=== PATIENT | female | born 1960 | race Caucasian/White ===

== ENCOUNTER → 2017-10-26 16:30 | Outpatient (CLI) | payer SELFPAY ==
--- NOTE | 2017-10-26 16:32 | US_ITS ---
STUDY: RENAL ULTRASOUND - COMPLETE REASON FOR EXAM: Female, 57 years old. Urinary frequency, flank pain TECHNIQUE: Ultrasound evaluation of the kidneys was performed with real-time and static jones-scale imaging. COMPARISON: None. FINDINGS: RIGHT KIDNEY: Normal location of the right kidney, which is normal in size. The right kidney measures 11.1 x 4.9 x 4.7 cm. There is a normal cortex of the right kidney. The renal cortex measures 1.6 cm. There is no right renal mass or cyst. There are no right renal calculi. There is no right hydronephrosis. DISTAL RIGHT URETER: There is non-visualization of the distal right ureter. There is a visualized right ureteral jet. LEFT KIDNEY: Normal location of the left kidney, which is normal in size. The left kidney measures 11.0 x 4.6 x 4.8 cm. There is a normal cortex of the left kidney. The renal cortex measures 2.0 cm. There is no left renal mass or cyst. There are no left renal calculi. There is no left hydronephrosis. DISTAL LEFT URETER: There is non-visualization of the distal left ureter. There is a visualized left ureteral jet. BLADDER: The partially distended urinary bladder has a volume of 46 ml. No postvoid residual. There is a normal wall thickness of the distended urinary bladder. There is no demonstrated mass within the urinary bladder. There are no demonstrated bladder calculi. US/Kidney and Bladder IMPRESSION: Normal ultrasound of the kidneys and urinary bladder. Electronically Signed: Jimmy Feng DO at 18:15 EST Tel [phone], Service support ,
== END ==
PROVIDERS: Family Provider Family Medicine; PCP Family Medicine; Visit Provider Family Medicine
DX: R35.0 Frequency of micturition (principal)
CPT/HCPCS: 76770

== ENCOUNTER 2018-07-05 11:30 | Outpatient (RCR) | payer OTHER, SELFPAY | END 2018-07-13 23:59 | LOC: NS 11:30 | PROVIDERS: Family Provider Family Medicine; PCP Family Medicine; Visit Provider Family Medicine | DX: E66.9 Obesity, unspecified (principal); Z68.35 Body mass index [BMI] 35.0-35.9, adult; R73.9 Hyperglycemia, unspecified; Z71.3 Dietary counseling and surveillance | CPT/HCPCS: 97802; 97803 ==

== ENCOUNTER 2018-07-26 12:56 | Outpatient (RCR) | payer OTHER, SELFPAY | END 2018-08-12 23:59 | LOC: NS 12:56 | PROVIDERS: Family Provider Family Medicine; PCP Family Medicine; Visit Provider Family Medicine | DX: E66.9 Obesity, unspecified (principal); Z68.35 Body mass index [BMI] 35.0-35.9, adult; R73.9 Hyperglycemia, unspecified; Z71.3 Dietary counseling and surveillance | CPT/HCPCS: 97803 ==

== ENCOUNTER 2018-09-01 15:30 | Outpatient (RCR) | payer OTHER, SELFPAY ==
[2017-09-09 10:07] VITALS: BMI 32.9
== END 2018-09-12 23:59 ==
LOC: NS 15:30
PROVIDERS: Family Provider Family Medicine; PCP Family Medicine; Visit Provider Family Medicine
DX: E66.9 Obesity, unspecified (principal); Z68.35 Body mass index [BMI] 35.0-35.9, adult; R73.9 Hyperglycemia, unspecified; Z71.3 Dietary counseling and surveillance
CPT/HCPCS: 97803

== ENCOUNTER 2018-09-27 11:45 | Outpatient (RCR) | payer OTHER, SELFPAY ==
[2017-09-09 10:07] VITALS: BMI 32.9
== END 2018-10-13 23:59 ==
LOC: NS 11:45
PROVIDERS: Family Provider Family Medicine; PCP Family Medicine; Visit Provider Family Medicine
DX: E66.9 Obesity, unspecified (principal); Z68.35 Body mass index [BMI] 35.0-35.9, adult; R73.9 Hyperglycemia, unspecified; Z71.3 Dietary counseling and surveillance
CPT/HCPCS: 97803

== ENCOUNTER → 2018-10-20 13:23 | Outpatient (CLI) | payer OTHER, SELFPAY ==
[2017-09-09 10:07] VITALS: BMI 32.9
[2018-10-20 15:04] LABS: Thyroid Stim Hormone (TSH) 4.37 uIU/mL (0.358-3.74)
== END ==
PROVIDERS: Family Provider Family Medicine; PCP Family Medicine; Referring Provider Physician Assistant; Visit Provider Physician Assistant
DX: E03.9 Hypothyroidism, unspecified (principal)
CPT/HCPCS: 36415; 84443

== ENCOUNTER 2018-10-27 16:29 | Outpatient (RCR) | payer OTHER, SELFPAY ==
[2017-09-09 10:07] VITALS: BMI 32.9
== END 2018-11-10 23:59 ==
LOC: NS 16:29
PROVIDERS: Family Provider Family Medicine; PCP Family Medicine; Visit Provider Family Medicine
DX: E66.9 Obesity, unspecified (principal); Z68.35 Body mass index [BMI] 35.0-35.9, adult; R73.9 Hyperglycemia, unspecified; Z71.3 Dietary counseling and surveillance
CPT/HCPCS: 97803

== ENCOUNTER 2019-01-02 12:00 | Outpatient (RCR) | payer OTHER, SELFPAY ==
[2017-09-09 10:07] VITALS: BMI 32.9
[2018-11-30 16:07] VITALS: BMI 35.2
== END 2019-01-02 13:55 | disposition home or self-care (01) ==
LOC: NS 12:00
PROVIDERS: Family Provider Family Medicine; PCP Family Medicine; Visit Provider Family Medicine
DX: E66.9 Obesity, unspecified (principal); R73.9 Hyperglycemia, unspecified; Z71.3 Dietary counseling and surveillance; Z68.35 Body mass index [BMI] 35.0-35.9, adult
CPT/HCPCS: 97803

== ENCOUNTER 2019-02-27 12:41 | Day surgery (SDC) | payer OTHER, SELFPAY ==
[2018-11-30 16:07] VITALS: BMI 35.2
--- NOTE | 2019-02-26 21:19 | HP.PCM_ITS ---
History and Physical Date of Admission: 02/27/19 Jacqueline Reynoso 1960 ? ? REFERRING PHYSICIAN: Cristian Velasquez MD ? CHIEF COMPLAINT: Consult (Colonoscopy consult) ? HPI: The patient is a 58 year old female presents for consideration of colonoscopy for screening for colon cancer. She states that she has had change in bowel habits recently, noted alternating constipation with diarrhea, though she was on antibiotics for UTI. Denies blood in stools. Notes generalized abdominal pain at times. Denies previous colonoscopy. No known colon cancer in family. Denies weight loss ? ? PAST MEDICAL HISTORY ? Asthma ? ? Hyperopia ? ? Seasonal allergies ? ? Thyroid activity decreased ? ? Vocal cord paralysis ? ? PAST SURGICAL HISTORY ? SECTION HX ? 10/04/2000 ? FOOT SURGERY HX ? 1976 ? x2 ? LARYNGOPLASTY - LASER CORDOTOMY ? ? ? ROTATOR CUFF REPAIR ? 2004 ? THYROIDECTOMY ? Current Outpatient Medications: levothyroxine (SYNTHROID) 100 mcg ORAL tablet Take 100 mcg by mouth once daily. ciprofloxacin HCl (CIPRO) 500 mg tablet Take 500 mg by mouth twice daily. peg 3350-electrolytes (COLYTE) 240-22.72-6.72 -5.84 gram solution Take 4,000 mL by mouth one time only for 1 dose. FLUoxetine (PROZAC) 20 mg capsule 40 mg. amoxicillin-clavulanic acid (AUGMENTIN) 875-125 mg per tablet Take 1 tablet by mouth twice daily. levothyroxine (SYNTHROID) 50 mcg tablet 50 mcg daily before breakfast. Sundays only citalopram 20 mg ORAL tablet Take 20 mg by mouth once daily. ? ? ALLERGIES: Augmentin [Amoxicillin-Pot Clavulanate]; Seasonal Allergies ? PERSONAL HISTORY: Social History Socioeconomic History Marital status: Unknown Spouse name: Not on file Number of children: Not on file Years of education: Not on file Highest education level: Not on file Social Needs Financial resource strain: Not on file Food insecurity - worry: Not on file Food insecurity - inability: Not on file Transportation needs - medical: Not on file Transportation needs - non-medical: Not on file Occupational History Not on file Tobacco Use Smoking status: Former Smoker Packs/day: 0.30 Years: 8.00 Pack years: 2.4 Types: Cigarettes Quit date: 01/03/1993 Years since quittin.0 Smokeless tobacco: Never Used Substance and Sexual Activity Alcohol use: Yes Comment: occasionally Drug use: Not on file Sexual activity: Not on file Other Topics Concerns: Not on file Social History Narrative Not on file ? FAMILY HISTORY ? Cataract Mother ? ? Breast Cancer Sister ? ? breast ? Cancer Sister ? ? heart ? ? REVIEW OF SYSTEMS: General - denies fevers Cardiovascular - denies chest pain Pulmonary - denies shortness of breath, denies coughing up blood Gastrointestinal - see HPI Neurological - denies seizures Genitourinary - denies blood in urine Hematological - denies spontaneous/prolonged bleeding Skin - denies nonhealing skin wounds Musculoskeletal - denies chronic joint/back pain Endocrine - has hypothyroidism, denies diabetes Psychological ? denies hallucinations ? PHYSICAL EXAMINATION: General: The patient is 58 year old female, well nourished, well hydrated in no acute distress. The patient is oriented to time, place, and person. VITALS: Ht: 5'2 Wt: 198# Head ? Normocephalic. EOM intact with sclera clear and no icterus noted. Wearing glasses. Mouth with mucus membranes moist. Neck - supple with no jugular venous distention noted. Trachea is midline. No masses noted. Lungs ? clear to auscultation. Normal breath sounds. No rales/rhonchi/wheezing noted. No labored breathing noted, such as retractions. Heart ? normal S1 and S2 auscultated. No rubs/clicks/murmurs noted. Regular rate . Abdomen ? soft and benign. Normal bowel sounds. No abdominal bruits noted. Extremities ? no pitting edema noted. Skin ? normal skin integrity. Neurological ? gait normal, no focal deficits noted. Psych ? calm and appropriate ? IMPRESSION: screening for colon cancer ? PLAN: I have discussed the above with the patient. I have offered colonoscopy, possible biopsies I have explained the procedure to the patient. I have counseled the patient as to the risks of the procedure, including but not limited to: infection, bleeding, perforation of the GI tract, injury to any intraabdominal organs such as the liver/spleen, inability to complete the procedure, complications of anesthesia, etc. ? the patient understands. The patient wishes to proceed. I have answered all questions to the patient?s satisfaction and the patient has no further questions.
[2019-02-27] VITALS (7 sets, daily range): BP systolic 133–180; BP diastolic 67–106; PULSE 62–88; RESP 16–18; TEMP 35.9–36.3; O2SAT 94–100; BMI 34.1
--- NOTE | 2019-02-27 15:53 | OP.ENDO_ITS ---
02/27/2019 Cristian Velasquez Md Re : Colonoscopy procedure for Jacqueline Reynoso Dear Eva This procedure was performed on Wednesday, February 27, 2019. My impressions and recommendations are as follows: Impressions : - There was significant looping of the colon. - Diverticulosis in the sigmoid colon. - No specimens collected. Recommendations : - Discharge patient to home (ambulatory). - Clear liquid diet. - Continue present medications. - Perform an air contrast barium enema. - Repeat colonoscopy is recommended if cannot clear by ACBE. The colonoscopy date will be determined after ACBD results available for review. My findings are described in the full procedure note, which is enclosed. If I can be of further assistance, please feel free to contact me at Doctor phone number(s): , Work: . Sincerely, MD Ina Delatorre MD 02/27/2019 3:52:37 PM This report has been signed electronically.
== END 2019-02-27 17:02 | disposition home or self-care (01) ==
LOC: EN 12:43 → AC 12:44
PROVIDERS: Family Provider Family Medicine; PCP Family Medicine; Referring Provider Surgery; Visit Provider Surgery
PROC: 0DJD8ZZ Inspection of Lower Intestinal Tract, Via Natural or Artificial Opening Endoscopic (ICD-10-PCS; CPT 45378; principal; 2019-02-27 13:40)
DX: Z12.11 Encounter for screening for malignant neoplasm of colon (principal); K57.30 Diverticulosis of large intestine without perforation or abscess without bleeding; K56.2 Volvulus; J38.01 Paralysis of vocal cords and larynx, unilateral; J45.909 Unspecified asthma, uncomplicated; E89.0 Postprocedural hypothyroidism; F32.9 Major depressive disorder, single episode, unspecified; F41.9 Anxiety disorder, unspecified; Z79.899 Other long term (current) drug therapy; Z87.891 Personal history of nicotine dependence
CPT/HCPCS: 45378; J7120

== ENCOUNTER → 2019-02-28 13:00 | Outpatient (CLI) | payer OTHER, SELFPAY ==
[2019-02-27 13:06] VITALS: BMI 34.1
--- NOTE | 2019-02-28 13:30 | RAD_ITS ---
STUDY: BARIUM ENEMA. REASON FOR EXAM: Female, 58 years old. Incomplete colonoscopy. FLUOROSCOPY TIME (if supplied): (2:24) minutes/seconds. 15 images were obtained. TECHNIQUE: A cpc film was obtained. Following this, barium was introduced retrograde through the colon. Entire colon was opacified. COMPARISON: None. FINDINGS: The sigmoid colon is redundant. There is evidence of thickening of the sigmoid colon with diffuse sigmoid diverticulosis. No radiographic evidence of diverticulitis at this time. There is no evidence of antegrade or retrograde obstruction to the flow of contrast. RAD/Barium Enema No Air Cont IMPRESSION: Diffuse thickening of the sigmoid colon with the diverticulosis. No radiographic evidence of diverticulitis at this time. Electronically Signed: Felipe Simth, at 15:46 EDT , Service support ,
== END ==
PROVIDERS: Family Provider Family Medicine; PCP Family Medicine; Referring Provider Surgery; Visit Provider Surgery
DX: K57.30 Diverticulosis of large intestine without perforation or abscess without bleeding (principal)
CPT/HCPCS: 74270

== ENCOUNTER → 2019-05-18 16:35 | Outpatient (CLI) | payer OTHER, SELFPAY ==
[2019-02-27 13:06] VITALS: BMI 34.1
--- NOTE | 2019-05-18 16:38 | BI_ITS ---
MAMMOGRAPHY - BILATERAL SCREENING REASON FOR EXAM: Female, 58 years old. Routine annual screening examination. PERTINENT HISTORY: Sister with breast cancer. Aunt with breast cancer. TECHNIQUE: Digital bilateral breast geoff (3D mammographic acquisition) in the CC and MLO projections. 2-D mediolateral oblique (MLO) and craniocaudad (CC) views of both breasts were obtained. CAD: Full Field Digital Mammography with Computer Added Detection was performed. COMPARISON: Comparison is made with prior osseous examination dated August 13, 2015. FINDINGS: Breast Composition: There are scattered areas of fibroglandular density. There are no dominant masses or suspicious calcifications. Stable small benign-appearing bilateral axillary lymph nodes. No other significant abnormalities are identified. There has been no significant change since the prior study. BI/SCREEN MAMM (CAD) W/GEOFF BILAT IMPRESSION: Stable bilateral screening mammogram. Yearly follow-up mammogram recommended. (A) ASSESSMENT CATEGORY: BIRADS Category 2: Benign. A letter regarding these results will be sent to the patient by the facility within 30 days. Approximately 10% of breast cancers are not detected by mammography. A normal mammogram should not delay biopsy of a clinically suspicious abnormality. [id number] Electronically Signed: Felipe Smith, at 9:09 EDT , Service support ,
== END ==
PROVIDERS: Family Provider Family Medicine; PCP Family Medicine; Referring Provider Family Medicine; Visit Provider Family Medicine
DX: Z00.01 Encounter for general adult medical examination with abnormal findings (principal); Z12.31 Encounter for screening mammogram for malignant neoplasm of breast
CPT/HCPCS: 77063; 77067

== ENCOUNTER 2019-08-21 19:44 | Emergency (ER) | payer OTHER, SELFPAY ==
[2019-06-30 15:33] VITALS: BMI 34.1
[2019-08-21 19:46] VITALS: BP 160/79; PULSE 60; RESP 16; TEMP 36.1; O2SAT 98; BMI 35.0
[2019-08-21 20:47] VITALS: BP 155/70; PULSE 62; RESP 16; O2SAT 98
[2019-08-21] MEDS: Lidocaine/Epi/Tetracaine 50 ML 1 APPLIC TOPICAL (21:34)
--- NOTE | 2019-08-21 22:40 | ED.VISSUMM ---
- ER Visit Summary Date of Service: 08/21/19 Chief Complaint: [Laceration to right ear] History of Present Illness: The patient is a 59 F [[place]entz to the emergency department with a laceration to right ear that occurred prior to arrival in the emergency department today. Patient states that she was on the ground looking for a ball that belonged to her dog. Her dog was next to her and happened to jump and land on her right ear with its pause. The dog weighs about 50 pounds. Patient sustained a small laceration to the back of her ear. She is unsure of her last tetanus. Patient has no medical history.] Physical Examination: [HEENT-PERRLA, EOMI. Cranial nerves II through XII grossly intact. TMs clear. Mucous membranes moist. No adenopathy. Right ear-there is a 2 cm laceration at the base of the posterior aspect of the right ear where it meets the head. No evidence of cartilage involvement. No foreign bodies noted within the wound. Cardiovascular-regular rate and rhythm without murmur or ectopy Lungs-clear to auscultation, chest wall stable without crepitus or subcu emphysema Abdomen-normoactive bowel sounds, soft, nontender, no rebound or rigidity, no peritoneal signs. Extremities-intact ?4, normal range of motion, normal pulses, atraumatic] Test Results: [None indicated] Emergency Department Course and Treatment: [Let solution was applied to the wound. Suture repair-area sterilely draped and prepped. Wound cleansed with Shur-Clens and irrigated with copious saline. Using 6-0 nylon a total of 3 single interrupted sutures placed with good wound edge approximation. Patient tolerated procedure well.] Treatment Plan: [Follow-up with primary care physician for suture removal in 7 to 10 days. Patient to return if increasing pain, redness, swelling, purulent drainage, or conditions worsen anyway.] Disposition: [Discharged home in stable condition.] Impression: [Right ear laceration-simple repair] This note was generated with [employer] dictation software. It may contain incorrect words, spelling, and punctuation that were not noted in review of the chart prior to signing ED Disposition - Plan for ED Patient: Referrals: Cristian Velasquez MD [Primary Care Provider] -
--- NOTE | 2019-08-21 22:43 | ED.DEP ---
ED Disposition - Plan for ED Patient: Instructions: LACERATION, Face (Suture or Tape) Referrals: Cristian Velasquez MD [Primary Care Provider] - 10 Day for suture removal
[2019-08-21] MEDS: Diphth,Pertuss(Acell),Tet Vac 0.5 ML Vial IM (23:00)
== END 2019-08-21 23:06 | disposition home or self-care (01) ==
PROVIDERS: Emergency Provider Emergency Medicine; Family Provider Family Medicine; PCP Family Medicine
DX: S01.311A Laceration without foreign body of right ear, initial encounter (principal); W54.1XXA Struck by dog, initial encounter; Y93.89 Activity, other specified
CPT/HCPCS: 12011; 90471; 90715; 99283

== ENCOUNTER → 2019-08-29 13:02 | Outpatient (CLI) | payer OTHER, SELFPAY ==
[2019-08-21 19:46] VITALS: BMI 35.0
--- NOTE | 2019-08-29 13:06 | RAD_ITS ---
HISTORY: HISTORY: CONTINUED LEFT HAND AND WRIST PAIN S/P INJURY 10 DAYS AGO XR Hand 2 Views COMPARISON: None FINDINGS: # of images incl. paperwork: 3 3 views of the left hand. Findings: No fracture or subluxation. No soft tissue abnormality. Osteoarthritis is severe at the first carpometacarpal joint. There is bony erosions osteophyte loss of joint space and lateral subluxation of the first metacarpal on the trapezium. No radiopaque foreign body. RAD/Hand 2 Views IMPRESSION: No evidence of acute injury to the left hand. First carpometacarpal joint osteoarthritis. at 2225 Reported and signed by: Ehsan Bond MD Electronically Signed: Ehsan Bond MD at 22:24 EST Tel , Service support ,
--- NOTE | 2019-08-29 13:11 | RAD_ITS ---
HISTORY: CONTINUED LEFT HAND AND WRIST PAIN S/P INJURY 10 DAYS AGO COMPARISON: None FINDINGS: # of images incl. paperwork: 2 No fracture or subluxation. soft tissue abnormality. The trapezium demonstrate severe arthritis with bony remodeling, osteophytes, and sclerosis. The proximal end of the first metacarpal also demonstrates loss of joint space, cortical sclerosis, bony remodeling, and osteophytes. The first metacarpal is laterally subluxed on the trapezium. The distal radius and ulna are unremarkable. No evidence of radiopaque foreign body. RAD/Wrist 2 Views IMPRESSION: Osteoarthritis at the first carpometacarpal joint. at 2226 Reported and signed by: Ehsan Bond MD Electronically Signed: Ehsan Bond MD at 22:25 EST Tel , Service support ,
== END ==
PROVIDERS: Family Provider Family Medicine; PCP Family Medicine; Referring Provider Physician Assistant; Visit Provider Physician Assistant
DX: M79.642 Pain in left hand (principal); M25.532 Pain in left wrist
CPT/HCPCS: 73100; 73120

== ENCOUNTER → 2019-10-30 13:23 | Outpatient (CLI) | payer OTHER, SELFPAY ==
[2019-10-30 13:14] VITALS: BMI 35.0
--- NOTE | 2019-10-30 13:24 | RAD_ITS ---
STUDY: X-RAY - RIGHT SHOULDER REASON FOR EXAM: Arm tingling, numbness. TECHNIQUE: 4 view(s) of the shoulder. COMPARISON: None. FINDINGS: Normal glenohumeral articulation. Normal acromioclavicular joint. Normal acromion. There is a small cyst in the humeral head. The soft tissue structures are unremarkable. Normal visualized pulmonary apex. RAD/Shoulder min 2 Views IMPRESSION: Small cyst in the humeral head. Otherwise, unremarkable x-ray examination of the right shoulder. Electronically Signed: Magen Weiner MD at 10:16 EST Tel , Service support ,
--- NOTE | 2019-10-30 13:24 | RAD_ITS ---
STUDY: X-RAY - CERVICAL SPINE REASON FOR EXAM: Female, 59 years old. arm tingling, numbness TECHNIQUE: 6 view(s) of the cervical spine were obtained. COMPARISON: None FINDINGS: Normal anterior atlantoaxial articulation. Normal odontoid process. Normal cervical lordosis. There is multi-level endplate spondylosis. There is multi-level degenerative disc disease with multilevel disc space narrowing. There is multi-level osseous foraminal stenosis. The soft tissue structures are unremarkable. There is no demonstrated fracture of the cervical spine. RAD/Cerv Spine 4 or 5 Views IMPRESSION: Moderate multilevel degenerative disc disease. Electronically Signed: Joshua Leal DO at 10:18 EST Tel , Service support ,
== END ==
PROVIDERS: PCP Family Medicine; Referring Provider Orthopaedic Surgery; Visit Provider Orthopaedic Surgery
DX: M25.511 Pain in right shoulder (principal); R20.0 Anesthesia of skin; R20.2 Paresthesia of skin
CPT/HCPCS: 72050; 73030

== ENCOUNTER 2019-11-16 15:14 | Emergency (ER) | payer OTHER, SELFPAY ==
[2019-10-30 13:14] VITALS: BMI 35.0
[2019-11-16 15:15] VITALS: BP 159/92; PULSE 90; RESP 16; TEMP 36.8; O2SAT 98; BMI 35.5
--- NOTE | 2019-11-16 15:49 | RAD_ITS ---
STUDY: X-RAY - RIGHT SHOULDER REASON FOR EXAM: Female, 59 years old. PAIN S/P FALL. -- HX RIGHT ROTATOR CUFF ISSUES TECHNIQUE: 4 view(s) of the shoulder. COMPARISON: None. FINDINGS: Normal glenohumeral articulation. There is degenerative arthrosis of the acromioclavicular joint without inferior osseous spur formation. Normal acromion. Normal humeral head and visualized proximal humerus. The soft tissue structures are unremarkable. There is no demonstrated fracture. Normal visualized pulmonary apex. RAD/Shoulder min 2 Views IMPRESSION: No acute fracture or dislocation. Degenerative changes of the AC joint. Electronically Signed: Husam Vuong MD at 16:27 EST , Service support ,
--- NOTE | 2019-11-16 15:50 | ED.VIS.FALL ---
History of Present Illness Chief Complaint: Fall Informant: Patient Occurred: Hours - 1 Mechanism/Context: Same level fall Usually ambulates: Without assistance Location: R upper arm/shoulder and neck Quality of Pain: Aching Current Severity: Mild Maximum Severity: Severe Worsened by: abducting RUE Relieved by: remaining still Associated Symptoms: Parasthesias, Weakness, Loss of function - transiently, for 1-2 min. 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 She states she was trying to grab a stool on wheels so that she could sit on it, but it started rolling backward on her, she maintained her hand on the stool as it rolled backwards and hit into a counter, her right upper extremity was extended at the elbow, braced on the stool with her hand, and extended behind her. She did not directly injure her arm against the counter, but when the stool hit into it, she had sudden pain in her rhomboid/trapezius area on the right, and down the distribution of her right upper arm from her shoulder to almost her elbow, and sudden onset of numbness and weakness. She states that the arm was completely , she describes painful [id number] throughout, no part of her arm was spared including all of her fingers. She states this lasted from 1 to 2 minutes, and gradually resolved. Now she just has soreness in the aforementioned areas but the neurologic symptoms are resolved. She is right-hand dominant. She has had some pre-existing issues in her right upper extremity with regards to her rotator cuff, and has been doing physical therapy for that. She states this was different than that pain though. - Past Medical History (1) Degenerative joint disease of cervical spine Status: Chronic Past Medical History - Allergies and Home Meds Allergies/Adverse Reactions: Allergies amoxicillin [From Augmentin] Allergy (Severe, Verified 11/16/19 15:19) unknown clavulanic acid [From Augmentin] Allergy (Severe, Verified 11/16/19 15:19) unknown Primary Care Physician: [facility] OF PHYSICIANS] - 3-5 Days if not improving Lives: Alone Smoking Status: Former smoker Drugs: None Review of Systems Eyes: Denies: Visual changes - bilaterally, Diplopia Musculoskeletal: Reports: Neck pain, Extremity Pain. Denies: Back pain Neurological: Reports: Weakness - see HPI, Parasthesia - see HPI, Numbness - see HPI. Denies: Headache Physical Exam Vital Signs/Narrative: Vital Signs Temp Pulse Resp BP Pulse Ox 11/16/19 15:15 98.3 F 90 16 159/92 H 98 Inital Vital Signs reviewed: Yes General: Well nourished, Well developed Head: Normocephalic, Atraumatic Eyes: Perrl, EOMI Back: Paraspinal Tenderness - right trapezius/rhomboids muscular tenderness. Negative for: Spinal Tenderness Extremeties: Patient has full range of motion to the right elbow and shoulder. Initially when abducting the shoulder, she has pain at around 95 degrees and stops. However when she raises up/in flexion, she can raise it fully up over her head. There is no specific bony neck or shoulder tenderness, or in the right humerus. Negative Tinel's at the ulnar nerve tunnel at the elbow. No subacromial tenderness. Skin: Normal color, No rash, No Trauma Neurological: Alert, Oriented x3, Cranial nerves II-XII grossly intact, Normal Strength, Normal Sensation, Normal Gait Psychological: Normal affect, Normal Mood Diagnostic/Tx/Re-eval Clinical Impression(s) from Imaging Studies Shoulder X-Ray 11/16/19 15:49 IMPRESSION: No acute fracture or dislocation. Degenerative changes of the AC joint. Electronically Signed: Husam Vuong MD at 16:27 EST , Service support , Cervical Spine X-Ray 11/16/19 16:05 IMPRESSION: No acute abnormality. Degenerative changes as above. Electronically Signed: Husam Vuong MD at 16:27 EST , Service support , - Medical Decision Making X-rays of the shoulder and neck were obtained and showed no acute abnormalities, consistent with a neurapraxia along with a muscle strain. Since her entire right upper extremity was numb and weak, my suspicion is that she could have injured the brachial plexus. It is likely not permanently injured since her symptoms resolved within 1-2 minutes, consistent with a neurapraxia. She was given appropriate discharge instructions, along with avoiding movements that make the pain/symptoms worse, and following up for repeat evaluation after the weekend. ED Disposition - Plan for ED Patient: Disposition: Home or Assisted Living Diagnosis: Neurapraxia of right upper extremity, Strain of right trapezius muscle Instructions: Paraesthesias Referrals: [facility] [[facility] PHYSICIANS] - 3-5 Days if not improving Additional Instructions: Possibility of brachial plexus neuropraxia in addition to muscular strain. Use pain is your diet and limit overhead motions if they are painful. Follow-up if your symptoms persist. It is okay to use ibuprofen and/or Tylenol as needed for soreness/pain, in addition to applying either heat or ice, whichever helps is okay.
--- NOTE | 2019-11-16 16:05 | RAD_ITS ---
STUDY: X-RAY - CERVICAL SPINE REASON FOR EXAM: Female, 59 years old. PAIN S/P FALL. -- HX RIGHT ROTATOR CUFF ISSUES TECHNIQUE: 3 view(s) of the cervical spine were obtained. COMPARISON: None FINDINGS: Normal anterior atlantoaxial articulation. Normal odontoid process. There is straightening of the normal cervical lordosis. There is 3 mm retrolisthesis of C5. Otherwise normal alignment. Mild degenerative disc disease at C4-C5. Moderate degenerative disc disease at C5-C6 and C6-C7. The soft tissue structures are unremarkable. There is no demonstrated fracture of the cervical spine. RAD/Cerv Spine 2 or 3 Views IMPRESSION: No acute abnormality. Degenerative changes as above. Electronically Signed: Husam Vuong MD at 16:27 EST , Service support ,
== END 2019-11-16 16:56 | disposition home or self-care (01) ==
PROVIDERS: Emergency Provider Emergency Medicine; PCP Family Medicine
DX: S44.91XA Injury of unspecified nerve at shoulder and upper arm level, right arm, initial encounter (principal); S29.012A Strain of muscle and tendon of back wall of thorax, initial encounter; W01.10XA Fall on same level from slipping, tripping and stumbling with subsequent striking against unspecified object, initial encounter; Z87.891 Personal history of nicotine dependence
CPT/HCPCS: 72040; 73030; 99282

== ENCOUNTER 2019-12-04 10:00 | Outpatient (RCR) | payer OTHER, SELFPAY ==
[2019-10-30 13:14] VITALS: BMI 35.0
--- NOTE | 2019-11-06 20:04 | HP.PTEVAL ---
Patient's Visit Information SHIVANI BRYSON is a 59 year old F referred to Physical Therapy by Cristian Kumar DO with a diagnosis of CERVICAL DDD,RIGHT RTC INFLAMMATION. Date of Evaluation: 11/06/19 Physical Therapist: Feliciano Hurd, PT, Cert MDT, OCS - Visit Plan Frequency: 2x /Week Duration: 4 Weeks Plan: PT INTERVENTION RTC/SCAPULAR EX'S,POSTURALS EX'S ,MANUAL THERAPY CERVICAL,MODALTIES INCLUDED ICTX 15# -20# X15MIN - Subjective Findings: This 59 y/o female presents to physical therapy with neck and shoulder pain. Patient has shoulder pain and cervical pain for many years. Patient had injurying right bicep torn very young proximal tendon. Patient has right cervical pain and lateral /bicep region arm pain. Seen DR Lux did x-rays of cervical spine DDD and shoulder . Aggravating factors with shoulder raising or lifting OH ,reaching behind back ,putting on coat ,pushing with arm. Symptoms affects sleeping when laying on it. Allevaiting factor rest but occassionally when I rest sharp pain. Denies parathesia/tingling. Bowel/bladder - Cervical pain worse with turning neck to right side ,like driving but radiates to right cervical /ut. Allevating factors rest. Patient symptoms affects ability to perform job demamds,ADL'S and housework tasks. Patient symptoms affects QOL. SOCAIL: . VOCATION: My [employer] [facility] [place] - Pain Right Neck Pain Intensity (Out of 10): 6 Pain Intensity Range: 10 Right Shoulder Pain Intensity (Out of 10): 6 Pain Intensity Range: 10 - Objective POSTURE: rounded shoulders head foward. NEURO: denies parathesia/tingling ,reflexes AC5-6-7 2/3,. PALAPTION: tender UT/levator ,AC. AROM: shoulder flexion 150 degrees ,abduction 130 degrees pain,ER 80 degrees ,IR behind back L1 PAIN. CERVICAL ROM: flexion min loss,extension min loss ,retraction min loss mild symptoms UT,. rotaion/lateral flexion min/mod loss right with mild pain. MMT: supraspinatous/subscapularis pain with weakness,infraspiantous 4/5 ,deltoid 4-5/lateral 3+/5 pain - Special Tests C/S Radiculapathy - Left Upper limb tension test: Negative C/S Radiculapathy - Right Upper limb tension test: Negative C/S Radiculapathy - Left Spurlings: Negative C/S Radiculapathy - Right Spurlings: Positive C/S Radiculapathy - Left Cervical distraction: Negative C/S Radiculapathy - Right Cervical distraction: Negative C/S Radiculapathy - Left Relief test: Negative C/S Radiculapathy - Right Relief test: Negative C/S Radiculapathy - Valsalva: Negative Sharp Sheryl: Negative Vertebral Artery Test: Negative Alar Ligament Test: Negative R Shoulder External Rotation Lag Test - RC Tear: Negative R Shoulder Supine Impingement Test - RC Tear: Negative R Shoulder Lift Off Test - Subscapular Tear: Positive R Shoulder Drop Sign - IS Test: Negative R Shoulder Empty Can - SS: Positive R Shoulder Belly Press - SupScap: Positive R Shoulder Neer - Impingement: Negative R Shoulder Rodriguez Brett - Impingement: Negative R Shoulder Biceps Load Test - Labrum: Negative R Shoulder Speeds Test - Labrum/Biceps: Positive R Shoulder Shrug Sign - OA/Adhesive Capsulitis: Negative - Goals Goal 1:: Independant with HEP Goal Time Frame: 4-6 Weeks Goal 2:: Improve posture for ADL'S Goal Time Frame: 4-6 Weeks Goal 3:: Decrease cervical and shoulder pain by 50 % of the time with ADLS' and housework /job demands. Goal Time Frame: 4-6 Weeks Goal 4:: Patient to increase cervical ROM for function of recovery Goal Time Frame: 4-6 Weeks Goal 5:: Patient increase right shoulder strength to 4/5 RTC and deltoid to improve function with ADLS' Goal Time Frame: 4-6 Weeks Goal 6:: Patient to improve quick dash by 5 point or > to improve QOL Goal Time Frame: 4-6 Weeks - Rehabilitation Potential Physical Therapy Diagnosis: This patient has pain right bicep tendon with + sign with special tests,h/o torn bicep tendon ,pain with impingement with empty cane ,subsacpularis aalong with + sign with cervical spurling to right thus impairs ADLS' and job demands Rehabilitation Potential: Good - Anticipated Interventions Patient/Client Instruction: Educate patient on: Condition, Plan of Care For the Purpose of:: To decrease pain, To increase ROM, To improve muscle performance and motor function, To improve ability to perform ADL's, To increase tolerance to activity/condition/position, To improve performance and independence with ADL's, To improve ability of physical actions for home/community/work/leisure, To improve health of tissue, To decrease soft tissue restriction, To increase flexibility/ROM, To reduce risk of recurrence, To improve ability to perform tasks related to life management Therapeutic Exercise to Include: Strength training, Postural training, Flexibilty training, Dynamic Lumbar Stabilization Comment: RTC For the Purpose of:: To decrease pain, To increase ROM, To improve muscle performance and motor function, To improve ability to perform ADL's, To increase tolerance to activity/condition/position, To improve ability of physical actions for home/community/work/leisure, To improve health of tissue, To decrease soft tissue restriction, To increase flexibility/ROM, To reduce risk of recurrence, To improve ability to perform tasks related to life management Manual Therapy Techniques to Include: Mobilization Comment: CERVICAL TRACTION For the Purpose of:: To decrease pain, To increase ROM, To improve health of tissue, To decrease soft tissue restriction, To increase flexibility/ROM TENS: Yes IF ES: Yes Cryotherapy (ice pack, ice massage): Yes Thermo therapy (hot pack): Yes Ultrasound (thermal/non thermal): Yes For the Purpose of:: To decrease pain, To increase ROM, To improve nutrient delivery to tissue, To increase oxygenation perfusion, To improve health of tissue, To decrease soft tissue restriction Thank you for the opportunity to evaluate your patient. For Medicare and Medicare HMO plans, please review the plan of care and approve it. It will need to be FAXED BACK to us at [phone] for Medicare purposes. For Medicare only, by signing this I certify the plan of care. Please let me know if there are questions or concerns regarding this plan of care. Physician Signature: Date:
--- NOTE | 2020-04-24 10:20 | HP.PT.NRP ---
SHIVANI BRYSON was seen in my office for initial evaluation on 11/06/19. The following Plan of Care was established for this patient: Initial Frequency: 2x /Week Initial Duration: 4 Weeks Patient/Client Instruction: Educate patient on: Condition, Plan of Care For the Purpose of:: To decrease pain, To increase ROM, To improve muscle performance and motor function, To improve ability to perform ADL's, To increase tolerance to activity/condition/position, To improve performance and independence with ADL's, To improve ability of physical actions for home/community/work/leisure, To improve health of tissue, To decrease soft tissue restriction, To increase flexibility/ROM, To reduce risk of recurrence, To improve ability to perform tasks related to life management Therapeutic Exercise to Include: Strength training, Postural training, Flexibilty training, Dynamic Lumbar Stabilization For the Purpose of:: To decrease pain, To increase ROM, To improve muscle performance and motor function, To improve ability to perform ADL's, To increase tolerance to activity/condition/position, To improve ability of physical actions for home/community/work/leisure, To improve health of tissue, To decrease soft tissue restriction, To increase flexibility/ROM, To reduce risk of recurrence, To improve ability to perform tasks related to life management Manual Therapy Techniques to Include: Mobilization Comment: CERVICAL TRACTION For the Purpose of:: To decrease pain, To increase ROM, To improve health of tissue, To decrease soft tissue restriction, To increase flexibility/ROM TENS: Yes IF ES: Yes Cryotherapy (ice pack, ice massage): Yes Thermo therapy (hot pack): Yes Ultrasound (thermal/non thermal): Yes For the Purpose of:: To decrease pain, To increase ROM, To improve nutrient delivery to tissue, To increase oxygenation perfusion, To improve health of tissue, To decrease soft tissue restriction This patient was last seen in our office 11/06/19. Pertinent comments regarding their Physical therapy will appear below: Patient seen for PT for cervical pain for US ,ICTX and cervical postural ex's thus is d/c At this point I will be discontinuing this patient from physical therapy. I would be happy to see this patient again in the future if found appropriate by the physician. Thank you! Feliciano Hurd, PT, Cert MDT, OCS
== END 2019-12-04 19:00 | disposition home or self-care (01) ==
LOC: PT 10:00
PROVIDERS: PCP Family Medicine; Referring Provider Orthopaedic Surgery; Visit Provider Orthopaedic Surgery
DX: M50.30 Other cervical disc degeneration, unspecified cervical region (principal); M60.811 Other myositis, right shoulder
CPT/HCPCS: 97012; 97014; 97110; 97162; G0283

== ENCOUNTER 2020-03-07 17:19 | Emergency (ER) | payer OTHER, SELFPAY ==
[2019-12-11 08:14] VITALS: BMI 35.5
[2020-03-07 17:20] VITALS: BP 172/110; PULSE 94; RESP 18; TEMP 36.6; O2SAT 96; BMI 35.8
[2020-03-07 17:41] VITALS: BP 185/102; PULSE 101; RESP 16; O2SAT 97
--- NOTE | 2020-03-07 17:44 | EKG12_ITS ---
Test Reason : HTN Blood Pressure : / mmHG Vent. Rate : 092 BPM Atrial Rate : 092 BPM P-R Int : 180 ms QRS Dur : 086 ms QT Int : 372 ms P-R-T Axes : 052 021 065 degrees QTc Int : 460 ms Normal sinus rhythm Normal ECG Confirmed by OSVALDO SCHMITT, RONI ([id number]), publishing editor GOMEZ HAYNES ([id number]) on 03/12/2020 11:15:15 AM Referred By: LINDSAY Confirmed By:RONI RILEY MD
--- NOTE | 2020-03-07 18:25 | ED.VIS.GEN ---
History of Present Illness Chief Complaint: Hypertension Informant: Patient Onset: Days Context: Gradual Onset Timing: Continuous Current Severity: Mild Maximum Severity: Mild Narrative: The patient is a 59-year-old female who is otherwise healthy that presents to the emergency department with elevated blood pressure. The patient has no history of hypertension. She states that she followed up with her doctor on Wednesday for a normal physical. She had lab work drawn and her blood pressure was 170 systolic in the office. She was counseled to monitor her blood pressure over the week. She states that she is been taking it frequently and her blood pressure is been about 1 70-1 80. She denies headache, visual change, chest pain, shortness of breath. She states she is otherwise been in her normal state of health. She denies fevers or chills. She is not on anticoagulants. Prior similar symptoms: No Recent Illness/Hospitalization: No Past Medical History - Allergies and Home Meds Allergies/Adverse Reactions: Allergies amoxicillin [From Augmentin] Allergy (Severe, Verified 03/07/20 17:22) unknown clavulanic acid [From Augmentin] Allergy (Severe, Verified 03/07/20 17:22) unknown Primary Care Physician: Cristian Velasquez MD [Primary Care Provider] - Prior records reviewed: Yes Past Medical History: - - Hypothyroidism Surgical History: noncontributory Smoking Status: Former smoker Review of Systems General: Denies: Chills, Fever, Sweats Eyes: Denies: Visual changes - bilaterally, Diplopia ENT: Denies: Rhinorrhea, Sore throat Cardiovascular: Denies: Chest pain, Palpitations Respiratory: Denies: Dyspnea, Cough, Dyspnea on exertion Gastrointestinal: Denies: Abdominal pain, Nausea, Vomiting, Diarrhea, Melena, Hematochezia Genitourinary: Denies: Dysuria, Hematuria, Frequency Musculoskeletal: Denies: Back pain, Extremity Pain Skin: Denies: Rash, Wounds Neurological: Denies: Headache, Weakness, Numbness Physical Exam Vital Signs/Narrative: Vital Signs Temp Pulse Resp BP Pulse Ox 03/07/20 17:41 101 H 16 185/102 H 97 03/07/20 17:20 97.9 F 94 18 172/110 H 96 Inital Vital Signs reviewed: Yes General: Well nourished, Well developed, No Acute Distress Head: Normocephalic, Atraumatic Eyes: Perrl, EOMI ENT: Moist mucous membranes, No rhinorrhea Neck: Supple, Nontender Cardiovascular: Regular rate, Regular rhythm, No murmurs Respiratory: No distress, CTA bilaterally, Chest nontender Abdomen: Soft, Nontender, Nondistended, Normal bowel sounds Back: Nontender, Normal Inspection Extremities: Nontender, No edema Skin: Normal color, No rash Neurological: Alert, Oriented x3, Cranial nerves II-XII grossly intact, Normal Strength, Normal Sensation Psychological: Normal affect, Normal Mood Diagnostic/Tx/Re-eval - Medical Decision Making I was able to review the patient's labs from Wednesday. Her renal function was normal. I did take an EKG just given her significant hypertension. This shows no evidence of acute ischemia. Again, she is had no symptoms of hypertensive emergency. She is had absolutely no chest pain or dyspnea. She is had normal lab work. I discussed the patient with Dr. Dobbs, on-call for her primary care. At this point, we are going to start the patient on low-dose lisinopril until she can be seen in the office next week. The patient is comfortable with this plan of care. Impression 1. Hypertension ED Disposition - Plan for ED Patient: Instructions: ED Hypertension New Begin Treatment Prescriptions: Lisinopril [Prinivil] 10 mg PO DAILY #30 tab Prescription Printed Referrals: Cristian Velasquez MD [Primary Care Provider] -
[2020-03-07 18:42] VITALS: BP 201/116; PULSE 95; RESP 16; O2SAT 96
--- NOTE | 2020-03-07 18:43 | ED.RN ---
PT TO GET PRESCRIPTION FOR LISINOPRIL FILLED UPON D/C. REVIEWED D/C INSTRUCTIONS, FOLLOW UP CARE, PRESCRIPTION, AND S/S THAT WOULD WARRANT A RETURN TO THE ED WITH PT. PT VERBALIZED AN UNDERSTANDING AND DENIES FURTHER QUESTIONS FOR THIS RN. PT SKIN P/W/D, RESP EVEN AND UNLABORED, PT A&O X 3, NO DISTRESS NOTED. PT AMBULATED OUT OF ED, GAIT STEADY.
== END 2020-03-07 18:48 | disposition home or self-care (01) ==
LOC: ED 18:48
PROVIDERS: Emergency Provider Emergency Medicine; PCP Family Medicine
DX: I10 Essential (primary) hypertension (principal); E03.9 Hypothyroidism, unspecified; Z87.891 Personal history of nicotine dependence
CPT/HCPCS: 93005; 99283

== ENCOUNTER → 2020-05-17 11:57 | Outpatient (CLI) | payer OTHER, SELFPAY ==
--- NOTE | 2020-05-17 12:00 | RAD_ITS ---
STUDY: X-RAY - RIGHT FOOT CLINICAL: Female, 59 years old. bilateral foot pain -- x years -- NKI TECHNIQUE: 3 view(s) of the foot. COMPARISON: None. FINDINGS: Small plantar spur, otherwise normal talus, calcaneus, and tarsal bones. Mild degenerative changes of the visualized subtalar, talonavicular, calcaneocuboid, tarsal and tarsometatarsal articulations. Deformity of the first metatarsal suggestive of previous fractures, otherwise normal metatarsals. Normal metatarsophalangeal joint of the great toe. Normal tibial and fibular sesamoid bones. Normal interphalangeal joint of the great toe. Normal phalanges of the great toe. Normal second through fifth metatarsophalangeal joints. Normal interphalangeal joints and phalanges of the lesser toes. The soft tissue structures are unremarkable. There is no demonstrated fracture. RAD/Foot min 3 Views IMPRESSION: No acute abnormality. Degenerative changes. Electronically Signed: Husam Vuong MD at 20:56 EDT , Service support ,
--- NOTE | 2020-05-17 12:00 | RAD_ITS ---
STUDY: X-RAY - LEFT FOOT CLINICAL: Female, 59 years old. Bilateral foot pain -- x years -- NKI TECHNIQUE: 3 view(s) of the foot. COMPARISON: None. FINDINGS: There are posterior and plantar calcaneal spurs. Normal visualized subtalar, talonavicular, calcaneocuboid, tarsal and tarsometatarsal articulations. Normal metatarsi. Normal metatarsophalangeal joint of the great toe. Normal tibial and fibular sesamoid bones. Normal interphalangeal joint of the great toe. Normal phalanges of the great toe. Normal second through fifth metatarsophalangeal joints. Normal interphalangeal joints and phalanges of the lesser toes. The soft tissue structures are unremarkable. RAD/Foot min 3 Views IMPRESSION: Calcaneal spurs. Electronically Signed: Gume Jasso MD at 12:25 EDT Tel , Service support ,
== END ==
PROVIDERS: PCP Family Medicine; Referring Provider Podiatrist; Visit Provider Podiatrist
DX: M19.079 Primary osteoarthritis, unspecified ankle and foot (principal)
CPT/HCPCS: 73630

== ENCOUNTER 2020-06-19 15:30 | Outpatient (RCR) | payer OTHER, SELFPAY ==
--- NOTE | 2020-05-22 10:29 | HP.PTEVAL_ITS ---
Patient's Visit Information SHIVANI BRYSON is a 59 year old F referred to Physical Therapy by Dr. Brianne Davenport DPM with a diagnosis of Pes Planus. Date of Evaluation: 05/22/20 Physical Therapist: Yohana Robertson DPT - Visit Plan Frequency: 1x/Week Duration: 4 Weeks Plan: Orthotics - Subjective Patient reports that she has pain in her feet all the time- just saw the filter cleaner who recommended orthotics. She has never had them before. She is on her feet all of the day- wears good shoes at work and sandles, but prefers to be barefoot. Went to [employer] and got old lady shoes jayleen shoes. Took x-rays last week which showed OA. 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 Worst: 06/01 pain is located around the whole foot. Pain does radiate up the hardwick on the left. Knee does bother her but no significant hip or back problems. Best: 0/10 Eases: when getting off her feet. Sleep not disturbed but hard to get to sleep sometimes- but the pain starts as soon as she gets out of bed. Sharp and shooting as well as dull and achy. PMHX: foot surgery a long time ago bilaterally Meds: lisinopril, levothyroxine, floxitine, claratin - Objective Posture: Fair throughout. Gait: no deviation noted in UE or LE. Observation: mild pes planus in standing- toes splay in standing- moderate valgus at the rearfoot. HR/TR: able but reports discomfort with HR in both sitting and standing. Palpation: tender in mid foot. ROM: WFL in all planes. Strength: 5/5 in ankle. Flex:Gastroc: severe, Solues: moderate - Goals Goal 1:: Patient will be I with orthotic wear Goal Time Frame: 4-6 Weeks - Rehabilitation Potential Physical Therapy Diagnosis: Patient presents with ankle and foot pain Rehabilitation Potential: Excellent - Anticipated Interventions Thank you for the opportunity to evaluate your patient. For Medicare and Medicare HMO plans, please review the plan of care and approve it. It will need to be FAXED BACK to us at [phone] for Medicare purposes. For Medicare only, by signing this I certify the plan of care. Please let me know if there are questions or concerns regarding this plan of care. Physician Signature: Dat e:
--- NOTE | 2020-06-19 15:49 | HP.PTDCSUM ---
It has been my pleasure to treat SHIVANI BRYSON referred by Dr. Brianne Davenport DPM, with the diagnosis of Pes Planus for a total of 2 visit(s). Discharge Date: Please see the following information for a summary of their discharge status. Subjective: No complaints Objective/Function: Educated on wear procedure Goal 1:: Patient will be I with orthotic wear Plan: Discharge If there are questions or concerns regarding this patient's physical therapy, please feel free to call me at [phone]. Thank you for the referral of this patient. Sincerely, ADDISON SamayoaT
== END 2020-06-19 19:00 | disposition home or self-care (01) ==
LOC: PT 15:30
PROVIDERS: PCP Family Medicine; Referring Provider Podiatrist; Visit Provider Podiatrist
DX: M19.079 Primary osteoarthritis, unspecified ankle and foot (principal)
CPT/HCPCS: 97760; 97763

== ENCOUNTER → 2020-12-03 15:31 | Outpatient (CLI) | payer OTHER, SELFPAY ==
--- NOTE | 2020-12-03 15:35 | BI_ITS ---
MAMMOGRAPHY - BILATERAL SCREENING REASON FOR EXAM: Female, 60 years old. Routine annual screening examination. PERTINENT HISTORY: Sister with breast cancer. Aunt with breast cancer. TECHNIQUE: Digital bilateral breast geoff (3D mammographic acquisition) in the CC and MLO projections. 2-D mediolateral oblique (MLO) and craniocaudad (CC) views of both breasts were obtained. CAD: Full Field Digital Mammography with Computer Added Detection was performed. COMPARISON: Comparison is made with prior study 05/18/2019. FINDINGS: Breast Composition: There are scattered areas of fibroglandular density. There are no dominant masses or suspicious calcifications. Stable small benign appearing bilateral axillary lymph nodes. No other significant abnormalities are identified. There has been no significant change since the prior study. BI/SCRN MAMM (CAD)W/GEOFF BILAT IMPRESSION: Stable bilateral screening mammogram. Yearly follow-up mammogram recommended. (A) ASSESSMENT CATEGORY: BIRADS Category 2: Benign. A letter regarding these results will be sent to the patient by the facility within 30 days. Approximately 10% of breast cancers are not detected by mammography. A normal mammogram should not delay biopsy of a clinically suspicious abnormality. [id number] Electronically Signed: Felipe Smith MD at 19:17 EDT , Service support ,
== END ==
PROVIDERS: PCP Family Medicine; Referring Provider Physician Assistant; Visit Provider Physician Assistant
DX: Z12.31 Encounter for screening mammogram for malignant neoplasm of breast (principal)
CPT/HCPCS: 77063; 77067

== ENCOUNTER → 2021-01-20 12:50 | Outpatient (CLI) | payer OTHER, SELFPAY ==
[2021-01-20 14:57] LABS: Thyroid Stim Hormone (TSH) 0.32 uIU/mL (0.358-3.74)
== END ==
PROVIDERS: PCP Family Medicine; Referring Provider Physician Assistant; Visit Provider Physician Assistant
DX: E03.9 Hypothyroidism, unspecified (principal)
CPT/HCPCS: 36415; 84443

== ENCOUNTER → 2021-05-28 08:39 | Outpatient (CLI) | payer OTHER, SELFPAY ==
--- NOTE | 2021-05-28 08:41 | RAD_ITS ---
STUDY: X-RAY - RIGHT HAND REASON FOR EXAM: Right hand pain. TECHNIQUE: 3 view(s) of the hand. COMPARISON: None. FINDINGS: Normal radiocarpal articulation. Normal distal radioulnar joint. Normal visualized carpal bones. Normal carpal articulations There are marginal osteophytes and severe joint space narrowing of the carpometacarpal articulation of the thumb. Normal second through fifth carpometacarpal joints. Normal metacarpi. Normal metacarpophalangeal joint of the thumb. Normal interphalangeal joint of the thumb. Normal proximal and distal phalanges of the thumb. Normal metacarpophalangeal joints of the second through fifth fingers. Normal proximal and distal interphalangeal joints of the second through fifth fingers. Normal phalanges of the second through fifth fingers. There is a small soft tissue ossification peripheral to the trapezium. RAD/Hand Min 3 Views IMPRESSION: Arthrosis of the first carpometacarpal articulation. Electronically Signed: Magen Weiner MD at 12:51 EDT Tel , Service support ,
== END ==
PROVIDERS: PCP Family Medicine; Referring Provider Orthopaedic Surgery; Visit Provider Orthopaedic Surgery
DX: M79.646 Pain in unspecified finger(s) (principal)
CPT/HCPCS: 73130

== ENCOUNTER 2021-09-09 06:01 | Day surgery (SDC) | payer OTHER, SELFPAY ==
[2021-09-09] VITALS (7 sets, daily range): BP systolic 97–117; BP diastolic 67–92; PULSE 71–93; RESP 16; TEMP 36–36.5; O2SAT 92–98; BMI 35.6
[2021-09-09] MEDS: Lactated Ringers 1,000 ML 15 ML IV (06:41)
--- NOTE | 2021-09-09 07:24 | PCM.HP.BLA ---
History and Physical Date of Admission: 09/09/21 Date of Service: 08/27/21 MR#:[id number]:[id number]: SHIVANI BRYSONRep #:[id number] Provider:Dr. Cristian Kumar DOAge/Sex: 61/F Location:[facility]:Signed with Addenda ADDENDUM by Dr. Cristian Kumar DO on 08/27/21 at 1320 Assessment and Plan Assessment and Plan (1) Bilateral carpal tunnel syndrome: Status: Acute Plan: 08/19/2021 EMG bilateral upper extremity left median mononeuropathy consistent with severe carpal tunnel syndrome #2 right median mononeuropathy consistent with moderate carpal tunnel syndrome 08/27/21 1320<Electronically signed by Cristian Kumar DO>Date Cristian Kumar DO cc: ~*Signed Intake Intake Visit Reasons: BILAT HANDS Chief Complaint: right shoulder Allergies amoxicillin [From Augmentin] Allergy (Severe, Verified 06/25/21 14:12) unknown clavulanic acid [From Augmentin] Allergy (Severe, Verified 06/25/21 14:12) unknown Medications levothyroxine 100 mcg PO DAILY 09/19/15 [History Confirmed 08/27/21] lisinopril 10 mg PO DAILY #30 tab 03/07/20 [Rx Confirmed 08/27/21] [facility] Medical History (Updated 06/25/21 @ 15:[address] Cristian Kumar DO) Arthritis Back pain Fatigue Hay fever headaches Incontinence Knee pain Neck pain Shoulder pain Thyroid disease Surgical History History of Social History Smoking Status: Former smoker alcohol intake: never HPI BILAT HANDS Details: Parts of this documentation were recorded by a scribe, this documentation accurately reflects the service provided and the decisions made by me, Dr. Cristian Kumar DO 08/27/21 1109. SHIVANI BRYSON is a 61 year old F here today for F/U after EMG of the BL hands. She has BL hand numbness and tingling into all of her fingers and her BL hands and arms from the forearm down burn. She states that her trigger thumb is doing a little better. Ortho Exam General General: Yes no acute distress Neurologic: Yes alert Psychologic: Yes reasonable and appropriate Right Wrist/Hand Skin/Wound: Yes CDI, No Swelling and No Ecchymosis Right Wrist: Yes Phalen's; No Tinel's, Thenar Atrophy or Hypothenar Atrophy WRIST: ttp A1 bhakti and MP joint. No collateral instability. No tenderness over the CMC joint negative CMC grind intact flexor and extensor tendons. Left Wrist/Hand Skin/Wound: Yes CDI, No Swelling and No Ecchymosis Left Wrist: Yes Durken's Test and Yes Phalen's; No Tinel's, No Thenar Atrophy and No Hypothenar Atrophy WRIST: scar over her volar wrist from a childhood injury wrist. Coding Level of Care Code Off vis,est,level 3 Diagnoses Bilateral carpal tunnel syndrome G56.03 Assessment and Plan Assessment and Plan (1) Bilateral carpal tunnel syndrome: Status: Acute Plan - Dr. Cristian Kumar, DO: Patient educated that she does have BL carpal tunnel syndrome which is worse on the left wrist than the right. Edcuated that the carpal tunnel syndrome can cause atrophy of the muscles . It is recommended that she has a left carpal tunnel release at this time, made aware that the numbness and tingling may not subside with the surgery but surgery is to prevent things from worsening. Just giselle several months of hypersensitivity over the incision as well as pillar pain is common should subside after that she will have a lifting restriction post op and may need to be off work for 2-4 weeks. Reviewed the postoperative expectations with the patient. Risks and benefits of the procedure were fully explained, including but not limited to infection, neurovascular injury, continued pain, arthritis, stiffness, need for further surgery, re-injury, DVT, PE, general risks of anesthesia, and loss of limb or life. The patient understands all the risks and does wish to proceed with written consent for the left carpal tunnel release at this time. Follow up 2 weeks postop plan for surgery 09/09/2020 one of the left carpal tunnel and then we will see about doing her right down the road or sooner if pain, swelling, numbness or associated symptoms, or concerns develop. All questions answered. Patient in agreement of plan. 08/27/21 1306<Electronically signed by Cristian Kumar DO>Date Cristian Kumar DO Cosigner Signature:Date (if applicable) CC: ~I have examined the patient the following no changes are noted:
[2021-09-09] MEDS: Lidocaine 1% /Epi 1:100 (20ml) 20 ML Vial (07:40)
--- NOTE | 2021-09-09 07:50 | PCM.DC ---
Discharge Instructions Dressing / Incision Additional Dressing/Incision Instructions:: Ice and elevate operative extremity next 72 hours. Keep dressing on clean and dry for 48 hours then may remove and allow warm soapy water to rinse over incision but do not submerge until sutures are out. Then apply bandaid over incision and change daily. encourage finger range of motion. Not lift more than 1/2 pound. Minimize narcotic use only as needed and directed, may use OTC NSAID and Tylenol to supplement/substitute for pain control. Follow Up Care Please Follow Up With: Cristian Kumar DO When: 2 weeks Test Results: Test results from this visit will be discussed in further detail at your follow-up appointment, if applicable. Discharge Plan Admission Primary Reason for Your Visit: carpal tunnel Attending Provider: Cristian Kumar Primary Care Provider: Cristian Velasquez Discharge Orders/Prescriptions Prescriptions: New oxycodone 5 mg tablet 5 mg PO Q4H PRN (Reason: pain) 3 Days Qty: 15 RF: 0 No Action levothyroxine 100 MCG tablet 100 mcg PO DAILY RF: 0 vitamin B complex Capsule 1 cap PO DAILY RF: 0 cholecalciferol (vitamin D3) [Vitamin D3] 50 mcg (2,000 unit) Capsule 50 mcg PO DAILY RF: 0 lisinopril 10 MG tablet 10 mg PO QHS RF: 0 loratadine [Claritin] 10 mg Tablet 10 mg PO DAILY RF: 0 Referrals / Follow Up: Cristian Velasquez MD [Primary Care Provider] - Disposition Disposition (needs filled in before D/C Order can be placed): Home, Self Care
--- NOTE | 2021-09-09 07:55 | PCM.OPRPT ---
Report of Operation Date of Procedure: 09/09/21 Description of Surgical Findings:: Preoperative diagnosis; left carpal tunnel syndrome Postoperative diagnosis; same Procedure: Left open carpal tunnel release Anesthesia: Local with MAC Tourniquet time; 10 minutes 250 mm Hg Complications: None Indication for procedure; This is a 61-year-old female with long-standing symptoms consistent with carpal tunnel syndrome the patient did have electrodiagnostic evidence of this and has failed conservative treatment. Risks benefits and alternatives were reviewed including risks of bleeding infection nerve artery tissue damage need for further surgery and continued pain and symptoms, hypersensitivity to scar and Pillar pain. Procedure; The patient was met in the preoperative holding area the operative extremity was identified by both patient and physician and was marked the patient was met by anesthesia and brought back to the operating room and transferred to the operating table in the supine position. Anesthesia was started. A well-padded tourniquet was placed on the operative upper extremity. The patient was prepped and draped in the usual sterile fashion. A timeout was called to ensure the proper patient procedure and extremity were being contemplated. 0.5 percent lidocaine with epinephrine was injected into the incisional area. An Esmarch was used to exsanguinate the extremity. The tourniquet was inflated to 250 mmHg. A midline incision was made with a 15 blade scalpel between the thenar and hypothenar eminence. This was carried down through the skin and subcutaneous tissue. Dulce retractors were then used, a deep blade scalpel was used to make a deep incision in the palmar aponeurosis. The dulce retractors were then placed deep to this and the transverse carpal ligament was identified a perforation was made with a scalpel and a Littler scissors were used to complete the release of the transverse carpal ligament distally under direct visualization with the tips facing ulnarly until the perivascular fat was reached. Then turning our attention proximally using a tension slide technique the proximal extent of the transverse carpal ligament was released . Of note patient had a transverse scar that did extend over the midline of the volar wrist that was approximately 4 cm proximal to the wrist flexion crease a blunted hemostat was passed superficial to the median nerve proximally and there was some scar tissue noted however it was not felt to significantly constricted this far proximal however the hemostat was used to assure no stricture. There was noted to be hourglass configuration to the median nerve and hypertrophy of the transverse carpal ligament without other findings. The wound was thoroughly irrigated and was closed with 4-0 nylon vertical mattress stitches. Dressing was applied in the form of xeroform 4 x 4, web roll and an jason wrap. Tourniquet was let down there is no intraoperative complications patient tolerated the procedure well and was transferred to the PACU. All counts were correct.
== END 2021-09-09 09:02 | disposition home or self-care (01) ==
LOC: SDC 06:03 → AC 06:05
PROVIDERS: PCP Family Medicine; Referring Provider Orthopaedic Surgery; Visit Provider Orthopaedic Surgery
PROC: (CPT 64721; principal; 2021-09-09 07:15)
DX: G56.03 Carpal tunnel syndrome, bilateral upper limbs (principal); E07.9 Disorder of thyroid, unspecified; M19.90 Unspecified osteoarthritis, unspecified site; R32 Unspecified urinary incontinence; M65.319 Trigger thumb, unspecified thumb; J45.909 Unspecified asthma, uncomplicated; I10 Essential (primary) hypertension; Z79.890 Hormone replacement therapy; Z79.899 Other long term (current) drug therapy; Z87.891 Personal history of nicotine dependence
CPT/HCPCS: 01810; 64721; J7120

== ENCOUNTER 2021-12-16 06:01 | Day surgery (SDC) | payer OTHER, SELFPAY ==
--- NOTE | 2021-12-15 | CYST_PTH ---
PATIENT: SHIVANI BRYSON [place] [facility] [place][id number] AGE/SX: 61/F ROOM: RE12/16/[address]: Dr. Cristian Kumar DO : 1960 BED: DIS: 12/16/2021 SPEC #: [id number] RECD: 12/16/21 08:42 STATUS: TERESA RENuha #: [id number] CHELLY: 12/15/21 00:[address]: Cristian Kumar DEPT: SURGICAL PATHOLOGY RECD BY: Vu Smith ENTERED: 12/16/21 08:42 SP TYPE: Cyst OTHR DR: Dr. Cristian Velasquez MD Tissues: CYST Procedures: Surgery Specimen Level III HEADER OPERATION: Hand open carpal tunnel release and excision of palmar cyst PRE-OP DIAGNOSIS: Right carpal tunnel syndrome, synovial cyst of hand TISSUE SUBMITTED: Right hand palmar cyst MICROSCOPIC DIAGNOSIS Right hand palmar cyst, excision: Focal changes consistent with synovial cyst with extensive fibrosis. Fragments of fibroadipose and fibroconnective tissue with reactive changes. ZEFERINO:wanda 12/17/2021 COMMENT Case has been reviewed in consultation with Dr. Hay who concurs with the above diagnosis. IDC:AM MICROSCOPIC DESCRIPTION Slides are reviewed. GROSS DESCRIPTION Received in fixative is one container labeled with the patient's name and designated right hand palmar cyst. The specimen consists of two pieces of rice-white soft tissue measuring in aggregate 1.5 x 1 x 0.2 cm. The entire specimen is submitted in one cassette. / ZEFERINO:wanda 12/16/2021 TC:5 CPT: 69954
[2021-12-16 06:40] VITALS: BP 132/76; PULSE 75; RESP 14; TEMP 36.8; O2SAT 98; BMI 34.2
[2021-12-16] MEDS: Lactated Ringers 1,000 ML 15 ML IV ×2 (06:45→08:29)
--- NOTE | 2021-12-16 07:15 | HP.PCM_ITS ---
History and Physical Date of Admission: 12/16/21 Date of Service: 10/20/21 MR#:[id number]:[id number]: SHIVANI BRYSONRep #:[id number] Provider:Dr. Cristian Kumar, Age/Sex: 61/F Location:[facility]:Signed Intake Intake Visit Reasons: LEFT WRIST Allergies amoxicillin [From Augmentin] Allergy (Severe, Verified 09/22/21 09:14) unknown clavulanic acid [From Augmentin] Allergy (Severe, Verified 09/22/21 09:14) unknown Medications levothyroxine 100 mcg PO DAILY 09/19/15 [History Confirmed 10/20/21] cholecalciferol (vitamin D3) [Vitamin D3] 50 mcg PO DAILY 09/02/21 [History Confirmed 10/20/21] lisinopril 10 mg PO QHS 09/02/21 [History Confirmed 10/20/21] vitamin B complex 1 cap PO DAILY 09/02/21 [History Confirmed 10/20/21] loratadine [Claritin] 10 mg PO DAILY 09/09/21 [History Confirmed 10/20/21] PFSH Medical History Alcohol use Arthritis Arthritis Asthma Back pain Depression Difficulty swallowing Fatigue Former smoker Hay fever headaches Heartburn History of pain when walking History of stress test History of vocal cord paralysis Hoarseness Hypertension Incontinence Knee pain Leg cramps Neck pain Shortness of breath on exertion Shoulder pain Thyroid disease Wears glasses Surgical History History of Hx of foot surgery Hx of foot surgery Hx of repair of right rotator cuff Hx of thyroidectomy Social History Smoking Status: Former smoker alcohol intake: never HPI LEFT WRIST Details: Parts of this documentation were recorded by a scribe, this documentation accurately reflects the service provided and the decisions made by me, Dr. Cristian Kumar, 10/20/21 0752. SHIVANI BRYSON is a 61 year old F here today for 6 week post op from left carpal tunnel release. DOS: 09/09/21. She states that she is doing very well. She st ates that occasionally she will wake up with some tingling but it goes away within a few minutes. She states that she has right hand numbness and tinging mostly at night of the 1st, 2nd and 3rd fingers for many years to recall she did have EMG already which showed moderate right carpal tunnel she wishes to discuss right CTR. She also has another concern of a bump that is painful over the palm of her hand. She states that she has noted this area for a few years. Denies any trama to the area. She states that the area is tender to touch. Her finger does not get stuck on her. Denies any hx of tumors or cancers. Ortho Exam General General: Yes no acute distress Neurologic: Yes alert and Yes oriented x3 Psychologic: Yes reasonable and appropriate Right Wrist/Hand A1 bhakti trigger: No Right Wrist: Yes ROM-Extension 0-60, ROM-Flexion 0-80, ROM-Pronation 0-80, ROM- Supination 0-90, Durken's Test and Phalen's; No Tinel's WRIST: small 5 mm nodule over A1 bhakti of 3rd digi, that is tender. it does seem to translate with the tendon. there is no overlying skin changes or concern. She has intact sensation to the finger no sign of infection. no triggering noted Left Wrist/Hand Date of Surgery: 09/02/21 Skin/Wound: Yes healed Left Wrist: Yes ROM-Extension 0-60, Yes ROM-Flexion 0-80, Yes ROM-Pronation 0-80 and Yes ROM-Supination 0-90 WRIST: full ROM of hand and wrist Supplemental Info 08/19/2021 EMG moderate right upper extremity carpal tunnel 05/28/2021 x-ray right hand: Moderate first CMC arthrosis there is a ossification seen within the abductor pollicis longus insertion mild subluxation of the base of the first CMC Coding Level of Care Code Off vis,est,level 4 Diagnoses Right carpal tunnel syndrome G56.01 Synovial cyst of hand M71.349 Assessment and Plan Assessment and Plan (1) Right carpal tunnel syndrome: Status: Acute (2) Synovial cyst of hand: Status: Acute Plan - Dr. Cristian Kumar, DO: Patient educated that her left incision is well healed. Educated that she still may have some tenderness over the incision but this will improve over time. Patient educated that the EMG in 08/2021 also showed right moderate carpal tunnel syndrome. Treatment for this is night splinting or OT or right CTR. Reviewed the pre-operative plans with the patient. Risks and benefits of the procedure were fully explained, including but not limited to infection, karis rovascular injury, continued pain, arthritis, stiffness, need for further surgery, re-injury, DVT, PE, general risks of anesthesia, and loss of limb or life. The patient understands all the risks and does wish to proceed with written consent. She wishes to proceed with right carpal tunnel release. Educated that the nodule over her right palm is likely a synovial cyst. Educated that the treatment option for this is do nothing or steroid injection into the cyst or excision of the cyst. She wishes to proceed with surgical excision of the cyst while she is having the right CTR. She wishes to proceed with surgery 12/16/21 Follow up 2 weeks post op or sooner if pain, swelling, numbness or associated symptoms, or concerns develop. All questions answered. Patient in agreement of plan. 10/20/21 0858<Electronically signed by Cristian Kumar DO>Date Cristian Kumar DO Cosigner Signature:Date (if applic able) CC: ~ I have re-examined the patient. There are no clinical changes since date of exam
--- NOTE | 2021-12-16 07:17 | EX.PCM.DISCH ---
Discharge Instructions Diet Discharge Diet: No restrictions Dressing / Incision Call your doctor if you observe: Fever of 101 or Higher, Shortness of breath and Chest pain Additional Dressing/Incision Instructions:: Ice and elevate operative extremity next 72 hours. Keep dressing on clean and dry for 48 hours then may remove and allow warm soapy water to rinse over incision but do not submerge until sutures are out. Then apply bandaid over incision and change daily. encourage finger range of motion. Not lift more than 1/2 pound. Minimize narcotic use only as needed and directed, may use OTC NSAID and Tylenol to supplement/substitute for pain control. Follow Up Care Please Follow Up With: Cristian Kumar DO When: 2 weeks Test Results: Test results from this visit will be discussed in further detail at your follow-up appointment, if applicable. Discharge Plan Admission Attending Provider: Cristian Kumar Primary Care Provider: Cristian Velasquez Discharge Orders/Prescriptions Prescriptions: New oxycodone 5 mg tablet 5 mg PO Q4H PRN (Reason: pain) 3 Days Qty: 10 RF: 0 No Action levothyroxine 100 MCG tablet 100 mcg PO DAILY RF: 0 vitamin B complex Capsule 1 cap PO DAILY RF: 0 cholecalciferol (vitamin D3) [Vitamin D3] 50 mcg (2,000 unit) Capsule 50 mcg PO DAILY RF: 0 lisinopril 10 MG tablet 10 mg PO QHS RF: 0 loratadine [Claritin] 10 mg Tablet 10 mg PO QHS RF: 0 ibuprofen 400 mg Tablet 400 mg PO Q6H PRN (Reason: Pain) RF: 0 Referrals / Follow Up: Cristian Velasquez MD [Primary Care Provider] - Disposition Disposition (needs filled in before D/C Order can be placed): Home, Self Care
[2021-12-16] MEDS: Clindamycin 900 MG/50 ML BAG 75 MG IV (07:23)
[2021-12-16] MEDS: Lidocaine 1% /Epi 1:100 (50ml) 50 ML VIAL (07:55)
--- NOTE | 2021-12-16 08:05 | OP.PCM_ITS ---
Report of Operation Date of Procedure: 12/16/21 Surgery/Procedure Performed:: Preoperative diagnosis; [left] carpal tunnel synd chavo, Palmar cyst adjacent to middle finger A1 bhakti Postoperative diagnosis; same Procedure: [left] open carpal tunnel release, Excision of palmar cyst A1 bhakti release left middle finger Anesthesia: GeneralWith local Tourniquet time; [20] minutes 250 mm Hg Complications: None Pathology specimen palmar cyst Indication for procedure; This is a [61]-year-old [female] with long-standing symptoms consistent with carpal tunnel syndrome the patient did have electrodiagnostic evidence of this and has failed conservative treatment.In addition she had a cyst adjacent to her middle finger A1 bhakti that was very bothersome for her although no triggering it was very tender and she was requesting to have it removed, Risks benefits and alternatives were reviewed including risks of bleeding infection nerve artery tissue damage need for further surgery and continued pain and symptoms, hypersensitivity to scar and Pillar pain. Procedure; The patient was met in the preoperative holding area the operative extremity was identified by both patient and physician and was marked the patient was met by anesthesia and brought back to the operating room and transferred to the operating table in the supine position. Anesthesia was started. A well-padded tourniquet was placed on the operative upper extremity. The patient was prepped and draped in the usual sterile fashion. A timeout was called to ensure the proper patient procedure and extremity were being contemplated. 0.5 percent [ Lidocaine] with epinephrine was injected into the incisional area. An Esmarch was used to exsanguinate the extremity. The tourniquet was inflated to 250 mmHg. A midline incision was made with a 15 blade scalpel between the thenar and hypothenar eminence. This was carried down through the skin and subcutaneous tissue. Dulce retractors were then used, a deep blade scalpel was used to make a deep incision in the palmar aponeurosis. The dulce retractors were then placed deep to this and the transverse carpal ligament was identified a perforation was made with a scalpel and a Littler scissors were used to complete the release of the transverse carpal ligament distally under direct visualization with the tips facing ulnarly until the perivascular fat was reached. Then turning our attention proximally using a tension slide technique the proximal extent of the transverse carpal ligament was released . There was noted to be [hourglass configuration to the median nerve and hypertrophy of the transverse carpal ligament without other findings]. The wound was thoroughly irrigated and was closed with 4-0 nylon vertical mattress stitches. 15 blade scalpel was used to make a linear incision over the A1 bhakti of the middle finger,Dissection was carried down through the subcutaneous tissues and attention was made to avoid injury to the digital nerves with Dulce retractors and rag nailsSoft tissue cyst was noted superficial to the A1 bhakti and partially attached to it the cyst was excised requiring removal of portion of the A1 pulleyConsidering this I do not want to create additional tension on the right remaining portion of the bhakti and the rest of the A1 bhakti was therefore released. The wound was thoroughly irrigated closed with 4-0 nylon vertical mattress and dressing was Vioform Xeroform 4 x 4 web roll and an jason wrap. Tourniquet was let down there is no intraoperative complications patient tolerated the procedure well and was transferred to the PACU. All counts were correct.
[2021-12-16 08:10] VITALS: BP 114/64; BP 132/76; PULSE 90; RESP 16; TEMP 36.2; O2SAT 94
[2021-12-16 08:15] VITALS: BP 117/66; BP 132/76; PULSE 86; RESP 16; O2SAT 97
[2021-12-16 08:30] VITALS: BP 120/74; BP 132/76; PULSE 82; RESP 16; O2SAT 97
[2021-12-16 08:44] VITALS: BP 118/74; BP 132/76; PULSE 73; RESP 16; TEMP 36.1; O2SAT 95
[2021-12-16 09:08] VITALS: BP 132/76
== END 2021-12-16 23:59 | disposition home or self-care (01) ==
LOC: SDC 06:02 → AC 06:03
PROVIDERS: PCP Family Medicine; Referring Provider Orthopaedic Surgery; Visit Provider Orthopaedic Surgery
PROC: (CPT 64721; principal; 2021-12-16 07:15)
DX: G56.01 Carpal tunnel syndrome, right upper limb (principal); E07.9 Disorder of thyroid, unspecified; Z87.891 Personal history of nicotine dependence; I10 Essential (primary) hypertension; Z79.899 Other long term (current) drug therapy; Z79.890 Hormone replacement therapy; M19.90 Unspecified osteoarthritis, unspecified site; M65.311 Trigger thumb, right thumb; M71.349 Other bursal cyst, unspecified hand; R32 Unspecified urinary incontinence; J45.909 Unspecified asthma, uncomplicated
CPT/HCPCS: 64721; 26160; 01810; 88304; J7120; J2405

== ENCOUNTER 2021-12-25 12:17 | Outpatient (CLI) | payer OTHER, SELFPAY | END 2021-12-25 23:59 | disposition home or self-care (01) | LOC: LABSPEC 12:18 | PROVIDERS: PCP Family Medicine; Referring Provider Student in an Organized Health Care Education/Training Program; Visit Provider Student in an Organized Health Care Education/Training Program | DX: Z12.4 Encounter for screening for malignant neoplasm of cervix (principal) | CPT/HCPCS: 87624; 88175; G0145 ==

== ENCOUNTER 2021-12-26 14:55 | Emergency (ER) | payer OTHER, SELFPAY ==
[2021-12-26 14:57] VITALS: BP 140/119; PULSE 104; RESP 16; TEMP 36.6; O2SAT 97; BMI 34.4
--- NOTE | 2021-12-26 16:00 | EKG12_ITS ---
Test Reason : PALPS Blood Pressure : / mmHG Vent. Rate : 082 BPM Atrial Rate : 082 BPM P-R Int : 168 ms QRS Dur : 078 ms QT Int : 366 ms P-R-T Axes : 000 036 049 degrees QTc Int : 427 ms Normal sinus rhythm PAC's Confirmed by MORENA SCHMITT, YONIS ([id number]), editorial assistant GOMEZ HAYNES ([id number]) on 12/29/2021 2:03:31 PM Referred By: EVER Confirmed By:SALOMON BERG MD
[2021-12-26 16:34] LABS: Absolute Lymphocyte Count 2.55 X10^3/uL (0.83-4.51); Absolute Neutrophil Count 4.6 X10^3/uL (2.0-7.7); Basophil# 0.03 X10^3/uL; Basophil% 0.4 % (0-1); Eosinophil# 0.51 X10^3/uL; Eosinophils% 6.3 % (0-5); Hematocrit 38.5 % (37-47); Hemoglobin 13.2 g/dL (12.0-15.0); Lymphocyte # 2.55 X10^3/ul (0.83-4.51); Lymphocyte % 31.5 % (19-41); Mean Corp Hgb Conc 34.3 g/dL (32-36); Mean Corpuscular Hgb 30.4 pg (27.0-32.0); Mean Corpuscular Volume 88.7 fL (81-99); Mean Platelet Vol. 9.4 fl (6.2-12.0); Monocyte# 0.43 X10^3/uL; Monocyte% 5.3 % (0-10); NRBC Flagged by Analyzer 0 % (0-5); Neutrophil # 4.56 X10^3/uL (2.7-7.7); Neutrophil % 56.4 % (47-70); Platelet Count 263 K/mm3 (150-450); RBC Distribution Width CV 12.2 % (11.6-14.6); RBC Distribution Width SD 39.5 fl (35.1-43.9); Red Blood Count 4.34 M/mm3 (4.2-5.4); White Blood Count 8.1 K/mm3 (4.4-11.0)
--- NOTE | 2021-12-26 16:45 | CT_ITS ---
STUDY: CT BRAIN WITHOUT CONTRAST ENHANCEMENT OF 1650 HOURS ON 12/26/2021 REASON FOR EXAM: 61-year-old female with headache. RADIATION DOSAGE (If Supplied By Facility): CTDIvol = ( 44.99 ) mGy, DLP = ( 812.98 ) mGycm TECHNIQUE: Transaxial CT imaging of the brain was performed without administration of intravenous contrast material. Individualized dose optimization techniques were used for this CT. COMPARISON: No relevant priors. FINDINGS: No intracranial neoplasms. No ischemic or hemorrhagic cerebral infarct. No subdural, epidural, or intracerebral hematoma, hemorrhage or contusion. Normal calvarium without linear or depressed skull fractures. Normal paranasal sinuses; no acute or chronic sinusitis. CT/Brain/Head without Contrast IMPRESSION: 1. Normal unenhanced CT scan of the brain. 2. No intracranial neoplasms. 3. No ischemic or hemorrhagic cerebral infarct. 4. Normal calvarium. 5. Normal paranasal sinuses; no acute or chronic sinusitis. Electronically Signed: Ramses Rich MD at 17:24 EDT ,
--- NOTE | 2021-12-26 17:10 | EX.ED.DYSGE1 ---
HPI History of Present Illness Chief Complaint: General Illness Detail of Chief Complaint: Headache, palpitations Informant: patient Onset/Context/Timing Onset: Days Context: Gradual Onset Timing: Continuous Quality: Pressure Location: Head Worsened by: Nothing Relieved by: Nothing Narrative Narrative: Patient presents with headache and chest pain that became worse today. Patient describes the pain as a pressure in her head. Patient also describes it as throbbing all over. Patient states nothing makes her symptoms better nothing makes them worse. Patient admits to some dizziness. Patient states her symptoms are intermittent. Patient states she has been checking her blood pressures and heart rate at home. Patient states her heart rate has been fluctuating at home. [facility] Medical History Alcohol use Arthritis Arthritis Asthma Back pain Depression Difficulty swallowing Fatigue Former smoker Hay fever headaches Heartburn History of pain when walking History of stress test History of vocal cord paralysis Hoarseness Hypertension Incontinence Knee pain Leg cramps Neck pain Shortness of breath on exertion Shoulder pain Thyroid disease Wears glasses Home Medications levothyroxine 100 mcg PO DAILY 09/19/15 [History Last Taken 12/16/21] cholecalciferol (vitamin D3) [Vitamin D3] 50 mcg PO DAILY 09/02/21 [History Last Taken Unknown] lisinopril 10 mg PO QHS 09/02/21 [History Last Taken Unknown] vitamin B complex 1 cap PO DAILY 09/02/21 [History Last Taken Unknown] loratadine [Claritin] 10 mg PO QHS 09/09/21 [History Last Taken Unknown] Allergy/AdvReac Type Severity Reaction Status Date / Time amoxicillin [From Augmentin] Allergy Severe see note Verified 12/26/21 14:56 clavulanic acid Allergy Severe unknown Verified 12/26/21 14:56 [From Augmentin] Surgical History History of History of carpal tunnel surgery of left wrist Hx of foot surgery Hx of foot surgery Hx of repair of right rotator cuff Hx of thyroidectomy Social History Smoking Status: Former smoker alcohol intake: never ROS ROS ED Constitutional Constitutional ED: Denies chills or fever(s) Eyes Eyes: Denies blurry vision or change in vision ENT ENT ED: Denies rhinorrhea or sore throat Cardiovascular Cardiovascular: Reports chest pain and palpitations Respiratory/Chest Respiratory/Chest: Denies cough or dyspnea Gastrointestinal Gastrointestinal: Denies nausea or vomiting Genitourinary Genitourinary ED: Denies dysuria or hematuria Musculoskeletal Musculoskeletal: Denies back pain or neck pain Integumentary Denies abscess or rash Neurologic Neurologic: Reports headache(s); Denies weakness Allergic/Immunologic Allergic/Immunologic ED: Denies mouth swelling or urticaria EXAM Physical Exam Const Vital Signs: 12/26/21 14:57 12/26/21 15:06 12/26/21 17:34 Temperature 97.9 F Temperature Source Temporal Pulse Rate 104 H 105 H Respiratory Rate 16 20 H Respiratory Effort Normal Non-Labored Respiratory Pattern Normal Blood Pressure 140/119 H Blood Pressure Mean 126 Pulse Ox 97 99 Oxygen Delivery Method Room Air Room Air 12/26/21 18:21 Temperature Temperature Source Pulse Rate Respiratory Rate Respiratory Effort Respiratory Pattern Blood Pressure 160/115 H Blood Pressure Mean 130 Pulse Ox Oxygen Delivery Method Positive well nourished and well developed General Appearance ED: well developed HEENT Reports moist mucous membranes Neck supple and no JVD Resp normal respiratory effort and clear to auscultation bilaterally Cardio regular rate, regular rhythm and no murmurs GI normal to inspection, nondistended, normoactive bowel sounds and non-tender Palpation: soft Extremity normal to inspection General Extremety ED: Negative for edema or tenderness General Extremity: Negative for edema Neuro oriented x3, CN's II-XII intact bilaterally and no sensory deficits noted Sensorium / Orientation: alert Motor Exam: strength 5/5 throughout Psych mental status grossly normal Skin no rashes or lesions noted MDM MDM MDM Narrative Medical decision making narrative: EKG was obtained. On my interpretation, it showed a normal sinus rhythm with occasional PACs and PVCs with a rate of 82. TN interval, QRS interval, and QTc intervals were all normal. Stevens was normal. There are no acute ST or T wave changes. CBC was within normal limits. Comprehensive metabolic profile was essentially within normal limits. Potassium was 5.2 but this was a hemolyzed specimen. High-sensitivity troponin was less than 3. CT scan of the brain was obtained. There is no acute intracranial abnormality. This was interpreted by the radiologist and reviewed by myself. Patient is feeling better on reevaluation. Patient was advised of her findings. Patient was instructed to follow-up with her primary care physician in 3 to 5 days. Patient understood and was agreeable with the plan. All questions were answered. Lab Data Attestation: I reviewed the patient's lab results. Labs: Laboratory Results - last 24 hr 12/26/21 12/26/21 16:20 16:20 WBC 8.1 RBC 4.34 Hgb 13.2 Hct 38.5 MCV 88.7 MCH 30.4 MCHC 34.3 RDW Std Deviation 39.5 RDW Coeff of Kenn 12.2 Plt Count 263 MPV 9.4 Immature Gran % (Auto) 0.100 Neut % (Auto) 56.4 Lymph % (Auto) 31.5 [place] % (Auto) 5.3 Eos % (Auto) 6.3 H Baso % (Auto) 0.4 Absolute Neuts (auto) 4.6 Absolute Lymphs (auto) 2.55 Nucleated RBC % 0 Sodium 137 Potassium 5.2 H Chloride 105 Carbon Dioxide 26.0 Anion Gap 6 BUN 13 Creatinine 0.65 Estim Creat Clear Calc 71.88 Est GFR (MDRD) Af Amer 118 Est GFR (MDRD) Non-Af 98 BUN/Creatinine Ratio 19.9 Glucose 86 Calcium 9.1 Total Bilirubin 0.60 AST 67 H ALT 35 Alkaline Phosphatase 78 Troponin I High Sens < 3 L Total Protein 8.2 Albumin 3.5 Globulin 4.7 H Albumin/Globulin Ratio 0.7 L Radiography Diagnostic Testing: Clinical Impression(s) from Imaging Studies Brain CT 12/26/21 16:45 IMPRESSION: 1. Normal unenhanced CT scan of the brain. 2. No intracranial neoplasms. 3. No ischemic or hemorrhagic cerebral infarct. 4. Normal calvarium. 5. Normal paranasal sinuses; no acute or chronic sinusitis. Electronically Signed: Ramses Rich MD at 17:24 EDT , EKG Initial EKG: Attestation: I personally reviewed and interpreted this EKG as follows: Interpretation: Sinus Rhythm (82 with occasional PACs and PVCs) and No Acute Injury Pattern Discharge Plan Triage Chief Complaint: General Illness ED Provider: Jackson Petit Dx/Rx/DC Orders Clinical Impression: Headache, Premature atrial contractions Instructions: ED Headache, Tension Prescriptions: No Action levothyroxine 100 MCG tablet 100 mcg PO DAILY RF: 0 vitamin B complex Capsule 1 cap PO DAILY RF: 0 cholecalciferol (vitamin D3) [Vitamin D3] 50 mcg (2,000 unit) Capsule 50 mcg PO DAILY RF: 0 lisinopril 10 MG tablet 10 mg PO QHS RF: 0 loratadine [Claritin] 10 mg Tablet 10 mg PO QHS RF: 0 Primary Care Provider: Cristian Velasquez Referrals: Cristian Velasquez MD [Primary Care Provider] - 3-5 Days Disposition Disposition: Home, Self Care
[2021-12-26 17:15] LABS: ALB/GLOB Ratio 0.7 RATIO (0.9-2.4); AST(SGOT) 67 U/L (15-37); Alanine Aminotransfer ALT/SGPT 35 U/L (13-56); Albumin, Serum 3.5 g/dL (3.2-5.0); Alkaline Phosphatase 78 U/L (45-117); Anion Gap 6 (5-15); BUN 13 mg/dL (7-18); BUN/Creat Ratio 19.9 RATIO (10-20); Calcium,Total 9.1 mg/dL (8.5-10.1); Chloride 105 mmol/L (98-107); Creatinine, Serum 0.65 mg/dL (0.55-1.02); EST Glomerular Filtration Rate 98 mL/min (>60); Est Glom Filt Rate - Afr Amer 118 mL/min (>60); Estimated Creatinine Clearance 71.88 ml/min; Globulin 4.7 g/dL (2.2-4.2); Glucose 86 mg/dL (74-106); Potassium 5.2 mmol/L (3.5-5.1); Protein, Total 8.2 g/dL (6.4-8.2); Sodium Level 137 mmol/L (136-145); Troponin-I HS < 3 pg/mL (3.0-54.0)
[2021-12-26 17:34] VITALS: PULSE 105; RESP 20; O2SAT 99
[2021-12-26 18:21] VITALS: BP 160/115
== END 2021-12-26 18:54 | disposition home or self-care (01) ==
PROVIDERS: Emergency Provider Emergency Medicine; PCP Family Medicine; Visit Provider Emergency Medicine
DX: R51.9 Headache, unspecified (principal); I49.1 Atrial premature depolarization; I10 Essential (primary) hypertension; Z79.899 Other long term (current) drug therapy; Z87.891 Personal history of nicotine dependence
CPT/HCPCS: 70450; 80053; 84484; 85025; 93005; 99284; A4216

== ENCOUNTER → 2021-12-30 | Outpatient (CLI) | payer OTHER, SELFPAY ==
--- NOTE | 2021-12-30 15:24 | BD_ITS ---
STUDY: DUAL ENERGY X-RAY ABSORPTIOMETRY / DXA REASON FOR EXAM: Female, 61 years old. M85.89. Patient is postmenopausal. TECHNIQUE: Bone Mineral Density (BMD) measurements of lumbar spine and bilateral hips were obtained. COMPARISON: None. FINDINGS: Lumbar Spine (L1-L4): g/cm2 (1.394) / T-score (3.2) / Z-score (4.7) Findings are suggestive of normal bone density with a low fracture risk. Left Femur Total: g/cm2 (0.912) / T-score (-0.2) / Z-score (0.8) Left Femoral Neck: g/cm2 (0.769) / T-score (-0.7) / Z-score (0.6) Right Femur Total: g/cm2 (0.882) / T-score (-0.5) / Z-score (0.5) Right Femoral Neck: g/cm2 (0.685) / T-score (-1.5) / Z-score (-0.1) BD/Dexa Bone Density Study IMPRESSION: The patient is considered osteopenic as outlined below according to World [employer]asi Organization (WHO) criteria with a low fracture risk. Reference Information: The T-score is the number of standard deviations above or below the standard which is normal for young adults at their peak bone mineral density. The World Health Organization (WHO) interprets the T-scores as follows: Above -1 Normal bone density Between -1 and -2.5 Osteopenia Equal to / or below -2.5 Osteoporosis As a practical clinical guideline, osteopenia may be graded as follows: Mild -1 through -1.5 Moderate -1.6 through -2.0 Severe -2.1 through -2.4 The Z-score is the number of standard deviations above or below age-matched controls. A Z-score of less than -1.5 would be considered abnormal. References: 1. NIH Osteoporosis and Related Bone Diseases www osteo.org 2. International Society for Clinical Densitometry www iscd.org 3. National Osteoporosis Foundation www nof.org Electronically Signed: Felipe Smith MD at 14:36 EDT ,
== END | disposition home or self-care (01) ==
LOC: OPBD 15:20
PROVIDERS: PCP Family Medicine; Visit Provider Student in an Organized Health Care Education/Training Program
DX: M85.89 Other specified disorders of bone density and structure, multiple sites (principal)
CPT/HCPCS: 77080

== ENCOUNTER → 2022-01-01 | Outpatient (CLI) | payer OTHER, SELFPAY ==
--- NOTE | 2022-01-01 14:50 | US_ITS ---
STUDY: ULTRASOUND OF THE FEMALE PELVIS - COMPLETE REASON FOR EXAM: Female, 61 years old. PPelvic PainUS - Pelvic, Tvag TECHNIQUE: Transabdominal and endovaginal COMPARISON: None. FINDINGS: The uterus is anteverted and is in a midline position. The uterus measures 7.1 x 4.7 cm. There is a Nabothian cyst of the cervix. The endometrium measures 5.4 mm in thickness, and is hyperechoic. There is no demonstrated endometrial mass. Myometrium appears heterogeneous. I.U.D. - The patient does not have an I.U.D. endocervical calcifications. There is nonvisualization of the right ovary due to overlying bowel gas. There is nonvisualization of the left ovary due to overlying bowel gas. There is no fluid in the cul-de-sac. Urinary bladder volume is 386 cc. US/Pelvic (Non ) IMPRESSION: There is a Nabothian cyst of the cervix. Electronically Signed: Jose A López MD at 17:35 EDT ,
--- NOTE | 2022-01-01 15:06 | US_ITS ---
STUDY: ULTRASOUND OF THE FEMALE PELVIS - COMPLETE REASON FOR EXAM: Female, 61 years old. PAIN TECHNIQUE: Transabdominal and endovaginal COMPARISON: None. FINDINGS: The uterus is anteverted and is in a midline position. The uterus measures 7.1 x 4.7 cm. There is a Nabothian cyst of the cervix. The endometrium measures 5.4 mm in thickness, and is hyperechoic. There is no demonstrated endometrial mass. Myometrium appears heterogeneous. I.U.D. - The patient does not have an I.U.D. endocervical calcifications. There is nonvisualization of the right ovary due to overlying bowel gas. There is nonvisualization of the left ovary due to overlying bowel gas. There is no fluid in the cul-de-sac. Urinary bladder volume is 386 cc. US/Transvaginal Non- IMPRESSION: There is a Nabothian cyst of the cervix. Electronically Signed: Jose A López MD at 18:22 EDT ,
== END | disposition home or self-care (01) ==
LOC: US 14:48
PROVIDERS: PCP Family Medicine; Visit Provider Student in an Organized Health Care Education/Training Program
DX: R10.9 Unspecified abdominal pain (principal)
CPT/HCPCS: 76830; 76856

== ENCOUNTER → 2022-02-04 | Outpatient (CLI) | payer OTHER, SELFPAY | END | disposition home or self-care (01) | LOC: PSN 07:01 | PROVIDERS: PCP Family Medicine; Visit Provider Physician Assistant | DX: R00.2 Palpitations (principal) | CPT/HCPCS: 93225; 93226 ==

== ENCOUNTER → 2022-02-13 | Outpatient (CLI) | payer OTHER, SELFPAY ==
--- NOTE | 2022-02-13 13:34 | RAD_ITS ---
STUDY: X-RAY - PELVIS AND RIGHT HIP REASON FOR EXAM: Female, 61 years old. PAIN TECHNIQUE: 3 views of the pelvis and hip. COMPARISON: None. FINDINGS: Moderate amount of fecal material is seen in the colon. There are multiple calcified phleboliths. Degenerative changes in the lower lumbar spine. Normal bilateral iliac wings, sacroiliac joints and visualized sacrum. Normal bilateral superior and inferior pubic rami. There is narrowing with sclerosis of the pubic symphysis. Normal bilateral ischial tuberosities. Normal visualized femoral head. Normal acetabulum. There is mild articular joint space narrowing of the hip. RAD/HIP, UNI W/ Pelvis 2-3 Views IMPRESSION: Degenerative changes of the lower lumbar spine. Mild degree of joint space narrowing of the right hip joint. Electronically Signed: Felipe Smith MD at 16:22 EDT ,
[2022-02-13 15:13] LABS: Thyroid Stim Hormone (TSH) 9.64 uIU/mL (0.358-3.74)
== END | disposition home or self-care (01) ==
LOC: RAD 13:21
PROVIDERS: PCP Family Medicine; Referring Provider Physician Assistant; Visit Provider Physician Assistant
DX: M25.551 Pain in right hip (principal); E03.9 Hypothyroidism, unspecified
CPT/HCPCS: 36415; 73502; 84443

== ENCOUNTER → 2022-03-25 | Outpatient (CLI) | payer OTHER, SELFPAY ==
--- NOTE | 2022-03-25 07:06 | ECHOD_ITS ---
Reason For Study: Arrhythmia Procedure This was a 2D Doppler, Color Flow transthoracic echocardiogram. Exam performed in department. Left Ventricle Normal LV size. The estimated ejection fraction is 60 %. Left ventricular systolic function is normal. Stage 1 diastolic dysfunction. No regional wall motion abnormalities noted. Right Ventricle Normal RV size. Normal systolic function. Atria Normal left atrium. Normal right atrium. Mitral Valve Normal mitral valve. Mild (1+) eccentric mitral valve insufficiency. Tricuspid Valve Normal tricuspid valve. Mild tricuspid valve insufficiency. Pulmonary artery systolic pressure is 24 mmHg. Aortic Valve Normal aortic valve. Trisinus/trileaflet aortic valve. Pulmonic Valve Normal pulmonic valve. Great Vessels Normal aortic root. The pulmonary artery is normal size. Normal inferior vena cava. Pericardium/Pleural No pericardial effusion. MMode/2D Measurements & Calculations LVIDd: 4.5 cm IVSd: 1.0 cm CO(Teich): 3.4 l/min LVIDs: 3.1 cm LVPWd: 1.0 cm RVDd: 3.0 cm FS: 30.9 % Ao root diam: 3.0 cm LAV(MOD-bp): 31.0 ml LVAd ap4: 30.9 cm2 LAV(MOD-bp) Indexed: 16.8 ml/m2 LVLd ap4: 8.2 cm LAV(MOD-sp2): 37.9 ml EDV(MOD-sp4): 97.3 ml LAV(MOD-sp4): 24.7 ml EDV(sp4-el): 98.7 ml LVAs ap4: 18.0 cm2 LVLs ap4: 7.1 cm ESV(MOD-sp4): 40.1 ml ESV(sp4-el): 38.9 ml EF(MOD-sp4): 58.8 % EF(sp4-el): 60.6 % LVAd ap2: 28.4 cm2 CO(MOD-sp4): 3.6 l/min SV(MOD-sp2): 50.0 ml LVLd ap2: 8.3 cm SV(MOD-sp4): 57.2 ml EDV(MOD-sp2): 82.9 ml EDV(sp2-el): 82.6 ml LVAs ap2: 16.5 cm2 LVLs ap2: 7.4 cm ESV(MOD-sp2): 32.8 ml ESV(sp2-el): 31.4 ml EF(MOD-sp2): 60.4 % SV(sp4-el): 59.8 ml LA dimension(2D): 3.7 cm LA A4 area: 12.2 cm2 RA A4 area: 11.6 cm2 Time Measurements MV dec time: 0.37 sec Doppler Measurements & Calculations MV E max [place]: 45.4 cm/sec Lat Peak E' [place]: 7.0 cm/sec Med Peak E' [place]: 5.5 cm/sec MV A max [place]: 79.9 cm/sec E/E' lat: 6.5 E/E' med: 8.3 MV E/A: 0.57 Ao V2 max: 112.7 cm/sec LV V1 max: 85.8 cm/sec PA V2 max: 84.8 cm/sec Ao max P.1 mmHg LV V1 max P.9 mmHg LV V1 mean P.5 mmHg LV V1 mean: 57.5 cm/sec LV V1 VTI: 20.7 cm TR max [place]: 234.0 cm/sec TR max P.9 mmHg ECHO/Echo Complete Interpretation Summary Normal LV size. The estimated ejection fraction is 60 %. Left ventricular systolic function is normal. Mild tricuspid valve insufficiency. Mild (1+) eccentric mitral valve insufficiency. Stage 1 diastolic dysfunction. Ordering Physician: Jai Denny Referring Physician: Cristian Velasquez Performed By: Valerie Caabllero RDCS
--- NOTE | 2022-03-25 10:50 | STRESSREP ---
Stress Test Report Next phase myocardial perfusion stress test. 61-year-old lady with a history of hypertension and palpitations. Stress protocol: Resting EKG demonstrates sinus bradycardia with a rate of 50 bpm normal intervals are noted resting blood pressure is 132/78 mmHg. The patient exercised according to the regular Michael protocol for total duration of 6 minutes. The maximum heart rate attained was 171 bpm which was 107% of max impacted heart rate the maximum workload was 7 metabolic equivalents. At rest there were no ST or T wave changes noted to suggest ischemia and at peak exercise upsloping ST changes only were noted with did not meet the criteria for ischemia. During recovery occasional premature ventricular complexes were noted. The test was terminated due to the target heart rate being achieved and dyspnea. The peak blood pressure was 162/74 mmHg. Myocardial perfusion protocol. 11.3 mCi of technetium 99m sestamibi was injected at rest. The patient exercised according to regular Michael protocol for total duration of 6 minutes and at peak exercise 33.1 mCi of technetium 99m sestamibi was injected stress images were obtained stress and rest images were reconstructed and compared in the short axis vertical long and horizontal long axis. Gated images were also obtained. Perfusion SPECT analysis: Review of the stress images demonstrate normal uptake of tracer noted in all areas of the myocardium. The resting images similar demonstrate normal uptake of tracer noted in all areas of the myocardium. No areas of reversibility are noted suggest ischemia no previous infarct is noted. Gated SPECT analysis: The gated ejection fraction is 57%. Conclusion: Normal exercise myocardial perfusion stress test at a moderate workload. Preserved ejection fraction.
== END | disposition home or self-care (01) ==
LOC: CVS 07:03
PROVIDERS: PCP Family Medicine; Visit Provider Internal Medicine Cardiovascular Disease
DX: I49.1 Atrial premature depolarization (principal)
CPT/HCPCS: 78452; 93017; 93306; A9500; A4216

== ENCOUNTER → 2022-07-23 | Outpatient (CLI) | payer OTHER, SELFPAY ==
[2022-07-23 14:33] LABS: Absolute Lymphocyte Count 2.23 X10^3/uL (0.83-4.51); Absolute Neutrophil Count 3.9 X10^3/uL (2.0-7.7); Basophil# 0.03 X10^3/uL; Basophil% 0.4 % (0-1); Hematocrit 28.2 % (37-47); Lymphocyte # 2.23 X10^3/ul (0.83-4.51); Lymphocyte % 33.3 % (19-41); Mean Corp Hgb Conc 31.9 g/dL (32-36); Mean Corpuscular Hgb 30.7 pg (27.0-32.0); Mean Corpuscular Volume 96.2 fL (81-99); Mean Platelet Vol. 9.5 fl (6.2-12.0); Monocyte# 0.36 X10^3/uL; Monocyte% 5.4 % (0-10); NRBC Flagged by Analyzer 0 % (0-5); Neutrophil # 3.86 X10^3/uL (2.7-7.7); Neutrophil % 57.6 % (47-70); Platelet Count 343 K/mm3 (150-450); RBC Distribution Width CV 13.3 % (11.6-14.6); RBC Distribution Width SD 46.5 fl (35.1-43.9); Red Blood Count 2.93 M/mm3 (4.2-5.4); White Blood Count 6.7 K/mm3 (4.4-11.0)
== END | disposition home or self-care (01) ==
LOC: LAB 13:29
PROVIDERS: PCP Family Medicine; Referring Provider Family Medicine; Visit Provider Family Medicine
DX: D64.9 Anemia, unspecified (principal); K92.2 Gastrointestinal hemorrhage, unspecified
CPT/HCPCS: 36415; 85025

== ENCOUNTER → 2022-08-25 | Outpatient (CLI) | payer OTHER, SELFPAY ==
[2022-08-25 10:45] LABS: Absolute Neutrophil Count 3.3 X10^3/uL (2.0-7.7); Basophil# 0.04 X10^3/uL; Basophil% 0.7 % (0-1); Eosinophil# 0.22 X10^3/uL; Hematocrit 35.6 % (37-47); Hemoglobin 10.8 g/dL (12.0-15.0); Lymphocyte % 28.9 % (19-41); Mean Corp Hgb Conc 30.3 g/dL (32-36); Mean Corpuscular Hgb 28.9 pg (27.0-32.0); Mean Corpuscular Volume 95.2 fL (81-99); Mean Platelet Vol. 9.9 fl (6.2-12.0); Monocyte# 0.36 X10^3/uL; Monocyte% 6.5 % (0-10); NRBC Flagged by Analyzer 0 % (0-5); Neutrophil % 59.7 % (47-70); Platelet Count 295 K/mm3 (150-450); RBC Distribution Width CV 14.7 % (11.6-14.6); RBC Distribution Width SD 51.8 fl (35.1-43.9); Red Blood Count 3.74 M/mm3 (4.2-5.4); White Blood Count 5.5 K/mm3 (4.4-11.0)
[2022-08-25 11:13] LABS: Vitamin D,25 Hydroxy 44.4 ng/mL
[2022-08-25 14:50] LABS: Anion Gap 6 (5-15); BUN 17 mg/dL (7-18); BUN/Creat Ratio 28.4 RATIO (10-20); Calcium,Total 8.4 mg/dL (8.5-10.1); Chloride 104 mmol/L (98-107); EST Glomerular Filtration Rate 108 mL/min (>60); Est Glom Filt Rate - Afr Amer 131 mL/min (>60); Free T3 2.3 pg/mL (2.18-3.98); Glucose 90 mg/dL (74-106); Magnesium 2.1 mg/dL (1.6-2.6); Potassium 3.9 mmol/L (3.5-5.1); Sodium Level 137 mmol/L (136-145); T4 Free Direct 1.27 ng/dL (0.76-1.46); Thyroid Stim Hormone (TSH) 3.59 uIU/mL (0.358-3.74)
== END | disposition home or self-care (01) ==
LOC: LAB 09:47
PROVIDERS: PCP Family Medicine; Referring Provider Nurse Practitioner Gerontology; Visit Provider Nurse Practitioner Gerontology
DX: R53.83 Other fatigue (principal); R00.2 Palpitations
CPT/HCPCS: 36415; 80048; 82306; 83735; 84439; 84443; 84481; 85025

== ENCOUNTER → 2022-12-01 | Outpatient (CLI) | payer OTHER, SELFPAY ==
[2022-12-01 16:12] LABS: Absolute Lymphocyte Count 2.37 X10^3/uL (0.83-4.51); Absolute Neutrophil Count 4.4 X10^3/uL (2.0-7.7); Basophil# 0.06 X10^3/uL; Basophil% 0.8 % (0-1); Eosinophil# 0.42 X10^3/uL; Eosinophils% 5.4 % (0-5); Hematocrit 41.7 % (37-47); Hemoglobin 13.1 g/dL (12.0-15.0); Lymphocyte # 2.37 X10^3/ul (0.83-4.51); Lymphocyte % 30.7 % (19-41); Mean Corp Hgb Conc 31.4 g/dL (32-36); Mean Corpuscular Hgb 27.9 pg (27.0-32.0); Mean Corpuscular Volume 88.9 fL (81-99); Mean Platelet Vol. 9.6 fl (6.2-12.0); Monocyte# 0.47 X10^3/uL; Monocyte% 6.1 % (0-10); NRBC Flagged by Analyzer 0 % (0-5); Neutrophil # 4.39 X10^3/uL (2.7-7.7); Neutrophil % 56.7 % (47-70); Platelet Count 296 K/mm3 (150-450); RBC Distribution Width CV 15.1 % (11.6-14.6); RBC Distribution Width SD 48.6 fl (35.1-43.9); Red Blood Count 4.69 M/mm3 (4.2-5.4); White Blood Count 7.7 K/mm3 (4.4-11.0)
[2022-12-01 16:50] LABS: Thyroid Stim Hormone (TSH) 5.93 uIU/mL (0.358-3.74)
== END | disposition home or self-care (01) ==
LOC: LAB 15:48
PROVIDERS: PCP Family Medicine; Referring Provider Physician Assistant; Visit Provider Physician Assistant
DX: E03.9 Hypothyroidism, unspecified (principal)
CPT/HCPCS: 36415; 84443; 85025

== ENCOUNTER → 2023-02-05 | Outpatient (CLI) | payer OTHER, SELFPAY ==
--- NOTE | 2023-02-05 14:48 | RAD_ITS ---
STUDY: X-RAY - LUMBAR SPINE REASON FOR EXAM: Female, 62 years old. Low back pain. TECHNIQUE: 2 view(s) of the lumbar spine were obtained. COMPARISON: None FINDINGS: Osteopenia. Normal lumbar lordosis. Mild rotatory levoscoliosis. There is a normal alignment of the vertebrae. Diffuse lower thoracic and lumbosacral facet sclerosis. Diffuse intervertebral disc space narrowing most marked in the lower thoracic region and diffusely in the lumbosacral spine. Osteophytes most marked at T12-L1, L1-L2, L2-L3 and L3-L4. Vascular calcification. RAD/Lumbar Spine 2 or 3 Views IMPRESSION: Osteopenia with lower thoracic and lumbosacral spondylosis as described. Electronically Signed: Geoff Reich MD at 15:01 EDT ,
== END | disposition home or self-care (01) ==
LOC: MTRAD 14:46
PROVIDERS: PCP Family Medicine; Referring Provider Physician Assistant; Visit Provider Physician Assistant
DX: M54.50 Low back pain, unspecified (principal)
CPT/HCPCS: 72100

== ENCOUNTER 2023-03-04 17:30 | Outpatient (RCR) | payer OTHER, SELFPAY ==
--- NOTE | 2023-02-02 08:57 | HP.PTEVAL_ITS ---
Patient's Visit Information SHIVANI BRYSON is a 62 year old F referred to Physical Therapy by Dr. Cristian Velasquez MD with a diagnosis of SCIATICA. Date of Evaluation: 02/02/23 Physical Therapist: Feliciano Hurd, PT, Cert MDT, OCS - Visit Plan Frequency: 2x /Week Duration: 4 Weeks Plan: PT INTERVENTIONS INTIALLY KYLAH EX'S ,POSTURAL EX'S ,MODALTIES PROGRESS TO DLS WHEN APPROPRAITE - Subjective This 62 y/o female presents to physical therapy with sciatica. Patient has lumbar radiculopathy right leg. Patient location right lumbar lateral hip. Described as burning. Patient seen DR ludmila Smith. Aggravating factors walking/standing, bending worse and lifting ,sitting. Alleviating factors rest ,ice. Symptoms become worse as day goes on. Denies paresthesia/tingling-. Bowel/bladder-. Coughing/sneezing - Patient pain affects sleeping. Patient has h/o back pain but able to manage symptoms. Patient has had no trauma. 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 Patient taking no medication tried meloxicam. Patient goals to decrease pain. Patient symptoms affects QOL and job demands. SOCAIL: Single. 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 SYMMTRIES: align. NEURO: denies paresthesia/tingling ,reflexes L3-4 ,L4-5,L5-S1 1/3. GAIT: reciprocal pattern. FLEXABLITY: hamstrings WFL. MMT: quads/hamstrings/hip /ankle 4/5. LUMBAR ROM: flexion mod loss pain, extension mod loss right LBP, side glides min loss - Special Tests L/S Slump test left side: Negative L/S Slump test right side: Negative L/S Left Straight Leg Raise: Negative L/S Right Straight Leg Raise: Negative Lumbar Standing: Flexion - Mechanical Response: No effect Lumbar Standing: Flexion - Symptoms During Testing: Increases Lumbar Standing: Flexion - Symptoms After Testing: Worse Lumbar Standing: Extension - Mechanical Response: No effect Lumbar Standing: Extension - Symptoms During Testing: Increases Lumbar Standing: Extension - Symptoms After Testing: Worse Lumbar Standing: Right Side Glides - Mechanical Response: No effect Lumbar Standing: Right Side [place] - Symptoms During Testing: No effect Lumbar Standing: Right Side [place] - Symptoms After Testing: No effect Lumbar Standing: Left Side [place] - Mechanical Response: No effect Lumbar Standing: Left Side [place] - Symptoms During Testing: No effect Lumbar Standing: Left Side [place] - Symptoms After Testing: No effect Lumbar Lying: Flexion - Mechanical Response: No effect Lumbar Lying: Flexion - Symptoms During Testing: Increases Lumbar Lying: Flexion - Symptoms After Testing: Worse Lumbar Lying: Extension - Mechanical Response: No effect Lumbar Lying: Extension - Symptoms During Testing: Decreases Lumbar Lying: Extension - Symptoms After Testing: Better - Balance/Special Test Scores Oswestry Low Back Score: 21 - Goals Goal 1:: I with HEP for lumbar spine Goal Time Frame: 4-6 Weeks Goal 2:: Patient to demonstrate 50% improvement with less pain and improved function Goal Time Frame: 4-6 Weeks Goal 3:: Patient to improve lumbar ROM for function for recovery for job demands Goal Time Frame: 4-6 Weeks Goal 4:: Patient to improve back oswestry score by 5 points or> to improve QOL and job demnads Goal Time Frame: 4-6 Weeks Goal 5:: Patient improve posture and lifting techniques 90% and d/c to prophalaxis. Goal Time Frame: 4-6 Weeks - Rehabilitation Potential Physical Therapy Diagnosis: This patient has right lumbar radiculopathy with symptoms due to possible disc derangement with pain worse with motion testing and positioning better with REIL with pain intermittent thus will benefit from skilled PT Rehabilitation Potential: Good - Anticipated Interventions Patient/Client Instruction: Educate patient on: Condition, Plan of Care For the Purpose of:: To decrease pain, To increase ROM, To improve muscle performance and motor function, To improve ability to perform ADL's, To increase tolerance to activity/condition/position, To improve ability of physical actions for home/community/work/leisure, To improve health of tissue, To decrease soft tissue restriction, To increase flexibility/ROM Therapeutic Exercise to Include: Strength training, Body mechanics, Postural training, Flexibilty training, Dynamic Lumbar Stabilization, Kylah Exercises For the Purpose of:: To decrease pain, To increase ROM, To improve muscle performance and motor function, To increase tolerance to activity/condition/position, To improve ability of physical actions for home/community/work/leisure, To improve health of tissue, To decrease soft tissue restriction, To prevent re-injury, To improve tolerance to ADL's TENS: Yes IF ES: Yes Cryotherapy (ice pack, ice massage): Yes Thermo therapy (hot pack): Yes Ultrasound (thermal/non thermal): Yes For the Purpose of:: To decrease pain, To improve nutrient delivery to tissue, To increase oxygenation perfusion, To improve health of tissue, To decrease soft tissue restriction Thank you for the opportunity to evaluate your patient. For Medicare and Medicare HMO plans, please review the plan of care and approve it. It will need to be FAXED BACK to us at [phone] for Medicare purposes. For Medicare only, by signing this I certify the plan of care. Please let me know if there are questions or concerns regarding this plan of care. Physician Signature: Date:
--- NOTE | 2023-03-04 17:54 | HP.PTDCSUM ---
It has been my pleasure to treat SHIVANI BRYSON referred by Dr. Cristian Velasquez MD, with the diagnosis of SCIATICA for a total of 7 visit(s). Discharge Date: 03/04/23 Please see the following information for a summary of their discharge status. Subjective: Doing Right Lower Extremity Pain Intensity (Out of 10): 0 % Improvement: 99 Objective/Function: POSTURE: mild forward posture. SYMMTRIES: align. NEURO: denies paresthesia/tingling ,reflexes L3-4 ,L4-5,L5-S1 1/3. GAIT: reciprocal pattern. FLEXABLITY: hamstrings WFL. MMT: quads/hamstrings/hip /ankle 4/5. LUMBAR ROM: flexion WFL loss pain, extension WFL ,, side glides WNL. - Goal 1:: I with HEP for lumbar spine Goal Progress: Goal Met Goal 2:: Patient to demonstrate 50% improvement with less pain and improved function Goal Progress: Goal Met Goal 3:: Patient to improve lumbar ROM for function for recovery for job demands Goal Progress: Goal Met Goal 4:: Patient to improve back oswestry score by 5 points or> to improve QOL and job demnads Goal Progress: Goal Met Goal 5:: Patient improve posture and lifting techniques 90% and d/c to prophalaxis. Goal Progress: Goal Met Plan: D/C Discharge Comments: HEP If there are questions or concerns regarding this patient's physical therapy, please feel free to call me at [phone]. Thank you for the referral of this patient. Sincerely, Feliciano Hurd, PT, Cert MDT, OCS Balance/Gait/Functional tests - Balance/Special Test Scores Oswestry Low Back Score: 21
== END 2023-03-04 19:00 | disposition home or self-care (01) ==
LOC: PT 17:30
PROVIDERS: PCP Family Medicine; Referring Provider Family Medicine; Visit Provider Family Medicine
DX: M54.30 Sciatica, unspecified side (principal)
CPT/HCPCS: 97014; 97110; 97162; 97530; G0283

== ENCOUNTER → 2023-03-06 | Outpatient (CLI) | payer OTHER, SELFPAY ==
--- NOTE | 2023-03-06 08:26 | MRI_ITS ---
EXAM: MR LUMBAR SPINE WITHOUT INTRAVENOUS CONTRAST CLINICAL INDICATION: pain TECHNIQUE: Multiplanar and multisequence MR images of the lumbar spine without intravenous contrast. COMPARISON: No relevant prior studies available. FINDINGS: VERTEBRAE: See below. SPINAL CORD: Unremarkable. Normal position and signal intensity of the conus medullaris. SOFT TISSUES: Unremarkable. DISCS/SPINAL CANAL/NEURAL FORAMINA: T11-T12: Disc space narrowing and loss of disc signal. Mild generalized disc bulge. No spinal canal or foraminal stenosis. T12-L1: Disc space narrowing and loss of disc signal. Mild generalized disc bulge. No spinal canal or foraminal stenosis. L1-L2: Disc space narrowing and loss of disc signal. Mild generalized disc bulge. No spinal canal or neuroforaminal stenosis. L2-L3: Disc space narrowing and loss of disc signal. Mild generalized disc bulge. No spinal canal or foraminal stenosis. Moderate bilateral facet arthropathy. L3-L4: Disc space narrowing and loss of disc signal. Mild generalized disc bulge. No spinal canal or foraminal stenosis. Moderate bilateral facet arthropathy. L4-L5: Unremarkable. Normal disc height and morphology. Normal spinal canal and lateral recesses. Normal neuroforamina. L5-S1: Moderate bilateral facet arthropathy. Normal spinal canal and lateral recesses. Normal neuroforamina. MRI/Spine Lumbar (Routine) IMPRESSION: Diffuse spondylosis. Multilevel facet disease. No spinal canal, lateral recess, or neural foraminal stenosis. No nerve root impingement. Electronically Signed: David Omalley MD at 21:27 EDT ,
== END | disposition home or self-care (01) ==
LOC: MRI 08:20
PROVIDERS: PCP Family Medicine; Referring Provider Orthopaedic Surgery; Visit Provider Orthopaedic Surgery
DX: M54.17 Radiculopathy, lumbosacral region (principal)
CPT/HCPCS: 72148

== ENCOUNTER → 2023-07-09 | Outpatient (CLI) | payer OTHER, SELFPAY ==
[2023-07-09 12:38] LABS: Absolute Lymphocyte Count 2.09 X10^3/uL (0.83-4.51); Absolute Neutrophil Count 4.3 X10^3/uL (2.0-7.7); Basophil# 0.04 X10^3/uL; Basophil% 0.6 % (0-1); Eosinophil# 0.13 X10^3/uL; Eosinophils% 1.9 % (0-5); Hematocrit 40.2 % (37-47); Hemoglobin 13.2 g/dL (12.0-15.0); Lymphocyte # 2.09 X10^3/ul (0.83-4.51); Mean Corp Hgb Conc 32.8 g/dL (32-36); Mean Corpuscular Hgb 30.1 pg (27.0-32.0); Mean Corpuscular Volume 91.6 fL (81-99); Mean Platelet Vol. 9.4 fl (6.2-12.0); Monocyte% 5.7 % (0-10); NRBC Flagged by Analyzer 0 % (0-5); Neutrophil # 4.29 X10^3/uL (2.7-7.7); Neutrophil % 61.7 % (47-70); Platelet Count 268 K/mm3 (150-450); RBC Distribution Width CV 12.8 % (11.6-14.6); RBC Distribution Width SD 43.1 fl (35.1-43.9); Red Blood Count 4.39 M/mm3 (4.2-5.4)
== END | disposition home or self-care (01) ==
LOC: LAB 12:06
PROVIDERS: PCP Family Medicine; Referring Provider Family Medicine; Visit Provider Family Medicine
DX: D64.9 Anemia, unspecified (principal)
CPT/HCPCS: 36415; 85025

== ENCOUNTER → 2023-12-03 | Outpatient (CLI) | payer OTHER, SELFPAY ==
[2023-12-03 08:16] LABS: Absolute Lymphocyte Count 1.99 X10^3/uL (0.83-4.51); Absolute Neutrophil Count 4.8 X10^3/uL (2.0-7.7); Basophil# 0.06 X10^3/uL; Basophil% 0.8 % (0-1); Eosinophil# 0.31 X10^3/uL; Eosinophils% 4.1 % (0-5); Hematocrit 42.8 % (37-47); Hemoglobin 13.6 g/dL (12.0-15.0); Lymphocyte # 1.99 X10^3/ul (0.83-4.51); Lymphocyte % 26.5 % (19-41); Mean Corp Hgb Conc 31.8 g/dL (32-36); Mean Corpuscular Hgb 28.9 pg (27.0-32.0); Mean Corpuscular Volume 91.1 fL (81-99); Mean Platelet Vol. 10.8 fl (6.2-12.0); Monocyte# 0.35 X10^3/uL; Monocyte% 4.7 % (0-10); NRBC Flagged by Analyzer 0 % (0-5); Neutrophil # 4.77 X10^3/uL (2.7-7.7); Neutrophil % 63.6 % (47-70); Platelet Count 177 K/mm3 (150-450); RBC Distribution Width CV 13.1 % (11.6-14.6); RBC Distribution Width SD 43.9 fl (35.1-43.9); White Blood Count 7.5 K/mm3 (4.4-11.0)
[2023-12-03 10:32] LABS: ALB/GLOB Ratio 0.9 RATIO (0.9-2.4); AST(SGOT) 31 U/L (15-37); Alanine Aminotransfer ALT/SGPT 28 U/L (13-56); Albumin, Serum 3.9 g/dL (3.2-5.0); Alkaline Phosphatase 68 U/L (45-117); Anion Gap 7 (5-15); BUN 17 mg/dL (7-18); BUN/Creat Ratio 23.1 RATIO (10-20); Calcium,Total 9.4 mg/dL (8.5-10.1); Chloride 107 mmol/L (98-107); Cholesterol 191 mg/dL (200); Creatinine, Serum 0.74 mg/dL (0.55-1.02); EST Glomerular Filtration Rate 85 mL/min (>60); Est Glom Filt Rate - Afr Amer 102 mL/min (>60); Globulin 4.5 g/dL (2.2-4.2); Glucose 101 mg/dL (74-106); High Density Lipoprotein 66 mg/dL; Iron 67 ug/dL (50-170); Potassium 4.1 mmol/L (3.5-5.1); Protein, Total 8.4 g/dL (6.4-8.2); Sodium Level 139 mmol/L (136-145); Thyroid Stim Hormone (TSH) 2.59 uIU/mL (0.358-3.74); Triglycerides 56 mg/dL; Very Low Density Lipoprotein 11 mg/dL (5-40)
[2023-12-03 18:07] LABS: Hemoglobin A1c 5.9 % (3.8-5.6)
== END | disposition home or self-care (01) ==
LOC: LAB 07:51
PROVIDERS: PCP Family Medicine; Visit Provider Physician Assistant
DX: Z00.01 Encounter for general adult medical examination with abnormal findings (principal); E03.9 Hypothyroidism, unspecified; R73.9 Hyperglycemia, unspecified; D64.9 Anemia, unspecified
CPT/HCPCS: 36415; 80053; 80061; 83036; 83540; 84443; 85025

== ENCOUNTER → 2023-12-31 | Outpatient (CLI) | payer OTHER, SELFPAY ==
--- NOTE | 2023-12-31 11:56 | BI_ITS ---
MAMMOGRAPHY - BILATERAL SCREENING REASON FOR EXAM: Female, 63 years old. Routine annual screening examination. PERTINENT HISTORY: Sister with breast cancer. Aunt with breast cancer. TECHNIQUE: Digital bilateral breast geoff (3D mammographic acquisition) in the CC and MLO projections. 2-D mediolateral oblique (MLO) and craniocaudad (CC) views of both breasts were obtained. CAD: Full Field Digital Mammography with Computer Added Detection was performed. COMPARISON: Comparison is made with prior study December 03, 2020 and May 18, 2019. FINDINGS: Breast Composition: There are scattered areas of fibroglandular density. There are no dominant masses or suspicious calcifications. Stable bilateral fat containing axillary lymph nodes. No other significant abnormalities are identified. There has been no significant change since the prior study. BI/SCRN MAMM (CAD)W/GEOFF BILAT IMPRESSION: Stable bilateral screening mammogram. Yearly follow-up mammogram recommended. (A) ASSESSMENT CATEGORY: BIRADS Category 2: Benign. A letter regarding these results will be sent to the patient by the facility within 30 days. Approximately 10% of breast cancers are not detected by mammography. A normal mammogram should not delay biopsy of a clinically suspicious abnormality. [id number] Electronically Signed: Felipe Smith MD at 13:10 EDT ,
== END | disposition home or self-care (01) ==
LOC: OPBI 11:54
PROVIDERS: PCP Family Medicine; Referring Provider Physician Assistant; Visit Provider Physician Assistant
DX: Z12.31 Encounter for screening mammogram for malignant neoplasm of breast (principal)
CPT/HCPCS: 77063; 77067

== ENCOUNTER → 2024-01-07 | Outpatient (CLI) | payer OTHER, SELFPAY ==
[2024-01-07 13:29] LABS: ALB/GLOB Ratio 0.9 RATIO (0.9-2.4); AST(SGOT) 24 U/L (15-37); Alanine Aminotransfer ALT/SGPT 27 U/L (13-56); Alkaline Phosphatase 72 U/L (45-117); Anion Gap 7 (5-15); BUN 18 mg/dL (7-18); BUN/Creat Ratio 23.4 RATIO (10-20); Calcium,Total 9.6 mg/dL (8.5-10.1); Chloride 101 mmol/L (98-107); Creatinine, Serum 0.77 mg/dL (0.55-1.02); EST Glomerular Filtration Rate 80 mL/min (>60); Est Glom Filt Rate - Afr Amer 97 mL/min (>60); Globulin 4.6 g/dL (2.2-4.2); Glucose 94 mg/dL (74-106); Potassium 4.1 mmol/L (3.5-5.1); Protein, Total 8.6 g/dL (6.4-8.2); Sodium Level 135 mmol/L (136-145)
== END | disposition home or self-care (01) ==
PROVIDERS: PCP Family Medicine; Referring Provider Physician Assistant; Visit Provider Physician Assistant
DX: E03.9 Hypothyroidism, unspecified (principal)
CPT/HCPCS: 36415; 80053

== ENCOUNTER → 2024-01-13 | Outpatient (CLI) | payer OTHER, SELFPAY ==
[2024-01-17 14:08] LABS: PROEL- A/G Ratio 1.1 (0.7-1.7); PROEL- Albumin 3.9 g/dL (2.9-4.4); PROEL- Alpha-1 Globulin 0.3 g/dL (0.0-0.4); PROEL- Alpha-2 Globulin 0.9 g/dL (0.4-1.0); PROEL- Beta Globulin 1.1 g/dL (0.7-1.3); PROEL- Gamma Globulin 1.4 g/dL (0.4-1.8); PROEL- Globulin, Total 3.7 g/dL (2.2-3.9); PROEL- TOTAL PROTEIN 7.6 g/dL (6.0-8.5); PROEL-M-Spike Not Observed g/dL (Not Observed)
== END | disposition home or self-care (01) ==
LOC: LAB 13:06
PROVIDERS: PCP Family Medicine; Referring Provider Physician Assistant; Visit Provider Physician Assistant
DX: D89.2 Hypergammaglobulinemia, unspecified (principal); I10 Essential (primary) hypertension
CPT/HCPCS: 36415; 84165

== ENCOUNTER 2024-09-07 09:00 | Outpatient (RCR) | payer OTHER, SELFPAY ==
--- NOTE | 2024-07-31 13:47 | HP.SP.EVAL ---
Visit History Visit Info Date of Eval: 07/28/24 Visit: 1 Patient's Approved Number of Visits: 25 Insurance Date Limit: 09/12/24 Leaflet Or Newspaper Deliverer: MERARY History Attending Doctor: BRANDAN FORMAN Referring Doctor: BRANDAN FORMAN Reason for Referral: VOCAL CHORD PARALYSIS. RX HERE Medical Diagnosis: Vocal cord Paralysis Date of Onset of Diagnosis: Unilateral vocal cord Previous speech therapy: No Other Relevant Medical History/Diagnoses/Surgery: High blood pressure, stomach ulcers, allergies seasonal, Thyroidectomy 2010 which resulted in right vocal cord paralysis. in 2011, she had a thyroplasty for medialization of right cord. She has not had any other speech therapy. 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 Pain Is pain an issue with your current prescribed condition?: No Personal Preferred language: Swedish Patient Allergies Allergies Allergies: Allergies amoxicillin (From Augmentin) Allergy (Severe, Verified 06/07/24 08:07) see note ended up in ED with upset stomach and agitated clavulanic acid (From Augmentin) Allergy (Severe, Verified 06/07/24 08:07) unknown Subjective Voice Informal Questioner Do you scream (anger, sporting event, work, noisy envirmonment): Less than average Do you raise your voice (e.g. parenting, calling from room to room, etc.): Less than average Do you talk for long periods of time without a break (teacher, bernard): More than average Are you a talker: More than average How often do you use the telephone: More than average Intubation Was the Client intubated: No Intake Water (ounces): 16 Coffee (ounces): 8 Tea (ounces): 8 Soda (ounces): 0 Energy drinks (ounces): 0 Milk (ounces): 6 Juice (ounces): 0 Sports drinks (ounces): 0 Alcoholic Beverage Intake Intake: Occasionally Beer (ounces): 8 Other Product Usage Do you use products containing menthol (if yes, list): No Do you take Vitamin C Supplements (if yes, list amt (mg)/day: No Do you use recreational drugs (if yes, list type/amt/frequency): No Objective Voice Objective data Objective Data: Objective data: Sound pressure level (SPL acoustic correlation of vocal loudness) was measured with a sound level meter at a distance of 40 cm from the patient's mouth. Average conversational loudness is 70-80 dB and sustained phonation duration is 15 to 20 seconds for a typical adult. Sustained Phonatin duration (seconds): 8 Vocal Intensity at Paragraph Level (dB SPL): 61.9 dB Vocal Intensity at Conversational Level (dB SPL): 60.8 dB Voice Handicap Index (VHI) VHI VHI Administered: Yes VHI: Patient completed the Voice Handicap Index, which is a 30 item, self administered questionnaire that asks an individual to describe their voice and the effects of their voice on their life. Three subscales cover the areas of functional, emotional, and physical aspects of the voice disorders. Points from the questions can be combined to assign a total score, or they can be combined by subscale. Results for the VHI are as follows: Date: 07/28/24 VHI Test Functional: She received a score of 14 for functional aspect. She is impaired on her functional use of voice due to difficulty with others hearing her, both on the phone as well as in person, often having to repeat herself, as well as sometimes feeling left out of conversations due to her voice. Physical: She received a score of 32 on the physical aspect. She reported: running out of air sometimes when speaking, voice varying throughout the day, being often asked what's wrong with your voice?, straining to produce voice, voicing giving out when speaking and needing to use a great deal of effort to speak. Emotional: She received a score of 23 on the emotional aspect. She reported: others seem irritated with my voice, others not understanding her voice difficulties, and feeling embarrassed when asked to repeat. Most notably, She reported always to her voice problem upseting her. Total Severity Rating: Severe (61-120) Comments VHI: -: The patient's total score of 69 also placed her within the severe range. According to these results, the patient feels that her voice problem is severe and greatly affects the functional, emotional and physical aspects of her life. Subjective Clinical Impression Adult Clinical Impression Dysphonia: any 'abnormal' vocal quality suggesting an interruption of normal production: Present Aphonic break: a break or intrruption in the vibration or phonation: Present Strained-strangled: perceived strain or pushed vocal quality at the onset of and during phonation: Present Glottal hadley: use of the lowest register during phonation (also called pulse register), resulting in an increased closed phase of the vibratory cycle: Present Vocal fatigue: a 'tired' voice or feeling of excessive effort to phonate: Present Voice deterioration: reduction of volume or vocal quality with prolonged use: Present Vocal tension: a tightness of the laryngeal musculature during voicing: Present Non-Phonatory Behaviors/Respiration Reduced loudness or vocal weakness: Present Limited breath support for speech: Present Infrequent breaths; talking too long on one breath: Present Clavicular breathing: excessive movement of the chest and shoulders during inspiration: Present Reference: Neuro-QoL instrument Radiation Oncology Patient Plan Plan Plan: Will recommend skilled outpatient speech therapy to address deficits in vocal function characterized by dysphonia, vocal tension, and impaired volitional control of respiration. Pt would benefit from education and training in diaphragmatic breathing as well as voice facilitation training. Recommendations Treatment Warranted: Yes Treatment Warranted: Voice Progress Prognosis: Good Frequency Frequency: 1x/Week Duration: 6 Weeks Visits in this POC: 6 Patient/Family Goal Patient/Family Goal: Patient's goal is to have increased volume. Goals that are Established Determination:: Goals will be added/modified as deemed necessary and appropriate. Therapy will be discontinued when results of re-evaluation indicate therapy is no longer needed or lack of progress has been documented. Goal #1-5 Goal #1: Pt will establish volitional control of respiration evidenced by utilization of diaphragmatic breathing to sustain ah for 12-15 seconds at least 4 times within 4 weeks. Goal #2: Patient will engage in easy adduction exercises to improve medial glottal closure on 4/5 trials on 2/3 consecutive sessions. Goal #3: Education including but not limited to vocal hygiene and maximize functioning without vocal hyperfunction/abuse. Education Patient has Indicated that the Following Identified Educational Needs: None The Patient has indicated that they have no educational or learning abilities that may effect their care.: Yes Patient Instruction Patient Education: Diagnosis and Treatment Plan Person Taught: Patient Teaching Method: Discussion Response to teaching: Verbalize Understanding
== END 2024-09-07 19:00 | disposition home or self-care (01) ==
LOC: SP 09:00
PROVIDERS: PCP Family Medicine
DX: J38.01 Paralysis of vocal cords and larynx, unilateral (principal); R49.0 Dysphonia
CPT/HCPCS: 92507; 92524

== ENCOUNTER → 2024-11-02 | Outpatient (CLI) | payer OTHER, SELFPAY ==
[2024-11-02 08:58] LABS: Erythrocyte Sedimentation Rate 24 mm/hr (0-30)
[2024-11-02 09:29] LABS: ALB/GLOB Ratio 0.8 RATIO (0.9-2.4); AST(SGOT) 17 U/L (15-37); Alanine Aminotransfer ALT/SGPT 23 U/L (13-56); Albumin, Serum 3.4 g/dL (3.2-5.0); Alkaline Phosphatase 68 U/L (45-117); Anion Gap 4 (5-15); BUN 22 mg/dL (7-18); BUN/Creat Ratio 29.2 RATIO (10-20); Calcium,Total 9.3 mg/dL (8.5-10.1); Chloride 104 mmol/L (98-107); Creatinine, Serum 0.75 mg/dL (0.55-1.02); EST Glomerular Filtration Rate 82 mL/min (>60); Est Glom Filt Rate - Afr Amer 99 mL/min (>60); Globulin 4.4 g/dL (2.2-4.2); Glucose 99 mg/dL (74-106); Potassium 4.2 mmol/L (3.5-5.1); Protein, Total 7.8 g/dL (6.4-8.2); Sodium Level 137 mmol/L (136-145)
== END | disposition home or self-care (01) ==
LOC: LAB 07:51
PROVIDERS: PCP Family Medicine; Referring Provider Family Medicine; Visit Provider Family Medicine
DX: R51.9 Headache, unspecified (principal); M15.0 Primary generalized (osteo)arthritis; R10.10 Upper abdominal pain, unspecified
CPT/HCPCS: 36415; 80053; 85652

== ENCOUNTER 2024-11-03 09:09 | Emergency (ER) | payer OTHER, SELFPAY ==
[2024-11-03 09:10] VITALS: BP 158/61; PULSE 68; RESP 14; TEMP 36.7; O2SAT 97; BMI 30.7
--- NOTE | 2024-11-03 09:28 | CT_ITS ---
EXAM: CT scan of the head without intravenous contrast administration. CLINICAL HISTORY: Intermittent left facial paresthesias. Known carotid aneurysm. COMPARISON: December 26, 2021. TECHNIQUE: Multiple axial tomographic images were obtained without intravenous contrast administration. Coronal and sagittal reconstruction was obtained as well. FINDINGS: Stable focal area of decreased attenuation in the inferior aspect of the left temporal lobe. This may represent prior ischemic involvement. No significant mass effect is seen. CT/Brain/Head without Contrast IMPRESSION: Focal area of decreased attenuation in the anterior aspect of the left temporal lobe suggestive of old ischemic insult. Reading Location: [facility]
--- NOTE | 2024-11-03 09:29 | EKG12_ITS ---
Test Reason : PALPS Blood Pressure : */* mmHG Vent. Rate : 61 BPM Atrial Rate : 61 BPM P-R Int : 162 ms QRS Dur : 82 ms QT Int : 386 ms P-R-T Axes : 54 21 61 degrees QTcB Int : 388 ms Normal sinus rhythm Normal ECG Confirmed by David Forte ([id number]), commercial production editor KEISHA ADAM ([id number]) on 11/06/2024 9:50:44 AM Referred By: RUSTAM Confirmed By: David Forte
--- NOTE | 2024-11-03 09:30 | EX.ED.DYSGE1 ---
HPI History of Present Illness Chief Complaint: Numb/Ting Informant: patient Narrative Narrative: 64-year-old female presenting with multiple symptoms. For the last 3 days mostly in the evenings she is having episodes of palpitations that make her feel lightheaded but without chest pain or dyspnea or syncope, lasting 30 minutes or so. She states she has had these before but not in the last couple months. For the last 3-4 weeks or so, she has been feeling fatigued, and all day every day, having episodes of left lower facial numbness. She denies any other associated symptoms when that occurs. Separately, she has been also having some days when both eyes feel like they have sand in them, and her eyelids on both sides are red and swollen/puffy. When this occurs, she often has blurred vision and trouble focusing but denies any visual field cuts, and sometimes has the blurry vision without feeling like her eyes are uncomfortable or swollen and without an apparent association with the numbness/tingling in the left face. Denies tingling/numbness in any extremities or focal weakness in any extremity at any point in time. This past month in September she was admitted to [facility] because of high blood pressures and headaches that were suspected to be caused by the elevated blood pressure after she had a lot of negative brain imaging testing according to the patient. 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 She takes metoprolol. She saw cardiology Dr. Denny remotely when she was having some palpitations that were presumed related to her thyroid, that since was surgically removed and the surgery was complicated by vocal cord paralysis causing her to be chronically hoarse which is unchanged today. She states yesterday her eyelids were red and swollen on both sides all day but today they feel fine. 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 She states she had labs done yesterday here. [facility] Medical History Hypertension Lumbar radiculopathy, acute Acute lumbar myofascial strain Contact with and (suspected) exposure to other viral communicable diseases Acute frontal sinusitis, unspecified Depression Obesity Premature atrial contractions Multiple premature ventricular complexes Hypothyroidism Greater trochanteric bursitis of both hips Fracture of greater trochanter of right femur Synovial cyst of hand Right carpal tunnel syndrome Arthritis Asthma Former smoker Bilateral carpal tunnel syndrome Trigger thumb of right hand Arthritis of carpometacarpal (CMC) joint of right thumb Degenerative joint disease of cervical spine Home Medications ?Medication ?Instructions ?Recorded ?Last Taken ?Type cholecalciferol (vitamin D3) 50 50 mcg PO DAILY 09/02/21 Unknown History mcg (2,000 unit) capsule (Vitamin D3) lisinopril 10 mg tablet 10 mg PO QHS 09/02/21 Unknown History vitamin B complex 1 cap PO DAILY 09/02/21 Unknown History loratadine 10 mg tablet (Claritin) 10 mg PO QHS 09/09/21 Unknown History levothyroxine 100 mcg tablet 100 mcg PO DAILY 08/25/22 Unknown History pantoprazole 40 mg tablet,delayed 40 mg PO DAILY 08/25/22 Unknown History release sucralfate 1 gram tablet 1 g PO BID 08/25/22 Unknown History meloxicam 15 mg tablet tablet PO 02/15/23 Unknown History Allergy/AdvReac Type Severity Reaction Status Date / Time amoxicillin (From Augmentin) Allergy Severe see note Verified 11/03/24 09:10 clavulanic acid (From Allergy Severe unknown Verified 11/03/24 09:10 Augmentin) Family History Other Breast cancer CAD (coronary artery disease) Surgical History History of carpal tunnel surgery of left wrist History of vocal cord paralysis Hx of foot surgery Hx of foot surgery Hx of repair of right rotator cuff Hx of thyroidectomy History of Social History Smoking Status: Former smoker alcohol intake: never ROS ROS ED Constitutional Constitutional ED: Reports fatigue; Denies chills or fever(s) Eyes Eyes: Reports as per HPI, blurry vision bilateral (Intermittent not currently present) and puffy eyes; Denies diplopia ENT ENT ED: Denies rhinorrhea or sore throat Cardiovascular Cardiovascular: Denies chest pain or palpitations Respiratory/Chest Respiratory/Chest: Denies cough or dyspnea Gastrointestinal Gastrointestinal: Denies abdominal pain, diarrhea, nausea or vomiting Genitourinary Genitourinary ED: Denies dysuria or hematuria Musculoskeletal Musculoskeletal: Denies back pain or neck pain Integumentary Denies abscess or rash Neurologic Neurologic: Reports paresthesias; Denies abnormal gait, abnormal hearing, abnormal speech, confusion, disequilibrium, dizziness, headache(s), lack of coordination or weakness Psychiatric Psychiatric: Denies anxiety or suicidal thoughts EXAM Physical Exam Const Vital Signs: 11/03/24 09:10 11/03/24 11:19 Temperature 98.0 F Temperature Source Oral Pulse Rate 68 50 L Respiratory Rate 14 14 Blood Pressure 158/61 H 132/69 H Blood Pressure Mean 93 90 Pulse Ox 97 98 Oxygen Delivery Method Room Air Room Air Positive well nourished and well developed General Appearance ED: well developed and NAD HEENT Reports moist mucous membranes normocephalic and atraumatic Eyes PERRL and EOMs intact bilaterally Eyes Narrative: No scleral injection or chemosis. No eye discharge bilaterally. Eyes appear normal, eyelids appear normal, no erythema or edema/asymmetry. Neck full ROM and supple Resp normal respiratory effort and clear to auscultation bilaterally Cardio regular rate, regular rhythm and no murmurs Rate: Negative for bradycardia or tachycardic GI non-tender and non-distended Auscultation: normoactive bowel sounds Palpation: soft Back/Spine no CVA tenderness General Back: other FROM Extremity normal to inspection General Extremety ED: Negative for edema, pulses abnormal or tenderness General Extremity: Negative for edema or pulses abnormal Neuro oriented x3, CN's II-XII intact bilaterally and no sensory deficits noted Neuro Narrative: Normal peripheral neurologic exam normal cranial nerve exam. Normal speech. Normal gait. NIHSS 0. Sensorium / Orientation: awake and alert Motor Exam: strength 5/5 throughout Psych mental status grossly normal Skin no rashes or lesions noted and no wounds MDM MDM MDM Narrative Medical decision making narrative: Unclear if patient is having referred cardiac discomfort although the paresthesias do not occur simultaneously with the palpitations, or if this is an electrolyte disorder, or if this is an unusual migraine occurring intermittently. Less likely to be seizure activity. I did review her labs from yesterday. They included an ESR that was normal and a basic metabolic panel that was normal including her calcium level. She was a little prerenal which can change with fluid intake patterns. I added a CBC to evaluate for anemia and a troponin which could be elevated with dangerous dysrhythmias, her history is less suspicious for 1 of those. In the meantime kept her on the monitor, she is having no symptoms right now and no ectopy and on reevaluation prior to my leaving the initial exam, her blood pressure is 137/71 and her heart rate is in the 60s. Her hemoglobin is normal, her troponin is normal. I reviewed the CT results as well as the images, I agree with the results. Basically shows a very small area of encephalomalacia/possible prior infarct in the anterior aspect of the left temporal lobe. The radiologist reports that this is stable since her prior scan, December 26, 2021. I reviewed those images, I think I see it although it is very small and subtle, but radiology did not interpret this is abnormal, calling the scan basically normal. I reviewed all this with Dr. Kaur, [facility] stroke neurology. She agrees that this is likely unrelated to the patient's current intermittent symptoms, and she does not feel the patient needs to be admitted for any emergent testing but states that an MRI would help to sort out any details or if there is something there at all. She states she agrees that it could be an asymmetric sulcus. She recommends outpatient follow-up with neurology. Patient is comfortable with that. Her vital signs are normal, she is not having a facial droop/weakness when she has the facial paresthesias, I do not think she needs to be admitted for the palpitations and she has had no syncopal episodes or symptoms of unstable angina with them, and she states she already saw a dentist and had some x-rays and I do not think it is anything intraoral causing the paresthesias. With regards to her eyes, I recommend Pataday drops and with regards to her palpitations, I am going to have respiratory see if they can put her on a Holter monitor and have her follow-up with cardiology afterwards. History & Record Review Additional record(s) reviewed:: Prior labs (See above yesterday BMP and ESR) Lab Data Attestation: I reviewed the patient's lab results. Labs: Laboratory Results - last 24 hr 11/03/24 09:16 WBC 7.7 RBC 4.63 Hgb 13.7 Hct 42.6 MCV 92.0 MCH 29.6 MCHC 32.2 RDW Std Deviation 43.4 RDW Coeff of Kenn 12.7 Plt Count 283 MPV 9.4 Immature Gran % (Auto) 0.100 Neut % (Auto) 60.0 Lymph % (Auto) 28.6 [place] % (Auto) 5.4 Eos % (Auto) 5.3 H Baso % (Auto) 0.6 Absolute Neuts (auto) 4.6 Absolute Lymphs (auto) 2.21 Nucleated RBC % 0 Troponin I High Sens < 3 L Radiography Diagnostic Testing: Clinical Impression(s) from Imaging Studies Brain CT 11/03/24 09:28 IMPRESSION: Focal area of decreased attenuation in the anterior aspect of the left temporal lobe suggestive of old ischemic insult. Reading Location: [facility] Rhythm Strip Rhythm Strip: Sinus Rhythm Rate: 65 Ectopy: None EKG Initial EKG: Attestation: I personally reviewed and interpreted this EKG as follows: Interpretation: Sinus Rhythm and No Acute Injury Pattern Comments: Nml axis & intervals; nml EKG Management Discussion w/another healthcare provider: Regional Trainer (Dr. Kaur, stroke neurology) Discharge Plan Triage Chief Complaint: Numb/Ting Other Complaint: Palpitations ED Provider: Erick Nguyen Dx/Rx/DC Orders Clinical Impression: Facial paresthesia, Palpitations, Allergic conjunctivitis, bilateral Instructions: ED Palpitations, ED Paraesthesias Prescriptions: No Action levothyroxine 100 mcg tablet 100 mcg PO DAILY sucralfate 1 gram tablet 1 g PO BID pantoprazole 40 mg tablet,delayed release (DR/EC) 40 mg PO DAILY meloxicam 15 mg tablet PO vitamin B complex Capsule 1 cap PO DAILY cholecalciferol (vitamin D3) [Vitamin D3] 50 mcg (2,000 unit) Capsule 50 mcg PO DAILY lisinopril 10 MG tablet 10 mg PO QHS loratadine [Claritin] 10 mg Tablet 10 mg PO QHS Primary Care Provider: Cristian Velasquez Referrals: Jai Denny MD [Med Staff - Active Staff] - (after Holter turned in) Cristian Velasquez MD [Primary Care Provider] - Jacky Earl MD [Non-Staff -Ordering Privileges] - As soon as possible Print Language: Greenlandic
[2024-11-03 09:43] LABS: Absolute Lymphocyte Count 2.21 X10^3/uL (0.83-4.51); Absolute Neutrophil Count 4.6 X10^3/uL (2.0-7.7); Basophil# 0.05 X10^3/uL; Basophil% 0.6 % (0-1); Eosinophil# 0.41 X10^3/uL; Eosinophils% 5.3 % (0-5); Hematocrit 42.6 % (37-47); Hemoglobin 13.7 g/dL (12.0-15.0); Lymphocyte # 2.21 X10^3/ul (0.83-4.51); Lymphocyte % 28.6 % (19-41); Mean Corp Hgb Conc 32.2 g/dL (32-36); Mean Corpuscular Hgb 29.6 pg (27.0-32.0); Mean Platelet Vol. 9.4 fl (6.2-12.0); Monocyte# 0.42 X10^3/uL; Monocyte% 5.4 % (0-10); NRBC Flagged by Analyzer 0 % (0-5); Neutrophil # 4.62 X10^3/uL (2.7-7.7); Platelet Count 283 K/mm3 (150-450); RBC Distribution Width CV 12.7 % (11.6-14.6); RBC Distribution Width SD 43.4 fl (35.1-43.9); Red Blood Count 4.63 M/mm3 (4.2-5.4); White Blood Count 7.7 K/mm3 (4.4-11.0)
[2024-11-03 09:59] LABS: Troponin-I HS < 3 pg/mL (3.0-54.0)
[2024-11-03 11:19] VITALS: BP 132/69; PULSE 50; RESP 14; O2SAT 98
[2024-11-03 13:00] VITALS: BP 138/78; PULSE 78; RESP 14; TEMP 36.9; O2SAT 99
== END 2024-11-03 13:05 | disposition home or self-care (01) ==
LOC: ED 09:29
PROVIDERS: Emergency Provider Emergency Medicine; PCP Family Medicine; Visit Provider Emergency Medicine
DX: R20.2 Paresthesia of skin (principal); R00.2 Palpitations; H10.13 Acute atopic conjunctivitis, bilateral; Z87.891 Personal history of nicotine dependence
CPT/HCPCS: 70450; 84484; 85025; 93005; 99285; A4216

== ENCOUNTER → 2024-11-03 | Outpatient (CLI) | payer OTHER, SELFPAY | END | disposition home or self-care (01) | PROVIDERS: PCP Family Medicine; Referring Provider Internal Medicine Cardiovascular Disease; Visit Provider Emergency Medicine | DX: R00.2 Palpitations (principal) | CPT/HCPCS: 93225; 93226 ==

== ENCOUNTER 2024-11-06 13:39 | Observation (INO) | payer OTHER, SELFPAY ==
[2024-11-06] VITALS (8 sets, daily range): BP systolic 124–160; BP diastolic 75–91; PULSE 67–78; RESP 16–18; TEMP 36.3–36.8; O2SAT 96–98; BMI 27.2; BMI 28.7
--- NOTE | 2024-11-06 14:07 | EX.ED.DYSGE1 ---
HPI History of Present Illness Chief Complaint: Dizziness [facility] Medical History Hypertension Lumbar radiculopathy, acute Acute lumbar myofascial strain Contact with and (suspected) exposure to other viral communicable diseases Acute frontal sinusitis, unspecified Depression Obesity Premature atrial contractions Multiple premature ventricular complexes Hypothyroidism Greater trochanteric bursitis of both hips Fracture of greater trochanter of right femur Synovial cyst of hand Right carpal tunnel syndrome Arthritis Asthma Former smoker Bilateral carpal tunnel syndrome Trigger thumb of right hand Arthritis of carpometacarpal (CMC) joint of right thumb Degenerative joint disease of cervical spine Home Medications ?Medication ?Instructions ?Recorded ?Last Taken ?Type cholecalciferol (vitamin D3) 50 50 mcg PO DAILY 09/02/21 11/05/24 History mcg (2,000 unit) capsule (Vitamin D3) vitamin B complex 1 cap PO DAILY 09/02/21 11/05/24 History loratadine 10 mg tablet (Claritin) 10 mg PO QHS 09/09/21 11/05/24 History levothyroxine 100 mcg tablet 100 mcg PO DAILY 08/25/22 11/06/24 History pantoprazole 40 mg tablet,delayed 40 mg PO DAILY 08/25/22 11/05/24 History release sucralfate 1 gram tablet 1 g PO BID 08/25/22 11/06/24 History meloxicam 15 mg tablet 15 mg PO DAILY 02/15/23 11/05/24 History lisinopril 20 mg tablet 20 mg PO DAILY 11/06/24 11/05/24 History metoprolol succinate 25 mg 25 mg PO DAILY 11/06/24 11/05/24 History tablet,extended release 24 hr Allergy/AdvReac Type Severity Reaction Status Date / Time amoxicillin (From Augmentin) Allergy Severe see note Verified 11/06/24 13:41 clavulanic acid (From Allergy Severe unknown Verified 11/06/24 13:41 Augmentin) Family History Other Breast cancer CAD (coronary artery disease) Surgical History History of carpal tunnel surgery of left wrist History of vocal cord paralysis Hx of foot surgery Hx of foot surgery Hx of repair of right rotator cuff Hx of thyroidectomy History of Social History household members: spouse housing: house Smoking Status: Former smoker alcohol intake: never EXAM Physical Exam Const Vital Signs: 11/06/24 13:40 11/06/24 14:34 11/06/24 15:39 Temperature 98.2 F Temperature Source Temporal Pulse Rate 73 74 Respiratory Rate 16 Blood Pressure 160/87 H 136/90 H Blood Pressure Mean 111 105 Pulse Ox 98 98 96 Oxygen Delivery Method Room Air Room Air 11/06/24 16:46 11/06/24 17:00 Temperature 98.3 F Temperature Source Pulse Rate 74 78 Respiratory Rate 16 Blood Pressure 136/90 H 160/75 H Blood Pressure Mean 105 103 Pulse Ox 96 96 Oxygen Delivery Method MDM MDM MDM Narrative Medical decision making narrative: HISTORY OF PRESENT ILLNESS: Of note was it was very difficult to obtain an initial history from the patient. During the patient's initial ED evaluation she wanted to discuss the origin of her symptoms from several months ago. While history is extremely important but is very difficult to perform my job effectively without having context to a specific historical component. I asked the patient to give me a sense of the symptoms that concern of the most and brought her in today. As I tried to redirect her in an effort to put her symptoms into the context of a chief complaint and typical emergency physician thought process/algorithms patient refused to state her chief complaint. Stating she want me to listen to the whole story. When I explained to the patient the emergency department is most effective at ruling out or stabilizing life or limb threatening condition she noted while I know this is not life-threatening. I explained to the patient that is extremely important that I understand what her chief complaint was so that I could develop a sound differential diagnosis to then attempt to figure out if she was having a life or limb threatening emergency. This discussion caused the patient significant consternation. I maintained my professionalism at all times. The hx i was able to obtain is as follows. 64-year-old female presents with dizziness. She states she has had dizziness since Wednesday (11/03/24). States 1 month of left-sided facial numbness. I just feel terrible. Notes headaches, palpitations, fatigue, intermittent left-sided facial numbness, vomiting since September. Symptoms are intermittent but no specific alleviating or exacerbating features. Patient denies syncope. Denies falls or head trauma. Denies abdominal pain. No bleeding. Denies chest pain. Denies urinary complaints. Denies cough fever chills. REVIEW OF SYSTEMS: Pertinent positives: as per HPI Pertinent negatives: Bleeding diathesis, diarrhea, abdominal pain, syncope, chest pain PHYSICAL EXAM: Nursing triage notes reviewed, Vital signs reviewed Constitutional: please see mdm HENT: MMM Eyes: Pupils equal round and reactive to light, Extraocular muscles intact Neck: No stridor, no JVD, full neck ROM, no thyromegaly noted. Lungs: Clear to auscultation, No wheezing or rales. No increased work of breathing, no conversational dyspnea, no accessory muscle use, no nasal flaring. No respiratory distress noted Heart: Regular rate and rhythm, No murmurs, No rubs and No gallops, 2+ distal pulses (radial, femoral, posterior tibial) in all extremities Abdomen: Soft, there is no tenderness, rigidity, rebound or guarding, no obvious peritoneal signs, no palpable pulsatile abdominal masses, no auscultated abdominal bruit : No CVAT Extremities: No edema Neuro: alert and oriented x3, neuro exam at baseline, cranial nerves II through XII are intact. No pain with extraocular muscle movement. There is negative test of skew. 5 of 5 strength in upper and lower extremities in flexion extension. Intact sensation to light touch in upper and lower extremity dermatomes. No truncal or extremity ataxia. No dysdiadochokinesia. Normal gait. 2+ reflexes in upper and lower extremities. No meningeal signs. Negative Babinski. NIH of 1 for subjective decreased sensation of her left lower face. Skin: No rash or lesions noted MEDICAL DECISION MAKING: Chief Complaint: Dizziness, facial numbness External records reviewed: Imaging reviewed: Reviewed CT scan of the brain from 11/02/2024 which showed stable focal area of decreased induration in the inferior aspect left temporal lobe. This may represent prior ischemic involvement. Factors affecting care: no facial paresthesia, hypothyroidism hypertension. Social determinants of health: none History obtained from others: none Consults: Internal Medicine (Dr. Borges) - accepted to patient to PCU full. MDM Narrative: Patient was initially hypertensive with a blood pressure 160/87 otherwise afebrile and nontoxic-appearing. Exam with NIH stroke scale of 1 for subjective decrease sensation of the left lower face. I did not activate the stroke protocol as the patient's last known well was greater than 4 and half hours for TNK and greater than 24 hours for large vessel occlusion. I considered the following differential diagnosis: ICH, large vessel occlusion, mass, anemia, electrolyte disturbance, ACS, arrhythmia I obtained a broad lab and imaging workup to further elucidate the etiology of patient's complaints ALL IMAGES (IF OBTAINED) HAVE BEEN PERSONALLY REVIEWED AND INTERPRETED BY MYSELF. EKG with normal sinus rhythm, normal axis, no intervals, no STEMI, no arrhythmia CBC without leukocytosis, severe anemia, no thrombocytopenia. No coagulopathy CBC without leukocytosis, severe anemia, no thrombocytopenia. High-sensitivity troponin is negative, no evidence of myocardial ischemia CT scan of the head, CTA head and neck shows no evidence of obvious ICH, mass or large vessel occlusion or dissection. On re-evaluation patient's vital signs remained stable. Initial hypertension improved 136/90. On reevaluation patient did not express any complaints verbally to me. Discussed the case with the hospitalist Dr. Borges who came down to ED to evaluate the patient and discuss her options in terms of inpatient admission/observation or discharge. Dr. Borges recommended admission. The patient and/or family, caregivers express understanding. The patient and/or family, caregivers agrees with the plan. Shared decision making: I will have a discussion with the patient and or visitors regarding risk/benefits of further testing or admission. They will be made aware of of the risk/benefits inherent in this decision they will be given the opportunity to voice understanding. Total critical care time today provided was at least 0 minutes. This excludes separately billable procedures. Critical care time (if documented) is secondary to the patient having high probability of clinically significant/life threatening deterioration in the patient's condition which required my urgent intervention. Impression: 1. Facial paresthesia 2. Fatigue 3. Malaise Dispo: discharge This note was generated with [employer] dictation software. It may contain incorrect words, spelling, and punctuation that were not noted in review of the chart prior to signing. Lab Data Labs: Laboratory Results - last 24 hr 11/06/24 14:32 WBC 8.5 RBC 4.57 Hgb 13.7 Hct 41.9 MCV 91.7 MCH 30.0 MCHC 32.7 RDW Std Deviation 42.0 RDW Coeff of Kenn 12.5 Plt Count 268 MPV 9.4 Immature Gran % (Auto) 0.400 Neut % (Auto) 61.4 Lymph % (Auto) 29.7 [place] % (Auto) 5.9 Eos % (Auto) 2.1 Baso % (Auto) 0.5 Absolute Neuts (auto) 5.2 Absolute Lymphs (auto) 2.51 Nucleated RBC % 0 PT 13.7 INR 1.0 APTT 26.0 Sodium 137 Potassium 3.7 Chloride 100 Carbon Dioxide 29.0 Anion Gap 8 BUN 19 H Creatinine 0.58 Estim Creat Clear Calc 88.34 Est GFR (MDRD) Af Amer 134 Est GFR (MDRD) Non-Af 111 BUN/Creatinine Ratio 32.6 H Glucose 107 H Calcium 9.4 Troponin I High Sens < 3 L Radiography Diagnostic Testing: Clinical Impression(s) from Imaging Studies Head/Neck CTA 11/06/24 15:30 IMPRESSION: RIGHT CAROTID: Unremarkable. LEFT CAROTID: Unremarkable. VERTEBRALS: Unremarkable. INTRACRANIAL: Unremarkable. One or more dose reduction techniques were used (e.g., Automated exposure control, adjustment of the mA and/or kV according to patient size, use of iterative reconstruction technique). Reading Location: [id number] Chest X-Ray 11/06/24 15:35 IMPRESSION: Lungs are clear. Hiatal hernia. Reading Location: [id number] Discharge Plan Triage Chief Complaint: Dizziness ED Provider: Glen Awan Dx/Rx/DC Orders Prescriptions: No Action levothyroxine 100 mcg tablet 100 mcg PO DAILY sucralfate 1 gram tablet 1 g PO BID pantoprazole 40 mg tablet,delayed release (DR/EC) 40 mg PO DAILY meloxicam 15 mg tablet 15 mg PO DAILY vitamin B complex Capsule 1 cap PO DAILY cholecalciferol (vitamin D3) [Vitamin D3] 50 mcg (2,000 unit) Capsule 50 mcg PO DAILY loratadine [Claritin] 10 mg Tablet 10 mg PO QHS metoprolol succinate 25 mg tablet extended release 24 hr 25 mg PO DAILY lisinopril 20 mg tablet 20 mg PO DAILY Primary Care Provider: Cristian Velasquez Referrals: Cristian Velasquez MD [Primary Care Provider] - Print Language: [place]
--- NOTE | 2024-11-06 14:28 | EKG12_ITS ---
Test Reason : Blood Pressure : */* mmHG Vent. Rate : 60 BPM Atrial Rate : 60 BPM P-R Int : 168 ms QRS Dur : 88 ms QT Int : 392 ms P-R-T Axes : 37 27 59 degrees QTcB Int : 392 ms Normal sinus rhythm Normal ECG Confirmed by David Forte ([id number]), purchase request editor KEISHA ADAM ([id number]) on 11/08/2024 8:17:41 AM Referred By: Confirmed By: David Forte
[2024-11-06 14:41] LABS: Absolute Lymphocyte Count 2.51 X10^3/uL (0.83-4.51); Absolute Neutrophil Count 5.2 X10^3/uL (2.0-7.7); Basophil# 0.04 X10^3/uL; Basophil% 0.5 % (0-1); Eosinophil# 0.18 X10^3/uL; Eosinophils% 2.1 % (0-5); Hematocrit 41.9 % (37-47); Hemoglobin 13.7 g/dL (12.0-15.0); Lymphocyte # 2.51 X10^3/ul (0.83-4.51); Lymphocyte % 29.7 % (19-41); Mean Corp Hgb Conc 32.7 g/dL (32-36); Mean Corpuscular Volume 91.7 fL (81-99); Mean Platelet Vol. 9.4 fl (6.2-12.0); Monocyte% 5.9 % (0-10); NRBC Flagged by Analyzer 0 % (0-5); Neutrophil # 5.19 X10^3/uL (2.7-7.7); Neutrophil % 61.4 % (47-70); Platelet Count 268 K/mm3 (150-450); RBC Distribution Width CV 12.5 % (11.6-14.6); Red Blood Count 4.57 M/mm3 (4.2-5.4); White Blood Count 8.5 K/mm3 (4.4-11.0)
[2024-11-06 14:49] LABS: Prothrombin Time (Protime)PT. 13.7 SECONDS (11.7-14.9)
[2024-11-06 14:59] LABS: Anion Gap 8 (5-15); BUN 19 mg/dL (7-18); BUN/Creat Ratio 32.6 RATIO (10-20); Calcium,Total 9.4 mg/dL (8.5-10.1); Chloride 100 mmol/L (98-107); Creatinine, Serum 0.58 mg/dL (0.55-1.02); EST Glomerular Filtration Rate 111 mL/min (>60); Est Glom Filt Rate - Afr Amer 134 mL/min (>60); Estimated Creatinine Clearance 88.34 ml/min; Glucose 107 mg/dL (74-106); Potassium 3.7 mmol/L (3.5-5.1); Sodium Level 137 mmol/L (136-145); Troponin-I HS < 3 pg/mL (3.0-54.0)
--- NOTE | 2024-11-06 15:30 | CT_ITS ---
PROCEDURE: CTA HEAD AND NECK W/ CONTRAST TECHNIQUE: CTA imaging of the head and neck from the aortic arch to the skull vertex with intravenous contrast. 3D reconstructions. CONTRAST: COMPARISON: None. # of known CTs in the past 12 months: 0 # of known Cardiac Nuclear Medicine Studies in the past 12 months: 0 FINDINGS: Aortic Arch: Normal size and branching pattern. No significant atherosclerotic plaque. 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 RIGHT Carotid: Right CCA: Unremarkable. Right ICA: Unremarkable. LEFT Carotid: Left CCA: Unremarkable. Left ICA: Unremarkable. Left ECA: Unremarkable. Vertebrals: Codominant. Arise from the subclavians. Both vertebrals form the basilar. RIGHT Vertebral: Unremarkable. LEFT Vertebral: Unremarkable. Unenhanced imaging of the brain is unremarkable. No intracranial aneurysms or large vascular malformations are identified. Anterior cerebral arteries: Unremarkable. Middle cerebral arteries: Unremarkable. Basilar artery: Unremarkable. Posterior cerebral arteries: Unremarkable. Other major branches of the posterior circulation: Unremarkable. Major venous structures: Unremarkable. Other findings: No lymphadenopathy. Lung apices are clear. Bones are unremarkable. CT/CTA Head AND Neck W/ Contrast IMPRESSION: RIGHT CAROTID: Unremarkable. LEFT CAROTID: Unremarkable. VERTEBRALS: Unremarkable. INTRACRANIAL: Unremarkable. One or more dose reduction techniques were used (e.g., Automated exposure contr ol, adjustment of the mA and/or kV according to patient size, use of iterative reconstruction technique). Reading Location: [id number]
--- NOTE | 2024-11-06 15:35 | RAD_ITS ---
PROCEDURE: CHEST 1 VIEW REASON FOR EXAM: Neuro deficit. Acute stroke suspected. TECHNIQUE: Single frontal image including the chest and abdomen. COMPARISON: None. FINDINGS: EKG electrodes are seen. The cardiothymic contour is normal. The lungs are clear. Hiatal hernia. Degenerative changes of the thoracic vertebrae. RAD/Chest 1 View IMPRESSION: Lungs are clear. Hiatal hernia. Reading Location: [id number]
--- NOTE | 2024-11-06 16:35 | ED.RN ---
Keysha, process consultant spoke with this RN regarding the pt complaining to Eren Lenz about her interaction with the ED provider. This RN spoke with pt regarding this situation and apologized. Pt very kind to this RN. Pt states provider was rude, did not want to listen to her concerns/complaints. Pt states she was told this is for emergencies and life threatening illnesses, this has been going on since September so it's not life threatening. This RN spoke with Keysha, apartment assistant manager, Keysha asked this RN to speak with provider. Provider stated that she is getting admitted and that he will go speak with pt.
--- NOTE | 2024-11-06 17:15 | MRI_ITS ---
EXAM: BRAIN WITHOUT CONTRAST CLINICAL HISTORY: Dizziness COMPARISON: None. TECHNIQUE: PROCEDURE: Multiplanar sequences of the brain were obtained on a 1.5 Afsaneh MRI system, including T1, T2, FLAIR, DWI, and ADC. No intravenous contrast was administered. IV CONTRAST: FINDINGS: MRI BRAIN: No intraparenchymal hemorrhage is evident. No focus of restricted diffusion is identified to suggest acute or early subacute ischemia. There is no extra-axial fluid collection, mass effect, or shift of midline structures. The basal cisterns are visualized. The ventricles and cortical sulci are in proportion and consistent with the patient's age. There is no signal abnormality in the beltran matter. There are a few scattered foci of T2/FLAIR hyperintensities in the supratentorial deep white matter that are nonspecific but most likely related to chronic small vessels ischemic changes and is age-appropriate. The midline structures demonstrate normal contours. The craniocervical junction is unremarkable. The flow voids of the large intracranial vessels are normal. The calvarium is unremarkable. The paranasal sinuses and mastoid air cells are clear. MRI/Brain without Contrast IMPRESSION: 1. No MR evidence of acute ischemia. 2. Nonspecific white matter changes which can be seen in small-vessel ischemic change, demyelinating processes and migraine headaches. Reading Location: [id number]
--- NOTE | 2024-11-06 17:17 | PCM.HP.STD ---
[facility] - [facility] General Date of Service: 11/06/24 Chief Complaint: Dizziness, headache, left facial numbness. [facility] Narrative SHIVANI BRYSON, is a 64 F who presents with a myriad of complaints. Says about a month ago, she started experiencing left facial numbness. Was seen at the [facility] at that time and underwent CT angiogram, CT of the head, MRI of the brain. Seen by teleneurology during that visit and Diagnosed with intractable headache and hypertensive urgency. Was also noted to have an ICA aneurysm 5 mm that was asymptomatic. She continued to have a headache during this time the facial numbness. Then on Wednesday, she started experiencing dizziness. Dizziness was worse with any kind of movement better with rest. Never experienced any dizziness like this in the past. Was seen here in the emergency room and had a small area of encephalomalacia/possible infarct. Radiology reviewed and appear to be stable from December 2021. The ED physician spoke with neurology and felt that the changes were not related with her current symptoms. I would recommend patient follow-up with neurology. Patient states that she is been having trouble seeing neurology ever since her discharge from [facility]. Patient underwent CT of the head and CT of the brain showed no acute changes. But given the patient's symptoms, she is very concerned that the dizziness she has been experiencing for a month ago may be related with her ongoing vertigo symptoms that she started having on Wednesday. Additionally, patient has been feeling rundown and having dry eyes. She wants answers in regards to what is going on with her. [facility] Medical History Hypertension Lumbar radiculopathy, acute Acute lumbar myofascial strain Contact with and (suspected) exposure to other viral communicable diseases Acute frontal sinusitis, unspecified Depression Obesity Premature atrial contractions Multiple premature ventricular complexes Hypothyroidism Greater trochanteric bursitis of both hips Fracture of greater trochanter of right femur Synovial cyst of hand Right carpal tunnel syndrome Arthritis Asthma Former smoker Bilateral carpal tunnel syndrome Trigger thumb of right hand Arthritis of carpometacarpal (CMC) joint of right thumb Degenerative joint disease of cervical spine Home Medications ?Medication ?Instructions ?Recorded ?Last Taken ?Type cholecalciferol (vitamin D3) 50 50 mcg PO DAILY 09/02/21 11/05/24 History mcg (2,000 unit) capsule (Vitamin D3) vitamin B complex 1 cap PO DAILY 09/02/21 11/05/24 History loratadine 10 mg tablet (Claritin) 10 mg PO QHS 09/09/21 11/05/24 History levothyroxine 100 mcg tablet 100 mcg PO DAILY 08/25/22 11/06/24 History pantoprazole 40 mg tablet,delayed 40 mg PO DAILY 08/25/22 11/05/24 History release sucralfate 1 gram tablet 1 g PO BID 08/25/22 11/06/24 History meloxicam 15 mg tablet 15 mg PO DAILY 02/15/23 11/05/24 History lisinopril 20 mg tablet 20 mg PO DAILY 11/06/24 11/05/24 History metoprolol succinate 25 mg 25 mg PO DAILY 11/06/24 11/05/24 History tablet,extended release 24 hr Allergy/AdvReac Type Severity Reaction Status Date / Time amoxicillin (From Augmentin) Allergy Severe see note Verified 11/06/24 13:41 clavulanic acid (From Allergy Severe unknown Verified 11/06/24 13:41 Augmentin) Family History Other Breast cancer CAD (coronary artery disease) Surgical History History of carpal tunnel surgery of left wrist History of vocal cord paralysis Hx of foot surgery Hx of foot surgery Hx of repair of right rotator cuff Hx of thyroidectomy History of Social History household members: spouse housing: house Smoking Status: Former smoker alcohol intake: never ROS ROS Narrative All review of systems were negative except as mentioned above in the history of present illness and the other review of systems. Vital Signs Vital Signs Vital Signs: 11/06/24 13:40 11/06/24 14:34 11/06/24 15:39 Temperature 36.8 C Temperature Source Temporal Pulse Rate 73 74 Respiratory Rate 16 Blood Pressure 160/87 H 136/90 H Blood Pressure Mean 111 105 Pulse Ox 98 98 96 Oxygen Delivery Method Room Air Room Air 11/06/24 16:46 11/06/24 17:00 Temperature 36.8 C Temperature Source Pulse Rate 74 78 Respiratory Rate 16 Blood Pressure 136/90 H 160/75 H Blood Pressure Mean 105 103 Pulse Ox 96 96 Oxygen Delivery Method Weight Weight: 67.614 kg Body Mass Index (BMI) 27.2 Physical Exam Narrative - Physical Exam General: Alert, Oriented x3, Cooperative HEENT: Atraumatic, PERRLA, EOMI, Normocephalic left lateral nystagmus that did fatigue. No nystagmus on the right. Oral: Moist Mucosa, No Gingival or Mucosal Lesions/ Ulcerations Neck: Supple, No JVD, Negative Carotid Bruits Lungs: Clear to auscultation, Normal air movement Cardiovascular: Regular rate, Normal S1, Normal S2, No murmurs Abdomen: Bowel Sounds Present, Soft, Non Tender, Non-Distended, No Hepato-splenomegaly Extremities: No clubbing, No cyanosis, No edema, Capillary Refill Less than 3 Seconds Skin: No rashes, No breakdown Musculoskeletal: No Tenderness to Palpation of Joints or Extremities Neurological: Strength out of 5 throughout. Normal [id number] and [id number]. Diminished sensation on the left side of her face compared to the right stating it felt cold. Psych/Mental Status: Flat affect, Appropriate Results Lab / Micro Data Attestation: I reviewed the patient's lab results. 11/06/24 14:32 11/06/24 14:32 Labs: Laboratory Results - last 24 hr 11/06/24 14:32: WBC 8.5, RBC 4.57, Hgb 13.7, Hct 41.9, MCV 91.7, MCH 30.0, MCHC 32.7, RDW Std Deviation 42.0, RDW Coeff of Kenn 12.5, Plt Count 268, MPV 9.4, Immature Gran % (Auto) 0.400, Neut % (Auto) 61.4, Lymph % (Auto) 29.7, [place] % (Auto) 5.9, Eos % (Auto) 2.1, Baso % (Auto) 0.5, Absolute Neuts (auto) 5.2, Absolute Lymphs (auto) 2.51, Nucleated RBC % 0, PT 13.7, INR 1.0, APTT 26.0, Sodium 137, Potassium 3.7, Chloride 100, Carbon Dioxide 29.0, Anion Gap 8, BUN 19 H, Creatinine 0.58, Estim Creat Clear Calc 88.34, Est GFR (MDRD) Af Amer 134, Est GFR (MDRD) Non-Af 111, BUN/Creatinine Ratio 32.6 H, Glucose 107 H, Calcium 9.4, Troponin I High Sens < 3 L EKG Initial EKG: Attestation: I personally reviewed and interpreted this EKG as follows: Prior EKG tracings: available for review EKG Rhythm Intrepretation: Sinus Rhythm Imaging Radiology Impression Head/Neck CTA 11/06/24 15:30 IMPRESSION: RIGHT CAROTID: Unremarkable. LEFT CAROTID: Unremarkable. VERTEBRALS: Unremarkable. INTRACRANIAL: Unremarkable. One or more dose reduction techniques were used (e.g., Automated exposure control, adjustment of the mA and/or kV according to patient size, use of iterative reconstruction technique). Reading Location: [id number] Chest X-Ray 11/06/24 15:35 IMPRESSION: Lungs are clear. Hiatal hernia. Reading Location: [facility] Assessment & Plan Assessment/Plan (1) Vertigo: PLAN: Acute I suspect BPPV and not a posterior circulation stroke. However we will check an MRI of the brain. MRI of the brain shows a stroke then patient will undergo additional testing for stroke such as echocardiogram the like. I told patient I am not going to consult neurology at this time but did encourage her to follow-up with neurology as outpatient unless there is evidence of a new stroke. PLAN: Plan Left facial numbness: No prior evidence of any stroke or TIA. The patient states has been ongoing for a month. She is also been experiencing headaches that this could be headache induced. Will check an MRI to see if there is any evidence of a stroke but her previous MRI, which I did pull up the records to [facility] showed no evidence of any acute intracranial process. Patchy white matter disease most likely chronic microvascular ischemic change. Patient very concerned this could be an autoimmune process given her history of Lincoln's thyroiditis. I told her there is no evidence of any kind of vasculitis on her CT angiogram and it seems unlikely that this is an autoimmune process. However did encourage her to follow with neurology and if they feel that autoimmune workup would be necessary that could be deferred to outpatient. Patient did not seem satisfied with the answers expressing desire to have answers now. Explained to her that this is a process and that we would rule out an acute process but something more unusual, such as an autoimmune vasculitis would likely require more outpatient evaluation. But once again I do not feel that this is a vasculitis type picture. Additionally will check a TSH, magnesium level. Additionally, I did review the neurology notes from October 06 through [facility]. Headache:possible intractable migraine. As needed ketorolac. Based on the results of the MRI, patient may benefit from 10 mg of IV dexamethasone. Particularly if the MRI is negative for any stroke. Concern patient may start having an underlying illness. Will check COVID, influenza and RSV. Hypertensive urgency: Will have as needed IV hydralazine. 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 Continue levothyroxine. Check TSH. Hypertension: Continue metoprolol succinate and lisinopril. GERD: Continue with PPI and Sulcrate. VTE prophylaxis: Low risk given current observation status. CODE STATUS: Addressed with the patient. Patient wishes to be DNR Comfort Care arrest no intubation. Charges/Coding Visit Charges Inpatient E&M: 05898 Init Hosp L3
[2024-11-06] MEDS: Meclizine HCl 25 MG Tablet PO (23:44)
[2024-11-06] MEDS: Loratadine 10 MG Tablet PO (23:44)
[2024-11-06] MEDS: Lisinopril 20 MG Tablet PO (23:50)
[2024-11-06] MEDS: Metoprolol(XL)Succ 25 MG Tablet PO (23:50)
[2024-11-07 03:44] VITALS: BP 133/79; PULSE 75; RESP 18; TEMP 36.7; O2SAT 97
[2024-11-07] MEDS: Levothyroxine 112 MCG Tablet PO (06:11)
[2024-11-07] MEDS: Sucralfate 1 GM Tablet PO (06:11)
[2024-11-07 06:55] LABS: Thyroid Stim Hormone (TSH) 0.686 uIU/mL (0.358-3.740)
[2024-11-07 09:18] VITALS: BP 127/79; PULSE 72; RESP 14; TEMP 36.9; O2SAT 93
[2024-11-07 09:19] VITALS: BP 127/79; BP 128/97; BP 138/79; PULSE 72; PULSE 80; PULSE 90
[2024-11-07] MEDS: Pantoprazole Sodium 40 MG Tablet PO (09:20)
[2024-11-07] MEDS: 0.9% Saline Lock 10 ML Syringe IV (09:32)
[2024-11-07] MEDS: Acetaminophen 325 MG Tablet 650 MG PO (09:54)
[2024-11-07] MEDS: Meloxicam 15 MG Tablet PO (12:53)
[2024-11-07] MEDS: diazePAM 2 MG Tablet 4 MG PO (12:53)
--- NOTE | 2024-11-07 14:27 | NURSING ---
Pt worked with therapy and received Noe maneuver and states she feels much better and would like to go home. MD aware. Patient states she has an outpatient neurology consult that she set up today.
--- NOTE | 2024-11-07 14:35 | DCINST_ITS ---
Discharge Instructions Diet Discharge Diet: No restrictions DC O2, CPAP, BIPAP needs Home O2 Discharge instructions: No Dressing / Incision Discharge Activity: Return to Normal Activity Weight Bearing Status: Full weight bearing Follow Up Care Test Results: Test results from this visit will be discussed in further detail at your follow- up appointment, if applicable. Discharge Plan Admission Admit Date/Time: 11/06/24 17:12 Primary Reason for Your Visit: Vertigo Attending Provider: Robert Camarillo Primary Care Provider: Cristian Velasquez Consulting Providers: Jackson Borges Discharge Orders/Prescriptions Prescriptions: New levothyroxine 112 mcg Tablet 112 mcg PO DAILY@0600 Qty: 0 0RF Continued sucralfate 1 gram tablet 1 g PO BID pantoprazole 40 mg tablet,delayed release (DR/EC) 40 mg PO DAILY meloxicam 15 mg tablet 15 mg PO DAILY vitamin B complex Capsule 1 cap PO DAILY cholecalciferol (vitamin D3) [Vitamin D3] 50 mcg (2,000 unit) Capsule 50 mcg PO DAILY loratadine [Claritin] 10 mg Tablet 10 mg PO QHS metoprolol succinate 25 mg tablet extended release 24 hr 25 mg PO QHS lisinopril 10 mg tablet 20 mg PO QHS levothyroxine 112 mcg tablet 112 mcg PO DAILY Referrals / Follow Up: Cristian Velasquez MD [Primary Care Provider] - Within 2 Weeks Disposition Disposition (needs filled in before D/C Order can be placed): Home, Self Care
--- NOTE | 2024-11-07 14:37 | PCM.DC.SUM ---
Providers Date of Admission: 11/06/24 Date of Discharge: 11/07/24 Primary Care Physician: Dr. Cristian Velasquez MD Reason For Visit: DIZZINESS Diagnosis Discharge Diagnosis (1) Vertigo: Status: Inactive Code(s): R42 - Dizziness and giddiness Plan Final diagnosis #1 benign vertigo #2 essential hypertension #3 hypothyroidism #4 facial paresthesias-etiology unknown Medications at Discharge Home Medications cholecalciferol (vitamin D3) 50 mcg (2,000 unit) capsule (Vitamin D3) 50 mcg PO DAILY vitamin 09/02/21 vitamin B complex 1 cap PO DAILY vitamin 09/02/21 loratadine 10 mg tablet (Claritin) 10 mg PO QHS allergies 09/09/21 pantoprazole 40 mg tablet,delayed release 40 mg PO DAILY reflux 08/25/22 sucralfate 1 gram tablet 1 g PO BID stomache 08/25/22 meloxicam 15 mg tablet 15 mg PO DAILY pain 02/15/23 metoprolol succinate 25 mg tablet,extended release 24 hr 25 mg PO QHS blood pressure 11/06/24 levothyroxine 112 mcg tablet 112 mcg PO DAILY thyroid 11/07/24 lisinopril 10 mg tablet 20 mg PO QHS blood pressure 11/07/24 Hospital Course Operations None Procedures None Summary of Care Provided Minutes Spent on Discharge: 30 Hospital Course: This 64-year-old white female was seen in the emergency room with the chief complaint of dizziness, headache, and left facial numbness. Workup in the emergency room included a head and neck CTA which was unremarkable, patient's CBC was unremarkable, chemistry profile was remarkable for a BUN of 19. Patient was placed in observation status on PCU and seen by PT and OT, she was placed on Antivert and this was then changed to Valium. Patient did not report any relief of symptoms with either drug. In the afternoon of 11/07/2024, patient stated that she felt she was able to go home, she was to follow-up with vestibular PT. MRI of the brain was obtained that showed no evidence of acute ischemia, there were nonspecific white matter changes suggestive of small vessel ischemic changes. Patient was seen and examined on 11/07/2024: On examination she appeared in good health and spirits, she does not appear to be in any distress. Vital signs as documented. Skin warm and dry and without overt rashes. Neck without JVD, thyroid appears normal, trachea is midline, neck is supple. Lungs clear, normal air movement was noted. Heart exam notable for regular rhythm, normal sounds and absence of murmurs, rubs or gallops. Abdomen unremarkable and without evidence of organomegaly, masses, or abdominal aortic enlargement, bowel sounds are present in all 4 quadrants, no abdominal tenderness was noted. Extremities nonedematous, no cyanosis was noted, no clubbing was noted. Neuro: Cranial nerves II through XII are grossly intact, no focal motor deficits were noted, sensation to light touch and pinprick is intact, motor exam 5/5 throughout. Psych: Patient is alert and oriented x3, she does not appear anxious or depressed, she does not appear agitated. Patient was stable for discharge home on 11/07/2024. Weight / BMI Weight Weight: 71.3 kg Body Mass Index (BMI) 28.7 ABG / Lab / Microbiology Data 11/06/24 14:32 11/06/24 14:32 Laboratory: Laboratory Results - last 24 hr 11/06/24 14:32: WBC 8.5, RBC 4.57, Hgb 13.7, Hct 41.9, MCV 91.7, MCH 30.0, MCHC 32.7, RDW Std Deviation 42.0, RDW Coeff of Kenn 12.5, Plt Count 268, MPV 9.4, Immature Gran % (Auto) 0.400, Neut % (Auto) 61.4, Lymph % (Auto) 29.7, [place] % (Auto) 5.9, Eos % (Auto) 2.1, Baso % (Auto) 0.5, Absolute Neuts (auto) 5.2, Absolute Lymphs (auto) 2.51, Nucleated RBC % 0, PT 13.7, INR 1.0, APTT 26.0, Sodium 137, Potassium 3.7, Chloride 100, Carbon Dioxide 29.0, Anion Gap 8, BUN 19 H, Creatinine 0.58, Estim Creat Clear Calc 88.34, Est GFR (MDRD) Af Amer 134, Est GFR (MDRD) Non-Af 111, BUN/Creatinine Ratio 32.6 H, Glucose 107 H, Calcium 9.4, Troponin I High Sens < 3 L 11/07/24 05:26: Magnesium 2.0, TSH 0.686 Microbiology: Microbiology 11/06/24 21:05 Mucosa - Nasopharyngeal SARS-CoV-2, Influenza & RSV (PCR) - Final Radiography Diagnostic Testing: Radiology Impression Head/Neck CTA 11/06/24 15:30 IMPRESSION: RIGHT CAROTID: Unremarkable. LEFT CAROTID: Unremarkable. VERTEBRALS: Unremarkable. INTRACRANIAL: Unremarkable. One or more dose reduction techniques were used (e.g., Automated exposure control, adjustment of the mA and/or kV according to patient size, use of iterative reconstruction technique). Reading Location: [id number] Chest X-Ray 11/06/24 15:35 IMPRESSION: Lungs are clear. Hiatal hernia. Reading Location: [id number] Brain MRI 11/06/24 17:15 IMPRESSION: 1. No MR evidence of acute ischemia. 2. Nonspecific white matter changes which can be seen in small-vessel ischemic change, demyelinating processes and migraine headaches. Reading [facility] Instructions Discharge Diet: No restrictions Weight Bearing Status: Full weight bearing DC O2, CPAP, BIPAP Needs Home O2 Discharge instructions: No Meaningful Use Info Meaningful Use Meaningful Use Diagnoses (Choose all that apply): None applicable Ischemic Stroke Statin Dosing Therapy Reference: STATIN DOSE THERAPY REFERENCE: * Patients > 75 years receive moderate or high dose statin therapy. * Patients 75 years or YOUNGER should receive HIGH intensity statin dose unless contraindicated. You will be required to document reason for non-treatment if statin daily dose does not meet guidelines. HIGH DOSE STATIN THERAPY DAILY Atorvastatin > than or = to 40 mg Rosuvastatin > than or = to 20 mg Amlodipine + Atorvastatin > than or = to 2.5/40 mg Ezetimibe + Simvastatin 10/80 mg Simvastatin 80mg Discharge Plan Admission Admit Date/Time: 11/06/24 17:12 Primary Reason for Your Visit: Vertigo Attending Provider: Robert Camarillo Primary Care Provider: Cristian Velasquez Consulting Providers: Jackson Borges Discharge Orders/Prescriptions Prescriptions: Continued sucralfate 1 gram tablet 1 g PO BID pantoprazole 40 mg tablet,delayed release (DR/EC) 40 mg PO DAILY meloxicam 15 mg tablet 15 mg PO DAILY vitamin B complex Capsule 1 cap PO DAILY cholecalciferol (vitamin D3) [Vitamin D3] 50 mcg (2,000 unit) Capsule 50 mcg PO DAILY loratadine [Claritin] 10 mg Tablet 10 mg PO QHS metoprolol succinate 25 mg tablet extended release 24 hr 25 mg PO QHS lisinopril 10 mg tablet 20 mg PO QHS levothyroxine 112 mcg tablet 112 mcg PO DAILY Referrals / Follow Up: Cristian Velasquez MD [Primary Care Provider] - Within 2 Weeks Disposition Disposition (needs filled in before D/C Order can be placed): Home, Self Care Charges/Coding Visit Charges Inpatient E&M: 30882 Disch Hosp
--- NOTE | 2024-11-07 14:44 | CASEMGMT ---
Patient has order for discharge. Therapy states patient is independent and no therapy recommended at discharge. RN CM in to discuss needs at discharge. Patient denies needs or help at discharge. Patient had no further questions or concerns.
--- NOTE | 2024-11-07 14:57 | PHA.DC.MR.R ---
Pharmacy [facility] Med Reconciliation Pharmacy Service has performed discharge medication reconciliation for this patient. The patient's discharge medication list was reviewed for discrepancies and discrepancies were resolved. Medications at Discharge Home Medications cholecalciferol (vitamin D3) 50 mcg (2,000 unit) capsule (Vitamin D3) 50 mcg PO DAILY vitamin 09/02/21 vitamin B complex 1 cap PO DAILY vitamin 09/02/21 loratadine 10 mg tablet (Claritin) 10 mg PO QHS allergies 09/09/21 pantoprazole 40 mg tablet,delayed release 40 mg PO DAILY reflux 08/25/22 sucralfate 1 gram tablet 1 g PO BID stomache 08/25/22 meloxicam 15 mg tablet 15 mg PO DAILY pain 02/15/23 metoprolol succinate 25 mg tablet,extended release 24 hr 25 mg PO QHS blood pressure 11/06/24 levothyroxine 112 mcg tablet 112 mcg PO DAILY thyroid 11/07/24 lisinopril 10 mg tablet 20 mg PO QHS blood pressure 11/07/24
[2024-11-07 15:00] VITALS: BP 121/75; PULSE 68; RESP 18; TEMP 36.6; O2SAT 97
== END 2024-11-07 14:34 | disposition home or self-care (01) ==
LOC: ED 14:33 → PCU 18:36
PROVIDERS: Emergency Provider Emergency Medicine; PCP Family Medicine; Visit Provider Internal Medicine
DX: R42 Dizziness and giddiness (principal); R53.81 Other malaise; I10 Essential (primary) hypertension; R20.2 Paresthesia of skin; Z87.891 Personal history of nicotine dependence; R53.83 Other fatigue; Z79.899 Other long term (current) drug therapy; Z79.890 Hormone replacement therapy; E03.9 Hypothyroidism, unspecified; K21.9 Gastro-esophageal reflux disease without esophagitis; R51.9 Headache, unspecified; Z86.79 Personal history of other diseases of the circulatory system
CPT/HCPCS: 36415; 70496; 70498; 70551; 71045; 80048; 83735; 84443; 84484; 85025; 85610; 85730; 87631; 93005; 97162; 99221; 99284; Q9967; A4216; G0378

== ENCOUNTER → 2024-11-15 | Outpatient (CLI) | payer OTHER, SELFPAY ==
--- NOTE | 2024-11-15 13:10 | RAD_ITS ---
PROCEDURE: SHOULDER MIN 2 VIEWS REASON FOR EXAM: Right shoulder pain. TECHNIQUE: Four views of the right shoulder were obtained. COMPARISON: Comparison is made with prior study dated November 16 2019. FINDINGS: RIGHT SHOULDER: No fracture. No suspicious bone lesion. Normal alignment of the acromioclavicular and glenohumeral joints. Moderate degree of osteoarthritis of the right glenohumeral joint. RAD/Shoulder min 2 Views IMPRESSION: Moderate degree of osteoarthritis of the right glenohumeral joint. Reading Location: [id number]
--- NOTE | 2024-11-15 13:10 | RAD_ITS ---
PROCEDURE: CERV SPINE 2 OR 3 VIEWS REASON FOR EXAM: Radiating arm pain TECHNIQUE: 4 views of the cervical spine. COMPARISON: None. FINDINGS: No acute fracture or subluxation. Mild anterior vertebral body osteophyte formation. Multilevel narrowing of the intervertebral disc spaces, most notably at C4-C5, C5-C6 and C6-C7. Straightening of the cervical alignment likely due to positioning. Prevertebral soft tissues are unremarkable. RAD/Cerv Spine 2 or 3 Views IMPRESSION: No acute fracture or subluxation. Multilevel degenerative disc disease as described above. If clinically indicated MRI of the cervical spine may be obtained for further c haracterization. Reading Location: [facility]
== END | disposition home or self-care (01) ==
LOC: RAD 13:06
PROVIDERS: PCP Family Medicine; Referring Provider Orthopaedic Surgery; Visit Provider Orthopaedic Surgery
DX: M54.12 Radiculopathy, cervical region (principal); M25.511 Pain in right shoulder
CPT/HCPCS: 72040; 73030

== ENCOUNTER 2024-11-30 09:30 | Outpatient (RCR) | payer OTHER, SELFPAY ==
--- NOTE | 2025-01-03 10:28 | HP.SP.DC_ITS ---
ST Discharge Summary Discharged: Discharge: SHIVANI BRYSON is a 64 year old female who presented to [facility] on 07/28/24 following a dx of vocal cord paralysis. Pt attended initial evaluation with goals created to target diaphragmatic breathing, adduction exercises, and vocal hygiene education. After evaluation, Pt attended one follow up visit and future visits were not scheduled by Pt. Pt being discharged from speech therapy caseload on this date 01/03/25 d/t Pt absence in attending additional treatment visits. Thank you for allowing me to participate in the care of your patient. Will reevaluate at Pt?s request following script from physician.
== END 2024-11-30 19:00 | disposition home or self-care (01) ==
LOC: PT 09:30
PROVIDERS: PCP Family Medicine; Referring Provider Orthopaedic Surgery; Visit Provider Orthopaedic Surgery
DX: M19.011 Primary osteoarthritis, right shoulder (principal); M75.81 Other shoulder lesions, right shoulder; M47.22 Other spondylosis with radiculopathy, cervical region; M54.6 Pain in thoracic spine

== ENCOUNTER → 2024-12-07 | Outpatient (CLI) | payer OTHER, SELFPAY ==
[2024-12-07 17:08] LABS: Thyroid Stim Hormone (TSH) 0.274 uIU/mL (0.300-4.200)
== END | disposition home or self-care (01) ==
LOC: LAB 13:07
PROVIDERS: PCP Family Medicine; Referring Provider Family Medicine; Visit Provider Family Medicine
DX: E03.9 Hypothyroidism, unspecified (principal)
CPT/HCPCS: 36415; 84443

== ENCOUNTER → 2025-01-11 | Outpatient (CLI) | payer OTHER, SELFPAY ==
[2025-01-11 14:22] LABS: Creatinine, Serum 0.66 mg/dL (0.70-1.20); EST Glomerular Filtration Rate 98 (>60)
[2025-01-13 11:08] LABS: Lyme Scn Total Ab w/Rflx Negative (Negative)
== END | disposition home or self-care (01) ==
LOC: LAB 11:56
PROVIDERS: PCP Family Medicine
DX: R29.810 Facial weakness (principal)
CPT/HCPCS: 36415; 82565; 86618

== ENCOUNTER → 2025-02-21 | Outpatient (CLI) | payer OTHER, SELFPAY ==
--- NOTE | 2025-02-21 16:05 | BI_ITS ---
EXAM: SCRN MAMM (CAD)W/GEOFF BILAT DATE: 02/21/2025 CLINICAL HISTORY: F, Age 64 y/o , SCREENING BREAST CANCER RISK ASSESSMENT: Na TECHNIQUE: Bilateral screening digital breast tomosynthesis with 2D and 3D images. Computer aided detection. COMPARISON: Prior exam(s) were compared FINDINGS: TISSUE DENSITY: The breast tissue is composed of scattered area of fibroglandular density. Bilateral Breast Mammographic Findings: Right breast: There are calcifications in the lower inner right breast posterior depth. Left breast: No suspicious masses, calcifications or other abnormalities are identified. BI/SCRN MAMM (CAD)W/GEOFF BILAT IMPRESSION: OVERALL FINAL ASSESSMENT: BIRADS 0 Incomplete: Need additional imaging evaluati on. RECOMMENDATION: Incomplete: Need additional imaging evaluation with diagnostic right breast stu mogram. A letter with findings and recommendations will be mailed to the patient. Reading Location: [id number]
== END | disposition home or self-care (01) ==
LOC: OPBI 16:05
PROVIDERS: PCP Family Medicine; Referring Provider Family Medicine; Visit Provider Family Medicine
DX: Z12.31 Encounter for screening mammogram for malignant neoplasm of breast (principal)
CPT/HCPCS: 77063; 77067

== ENCOUNTER → 2025-02-26 | Outpatient (CLI) | payer OTHER, SELFPAY ==
--- NOTE | 2025-02-26 09:28 | BI_ITS ---
EXAM: DIAG MAMM W/CAD, UNILAT 02/26/2025 CLINICAL HISTORY: F, Age 64 y/o , MICROCALCIFICATION TECHNIQUE: Compression magnification spot views of the right breast were obtained. Computer aided detection. COMPARISON: Prior exam(s) dated February 21, 2025.. FINDINGS: TISSUE DENSITY: The breast tissue is almost entirely fatty. Bilateral Breast Mammographic Findings: No significant masses, calcifications or other abnormalities are identified. No suspicious masses, areas of developing architectural distortion, or suspicious calcifications. BI/DIAG MAMM W/CAD, UNILAT IMPRESSION: OVERALL FINAL ASSESSMENT: BIRADS 1 NEGATIVE. RECOMMENDATION: Routine annual follow-up in 1 Year A letter with findings and recommendations will be mailed to the patient. Reading Location: [place] [id number]
--- OUTSIDE RECORDS SUMMARY | 2025-02-26 21:40 | XMS RPT_ITS | CCD ---
Author Organization [facility] Care Team Providers Care Visual Design Lead Name Role Phone David Martinez Unavailable Jeison Posadassica Roman Unavailable Dr. Cristian Hopper Primary Care Provider Dr. Cristian Hopper Referring Provider [phone] Cristian Kumar Attending Provider [phone] Dr. Cristian Kumar Referring Provider [phone] Dr. Cristian Kumar Other Provider [phone] ZAIDA D ePaz Attending Provider [phone] ZAIDA Denney Attending Provider Dr. Cristian Hopper Primary Care Provider Dr. Cristian Kumar Attending Provider [phone] Dr. Cristian Hopper Referring Provider [phone] Dr. Cristian Hopper Primary Care Provider Dr. Cristian Hopper Referring Provider [phone] Cristian Kumar Attending Provider [phone] Dr. Cristian Kumar Referring Provider [phone] Dr. Cristian Kumar Other Provider [phone] ZAIDA De Paz Attending Provider Dr. Cristian Hopper Primary Care Provider Dr. Cristian Hopper Referring Provider Dr. Cristian Kumar Attending Provider [phone] Nette Chapman Attending Provider Unavailable Denisha, Dr. Jai Attending Provider Dr. Cristian Hopper Primary Care Provider Dr. Cristian Hopper Referring Provider [phone] Jai Denny Other Provider Dr. Cristian Hopper Primary Care Provider Dr. Cristian Hopper Referring Provider [phone] Kev CERDA, PA Sang Hamilton Attending Provider Juan F PREPRESS SPECIALIST, PREPRESS SPECIALIST-C Tracy Attending Provider Dr. Ricci Hwang Attending Provider Dr. Cristian Hopper Primary Care Provider [phone] Dr. Cristian Hopper Referring Provider [phone] Juan F PREPRESS SPECIALIST, PREPRESS SPECIALIST-C Tracy Attending Provider Dr. Ricci Hwang Attending Provider Dr. Cristian Hopper Primary Care Provider [phone] Dr. Cristian Hopper Referring Provider [phone] Kev CERDA, PA Sang Hamilton Attending Provider Dr. Julito Chicas Attending Provider [phone] Cristian Hopper MD Primary Care Provider CRISTIAN HOPPER Primary Care Unavailable MICHAEL SAHU Attending Unavailable Lizzie Quintana MD Primary Care Provider CRISTIAN HOPPER Primary Care Unavailable CRISTIAN HOPPER Primary Care Unavailable CRISTIAN HOPPER Admitting Unavailable CRISTIAN HOPPER Attending Unavailable Dr. Cristian Hopper MD Primary Care Provider MICHAEL SAHU Attending Provider [phone] MICHAEL SAHU Referring Provider Dr. Cristian Hopper MD Attending Provider Dr. Cristian Hopper MD Referring Provider Dr. Erick Nguyen MD Attending Provider Dr. Erick Nguyen MD Emergency Provider Denisha SCHMITT, Dr. Vergara Referring Provider [phone] Sunny SCHMITT, Dr. Paredes Attending Provider Patrick SCHMITT, Dr. Suarez Referring Provider Lv GRAHAM, Dr. Carroll Emergency Provider Katerina GRAHAM, Dr. Paz Admit Provider Katerina GRAHAM, Dr. Paz Other Provider Marquise GRAHAM, Dr. Quintana Attending Provider Katerina GRAHAM, Dr. Paz Attending Provider Marquise GRAHAM, Dr. Quintana Other Provider Stacy GRAHAM, Dr. Foster Attending Provider Stacy GRAHAM, Dr. Foster Referring Provider Dorothy Ivan Attending Provider Cristian Hopper MD Primary Care Provider Dr. Cristian Hopper MD Primary Care Provider KOLYCHEV, YUNIOR Attending Provider KOLYCHEV, YUNIOR Referring Provider Dr. Cristian Sanchez MD Attending Provider KOLYCHEV, YUNIOR Attending Unavailable KOLYCHEV, YUNIOR Referring [facility]available KOLYCHEV, YUNIOR Attending Unavailable KOLYCHEV, YUNIOR Referring Unavailable [facility] CRISTIAN Primary Care Unavailable KOLYCHEV, YUNIOR Attending Unavailable ISIDRA, YUNIOR Referring Unavailable HOPPER CRISTIAN Primary Care Unavailable KOLYCHEV, YUNIOR Attending Unavailable KOLYCHEV, YUNIOR Referring Unavailable HOPPER, CRISTIAN Primary Care Unavailable KOLYCHEV, YUNIOR Attending Unavailable KOLYCHEV, YUNIOR Referring Unavailable HOPPER, CRISTIAN Primary Care Unavailable KOLYCHEV, YUNIOR Attending Unavailable KOLASHLEYEV, YUNIOR Referring Unavailable [facility] Primary Care Unavailable KOLYCHEV, YUNIOR Attending Unavailable KOLYCHEV, YUNIOR Referring Unavailable [facility] Primary Care Unavailable KOLMIMI, YUNIOR Attending Unavailable ISIDRA, YUNIOR Referring [facility] Unavailable BUZZ DE LOS [place]ANT[facility] Attending Unavailable DOROTHY RODRIGUEZ Referring Unavailable LIZZIE QUINTANA Primary Care Unavailable KOLYCHEV, YNUIOR Attending Unavailable KOLYCHEV, YUNIOR Referring Unavailable HOPPER, CRISTIAN Primary Care Unavailable ISIDRA, YUNIOR Attending Unavailable MAGALI BUZZ Referring Unavailable MICHAEL QUINTANAA Primary Care Unavailable KOLYCHEV, YUNIOR Attending Unavailable KOLYCHEV, YUNIOR Referring Unavailable HOPPER, [place] Primary Care Unavailable Hopper, [place] Primary Care Unavailable Erick Nguyen Referring Unavailable Reggie Correa Attending Unavailabl e Hopper, [place] Primary Care Unavailable Erick Nguyen Attending Unavailable Jai Denny Referring Unavailable LISSET GONZALEZ [facility]available PESMAXINE LISSET Referring [facility] Unavailable Jackson Borges Attending [facility] Unavailable AsaelCristian Referring Unavailable Cristian Kumar Attending [facility] Unavailable Erick Nguyen Attending Unavailable Hopper, Cristian Referring Unavailable Hopper, Cristian Attending Unavailable Hopper, [place] Primary Care Unavailable Jopperlin, Jackson Consulting Unavailable Katerina, Jackson Admitting Unavailable [facility] Primary Care Unavailable Robert Camarillo Attending Unavailable LISSET GONZALEZ Attending Unavailable [facility] Primary Care Unavailable PESMAXINE, LISSET Referring Unavailable Jodevon, Jackson Consulting Unavailable Katerina, Jackson Admitting Unavailable [facility] Primary Care Unavailable Robert Camarillo Attending Unavailable Robert Camarillo Consulting Unavailable Hopper, Cristian Referring Unavailable Hopper, Cristian Attending [facility]available Hopper, Cristian Attending [facility] Unavailable Hopper, Cristian Referring Unavailable Hopper, [place] Primary Care Unavailable Hopper, Cristian Attending Unavailable Hopper, Cristian Referring Unavailable Hopper, [place] Primary Care Unavailable Cristian Kumar Attending Unavailable Borruso, Cristian Referring Unavailable Hopper, [place] Primary Care Unavailable Cristian Kumar Attending Unavailable Hopper, Cristian Referring Unavailable Hopper, Cristian Referring Unavailable Cristian Sanchez Attending [facility] Unavailable [place], [place] Primary Care Unavailable Jun Dennyril Attending Unavailable Cristian Hopper Primary Care Unavailable Cristian Hopper Referring Unavailable Cristian Kumar Attending Unavailable Cristian Hopper Primary Care Unavailable Dorothy Rodriguez Attending Unavailable Cristian Hopper Referring Unavailable Allergies Allergy Classification Reported Allergen(s) Allergy Type Date of Onset Reaction(s) Facility (3 sources) amoxicillin / clavulanate drug allergy 6 [facility] Work Phone: (20 sources) Amoxicillin Drug Allergy 2 see note [facility] Comment on above: ended up in ED with upset stomach and agitated (20 sources) Clavulanate Drug Allergy 2 unknown [facility] (17 sources) Amoxicillin / Clavulanate; Translations: [AMOXICILLIN-PO T CLAVULANATE] Drug Allergy 8 GI Upset, Other [facility] Work Phone: (4 sources) Seasonal allergy; Translations: [SEASONAL ALLERGIES] Allergy to substance 2 Other: See Comments [facility] (1 source) Amoxicillin Drug Allergy 5 [facility] (1 source) Clavulanate Drug Allergy 5 [facility] Medications Current Medications Medication Drug Class(es) Dates Sig (Normalized) Sig (Original) acetaminophen 325 mg oral tablet (1 source) Start: 07-18-2022 take 2 tablets by mouth every six hours as needed acetaminophen (TYLENOL) 325 mg tablet Take 2 tablets by mouth every 6 hours as needed for pain. 07/18/2022 Active amLODIPine 5 mg oral tablet (17 sources) Dihydropyridine Calcium Channel Crystal Start: 11-10-2024 amLODIPine (Norvasc) 5 MG tablet 5 mg. 11/10/2024 Active b complex vitamins capsule (12 sources) take 1 capsule by mouth once daily b complex vitamins capsule Take 1 capsule by mouth daily. Active chlorhexidine gluconate 1.2 mg/ml mouthwash (12 sources) Start: 05-23-2024 chlorhexidine (Peridex) 0.12 % solution 05/23/2024 Active cholecalciferol 0.05 mg oral capsule (20 sources) Vitamin D Start: 09-02-2021 take 1 capsule by mouth once daily Cholecalciferol (Vitamin D3) (Vitamin D3) 50 mcg (2,000 unit) Capsule Active 50 ug PO DAILY September 02, 2021 1:00am lisinopril 20 mg oral tablet (20 sources) Angiotensin Converting Enzyme Inhibitor Start: 11-16-2024 lisinopril 20 MG tablet 11/16/2024 Active Start: 11-06-2024 End: 11-07-2024 take 1 tablet by mouth once daily Lisinopril 20 mg tablet Discontinued 20 mg PO DAILY November 06, 2024 1:00am November 07, 2024 12:22pm Start: 09-02-2021 End: 11-06-2024 take 2 tablets by mouth at bedtime Lisinopril 10 mg tablet Active 20 mg PO AT BEDTIME November 07, 2024 1:00am Start: 03-07-2020 End: 09-02-2021 take 1 tablet by mouth once daily Lisinopril 10 MG tablet Discontinued 10 mg PO DAILY March 07, 2020 12:00am September 02, 2021 4:12pm loratadine 10 mg oral tablet (20 sources) Start: 09-09-2021 take 1 tablet by mouth at bedtime Loratadine (Claritin) 10 mg Tablet Active 10 mg PO AT BEDTIME September 09, 2021 1:00am meloxicam 15 mg oral tablet (20 sources) Nonsteroidal Anti-inflammatory Drug Start: 02-15-2023 take 1 tablet by mouth once daily meloxicam (Mobic) 15 MG tablet Take 15 mg by mouth daily. 07/11/2024 Active oxyCODONE hydrochloride 5 mg oral tablet (20 sources) Opioid Agonist Start: 12-16-2021 take 5 mg by mouth every four hours Oxycodone Active 5 MG PO Q4H 06 15December 16, 2021 7:19am Start: 09-09-2021 End: 10-20-2021 take 1 tablet by mouth every four hours as needed for pain Oxycodone 5 mg tablet Discontinued 5 mg PO Q4H as needed for pain 25 11September 09, 2021 October 20, 2021 9:17am pantoprazole 40 mg delayed release oral tablet (20 sources) Proton Pump Inhibitor Start: 08-25-2022 pantoprazole (ProtoNix) 40 MG EC tablet 12/01/2024 Active Start: 07-18-2022 take 1 tablet by sharita th twice daily before mealtime pantoprazole DR (PROTONIX) 40 mg tablet Take 1 tablet by mouth twice daily before meals (0600/1600). 60 tablet 2 07/18/2022 Active sucralfate 1000 mg oral tablet (20 sources) Aluminum Complex Start: 07-18-2022 sucralfate (Carafate) 1 g tablet 07/28/2024 Active levothyroxine sodium 0.1 mg oral tablet (20 sources) l-Thyroxine Start: 02-07-2025 take 1 tablet by mouth once daily Levothyroxine 100 mcg tablet Active 100 ug PO daily February 07, 2025 12:00am Start: 09-07-2024 End: 02-07-2025 take 1 tablet by mouth once daily Levothyroxine 112 mcg tablet Discontinued 112 ug PO DAILY November 07, 2024 1:00am February 07, 2025 9:58am Start: 02-18-2022 End: 08-25-2022 take 1 tablet by mouth once daily Levothyroxine 88 mcg tablet Discontinued 88 ug PO DAILY February 18, 2022 12:00am August 25, 2022 10:10am Start: 09-19-2015 End: 11-07-2024 take 1 tablet by mouth once daily Levothyroxine 100 mcg tablet Discontinued 100 ug PO DAILY August 25, 2022 1:00am November 07, 2024 12:23pm take 1 capsule by [facility] once daily levothyroxine 112 mcg cap Take 112 mcg by mouth once daily. Active Vitamin B Complex (17 sources) Start: 09-02-2021 take 1 capsule by [facility] once daily Vitamin B Complex Active 1 CAP PO DAILY September 02, 2021 4:10pm Start: 09-02-2021 take 1 capsule by mo rih once daily Vitamin B Complex Active 1 CAP PO DAILY September 02, 2021 12:00am Start: 09-02-2021 take 1 capsule by [facility] once daily Vitamin B Complex Active 1 CAP PO DAILY September 02, 2021 1:00am Vitamin B Complex Capsule (5 sources) Start: 09-02-2021 Vitamin B Comp myah Capsule Active 1 NMA PO DAILY September 02, 2021 1:00am Completed/Discontinued Medications Medication Drug Class(es) Dates Sig (Normalized) Sig (Original) azithromycin 250 mg oral tablet (20 sources) Macrolide Antimicrobial Start: 06-18-2022 End: 08-25-2022 Azithromycin 250 mg tablet Discontinued 250 mg PO daily June 18, 2022 12:00am August 25, 2022 10:10am 2 tablets today, then 1 tablet daily on days 2 through 11 Start: 06-19-2019 End: 06-30-2019 take 2-5 tablets by mouth once daily Azithromycin 250 mg tablet Discontinued 0 PO .COMPLEX June 19, 2019 12:00June 30, 2019 3:32pm take 500 mg today (day 1), then 250 mg for 4 days (days 2-5) PO Start: 06-19-2019 End: 06-30-2019 Azithromycin Discontinued 0 PO .COMPLEX June 19, 2019 12:00June 30, 2019 3:32pm take 500 mg today (day 1), then 250 mg for 4 days (days 2-5) PO benzonatate 100 mg oral capsule (20 sources) Non-narcotic Antitussive Start: 06-19-2019 End: 06-30-2019 take 2 capsules by mouth three times daily as needed for cough Benzonatate 100 mg capsule Discontinued 200 mg PO THREE TIMES A DAY as needed for cough June 19, 2019 12:00am June 30, 2019 3:32pm Start: 06-19-2019 End: 06-30-2019 take 200 mg by mouth three times daily Benzonatate Discontinued 200 MG PO THREE TIMES A DAY June 19, 2019 12:00am June 30, 2019 3:32pm cephalexin 500 mg oral capsule (20 sources) Cephalosporin Antibacterial Start: 11-07-2021 End: 11-17-2021 take 1 capsule by mouth every twelve hours Cephalexin 500 mg capsule Discontinued 500 mg PO Q12H 20 November 07, 2021 1:00am November 16, 2021 1:00am November 17, 2021 1:03am diclofenac sodium 0.01 mg/mg topical gel (17 sources) Nonsteroidal Anti-inflammatory Drug Start: 02-17-2022 End: 08-25-2022 Diclofenac Sodium (Voltaren Arthritis Pain) 1 % gel Discontinued 2 g TOPICAL .qid February 17, 2022 12:00am August 25, 2022 10:10am apply to single elbow, wrist or hand; for hand includes palm/fingers/back of hand FLUoxetine 10 mg oral capsule (20 sources) Serotonin Reuptake Inhibitor Start: 02-18-2022 End: 01-10-2025 take 1 capsule by mouth once daily Fluoxetine 10 mg capsule Discontinued 10 mg PO DAILY February 18, 2022 12:00am June 07, 2024 8:08am Start: 02-17-2022 End: 02-18-2022 take 1 capsule by mouth once daily Fluoxetine 40 mg capsule Discontinued 40 mg PO DAILY February 17, 2022 12:00am February 18, 2022 9:16am Start: 09-27-2015 FLUOXETINE HCL 20 MG TABS FLUOXETINE HCL [id number] Carlos Abraham Start: 09-19-2015 End: 05-28-2021 take 2 capsules by mouth once daily Fluoxetine 20 MG capsule Discontinued 40 mg PO DAILY September 19, 2015 1:00am May 28, 2021 8:34am Start: 09-19-2015 End: 05-28-2021 take 40 mg by mouth once daily Fluoxetine Discontinued 40 MG PO DAILY September 19, 2015 1:00am May 28, 2021 8:34am gadopiclenol (Vueway) injection 7.5 mL (2 sources) Start: 01-22-2025 End: 01-22-2025 take 7.5 mL intravenously once as needed 7.5 mL, IntraVENous, IMG once PRN, contrast, Starting on Wed01/22/25 at 0815, For 1 dose ibuprofen 800 mg oral tablet (18 sources) Nonsteroidal Anti-inflammatory Drug Start: 02-17-2022 End: 02-18-2022 take 1 tablet by mouth three times daily as needed Ibuprofen 800 mg tablet Discontinued 800 mg PO THREE TIMES A DAY as needed February 17, 2022 12:00am February 18, 2022 9:15am Start: 12-09-2021 take 400 mg by mouth every six hours Ibuprofen Active 400 MG PO EVERY 6 HOURS December 09, 2021 10:37am methylPREDNISolone 4 mg oral tablet (20 sources) Corticosteroid Start: 02-05-2023 End: 02-15-2023 take 1 tablet by mouth once Methylprednisolone (Medrol (Horacio)) 4 mg tablets,dose pack Discontinued 0 PO per package directions February 05, 2023 12:00am February 15, 2023 2:19pm PO PER PKG DIR Start: 06-25-2021 End: 06-25-2021 Depo-Medrol (methylprednisol one acetate) 40 mg/mL suspension for injection Discontinued 20 MG INTRAARTIC ONCE 0.5 June 25, 2021 2:00pm June 25, 2021 2:58pm Start: 10-30-2019 End: 10-30-2019 Depo-Medrol (methylprednisol one acetate) 40 mg/mL suspension for injection Discontinued 40 MG INTRAARTIC ONCE 1 October 30, 2019 2:06pm October 30, 2019 4:00pm 24 hr metoprolol succinate 25 mg extended release oral tablet (20 sources) beta-Adrenergic Crystal Start: 11-06-2024 End: 11-17-2024 take 1 tablet by mouth every twenty-four hours at bedtime Metoprolol Succinate 25 mg tablet extended release 24 hr Discontinued 25 mg PO AT BEDTIME November 06, 2024 1:00am November 17, 2024 9:45am Start: 02-18-2022 End: 01-10-2025 take 1 tablet by mouth once daily Metoprolol Succinate (Toprol Xl) 25 mg tablet extended release 24 hr Discontinued 25 mg PO DAILY February 18, 2022 12:00am June 07, 2024 8:08am nabumetone 750 mg oral tablet (2 sources) Nonsteroidal Anti-inflammatory Drug Start: 05-16-2024 End: 01-10-2025 nabumetone (Relafen) 750 MG tablet 05/16/2024 01/10/2025 Discontinued (Therapy completed) omeprazole 20 mg delayed release oral capsule (20 sources) Proton Pump Inhibitor Start: 02-17-2022 End: 08-25-2022 take 1 capsule by mouth once daily as needed Omeprazole 20 mg capsule,delayed release(DR/EC) Discontinued 20 mg PO DAILY as needed February 18, 2022 9:16am August 25, 2022 10:12am sulfamethoxazole 800 mg / trimethoprim 160 mg oral tablet (20 sources) Dihydrofolate Reductase Inhibitor Antibacterial, Sulfonamide Antimicrobial Start: 09-09-2017 End: 09-23-2017 Sulfamethoxazole -Trimethoprim 800-160 mg tablet Discontinued 1 {tbl} PO TWICE A DAY September 09, 2017 1:00am September 22, 2017 1:00am September 23, 2017 1:05am Start: 09-09-2017 End: 09-23-2017 take 1 tablet by mouth twice daily Sulfamethoxazole-Trimethoprim Discontinu ed 1 TABLET PO TWICE A DAY September 09, 2017 1:00am September 23, 2017 1:05am triamcinolone acetonide 1 mg/ml topical cream (16 sources) Corticosteroid Start: 07-10-2024 End: 12-14-2024 triamcinolone (Kenalog) 0.1 % cream Apply 1 Application topically daily. 07/10/2024 12/14/2024 Discontinued (Therapy completed) Start: 06-29-2024 triamcinolone (Kenalog) 0.1 % oral paste apply to ulcer inside mouth three times a day 06/29/2024 Active Start: 01-26-2022 End: 01-26-2022 Kenalog (triamcinolone aceto nide) 40 mg/mL suspension for injection Discontinued 60 MG INTRAARTIC ONCE 1.5 January 26, 2022 10:28am January 26, 2022 10:54am Problems Active Problems Problem Classification Problem Date Documented Date Episodic/Chronic Acute bronchitis (20 sources) Acute bronchitis; Translations: [Acute bronchitis, unspecified] 02-17-2022 Episodic Asthma (20 sources) Asthma; Translations: [Unspecified asthma, uncomplicated] Onset: 02-17-2022 Chronic Comment on above: WITH COLD WEATHER ON LY/NO INHALER Cardiac dysrhythmias (20 sources) Premature atrial contraction; Translations: [Atrial premature depolarization] Chronic Essential hypertension (20 sources) Essential hypertension; Translations: [Essential (primary) hypertension] Onset: 5 Chronic Fracture of neck of femur (hip) (18 sources) Fracture of greater trochanter; Translations: [Displaced fracture of greater trochanter of right femur, initial encounter for closed fracture] 02-17-2022 Episodic Headache; including migraine (2 sources) Headache; including migraine; Translations: [Mild headache] Onset: 5 Immunizations and screening for infectious disease (20 sources) Patient encounter status; Translations: [Encounter for screening for COVID-19] Episodic Inflammation; infection of eye (except that caused by tuberculosis or sexually transmitteddisease) (5 sources) Allergic conjunctivitis; Translations: [Acute atopic conjunctivitis, bilateral] 11-11-2024 Episodic Malaise and fatigue (19 sources) Fatigue; Translations: [Other fatigue] Episodic Nonmalignant breast conditions (1 source) Mammographic microcalcification found on diagnostic imaging of breast; Translations: [Mammographic microcalcification found on diagnostic imaging of breast] Onset: 5 Episodic Osteoarthritis (20 sources) Arthritis of first carpometacarpal joint of right hand; Translations: [Unilateral primary osteoarthritis of first carpometacarpal joint, right hand] Onset: 4 02-17-2022 Chronic Other aftercare (20 sources) Follow-up status; Translations: [Encounter for other orthopedic aftercare] 02-17-2022 Episodic Comment on above: Patient had surgery on the right hand (A1 bhakti and carpal tunnel) where the HPI says left hand. This was searched and confirmed that it was the right hand that surgery was performed on. 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; Translations: [Cerebral aneurysm, nonruptured] Onset: 5 11-17-2024 Chronic Other and ill-defined cerebrovascular disease (3 sources) Intracranial aneurysm; Translations: [Cerebral aneurysm, nonruptured] 12-14-2024 Chronic Other and ill-defined cerebrovascular disease (2 sources) Cerebral aneurysm, nonruptured; Translations: [Cerebral aneurysm, nonruptured] Onset: 5 Chronic Other connective tissue disease (20 sources) Synovial cyst of hand; Translations: [Other bursal cyst, unspecified hand] 02-17-2022 Episodic Other connective tissue disease (20 sources) Trigger thumb of right hand; Translations: [Trigger thumb, right thumb] 02-17-2022 Episodic Other connective tissue disease (5 sources) Other bursal cyst, unspecified hand; Translations: [Synovial cyst, unspecified] Episodic Other connective tissue disease (18 sources) Trochanteric bursitis; Translations: [Trochanteric bursitis, right hip] 02-17-2022 Episodic Other connective tissue disease (1 source) Trochanteric bursitis, right hip; Translations: [Enthesopathy of hip region] Episodic Other connective tissue disease (10 sources) Tendinitis of right rotator cuff; Translations: [Other shoulder lesions, right shoulder] 11-15-2024 Episodic Other connective tissue disease (7 sources) Weakness of face muscles; Translations: [Facial weakness] Onset: 5 01-10-2025 Episodic Other connective tissue disease (2 sources) Facial weakness; Translations: [Facial weakness] Onset: 5 Episodic Other eye disorders (14 sources) Posterior vitreous detachment of left eye; Translations: [Vitreous degeneration, left eye] Onset: 8 03-22-2018 Chronic Other inflammatory condition of skin (1 source) Itching of ear; Translations: [Pruritus, unspecified] 07-10-2024 Episodic Other inflammatory condition of skin (1 source) Pruritus, unspecified; Translations: [Ear itching] Onset: Episodic Other injuries and conditions due to external causes (20 sources) Injury of nerve of upper extremity; Translations: [Injury of unspecified nerve at shoulder and upper arm level, right arm, initial encounter] 11-17-2019 Episodic Other lower respiratory disease (17 sources) Dyspnea on exertion; Translations: [Shortness of breath] 02-17-2022 Episodic Comment on above: 2 FLIGHTS OF STAIRS Other nervous system disorders (20 sources) Carpal tunnel syndrome; Translations: [Carpal tunnel syndrome, right upper limb] 02-17-2022 Chronic Other nervous system disorders (1 source) Carpal tunnel syndrome, bilateral upper limbs; Translations: [Carpal tunnel syndrome] Chronic Other nervous system disorders (5 sources) Carpal tunnel syndrome, right upper limb; Translations: [Carpal tunnel syndrome] Chronic Other nervous system disorders (9 sources) Carpal tunnel syndrome of right wrist; Translations: [Carpal tunnel syndrome, right upper limb] 02-17-2022 Chronic Other nervous system disorders (20 sources) Acute postoperative pain; Translations: [Other acute postprocedural pain] 02-17-2022 Episodic Other nervous system disorders (3 sources) Other acute postprocedural pain; Translations: [Other acute postoperative pain] Episodic Other nervous system disorders (5 sources) Facial paresthesia; Translations: [Paresthesia of skin] 11-11-2024 Episodic Other nutritional; endocrine; and metabolic disorders (17 sources) Obesity; Translations: [Obesity, unspecified] 02-17-2022 Chronic Other nutritional; endocrine; and metabolic disorders (14 sources) Obese class II; Translations: [Obesity, Class II, BMI 35-39.9] Onset: 4 06-27-2022 Chronic Other screening for suspected conditions (not mental disorders or infectious disease) (1 source) Encounter for screening mammogram for malignant neoplasm of breast; Translations: [Encounter for screening mammogram for malignant neoplasm of breast] Onset: 5 Episodic Other upper respiratory disease (1 source) Paralysis of right vocal cord; 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, unilateral] 07-10-2024 Chronic Other upper respiratory disease (14 sources) Vocal cord paralysis; 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, unspecified] Onset: 2 01-04-2012 Chronic Other upper respiratory disease (2 sources) Paralysis of vocal cords and larynx, unilateral; Translations: [Paralysis of right vocal cord] Onset: 4 Chronic Other upper respiratory disease (1 source) Hoarse; Translations: [Dysphonia] 07-10-2024 Episodic Other upper respiratory disease (2 sources) Dysphonia; Translations: [Hoarseness] Onset: 4 Episodic Other upper respiratory infections (20 sources) Sinusitis; Translations: [Chronic sinusitis, unspecified] Chronic Other upper respiratory infections (16 sources) Acute frontal sinusitis; Translations: [Acute frontal sinusitis, unspecified] Episodic Spondylosis; intervertebral disc disorders; other back problems (20 sources) Cervical spondylosis; Translations: [Spondylosis without myelopathy or radiculopathy, cervical region] Onset: 5 02-17-2022 Chronic Spondylosis; intervertebral disc disorders; other back problems (20 sources) Lumbar radiculopathy; Translations: [Radiculopathy, lumbar region] Onset: 5 02-05-2023 Episodic Comment on above: right side Spondylosis; intervertebral disc disorders; other back problems (5 sources) Spondylosis; intervertebral disc disorders; other back problems Sprains and strains (20 sources) Strain of muscle(s) and tendon(s) of the rotator cuff of left shoulder, initial encounter; Translations: [Strain of muscle(s) and tendon(s) of the rotator cuff of left shoulder, subsequent encounter] Onset: 6 09-27-2015 Episodic Thyroid disorders (20 sources) Hypothyroidism; Translations: [Hypothyroidism, unspecified] Onset: 4 Chronic Unclassified (5 sources) after Holter turned in Urinary tract infections (20 sources) Urinary tract infectious disease; Translations: [Urinary tract infection, site not specified] 02-17-2022 Episodic Past or Other Problems Problem Classification Problem Date Documented Da te Episodic/Chronic Abdominal pain (14 sources) Epigastric pain; Translations: [Epigastric pain] Onset: 2 07-16-2022 Episodic Blindness and vision defects (14 sources) Hypermetropia; Translations: [Hypermetropia, unspecified eye] Onset: 6 12-16-2015 Episodic Cardiac dysrhythmias (20 sources) Palpitations; Translations: [Palpitations] Onset: 5 Episodic Conditions associated with dizziness or vertigo (20 sources) Vertigo; Translations: [Dizziness and giddiness] Onset: 5 11-11-2024 Episodic Gastrointestinal hemorrhage (14 sources) Upper gastrointestinal bleeding; Translations: [Gastrointestinal hemorrhage, unspecified] Onset: 2 07-16-2022 Episodic Headache; including migraine (20 sources) Headache; Translations: [Headache] Onset: 5 01-03-2022 Episodic Other aftercare (2 sources) Strain of muscle(s) and tendon(s) of the rotator cuff of left shoulder, subsequent encounter; Translations: [Strain of muscle(s) and tendon(s) of the rotator cuff of left shoulder, subsequent encounter] Onset: 6 01-15-2016 Episodic Other connective tissue disease (13 sources) Soft tissue lesion of shoulder region; Translations: [Bursopathy, unspecified] Onset: 5 12-13-2024 Episodic Other gastrointestinal disorders (1 source) Dysphagia, unspecified; Translations: [Dysphagia, unspecified] Onset: 2 01-04-2012 Episodic Other gastrointestinal disorders (13 sources) Dysphagia; Translations: [Dysphagia, unspecified] Onset: 2 12-13-2024 Episodic Other nervous system disorders (2 sources) Anesthesia of skin; Translations: [Facial numbness] Onset: 5 Episodic Other non-traumatic joint disorders (5 sources) Knee pain; Translations: [Pain in left shoulder] Onset: 6 05-20-2017 Episodic Other non-traumatic joint disorders (1 source) Pain in left knee; Translations: [Pain in left knee] Onset: 4 Episodic Thyroid disorders (14 sources) Mass of thyroid gland; Translations: [Disorder of thyroid, unspecified] Onset: 2 01-04-2012 Episodic Results Test Name Value Interpretation Reference Range Facility SCRN MAMM (CAD)W/GEOFF BILATo n 02-21-2025 SCRN MAMM (CAD)W/GEOFF BILAT [facility] Imaging Services [address], [place] [id number] SCRN MAMM (CAD)W/GEOFF BILAT MR#: [id number] Acct: [id number] Name: JACQUELINE BRYSON Rep #: [id number] : 1960 F 64 From: Anay Graf i, MD PCP: Dr. Cristian Hopper MD Status: REG CLI Study: SCRN MAMM (CAD)W/GEOFF BILAT Date of Exam: 02/11 10/07 Exam# [id number] Ordering Dr: Cristian Hopper MD EXAM: SCRN MAMM (CAD)W/GEOFF BILAT DATE: 02/21/2025 CLINICAL HISTORY: F, Age 64 y/o , SCREENING BREAST CANCER RISK ASSESSMENT: Na TECHNIQUE: Bilateral screening digital breast tomosynthesis with 2D and 3D images. Computer aided detection. COMPARISON: Prior exam(s) were compared FINDINGS: TISSUE DENSITY: The breast tissue is composed of scattered area of fibroglandular density. Bilateral Breast Mammographic Findings: Right breast: There are calcifications in the lower inner right breast posterior depth. Left breast: No suspicious masses, calcifications or other abnormalities are identified. BI/SCRN MAMM (CAD)W/GEOFF BILAT IMPRESSION: OVERALL FINAL ASSESSMENT: BIRADS 0 Incomplete: Need additional imaging evaluation. RECOMMENDATION: Incomplete: Need additional imaging evaluation with diagnostic right breast mammogram. A letter with findings and recommendations will be mailed to the patient. Reading Location: [facility] CC: Dr. Cristian Hopper MD Communications Director: Signed Normal [facility] JASWANT MULTIPLEX, PANEL 1 WITH REFLEXESon 02-17-2025 JASWANT SCREEN, IMMUNOASSAY Negative Normal NEGATIVE [facility] Comment on above: Order Comment: FASTI NG:NO FASTING: NO Result Comment: A ne gative JASWANT Multiplex indicates the absence of detectable antibodies to component analytes consisting of double stranded DNA (dsDNA), chromatin, ribonucleoprotein (TRIAGE REGISTER NURSE), Elizondo/TRIAGE REGISTER NURSE (Sm/TRIAGE REGISTER NURSE), Elizondo (Sm), SS-A, SS-B, Sonali-1, centromere B, Scl-70 and ribosomal P. A negative result should be interpreted in the context of the clinical and laboratory findings and does not rule out autoimmune disease characterized by other autoantibody specificities such as rheumatoid arthritis, autoimmune hepatitis, primary biliary cirrhosis, autoimmune thyroiditis, Armando's disease, pernicious anemia, autoimmune neuropathies, vasculitis, celiac disease, and bullous disease. For additional information, please refer to [email or web address] (This link is being provided for informational/educational purposes only.) Performed By: #### 3 [id number] #### [facility], [address] [place] [address] Director Mission: Irina Lopez MD,PhD,ONI #### [phone], 1007 #### [facility] [address], [address] [place] [address] Director Mission: Pardeep Correia MD DNA AB (DS) CRITHIDIA,IFA Negative Normal NEGATIVE [facility] Comment on above: Order Comment: FASTI NG:NO FASTING: NO Performed By: #### 3 [id number] #### [facility], [address] [place] [address] Director Mission: Irina Lopez MD,PhD,ONI #### [phone], 1002 #### [facility] [address], [address] [place] [phone] Director Mission: Pardeep Correia MD RHEUMATOID FACTOR <10 Normal <14 [facility] Comment on above: Order Comment: FASTI NG:NO FASTING: NO Performed By: #### 3 [id number] #### [facility], [address] [place] [address] Director Mission: Irina Lopez MD,PhD,ONI #### 689, 1005 #### [facility] [place] [address] [address] , [address] [place] [address] Director Mission: Pardeep Correia MD SCL-70 ANTIBODY <1.0 NEG Normal <1.0 NEGATIVE [facility] Comment on above: Order Comment: FASTI NG:NO FASTING: NO Performed By: #### 3 [id number] #### [facility], [address] [place] [address] Director Mission: Irina Lopez MD,PhD,ONI #### 183, 1005 #### [facility] [address], [address] [place] [address] Director Mission: Pardeep Correia MD SJOGREN'S ANTIBODY (SS-A) <1.0 NEG Normal <1.0 NEGATIVE [facility] Comment on above: Order Comment: FASTI NG:NO FASTING: NO Performed By: #### 3 [id number] #### [facility], [address] [place] [address] Director Mission: Irina Lopez MD,PhD,ONI #### 611, 1005 #### [facility] [address] , [address] [place] [address] Director Mission: Pardeep Correia MD SJOGREN'S ANTIBODY (SS-B) <1.0 NEG Normal <1.0 NEGATIVE [facility] Comment on above: Order Comment: FASTI NG:NO FASTING: NO Performed By: #### 3 [id number] #### [facility], [address] [place] [phone] Director Mission: Irina Lopez MD,PhD,ONI #### 743, 1005 #### [facility] [address], [address] [place] [address] Director Mission: Pardeep Correia MD SM ANTIBODY <1.0 NEG Normal <1.0 NEGATIVE [facility] Comment on above: Order Comment: FASTI NG:NO FASTING: NO Performed By: #### 3 [id number] #### [facility], [address] [place] [phone] Director Mission: Irina Lopez MD,PhD,ONI #### 387, 1005 #### [facility] [address], [address] [place] [address] Director Mission: Pardeep Correia MD SM/TRIAGE REGISTER NURSE ANTIBODY <1.0 NEG Normal <1.0 NEGATIVE [facility] Comment on above: Order Comment: FASTI NG:NO FASTING: NO Performed By: #### 3 [id number] #### [facility], [address] [place] [phone] Director Mission: Irina Lopez MD,PhD,ONI #### 254, 1005 #### [facility] [address], [address] [place] [address] Director Mission: Pardeep Correia MD TEST AUTHORIZATIONon 025 CLIENT CONTACT: Normal [facility] Comment on above: Performed By: #### 3 [id number] #### [facility], [address] [place] [phone] Director Mission: Irina Lopez MD,PhD,ONI #### 444, 1005 #### [facility] [address], [address] [place] [address] Director Mission: Pardeep Correia MD COMMENT Normal [facility] Comment on above: Result Comment: Plea se have the ordering physician or his or her authorized admitting representative sign a copy of this report and promptly return it by faxing it to: [phone] or by returning the form to your material planning analyst. Performed By: #### 3 [id number] #### [facility], [address] [place] [address] Director Mission: Irina Lopez MD,PhD,ONI #### 899, 1005 #### [facility] [address], [address] [place] [phone] Director Mission: Pardeep Correia MD REPORT ALWAYS MESSAGE SIGNATURE Normal [facility] Comment on above: Result Comment: The laboratory testing on this patient was verbally requested or confirmed by the ordering physician or his or her authorized admitting representative after contact with an employee of [employer]. Federal regulations require that we maintain on file written authorization for all laboratory testing. Accordingly we are asking that the ordering physician or his or her authorized admitting representative sign a copy of this report and promptly return it to the client experience specialist. Signature: _ Performed By: #### 3 [id number] #### [facility], [address] [place] [address] Director Mission: Irina Lopez MD,PhD,ONI #### 899, 1005 #### [facility] [address], [address] [place] [address] Director Mission: Pardeep Correia MD TEST CODE: 899 Normal [facility] Comment on above: Performed By: #### 3 [id number] #### [facility], [address] [place] [address] Director Mission: Irina Lopez MD,PhD,ONI #### 899, 1005 #### [facility] [address], [address] [place] [address] Director Mission: Pardeep Correia MD TEST NAME: TSH Normal [facility] Comment on above: Performed By: #### 3 [id number] #### [facility], [address] [place] [address] Director Mission: Irina Lopez MD,PhD,ONI #### 899, 1005 #### [facility] [address], [address] [place], [place] [id number] Director Mission: Pardeep Correia MD TSHon 02-17-2025 TSH Qn 0.51 m[IU]/L Normal 0.40-4.50 [facility] Comment on above: Performed By: #### 3 [id number] #### [facility], [address] [place] [address] Director Mission: Irina Lopez MD,PhD,ONI #### 899, 1005 #### [facility] [address], [address] [place] [address] Director Mission: Pardeep Correia MD Progress Noteon 02-14-2025 Progress Note [facility] [address] [facility] [address] Dept: [phone] Dept PHYSICAL THERAPY RE-EVALUATION Patient Name: Jacqueline Bryson : 1960 Date of Service: 02/14/2025 Referring Provider: Yunior Webb MD Visit #: 9 Diagnosis: Dizziness Reason for referral: dizziness Mechanism of injury: Pt reports in June she began to experience facial, head and LE numbness, headaches and fatigue of unknown onset. Pt reports she began experiencing dizziness in October of unknown onset. She reports she got up out of bed one day and began experiencing vertigo with vomiting. She reports she went to the ER where they performed the noe maneuver which significantly helped. She reports no longer experiencing vertigo but continues to experience some ongoing dizziness. Patient Preferences: Jacqueline Precautions/Red Flags: Yes Blurry vision but denies diplopia, denies tinnitus, denies dysphagia, denies new onset dysarthria, denies drop attacks Subjective General Comments: Pt reports she had a terrible day yesterday. She reports she felt like she was on a boat yesterday. She reports she had a great day the other day but yesterday symptoms were bad. She reports mild dizziness and fatigue to start therapy today. She reports she is unable to get into rheumatology until June. Pt reports 50% improvement since therapy started. She reports dizziness is getting better, but she continues to have good and bad days. Outcome Measures Dizziness Handicap Inventory: 01/11/25: 52 02/14/2025: 48 Objective Vestibular Visual Assessment Date 01/11/2025 02/14/2025 Smooth Pursuits positive - dizziness, able to track Positive - dizziness, difficulty with R tracking Convergence positive - >12 inches Positive - >12 inches Saccades positive - small corrective saccades B Positive - corrective saccades on R Head Impulse positive - corrective saccades with quick turns Positive- dizziness but able to maintain gaze Gait: independent and safe but mild imbalance noted Functional Gait Assessment Date 02/14/2025 Gait Level Surface 2 Change in Gait Speed 3 Gait Horiz Head Turns 2 Gait Vertical Head Turns 2 Gait Pivot Turn 2 Step Over Obstacle 1 Narrow JAYNE Gait 1 Gait Eyes Closed 1 Backwards Gait 2 Steps 2 Total 18 <22 = fall risk mCTSIB Date 02/14/2025 Romberg EO - firm 1, 30 secs Romberg EC - firm 3, 8 secs Romberg EO - airex 1, 30 secs Romberg EC - airex 3, 2 secs Assessment Pt has been seen for 9 therapy visits for treatment of Dizziness. Pt reports 50% improvement since therapy started and has minimally progressed on goals thus far. She continues to demonstrate positive smooth pursuits, convergence, saccades and head impulse testing reporting dizziness. She continues to demonstrate imbalance with gait which is exacerbated with head movements. FGA and mCTSIB testing today indicates visual reliance on gait with dysfunctional vestibular system. Pt is scheduled to received vestibular testing in February and follow up with her physician as well. She would like to hold therapy for now until she receives further assessment. Due to ongoing dysfunction, she will continue to benefit from skilled treatment to promote a reduction imbalance and fall risk for improved ease of work function and community ambulation. Rehab Potential: Good Goals Active General/Ortho Patient will be independent with HEP. (Progressing) Start: 01/11/25 Expected End: 03/16/25 Vestibular Pt will improve score on DHI to <30 to demonstrate improved ease of cleaning at home (Progressing) Start: 01/11/25 Expected End: 03/16/25 Pt will ascend/descend stairs reciprocally without complaints of dizziness to demonstrate improved ease of mobility at home and in the community (Progressing) Start: 01/11/25 Expected End: 03/16/25 Patient will report no dizziness/vertigo for 1 week to allow for to allow for improved ease of driving (Progressing) Start: 01/11/25 Expected End: 03/16/25 Pt will report returning to work unrestricted and symptom free (Progressing) Start: 01/11/25 Expected End: 03/16/25 Plan Frequency and Duration: 1-2/wk for 4 weeks. Hold case open 30 days in case patient does not wish to return. Therapeutic Contents: client education, home exercise program, manual therapy techniques, neuromuscular re-education, therapeutic activities, therapeutic exercise, vestibular rehabilitation, and modalities as needed Plan for next session: Continue to work on balance on uneven surfaces and gaze stabilization exercises. Risks and benefits were discussed with the patient and/or family, and the patient and/or family participated with the plan of care and agrees. Treatment Patient Education: Re-assessed objective measures and goals. Performed mCTSIB and FGA to assess and treat imbalance. Discus (more content not included)... Normal [facility] 36on 02-13-2025 36 Called patient made apt Normal [facility] Progress Noteon 02-12-2025 Progress Note [facility] [address] [facility] [address] Dept: [phone] Dept PHYSICAL THERAPY TREATMENT Patient Name: Jacqueline Bryson : 1960 Date of Service: 02/12/2025 Referring Provider: Yunior Webb MD Visit #: 8 Diagnosis: Dizziness Reason for referral: dizziness Mechanism of injury: Pt reports in June she began to experience facial, head and LE numbness, headaches and fatigue of unknown onset. Pt reports she began experiencing dizziness in October of unknown onset. She reports she got up out of bed one day and began experiencing vertigo with vomiting. She reports she went to the ER where they performed the noe maneuver which significantly helped. She reports no longer experiencing vertigo but continues to experience some ongoing dizziness. 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 She is performing further follow up with the neurologist. She reports she has been having better days regarding her balance. She reports dizziness can correlate with level of fatigue. She reports cervical spine exercises continue to help with her neck pain. She reports the past couple of days, she feels more comfortable walking with less imbalance. Compliance with HEP: Yes Objective Objective measurements not taken today. Treatment Balance/Neuromuscular Re-Education Balance/Neuromuscular Re-Education Activity 4: smooth pursuits, standing on airex Activity 4 Comment: 3x30 Balance/Neuromuscular Re-Education Activity 5: saccades: standing horizontal, airex Activity 5 Comment: 3x30 Balance/Neuromuscular Re-Education Activity 7: gaze stabilization with ambulation: horizontal Activity 7 Comment: 4x200' Balance/Neuromuscular Re-Education Activity 8: Standing on airex horizontal VOR x1 Activity 8 Comment: 3x30 Home Exercise Program: Progressed home exercise program Assessment Skilled physical therapy interventions utilized to improve patient?s impairments and work towards established goals. Patient response to treatment: Continued with focus on gaze stabilization and vestibular re-training today. She demonstrates less imbalance today with gaze stabilization exercises. She continues to present with scissoring ataxic gait during VOR x1 ambulation. Recommended to continue with gaze stabilization exercises at home to reduce imbalance. Patient will benefit from continued physical therapy to promote a reduction in dizziness and imbalance. The rationale for today?s treatment was explained to the patient. Verbal cues were provided for correct form with all exercises. Advised patient to continue with Home Exercise Program (HEP). Goals General/Ortho Patient will be independent with HEP. (Progressing) Start: 01/11/25 Expected End: 03/13/25 Vestibular Pt will improve score on DHI to <30 to demonstrate improved ease of cleaning at home (Not Addressed) Start: 01/11/25 Expected End: 03/13/25 Pt will ascend/descend stairs reciprocally without complaints of dizziness to demonstrate improved ease of mobility at home and in the community (Progressing) Start: 01/11/25 Expected End: 03/13/25 Patient will report no dizziness/vertigo for 1 week to allow for to allow for improved ease of driving (Progressing) Start: 01/11/25 Expected End: 03/13/25 Pt will report returning to work unrestricted and symptom free (Progressing) Start: 01/11/25 Expected End: 03/13/25 Plan Plan for next session: re-assess Time Entry Total Treatment Time Start Time: 0850 Stop Time: 0915 Time Calculation (min): 25 min PT Therapeutic Procedures Time Entry Neuromuscular Re-Education Time Entry: 24 Marek Santos PT [facility] Neurology Visit Reporton Neurology Visit Report [facility] [address] [place] [address], [address] [place] [address] OFFICE VISIT Date of Service: 02/07/25 MR#: [id number] Acct: [id number] Name: JACQUELINE BRYSON Rep #: [id number] : 1960 Provider: Dr. Cristian hutchison MD Age/Sex: 64/F Location: [facility] [place]. Status: Signed HPI HPI Chief Complaint: Establish Care Details: The patient is a 64-year-old right handed female [facility] She was referred 11/03/2024 by [facility] ER for left lower facial numbness episodes. This patient presents by herself with a complex constellation of symptoms. 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 Patient reports of fatigue and lassitude for the past 6 months of uncertain etiology. Patient has been screened for COVID, speculated to have long COVID, screen for Jose-Tran virus, CMV virus and I believe herpes viral disease. She has also had a modestly positive JASWANT of 1-80 but CRP of 24 and ESR minimally elevated. At this point in time intracranial aneurysm is nonactionable as judged by neurosurgery and interventional neurology, meningioma is nonactionable as judged by neurosurgery and no other specific diagnosis has been made. It should be noted that 2 members of her family have had Lincoln's thyroiditis and at least 1 has had lupus diagnosed. Patient is currently undergoing evaluation at [facility] in [place] with regard to many of these complaints. ROS: Head: No recent head traumas. Headache is not a major feature of this case. Eyes: Dry eyes treated by ophthalmology with eye lubricant. Oropharynx: Dry mouth. 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 Respiratory: Denies shortness of breath hemoptysis Cardiac: No chest pain or palpitations Abdomen: No abdominal pain vomiting blood passing blood in stool : No kidney issue no hematuria Extremities: No joint deformity no hot swollen red joints Skin: No unusual rashes identified. Psych: Negative Exam Const Other: BP 120/77, pulse 86, respiration 15, temperature 98.6 O2 sat 98% on room air BMI 30.9 General appearance that a well-developed well-nourished female no acute distress HEENT: No obvious head trauma identified. Conjunctiva clear. Hoarse vocalization Respiratory: Appears to be breathing normally without difficulty Cardiac: No complaint of chest pain Abdomen: No abdominal distress noted Extremities: No joint deformity or hot swollen red joints noted. Skin: Intact on observed areas. Neurologic examination: Mental status: Patient is awake alert oriented x 3. Memory is intact. Language shows normal crane follower expression repetition. Insight and judgment appears appropriate. No hallucinations or delusions identified. CN II-XII: Pupils are equal round do appear to react. Estimate 4 mm. Fundi not examined. No visual field defect confrontation. Extraocular muscles show saccadic pursuit. Saccades are fairly coarse. I am unable to identify directional preponderance. Facial sensation shows that she outlines the left cranial nerve division 2 and 3 (malar region and along mandibular line) as showing altered sensation. Tuning fork shows perhaps some increased response on the left side of the face compared to the right. Right side of face normal. Left above the eyebrow normal. Motor function of face intact bilaterally. Hearing appears to be perhaps mildly impaired. Tuning fork test shows that the patient has better bone-conduction than air conduction. Right ear appears to have decreased hearing relative to the left ear. 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 Motor exam: No focal weakness identified. No atrophy's or fasciculations noted. Cerebellar testing. Normal finger-nose. No cogwheeling rigidity tremor bradykinesia or ataxia of upper extremities or lower extremities. Reflexes were 1+ at biceps trace at knees. Babinski not checked. Sensory exam: Intact to tactile and vibratory sense. No definite sensory alteration on right side of body compared to the left at this point in time. Station gait shows that Romberg shows following or leaning to the right. Patient likely to fall (more content not included)... Normal [facility] JASWANT SCREEN, IFA, W/REFL TITE R AND PATTERNon 02-01-2025 JASWANT SCREEN, IFA Positive Abnormal NEGATIVE [facility] Comment on above: Result Comment: JASWANT IFA is a first line screen for detecting the presence of up to approximately 150 autoantibodies in various autoimmune diseases. A positive JASWANT IFA result is suggestive of autoimmune disease and reflexes to titer and pattern. Further laboratory testing may be considered if clinically indicated. For additional information, please refer to http://education.Answer.To.com/faq/[email or web address] (This link is being provided for informational/ educational purposes only.) Performed By: #### 3 [id number] #### [facility], [address] [place] [address] Director Mission: Irina Lopez MD,PhD,ONI #### 474, 4428 #### [facility] [address] [place] [address], [address] [place] [address] Director Mission: Pardeep Correia MD ANTI-STREPTOLYSIN Oon 2024 ANTI-STREPTOLYSIN O 45 IU/mL Normal <200 [facility] Comment on above: Performed By: #### 3 7521 #### [facility], [address] [place] [address] Director Mission: Irina Lopez MD,PhD,ONI #### 899, 1005 #### [facility] [address], [address] [place] [address] Director Mission: Pardeep Correia MD ANTINUCLEAR ANTIBODIES TITER AND PATTERNon 02-01-2025 JASWANT PATTERN Nuclear, Speckled Abnormal [facility] Comment on above: Result Comment: Spec kled pattern is associated with mixed connective tissue disease (MCTD), systemic lupus erythematosus (SLE), Sjogren's syndrome, dermatomyositis, and systemic sclerosis/polymyositis overlap. AC-2,4,5,29: Speckled International Consensus on JASWANT Patterns (https://doi.org/10.1515/fjdw-5059-8552) Performed By: #### 3 7521 #### [facility], [address] [place] [address] Director Mission: Irina Lopez MD,PhD,ONI #### 979, 1005 #### [facility] [address], [address] [place] [address] Director Mission: Pardeep Correia MD JASWANT TITER 1:80 High [facility] Comment on above: Result Comment: A lo w level JASWANT titer may be present in pre-clinical autoimmune diseases and normal individuals. Reference Range <1:40 Negative 1:40-1:80 Low Antibody Level >1:80 Elevated Antibody Level Performed By: #### 3 [id number] #### [facility], [address] [place] [address] Director Mission: Irina Lopez MD,PhD,ONI #### 089, 1005 #### [facility] [address], [address] [place] [address] Director Mission: Pardeep Correia MD C-REACTIVE PROTEINon CRP [Mass/Vol] 21.4 mg/L High <8.0 [facility] Comment on above: Performed By: #### 3 7521 #### [facility], [address] [place] [address] Director Mission: Irina Lopez MD,PhD,ONI #### 899, 1005 #### [facility] [address], [address] [place] [address] Director Mission: Pardeep Correia MD CBC (INCLUDES DIFF/PLT)on Basophils (Bld) [#/Vol] 0.041 10*3/uL Normal 0-200 [facility] Comment on above: Performed By: #### 3 7521 #### [facility], [address] [place] [address] Director Mission: Irina Lopez MD,PhD,ONI #### 769, 1005 #### [facility] [place] [address] Director Mission: Pardeep Correia MD Basophils/100 WBC (Bld) 0.6 % Normal [facility] Comment on above: Performed By: #### 3 7521 #### [facility]/[place] [address] Director Mission: Irina Lopez MD,PhD,ONI #### 868, 1005 #### [facility] [place] [address] Director Mission: Pardeep Correia MD Eosinophils (Bld) [#/Vol] 0.197 10*3/uL Normal 15-500 [facility] Comment on above: Performed By: #### 3 7521 #### [facility], [address] [place] [address] Director Mission: Irina Lopez MD,PhD,ONI #### 899, 1005 #### [facility] [place] [address] Director Mission: Pardeep Correia MD Eosinophils/100 WBC (Bld) 2.9 % Normal [facility] Comment on above: Performed By: #### 3 7521 #### [facility], [address] [place] [address] Director Mission: Irina Lopez MD,PhD,ONI #### 899, 1005 #### [facility] [place] [address] Director Mission: Pardeep Correia MD Erythrocyte distribution width (RBC) [Ratio] 13.0 % Normal 11.0-15.0 [facility] Comment on above: Performed By: #### 3 7521 #### [facility], [facility] [place] [address] Director Mission: Irina Lopez MD,PhD,ONI #### 899, 1005 #### [facility] [place] [address] Director Mission: Pardeep Correia MD Hematocrit (Bld) [Volume fraction] 38.1 % Normal 35.0-45.0 [facility] Comment on above: Performed By: #### 3 7521 #### [facility], [address] [place] [address] Director Mission: Irina Lopez MD,PhD,ONI #### 899, 1005 #### [facility] of [place] [address] Director Mission: Pardeep Correia MD Hemoglobin (Bld) [Mass/Vol] 12.3 g/dL Normal 11.7-15.5 [facility] Comment on above: Performed By: #### 3 7521 #### [facility], [address] [place] [address] Director Mission: Irina Lopez MD,PhD,ONI #### 429, 1005 #### [facility] [place] [address] [address] , [address] [place] [address] Director Mission: Pardeep Correia MD Lymphocytes (Bld) [#/Vol] 1.816 10*3/uL Normal 850-3900 [facility] Comment on above: Performed By: #### 3 7521 #### [facility], [address] [place] [address] Director Mission: Irina Lopez MD,PhD,ONI #### 321, 1005 #### [facility] [place] [address] [address] , [address] [place] [address] Director Mission: Pardeep Correia MD Lymphocytes/100 WBC (Bld) 26.7 % Normal [facility] Comment on above: Performed By: #### 3 7521 #### [facility], [address] [place] [address] Director Mission: Irina Lopez MD,PhD,ONI #### 522, 1005 #### [facility] of [address], [address] [place], [place] [id number] Director Mission: Pardeep Correia MD MCH (RBC) [Entitic mass] 30.1 pg Normal 27.0-33.0 [facility] Comment on above: Performed By: #### 3 7521 #### [facility], [facility] [place] [address] Director Mission: Irina Lopez MD,PhD,ONI #### 899, 1005 #### [facility] of [place] [address], [address] [place] [address] Director Mission: Pardeep Correia MD MCHC (RBC) [Mass/Vol] 32.3 g/dL Normal 32.0-36.[address] [facility] Comment on above: Result Comment: For adults, a slight decrease in the calculated MCHC value (in the range of 30 to 32 g/dL) is most likely not clinically significant; however, it should be interpreted with caution in correlation with other red cell parameters and the patient's clinical condition. Performed By: #### 3 7521 #### [facility], [address] [place] [address] Director Mission: Irina Lopez MD,PhD,ONI #### 466, 1005 #### [facility] [place] [address], [address] [place] [address] Director Mission: Pardeep Correia MD MCV (RBC) [Entitic vol] 93.2 fL Normal 80.0-100.0 [facility] Comment on above: Performed By: #### 3 7521 #### [facility] [address] Director Mission: Irina Lopez MD,PhD,ONI #### 964, 1005 #### [facility] [place] [address] [address] [place] [address] Director Mission: Pardeep Correia MD Monocytes (Bld) [#/Vol] 0.408 10*3/uL Normal 200-950 [facility] Comment on above: Performed By: #### 3 7521 #### [facility] [address] Director Mission: Irina Lopez MD,PhD,ONI #### 397, 1005 #### [facility] [place] [address], [address] [place] [address] Director Mission: Pardeep Correia MD Monocytes/100 WBC (Bld) 6.0 % Normal [facility] Comment on above: Performed By: #### 3 7521 #### [facility], [address] [place] [address] Director Mission: Irina Lopez MD,PhD,ONI #### 899, 1005 #### [facility] of [place] [address] , [address] [place] [address] Director Mission: Pardeep Correia MD Neutrophils (Bld) [#/Vol] 4.338 10*3/uL Normal 7779-2543 [facility] Comment on above: Performed By: #### 3 7521 #### [facility], [address] [place] [address] Director Mission: Irina Lopez MD,PhD,ONI #### 899, 1005 #### [facility] of [facility] [address] , [address] [place] [address] Director Mission: Pardeep Correia MD Neutrophils/100 WBC (Bld) 63.8 % Normal [facility] Comment on above: Performed By: #### 3 7521 #### [facility], [address] [place] [address] Director Mission: Irina Lopez MD,PhD,ONI #### 899, 1005 #### [facility] of [facility] [address] , [address] [place], [place] [id number] Director Mission: Pardeep Correia MD Platelet mean volume (Bld) [Entitic vol] 10.6 fL Normal 7.5-12.5 [facility] Comment on above: Performed By: #### 3 7521 #### [facility], [address] [facility] [address] Director Mission: Irina Lopez MD,PhD,ONI #### 899, 1005 #### [facility] [place] [address] Director Mission: Pardeep Correia MD Platelets (Bld) [#/Vol] 294 10*3/uL Normal 140-400 [facility] Comment on above: Performed By: #### 3 7521 #### [facility], [facility] [place] [address] Director Mission: Irina Lopez MD,PhD,ONI #### 899, 1005 #### [facility] [place] [address] Director Mission: Pardeep Correia MD RBC (Bld) [#/Vol] 4.09 10*6/uL Normal 3.80-5.10 [facility] Comment on above: Performed By: #### 3 7521 #### [facility], [facility] [place] [address] Director Mission: Irina Lopez MD,PhD,ONI #### 339, 1005 #### [facility] of [place] [address] Director Mission: Pardeep Correia MD WBC (Bld) [#/Vol] 6.8 10*3/uL Normal 3.8-10.8 [facility] Comment on above: Performed By: #### 3 7521 #### [facility], [address] [place] [address] Director Mission: Irina Lopez MD,PhD,ONI #### 899, 1005 #### [facility] of [place] [address] [address] , [address] [place] [address] Director Mission: Pardeep Correia MD [facility] 02-01-2025 Albumin [Mass/Vol] 4.4 g/dL Normal 3.6-5.1 [facility] Comment on above: Performed By: #### 2 49, 4420, 20642, 6421, 6732, 374, %43869, 4418, 809, 6399 #### [facility] of [place] [address] Director Mission: Pardeep Correia MD Albumin/Globulin [Mass ratio] 1.5 {ratio} Normal 1.0-2.5 [facility] Comment on above: Performed By: #### 2 49, 4420, 41435, 6421, 6732, 374, %18453, 4418, 809, 6399 #### [facility] of [place] [address] Director Mission: Pardeep Correia MD ALP [Catalytic activity/Vol] 60 U/L Normal 37-153 [facility] Comment on above: Performed By: #### 2 49, 4420, 45383, 6421, 6732, 374, %23073, 4418, 809, 6399 #### [facility] of [place] [address] Director Mission: Pardeep Correia MD ALT [Catalytic activity/Vol] 19 U/L Normal 6-29 [facility] Comment on above: Performed By: #### 2 49, 4420, 35477, 6421, 6732, 374, %42518, 4418, 809, 6399 #### [facility] of [place] [address] Director Mission: Pardeep Correia MD AST [Catalytic activity/Vol] 28 U/L Normal 10-35 [facility] Comment on above: Performed By: #### 2 49, 4420, 88150, 6421, 6732, 374, %65049, 4418, 809, 6399 #### [facility] of [place] [address] Director Mission: Pardeep Correia MD Bilirubin [Mass/Vol] 0.4 mg/dL Normal 0.2-1.2 [facility] Comment on above: Performed By: #### 2 49, 4420, 56899, 6421, 6732, 374, %84949, 4418, 809, 6399 #### [facility] [place] [address] Director Mission: Pardeep Correia MD BUN/CREATININE RATIO SEE NOTE: Normal 6-22 [facility] Comment on above: Result Comment: Not Reported: BUN and Creatinine are within reference range. Performed By: #### 2 49, 4420, 36089, 6421, 6732, 374, %96194, 4418, 809, 6399 #### [facility] [place] [address] Director Mission: Pardeep Correia MD Calcium [Mass/Vol] 9.5 mg/dL Normal 8.6-10.4 [facility] Comment on above: Performed By: #### 2 49, 4420, 43777, 6421, 6732, 374, %86001, 4418, 809, 6399 #### [facility] [place] [address] Director Mission: Pardeep Correia MD Chloride [Moles/Vol] 101 mmol/L Normal 98-110 [facility] Comment on above: Performed By: #### 2 49, 4420, 73106, 6421, 6732, 374, %21753, 4418, 809, 6399 #### [facility] [place] [address] Director Mission: Pardeep Correia MD CO2 [Moles/Vol] 26 mmol/L Normal 20-32 [facility] Comment on above: Performed By: #### 2 49, 4420, 79751, 6421, 6732, 374, %00957, 4418, 809, 6399 #### [facility] [place] [address] Director Mission: Pardeep Correia MD Creatinine [Mass/Vol] 0.70 mg/dL Normal 0.50-1.[address] [facility] Comment on above: Performed By: #### 2 49, 4420, 28723, 6421, 6732, 374, %68574, 4418, 809, 6399 #### [facility] [place] [address] Director Mission: Pardeep Correia MD GFR/1.73 sq M.predicted among non-blacks MDRD (S/P/Bld) [Vol rate/Area] 97 mL/min/{1.73_m2} Normal > OR = 60 [facility] Comment on above: Performed By: #### 2 49, 4420, 53500, 6421, 6732, 374, %29507, 4418, 809, 6399 #### [facility] [place] [address] Director Mission: Pardeep Correia MD Globulin (S) [Mass/Vol] 2.9 g/dL Normal 1.9-3.7 [facility] Comment on above: Performed By: #### 2 49, 4420, 63505, 6421, 6732, 374, %00305, 4418, 809, 6399 #### [facility] [place] [address] Director Mission: Pardeep Correia MD Glucose [Mass/Vol] 87 mg/dL Normal 65-99 [facility] Comment on above: Result Comment: Fasting reference interval Performed By: #### 2 49, 4420, 19351, 6421, 6732, 374, %10341, 4418, 809, 6399 #### [facility] [place] [address] Director Mission: Pardeep Correia MD Potassium [Moles/Vol] 4.1 mmol/L Normal 3.5-5.[address] [facility] Comment on above: Performed By: #### 2 49, 4420, 22064, 6421, 6732, 374, %26537, 4418, 809, 6399 #### [facility] [place] [address] Director Mission: Pardeep Correia MD Protein [Mass/Vol] 7.3 g/dL Normal 6.1-8.1 [facility] Comment on above: Performed By: #### 2 49, 4420, 44975, 6421, 6732, 374, %92033, 4418, 809, 6399 #### [facility] [address], [address] [place] [address] Director Mission: Pardeep Correia MD Sodium [Moles/Vol] 138 mmol/L Normal 135-146 [facility] Comment on above: Performed By: #### 2 49, 4420, 57336, 6421, 6732, 374, %65613, 4418, 809, 6399 #### [facility] [place] [address] Director Mission: Pardeep Correia MD Urea nitrogen [Mass/Vol] 16 mg/dL Normal 7-25 [facility] Comment on above: Performed By: #### 2 49, 4420, 19817, 6421, 6732, 374, %59175, 4418, 809, 6399 #### [facility] [place] [address] Director Mission: Pardeep Correia MD CREATINE KINASE, TOTALon CREATINE KINASE, TOTAL 91 U/L Normal 20-243 [facility] Comment on above: Performed By: #### 3 7521 #### [facility]/[address] [address] Director Mission: Irina Lopez MD,PhD,ONI #### 777, 1002 #### [facility] [place] [address] Director Mission: Pardeep Correia MD CYTOMEGALOVIRUS ANTIBODIES ( IGG,IGM)on 02-01-2025 CYTOMEGALOVIRUS ANTIBODY (IGG) >10.00 High [facility] Comment on above: Result Comment: U/mL Interpretation ----- <0.60 Negative 0.60-0.69 Equivocal > or = 0.70 Positive A positive result indicates that the patient has antibody to CMV. It does not differentiate between an active or past infection. Performed By: #### 2 49, 4420, 98562, 6421, 6732, 374, %94524, 4418, 809, 6399 #### [facility] [address], [address] [place] [address] Director Mission: Pardeep Correia MD CYTOMEGALOVIRUS ANTIBODY (IGM) <30.00 Normal [facility] Comment on above: Result Comment: AU/m L Interpretation ----- <30.00 No Antibody Detected 30.00-34.99 Equivocal > or = 35.00 Antibody Detected Results from any one IgM assay should not be used as a sole determinant of a current or recent infection. Because an IgM test can yield false positive results and low level IgM antibody may persist for more than 12 months post infection, reliance on a single test result could be misleading. Acute infection is best diagnosed by demonstrating the conversion of IgG from negative to positive. If an acute infection is suspected, consider obtaining a new specimen and submit for both IgG and IgM testing in two or more weeks. Performed By: #### 2 49, 4420, 37331, 6421, 6732, 374, %50148, 4418, 809, 6399 #### [facility] [address], [address] [place] [address] Director Mission: Pardeep Correia MD JOSE TRAN VIRUS ANTIBODY PANELon 02-01-2025 EBV NUCLEAR AG (EBNA) AB (IGG) 590.00 U/mL High [facility] Comment on above: Result Comment: U/mL Interpretation ---- <18.00 Negative 18.00-21.99 Equivocal >21.99 Positive Performed By: #### 3 3221 #### [facility], [address] [facility] [address] Director Mission: Irina Lopez MD,PhD,ONI #### 899, 1005 #### [facility] [place] [address] Director Mission: Pardeep Correia MD EBV VIRAL CAPSID AG (VCA) AB (IGG) >750.00 High [facility] Comment on above: Result Comment: U/mL Interpretation ---- <18.00 Negative 18.00-21.99 Equivocal >21.99 Positive Performed By: #### 3 7521 #### [facility], [address] [place] [address] Director Mission: Irina Lopez MD,PhD,ONI #### 899, 1005 #### [facility] [place] [address] Director Mission: Pardeep Correia MD EBV VIRAL CAPSID AG (VCA) AB (IGM) <36.00 Normal [facility] Comment on above: Result Comment: U/mL Interpretation ---- <36.00 Negative 36.00-43.99 Equivocal >43.99 Positive Performed By: #### 3 7521 #### [facility], [address] [place] [address] Director Mission: Irina Lopez MD,PhD,ONI #### 409, 1002 #### [facility] [place] [address] Director Mission: Pardeep Correia MD INTERPRETATION: Normal [facility] Comment on above: Result Comment: Suggestive of a past Jose-Tran virus infection. In infants, a similar pattern may occur as a result of passive maternal transfer of antibody. Performed By: #### 3 7521 #### [facility], [address] [place] [address] Director Mission: Irina Lopez MD,PhD,ONI #### 899, 1005 #### [facility] [address], [address] [place] [address] Director Mission: Pardeep Correia MD Progress Noteon 02-01-2025 Progress Note [facility] [address] [facility] [address] Dept: [phone] Dept PHYSICAL THERAPY TREATMENT Patient Name: Jacqueline Bryson : 1960 Date of Service: 02/01/2025 Referring Provider: Yunior Webb MD Visit #: 7 Diagnosis: Dizziness Reason for referral: dizziness Mechanism of injury: Pt reports in June she began to experience facial, head and LE numbness, headaches and fatigue of unknown onset. Pt reports she began experiencing dizziness in October of unknown onset. She reports she got up out of bed one day and began experiencing vertigo with vomiting. She reports she went to the ER where they performed the noe maneuver which significantly helped. She reports no longer experiencing vertigo but continues to experience some ongoing dizziness. Patient Preferences: Jacqueline Precautions/Red Flags: Yes Blurry vision but denies diplopia, denies tinnitus, denies dysphagia, denies new onset dysarthria, denies drop attacks Subjective Pt reports feeling ongoing dizziness. She reports feeling more dizzy today which she attributes to the rain. She reports her neck is feeling much better but she is not sure if it has helped with her dizziness or not. Compliance with HEP: Yes Objective Positional Testing Date 01/11/2025 02/01/2025 Right [place] negative negative Left [place] negative negative Right Roll Test NT negative Left Roll Test NT negative Visual Assessment Date 01/11/2025 02/01/2025 Spontaneous nystagmus negative negative Gaze-evoked nystagmus negative negative Test of Skew negative negative Smooth Pursuits positive - dizziness, able to track negative Convergence positive - >12 inches positive Saccades positive - small corrective saccades B negative Head Impulse positive - corrective saccades with quick turns negative Head Shake Nystagmus negative negative Treatment Balance/Neuromuscular Re-Education # of Activities: 20 Balance/Neuromuscular Re-Education Activity 6: gaze stabilization with ambulation: horizontal 2x20' Balance/Neuromuscular Re-Education Activity 7: gaze stabilization with ambulation: horizontal Activity 7 Comment: 4x200' Balance/Neuromuscular Re-Education Activity 8: Standing on airex horizontal VOR x1 Activity 8 Comment: 3x30 Patient Education: Recommended to continue with gaze stabilization exercises and reviewed gaze stabilization HEP. Home Exercise Program: Deferred Assessment Skilled physical therapy interventions utilized to improve patient?s impairments and work towards established goals. Patient response to treatment: Pt continues to present with imbalance but negative visual and positional testing. She has minimally responded to treatment thus far. She continues to present with ataxia and imbalance with gait which is exacerbated by head movements. Re-tested positional tests today which were still negative as well as visual assessment. Continued to work on gaze stabilization today performing VOR on airex and with gait. Pt is following up with neurology next week regarding ongoing symptoms. Reviewed and performed HEP to ensure proper form, alignment and independence with the program. Patient will benefit from continued physical therapy to promote a reduction in fall risk The rationale for today?s treatment was explained to the patient. Verbal cues were provided for correct form with all exercises. Advised patient to continue with Home Exercise Program (HEP). Goals General/Ortho Patient will be independent with HEP. (Progressing) Start: 01/11/25 Expected End: 03/13/25 Vestibular Pt will improve score on DHI to <30 to demonstrate improved ease of cleaning at home (Not Addressed) Start: 01/11/25 Expected End: 03/13/25 Pt will ascend/descend stairs reciprocally without complaints of dizziness to demonstrate improved ease of mobility at home and in the community (Not Progressing) Start: 01/11/25 Expected End: 03/13/25 Patient will report no dizziness/vertigo for 1 week to allow for to allow for improved ease of driving (Not Progressing) Start: 01/11/25 Expected End: 03/13/25 Pt will report returning to work unrestricted and symptom free (Not Progressing) Start: 01/11/25 Expected End: 03/13/25 Plan Plan for next session: Review follow up with neurology. Continue to work on gaze stabilization. Time Entry Total Treatment Time Start Time: 1015 Stop Time: 1045 Time Calculation (min): 30 min PT Therapeutic Procedures Time Entry Neuromuscular Re-Education Time Entry: Marek Santos PT [facility] RHEUMATOID FACTORon 02-02-20 RHEUMATOID FACTOR <10 Normal <14 [facility] Comment on above: Performed By: #### [id number] #### [facility], [address] [place] [address] Director Mission: Irina Lopez MD,PhD,ONI #### [id number], [id number] #### [facility] [address], [address] [place] [address] Director Mission: Pardeep Correia MD SED RATE BY MODIFIED WESTERG RENon 02-01-2025 SED RATE BY MODIFIED WESTERGREN 34 mm/h High < OR = 30 [facility] Comment on above: Performed By: #### [id number] #### [facility], [address] [place] [address] Director Mission: Irina Lopez MD,PhD,ONI #### [phone], [phone] #### [facility] [address], [address] [place] [address] Director Mission: Pardeep Correia MD Progress Noteon 01-29-2025 Progress Note [facility] AT [facility] [address] [facility] [address] Dept: [phone] Dept PHYSICAL THERAPY TREATMENT Patient Name: Jacqueline Bryson : 1960 Date of Service: 01/29/2025 Referring Provider: Yunior Webb MD Visit #: 6 Diagnosis: Dizziness Reason for referral: dizziness Mechanism of injury: Pt reports in June she began to experience facial, head and LE numbness, headaches and fatigue of unknown onset. Pt reports she began experiencing dizziness in October of unknown onset. She reports she got up out of bed one day and began experiencing vertigo with vomiting. She reports she went to the ER where they performed the noe maneuver which significantly helped. She reports no longer experiencing vertigo but continues to experience some ongoing dizziness. Patient Preferences: Jacqueline Precautions/Red Flags: Yes Blurry vision but denies diplopia, denies tinnitus, denies dysphagia, denies new onset dysarthria, denies drop attacks Subjective Pt reports when she goes to her R, that is when she notices she is off balance. She reports she is still walking like she is drunk and is off balance. She reports her neck feels much better but has not noticed a change balance pathak while working on her neck. Compliance with HEP: Yes Objective Objective measurements not taken today. Treatment Balance/Neuromuscular Re-Education Balance/Neuromuscular Re-Education Activity 4: smooth pursuits, standing on airex Activity 4 Comment: 3x30 Balance/Neuromuscular Re-Education Activity 7: gaze stabilization with ambulation: horizontal Activity 7 Comment: 4x200' Balance/Neuromuscular Re-Education Activity 8: Standing on airex horizontal VOR x1 Activity 8 Comment: 3x30 Therapeutic Exercise Therapeutic Exercise Activity 1: upper trap stretch 2x30 Activity 1 Comment: seated Therapeutic Exercise Activity 2: cervical extension snag x10 Therapeutic Exercise Activity 3: cervical rotation snag x10 B Therapeutic Exercise Activity 4: doorway stretch 4x10 b Soft Tissue Mobilization Location: suboccipitals and upper traps Position: supine Technique: release and STM Home Exercise Program: reviewed Assessment Skilled physical therapy interventions utilized to improve patient?s impairments and work towards established goals. Patient response to treatment: STM was performed today to reduce inflammation, desensitize nervous system, relieve pain and reduce myofascial restrictions. Pt demonstrates reduced cervical tension post STM. No adverse reaction during STM today with good skin integrity post treatment. Continued with chin tucks and SNAG's and added upper trap stretch and periscapular strengthening to continue to promote a reduction in cervicogenic dizziness symptoms. Continued with gaze stabilization exercises to continue to promote a reduction in dizziness related symptoms with walking and working. Progressed gaze stabilization today performing VOR and smooth pursuits on airex. Also progressed to hallway walking for VOR. Pt requires cueing to adjust head position and limit accessory motion to improve ease of walking VOR. Patient will benefit from continued physical therapy to reduce imbalance and dizziness to reduce fall risk and ease of working The rationale for today?s treatment was explained to the patient. Verbal cues were provided for correct form with all exercises. Advised patient to continue with Home Exercise Program (HEP). Goals General/Ortho Patient will be independent with HEP. (Progressing) Start: 01/11/25 Expected End: 03/13/25 Vestibular Pt will improve score on DHI to <30 to demonstrate improved ease of cleaning at home (Not Addressed) Start: 01/11/25 Expected End: 03/13/25 Pt will ascend/descend stairs reciprocally without complaints of dizziness to demonstrate improved ease of mobility at home and in the community (Not Addressed) Start: 01/11/25 Expected End: 03/13/25 Patient will report no dizziness/vertigo for 1 week to allow for to allow for improved ease of driving (Progressing) Start: 01/11/25 Expected End: 03/13/25 Pt will report returning to work unrestricted and symptom free (Progressing) Start: 01/11/25 Expected End: 03/13/25 Plan Plan for next session: Continue to focus on gaze stabilization. VOR x1 and x2 Time Entry Total Treatment Time Start Time: 0845 Stop Time: 929 Time Calculation (min): 45 min PT Therapeutic Procedures Time Entry Therapeutic Exercise Time Entry: 8 Manual Therapy Time Entry: 10 Neuromuscular Re-Education Time Entry: 23 Marek Santos, PT Normal [facility] Progress Noteon 01-24-2025 Progress Note [facility] AT [facility] [address] [facility] [address] Dept: [phone] Dept PHYSICAL THERAPY TREATMENT Patient Name: Jacqueline Bryson : 1960 Date of Service: 01/24/2025 Referring Provider: Yunior Webb MD Visit #: 5 Diagnosis: Dizziness Reason for referral: dizziness Mechanism of injury: Pt reports in June she began to experience facial, head and LE numbness, headaches and fatigue of unknown onset. Pt reports she began experiencing dizziness in October of unknown onset. She reports she got up out of bed one day and began experiencing vertigo with vomiting. She reports she went to the ER where they performed the noe maneuver which significantly helped. She reports no longer experiencing vertigo but continues to experience some ongoing dizziness. Patient Preferences: Jacqueline Precautions/Red Flags: Yes Blurry vision but denies diplopia, denies tinnitus, denies dysphagia, denies new onset dysarthria, denies drop attacks Subjective Pt reports feeling tired to start therapy today. She reports she felt much better after last session. She reports it is the best her neck has felt and dizziness has been less. Compliance with HEP: Yes Objective Objective measurements not taken today. Treatment Therapeutic Exercise # of Activities: 20 Therapeutic Exercise Activity 1: upper trap stretch 2x30 Activity 1 Comment: supine and seated Therapeutic Exercise Activity 2: cervical extension snag x10 Therapeutic Exercise Activity 3: cervical rotation snag x10 B Therapeutic Exercise Activity 4: doorway stretch 4x10 b Balance/Neuromuscular Re-Education # of Activities: 20 Balance/Neuromuscular Re-Education Activity 1: supine chin tuck Activity 1 Comment: 5 x10 Balance/Neuromuscular Re-Education Activity 2: seated chin tuck Activity 2 Comment: 5 x10 Balance/Neuromuscular Re-Education Activity 5: saccades: standing horizontal Activity 5 Comment: 2x60 Balance/Neuromuscular Re-Education Activity 7: gaze stabilization with ambulation: vertical and horizontal Activity 7 Comment: 2x20' each Balance/Neuromuscular Re-Education Activity 8: Romberg balance with horizontal VOR x1 Activity 8 Comment: x30 Balance/Neuromuscular Re-Education Activity 10: rows 2x10 Activity 10 Comment: red Balance/Neuromuscular Re-Education Activity 11: pulldowns 2x10 Activity 11 Comment: red Balance/Neuromuscular Re-Education Activity 12: w 2x10 Activity 12 Comment: red Balance/Neuromuscular Re-Education Activity 13: tandem gait 2x20' Soft Tissue Mobilization Location: suboccipitals and upper traps Position: supine Technique: release and STM Home Exercise Program: Progressed home exercise program Assessment Skilled physical therapy interventions utilized to improve patient?s impairments and work towards established goals. Patient response to treatment: STM was performed today to reduce inflammation, desensitize nervous system, relieve pain and reduce myofascial restrictions. Pt demonstrates reduced cervical tension post STM. No adverse reaction during STM today with good skin integrity post treatment. Continued with chin tucks and SNAG's and added upper trap stretch and periscapular strengthening to continue to promote a reduction in cervicogenic dizziness symptoms. Continued with gaze stabilization exercises to continue to promote a reduction in dizziness related symptoms with walking and working. Patient will benefit from continued physical therapy to promote a return to symptom free work. The rationale for today?s treatment was explained to the patient. Verbal cues were provided for correct form with all exercises. Advised patient to continue with Home Exercise Program (HEP). Goals General/Ortho Patient will be independent with HEP. (Progressing) Start: 01/11/25 Expected End: 03/13/25 Vestibular Pt will improve score on DHI to <30 to demonstrate improved ease of cleaning at home (Not Addressed) Start: 01/11/25 Expected End: 03/13/25 Pt will ascend/descend stairs reciprocally without complaints of dizziness to demonstrate improved ease of mobility at home and in the community (Progressing) Start: 01/11/25 Expected End: 03/13/25 Patient will report no dizziness/vertigo for 1 week to allow for to allow for improved ease of driving (Progressing) Start: 01/11/25 Expected End: 03/13/25 Pt will report returning to work unrestricted and symptom free (Progressing) Start: 01/11/25 Expected End: 03/13/25 Plan Plan for next session: Assess response to work on cervical spine. Continue with STM as tolerated Time Entry Total Treatment Time Start Time: 1715 Stop Time: 1755 Time Calculation (min): 40 min PT Therapeutic Procedures Time Entry Therapeutic Exercise Time Entry: 10 Manual Therapy Time Entry: 13 Neuromuscular Re-Education Time Ent (more content not included)... Normal [facility] Progress Noteon 01-22-2025 Progress Note [facility] AT [facility] [address] [facility] [address] Dept: [phone] Dept PHYSICAL THERAPY TREATMENT Patient Name: Jacqueline Bryson : 1960 Date of Service: 01/22/2025 Referring Provider: Yunior Webb MD Visit #: 4 Diagnosis: Dizziness Reason for referral: dizziness Mechanism of injury: Pt reports in June she began to experience facial, head and LE numbness, headaches and fatigue of unknown onset. Pt reports she began experiencing dizziness in October of unknown onset. She reports she got up out of bed one day and began experiencing vertigo with vomiting. She reports she went to the ER where they performed the noe maneuver which significantly helped. She reports no longer experiencing vertigo but continues to experience some ongoing dizziness. Patient Preferences: Jacqueline Precautions/Red Flags: Yes Blurry vision but denies diplopia, denies tinnitus, denies dysphagia, denies new onset dysarthria, denies drop attacks Subjective Pt reports feeling dizzy today. She reports more dizzy today than usual. She describes her dizziness as if she is on a boat. She reports ongoing dizziness with walking. She rates her dizziness at 6/10. Compliance with HEP: Yes Objective Objective measurements not taken today. Treatment Therapeutic Exercise # of Activities: 20 Therapeutic Exercise Activity 1: upper trap stretch 2x30 Therapeutic Exercise Activity 2: cervical extension snag x10 Therapeutic Exercise Activity 3: cervical rotation snag x10 B Balance/Neuromuscular Re-Education # of Activities: 20 Balance/Neuromuscular Re-Education Activity 1: supine chin tuck Activity 1 Comment: 5 x10 Balance/Neuromuscular Re-Education Activity 4: smooth pursuit: standing horizontal Activity 4 Comment: 2x60 Balance/Neuromuscular Re-Education Activity 5: saccades: standing horizontal Activity 5 Comment: 2x60 Balance/Neuromuscular Re-Education Activity 7: gaze stabilization with ambulation: vertical and horizontal Activity 7 Comment: 4x20' each Balance/Neuromuscular Re-Education Activity 8: Romberg balance with horizontal VOR x1 Activity 8 Comment: 3x30 Soft Tissue Mobilization Location: suboccipitals and upper traps Position: supine Technique: release and STM Home Exercise Program: Progressed home exercise program Assessment Skilled physical therapy interventions utilized to improve patient?s impairments and work towards established goals. Patient response to treatment: STM was performed today to reduce inflammation, desensitize nervous system, relieve pain and reduce myofascial restrictions. Pt demonstrates less dizziness post STM. No adverse reaction during STM today with good skin integrity post treatment. Continued to work on gaze stabilization to promote habituation and a reduction in dizziness with walking. Added cervical extension and rotation SNAG's to address potential cervical component of dizziness. Pt with good response to SNAG's noting a reduction in dizziness during re-assessment of gait. Prescribed SNAG's to perform at home and assess response. Patient will benefit from continued physical therapy to promote a reduction in dizziness and fall risk The rationale for today?s treatment was explained to the patient. Verbal cues were provided for correct form with all exercises. Advised patient to continue with Home Exercise Program (HEP). Goals General/Ortho Patient will be independent with HEP. (Progressing) Start: 01/11/25 Expected End: 03/13/25 Vestibular Pt will improve score on DHI to <30 to demonstrate improved ease of cleaning at home (Not Addressed) Start: 01/11/25 Expected End: 03/13/25 Pt will ascend/descend stairs reciprocally without complaints of dizziness to demonstrate improved ease of mobility at home and in the community (Progressing) Start: 01/11/25 Expected End: 03/13/25 Patient will report no dizziness/vertigo for 1 week to allow for to allow for improved ease of driving (Progressing) Start: 01/11/25 Expected End: 03/13/25 Pt will report returning to work unrestricted and symptom free (Progressing) Start: 01/11/25 Expected End: 03/13/25 Plan Plan for next session: assess response to SNAG's and add periscapular strength if good response Time Entry Total Treatment Time Start Time: 1155 Stop Time: 1235 Time Calculation (min): 40 min PT Therapeutic Procedures Time Entry Therapeutic Exercise Time Entry: 10 Manual Therapy Time Entry: 10 Neuromuscular Re-Education Time Entry: 20 Marek Santos, JUAN MANUEL Normal [facility] Progress Noteon 01-17-2025 Progress Note [facility] AT [facility] [address] [facility] [address] Dept: [phone] Dept PHYSICAL THERAPY TREATMENT Patient Name: Jacqueline Bryson : 1960 Date of Service: 01/17/2025 Referring Provider: Yunior Webb MD Visit #: 3 Diagnosis: Dizziness Reason for referral: dizziness Mechanism of injury: Pt reports in June she began to experience facial, head and LE numbness, headaches and fatigue of unknown onset. Pt reports she began experiencing dizziness in October of unknown onset. She reports she got up out of bed one day and began experiencing vertigo with vomiting. She reports she went to the ER where they performed the noe maneuver which significantly helped. She reports no longer experiencing vertigo but continues to experience some ongoing dizziness. Patient Preferences: Jacqueline Precautions/Red Flags: Yes Blurry vision but denies diplopia, denies tinnitus, denies dysphagia, denies new onset dysarthria, denies drop attacks Subjective Pt is feeling about the same. She is doing her HEP. She does get dizzy at times, especially with the horizontal exercises. She did drive the high way today and she did have some dizziness with merging but overall did well. Compliance with HEP: Yes Objective Objective measurements not taken today. Treatment Balance/Neuromuscular Re-Education # of Activities: 20 Balance/Neuromuscular Re-Education Activity 5: saccades: seated - vertical, horizontal Activity 5 Comment: 1' ea Balance/Neuromuscular Re-Education Activity 6: gaze stabilization: seated - vertical, horizontal Activity 6 Comment: 30 ea Balance/Neuromuscular Re-Education Activity 7: gaze stabilization with ambulation: vertical and horizontal Activity 7 Comment: 20' lap ea Balance/Neuromuscular Re-Education Activity 8: Romberg balance Activity 8 Comment: 3x30 Balance/Neuromuscular Re-Education Activity 9: tandem balance Activity 9 Comment: 2x20 ea Home Exercise Program: Progressed home exercise program Assessment Skilled physical therapy interventions utilized to improve patient?s impairments and work towards established goals. Patient response to treatment: Pt tolerates session well. Pt reports doing her smooth pursuit exercises prior to coming in for her session today. Therefore, continued on with saccades. Pt was then able to add gaze stabilization in both vertical and horizontal planes with increases in symptoms with horizontal plane. Pt was also able to initiate balance work with. Pt did require SBA and occasional CGA with both gaze stabilization with ambulation and balance exercises. Pleased with pt's efforts. HEP was updated and issued. Patient will benefit from continued physical therapy to continue with current plan to further address dizziness in order to improve functional abilities with her ADLs, mobility and driving. The rationale for today?s treatment was explained to the patient. Verbal cues were provided for correct form with all exercises. Advised patient to continue with Home Exercise Program (HEP). Goals General/Ortho Patient will be independent with HEP. (Progressing) Start: 01/11/25 Expected End: 03/13/25 Vestibular Pt will improve score on DHI to <30 to demonstrate improved ease of cleaning at home (Not Addressed) Start: 01/11/25 Expected End: 03/13/25 Pt will ascend/descend stairs reciprocally without complaints of dizziness to demonstrate improved ease of mobility at home and in the community (Progressing) Start: 01/11/25 Expected End: 03/13/25 Patient will report no dizziness/vertigo for 1 week to allow for to allow for improved ease of driving (Progressing) Start: 01/11/25 Expected End: 03/13/25 Pt will report returning to work unrestricted and symptom free (Progressing) Start: 01/11/25 Expected End: 03/13/25 Plan Plan for next session: continue to progress balance work, progress gaze stabilization exercises as tolerated Time Entry Total Treatment Time Start Time: 1016 Stop Time: 1042 Time Calculation (min): 26 min PT Therapeutic Procedures Time Entry Neuromuscular Re-Education Time Entry: Sola Ly, PT Normal [facility] Progress Noteon 01-15-2025 Progress Note [facility] AT [facility] [address] [facility] [address] Dept: [phone] Dept PHYSICAL THERAPY TREATMENT Patient Name: Jacqueline Bryson : 1960 Date of Service: 01/15/2025 Referring Provider: Yunior Webb MD Visit #: 2 Diagnosis: Dizziness Reason for referral: dizziness Mechanism of injury: Pt reports in June she began to experience facial, head and LE numbness, headaches and fatigue of unknown onset. Pt reports she began experiencing dizziness in October of unknown onset. She reports she got up out of bed one day and began experiencing vertigo with vomiting. She reports she went to the ER where they performed the noe maneuver which significantly helped. She reports no longer experiencing vertigo but continues to experience some ongoing dizziness. Patient Preferences: Jacqueline Precautions/Red Flags: Yes Blurry vision but denies diplopia, denies tinnitus, denies dysphagia, denies new onset dysarthria, denies drop attacks Subjective Pt is feeling about the same. Compliance with HEP: NA Objective Objective measurements not taken today. Treatment Balance/Neuromuscular Re-Education # of Activities: 20 Balance/Neuromuscular Re-Education Activity 1: supine chin tuck Activity 1 Comment: 5 x10 Balance/Neuromuscular Re-Education Activity 2: seated chin tuck Activity 2 Comment: 5 x10 Balance/Neuromuscular Re-Education Activity 3: seated scap squeeze Activity 3 Comment: 5 x10 Balance/Neuromuscular Re-Education Activity 4: smooth pursuit: seated - vertical, horizonal Activity 4 Comment: 1' ea Balance/Neuromuscular Re-Education Activity 5: saccades: seated - vertical, horizontal Activity 5 Comment: 1' ea Soft Tissue Mobilization Location: cerival spine Body Position: Supine Comments: SOR with slight traction, STM to cervical Home Exercise Program: Created Assessment Skilled physical therapy interventions utilized to improve patient?s impairments and work towards established goals. Patient response to treatment: Pt tolerated session well. Following verbal consent, STM to suboccipitals and cervical spine was initiated today to reduce inflammation, desensitize nervous system, relieve pain and reduce myofascial restrictions. No adverse reaction during STM today with good skin integrity post treatment. Pt was able to initiated chin tuck and scap squeeze to address postural deficits. Pt was also able to initiate visual habituation exercises. HEP was issued. Patient will benefit from continued physical therapy to continue with current plan to further address dizziness and postural deficits for improved tolerance to her ADLs, mobility and work tasks. The rationale for today?s treatment was explained to the patient. Verbal cues were provided for correct form with all exercises. Advised patient to continue with Home Exercise Program (HEP). Goals General/Ortho Patient will be independent with HEP. (Progressing) Start: 01/11/25 Expected End: 03/13/25 Vestibular Pt will improve score on DHI to <30 to demonstrate improved ease of cleaning at home (Not Addressed) Start: 01/11/25 Expected End: 03/13/25 Pt will ascend/descend stairs reciprocally without complaints of dizziness to demonstrate improved ease of mobility at home and in the community (Not Progressing) Start: 01/11/25 Expected End: 03/13/25 Patient will report no dizziness/vertigo for 1 week to allow for to allow for improved ease of driving (Not Progressing) Start: 01/11/25 Expected End: 03/13/25 Pt will report returning to work unrestricted and symptom free (Not Progressing) Start: 01/11/25 Expected End: 03/13/25 Plan Plan for next session: continue to progress visual habituation and gaze stabilization exercises as tolerated Time Entry Total Treatment Time Start Time: 1108 Stop Time: 1142 Time Calculation (min): 34 min PT Therapeutic Procedures Time Entry Manual Therapy Time Entry: 10 Neuromuscular Re-Education Time Entry: 22 Sola Ly, PT Normal [facility] Lyme Screen W/Reflex WBon LYME SCREEN Ab Negative Normal Negative [facility] Comment on above: Result Comment: Lyme antibodies not detected. Reflex testing is not indicated. No laboratory evidence of infection with B. burgdorferi (Lyme disease). Negative results may occur in patients recently infected (less than or equal to 14 days) with B. burgdorferi. If recent infection is suspected, repeat testing on a new sample collected in 7 to 14 days is recommended. Performed at: - [facility], [place], [place] [id number] Director Hris: Patrice Arteaga PhD, Phone: [phone] Performed By: #### L 7000.5300, L501.1105 ####[facility] [id number] [place], [address] Glomerular filtration rate ( GFR) estimation/1.73 sq m using serum, plasma, or whole bon 01-11-2025 GFR/1.73 sq M.predicted among non-blacks MDRD (S/P/Bld) [Vol rate/Area] 98 mL/min/{1.73_m2} >60 [facility] Comment on above: mL/min/1.73m2 CKD-EP I Creatinine Equation (2020) Progress Noteon 01-11-2025 Progress Note [facility] AT [facility] [address] [facility] [address] Dept: [phone] Dept PHYSICAL THERAPY EVALUATION Patient Name: Jacqueline Bryson : 1960 Date of Service: 01/11/2025 Referring Provider: Yunior Webb MD Diagnosis: Dizziness General Information Reason for referral: dizziness Mechanism of injury: Pt reports in June she began to experience facial, head and LE numbness, headaches and fatigue of unknown onset. Pt reports she began experiencing dizziness in October of unknown onset. She reports she got up out of bed one day and began experiencing vertigo with vomiting. She reports she went to the ER where they performed the noe maneuver which significantly helped. She reports no longer experiencing vertigo but continues to experience some ongoing dizziness. Patient Preferences: Jacqueline Precautions/Red Flags: Yes Blurry vision but denies diplopia, denies tinnitus, denies dysphagia, denies new onset dysarthria, denies drop attacks Fall Risk: No. She reports no falls. 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 PMHX: Jacqueline has a past medical history of Arthritis, Asthma, High blood pressure, Numbness, Stomach ulcer, and Thyroid disorder. PSHX: Jacqueline has a past surgical history that includes Rotator cuff repair; section; Total thyroidectomy; Vocal Cord Surgery; and Carpal tunnel release (Bilateral). Have you experienced any anxiety or depression? Yes Have you experienced thoughts of self-harm or suicidal thoughts? No Social Drivers of TenKod Reviewed: Yes Physician follow-up appointment?: Yes. Vestibular testing in February. Follow up with Dr. Webb in April. Previous Treatment: Noe maneuver in ER which helped in . Imaging: Brain MRI IMPRESSION: No evidence of an acute intracranial process. Patchy white matter disease most likely chronic microvascular ischemic change. Subjective Chief Complaint: dizziness Dizziness/Vertigo Symptoms Score: Current 5/10, Best 5/10, Worst 8/10 Type: chronic Descriptors: imbalance, dizziness Nausea/Vomiting: No Duration: several minutes Aggravating: bending forward, standing up, turning head, looking down the steps Relieving: none Pain Assessment Severity: Current 0/10, Best 0/10, Worst 10/10 Type: chronic Location: lower cervical spine Descriptors: sharp, stabbing Aggravating: breathing, sneezing Relieving: meloxicam Headaches No Prior Level of Function: Independent without difficulty prior to June. Current Level of Function: She reports increased difficulty with vacuuming, sweeping and cleaning her home secondary to dizziness, imbalance and fatigue. She reports having to be cautious going up and down the stairs especially when carrying laundry. She reports she is unable to carry items such as plants or groceries. She reports feeling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 or plasma thyroid stim ulating hormone (TSH) measurement (units/volume)Ordered By: Jackson Borges on 11-07-2024 TSH Qn 0.686 uIU/mL 0.358-3.74 0 [facility] TSH QnOrdered By: Jackson hudson on 11-07-2024 Thyroid Stimulating Hormone (TSH) 0.686 uIU/mL 0.358-3.74 0 [facility] Thyroid Stim Hormone (TSH)on 11-07-2024 TSH 0.686 uIU/mL Normal 0.358-3.74 0 [facility] Comment on above: Performed By: #### L 501.5200, L501.9520 ####[facility] [address] [facility] [place], [address] 12 Lead EKGon 11-06-2024 12 Lead EKG [facility] Cardiovascular Services [address] [place] [address] 12 Lead EKG 11/06/24 1434 MR#: [id number] Acct: [id number] Name: JACQUELINE BRYSON Rep #: [id number] : 1960 64 From: David Forte MD Attending Dr: Dr. Robert Camarillo DO Status: D IS BO Ordering Dr: Glen Awan DO Date: 11/06/24 Location: [facility] Sex: F C Admitted: 11/06/24 Test Reason : Blood Pressure : */* mmHG Vent. Rate : 60 BPM Atrial Rate : 60 BPM P-R Int : 168 ms QRS Dur : 88 ms QT Int : 392 ms P-R-T Axes : 37 27 59 degrees QTcB Int : 392 ms Normal sinus rhythm Normal ECG Confirmed by David Forte ([id number]), editor managing newspaper KEISHA ADAM ([id number]) on 11/08/2024 8:17:41 AM Referred By: Confirmed By: David Forte 11/08/24816 Date David Forte MD CC: Dr. Cristian Hopper MD; Dr. Robert Camarillo DO; Dr. Glen Awan DO Signed Normal [facility] Absolute lymphocyte countOrd ered By: Glen Awan on 11-06-2024 Lymphocytes Auto (Unsp spec) [#/Vol] 2.51 10*3/uL 0.83-4.51 [facility] Absolute neutrophil countOrd ered By: Glen Awan on 11-06-2024 Neutrophils (Bld) [#/Vol] 5.2 10*3/uL 2.0-7.7 [facility] Activated partial thrombopla stin time (aPTT) in platelet poor plasma by coagulation aOrdered By: Glen Awan on 11-06-2024 aPTT Coag (PPP) [Time] 26.0 s 24.1-36.2 [facility] Automated lymphocyte count a s percentage of total leukocytesOrdered By: Glen Awan on 11-06-2024 Lymphocytes/100 WBC Auto (Unsp spec) 29.7 % 19-41 [facility] Basic Metabolic Profile (BMP )on 11-06-2024 BUN/CRE 32.6 RATIO High 10-20 [facility] Comment on above: Order Comment: 'TROP ' Serial specimen #1, #2 or #3: 1 Performed By: #### L 500.2500, L501.4020, L100.0100, L300.4310, L300.3900 #### [facility] Laboratory [address] [place], [place], [address] CA,Total 9.4 mg/dL Normal 8.5-10.1 [facility] Comment on above: Order Comment: 'TROP ' Serial specimen #1, #2 or #3: 1 Performed By: #### L 500.2500, L501.4020, L100.0100, L300.4310, L300.3900 #### [facility] [address] [place], [address] Chloride [Moles/Vol] 100 mmol/L Normal 98-107 [facility] Comment on above: Order Comment: 'TROP ' Serial specimen #1, #2 or #3: 1 Performed By: #### L 500.2500, L501.4020, L100.0100, L300.4310, L300.3900 #### [facility] [address] [place], [address] CO2 [Moles/Vol] 29.0 mmol/L Normal 21.0-32.0 [facility] Comment on above: Order Comment: 'TROP ' Serial specimen #1, #2 or #3: 1 Performed By: #### L 500.2500, L501.4020, L100.0100, L300.4310, L300.3900 #### [facility] [address] [place], [address] Creatinine [Mass/Vol] 0.58 mg/dL Normal 0.55-1.02 [facility] Comment on above: Order Comment: 'TROP ' Serial specimen #1, #2 or #3: 1 Result Comment: The validity of the calculated GFR GFRAA in patients over 70 years has not been determined. Clinical correlation is essential. Performed By: #### L 500.2500, L501.4020, L100.0100, L300.4310, L300.3900 #### [facility] [address] [place], [address] ECRCL 88.34 ml/min Normal [facility] Comment on above: Order Comment: 'TROP ' Serial specimen #1, #2 or #3: 1 Performed By: #### L 500.2500, L501.4020, L100.0100, L300.4310, L300.3900 #### [facility] [address] [place], [address] EST GFR - AA 134 mL/min Normal >60 [facility] Comment on above: Order Comment: 'TROP ' Serial specimen #1, #2 or #3: 1 Result Comment: Afri can Norwegian GFR Calc Performed By: #### L 500.2500, L501.4020, L100.0100, L300.4310, L300.3900 #### [facility] [address] [place], [address] GAP 8 Normal 5-15 [facility] Comment on above: Order Comment: 'TROP ' Serial specimen #1, #2 or #3: 1 Performed By: #### L 500.2500, L501.4020, L100.0100, L300.4310, L300.3900 #### [facility] [address] [place], [address] GFR/1.73 sq M.predicted among non-blacks MDRD (S/P/Bld) [Vol rate/Area] 111 mL/min/{1.73_m2} Normal >60 [facility] Comment on above: Order Comment: 'TROP ' Serial specimen #1, #2 or #3: 1 Result Comment: Non- GFR Calc Performed By: #### L 500.2500, L501.4020, L100.0100, L300.4310, L300.3900 #### [facility] [address] [place], [address] Glucose [Mass/Vol] 107 mg/dL High 74-106 [facility] Comment on above: Order Comment: 'TROP ' Serial specimen #1, #2 or #3: 1 Result Comment: Fast ing Glucose result from 100 to 125 mg/dL suggests IMPAIRED HOMEOSTASIS per A.D.A. criteria. Performed By: #### L 500.2500, L501.4020, L100.0100, L300.4310, L300.3900 #### [facility] [address] [place], [address] Potassium [Moles/Vol] 3.7 mmol/L Normal 3.5-5.1 [facility] Comment on above: Order Comment: 'TROP ' Serial specimen #1, #2 or #3: 1 Performed By: #### L 500.2500, L501.4020, L100.0100, L300.4310, L300.3900 #### [facility] [address] [place], [address] Sodium [Moles/Vol] 137 mmol/L Normal 136-145 [facility] Comment on above: Order Comment: 'TROP ' Serial specimen #1, #2 or #3: 1 Performed By: #### L 500.2500, L501.4020, L100.0100, L300.4310, L300.3900 #### [facility] [address] [place], [address] Urea nitrogen [Mass/Vol] 19 mg/dL High 7-18 [facility] Comment on above: Order Comment: 'TROP ' Serial specimen #1, #2 or #3: 1 Performed By: #### L 500.2500, L501.4020, L100.0100, L300.4310, L300.3900 #### [facility] [address] [place], [address] Basophil percentageOrdered B y: Glen Awan on 11-06-2024 Basophils/100 WBC (Bld) 0.5 % 0-1 [facility] Blood urea nitrogen (BUN)/cr eatinine ratioOrdered By: Glen Awan on 11-06-2024 Urea nitrogen/Creatinine [Mass ratio] 32.6 mg/mg High 10-20 [facility] Brain without Contraston Brain without Contrast [facility] Imaging Services [address] [place] [address] Brain without Contrast MR#: [id number] Acct: [id number] Name: JACQUELINE BRYSON Rep #: [id number] : 1960 F 64 From: Nicolas Mayen MD PCP: Dr. Cristian Hopper MD Status: ADM BO Study: Brain without Contrast Date of Exam: 11/06/24 Exam# [id number] Ordering Dr: Jackson Borges DO EXAM: BRAIN WITHOUT CONTRAST CLINICAL HISTORY: Dizziness COMPARISON: None. TECHNIQUE: PROCEDURE: Multiplanar sequences of the brain were obtained on a 1.5 Afsaneh MRI system, including T1, T2, FLAIR, DWI, and ADC. No intravenous contrast was administered. IV CONTRAST: FINDINGS: MRI BRAIN: No intraparenchymal hemorrhage is evident. No focus of restricted diffusion is identified to suggest acute or early subacute ischemia. There is no extra-axial fluid collection, mass effect, or shift of midline structures. The basal cisterns are visualized. The ventricles and cortical sulci are in proportion and consistent with the patient's age. There is no signal abnormality in the beltran matter. There are a few scattered foci of T2/FLAIR hyperintensities in the supratentorial deep white matter that are nonspecific but most likely related to chronic small vessels ischemic changes and is age- appropriate. The midline structures demonstrate normal contours. The craniocervical junction is unremarkable. The flow voids of the large intracranial vessels are normal. The calvarium is unremarkable. The paranasal sinuses and mastoid air cells are clear. MRI/Brain without Contrast IMPRESSION: 1. No MR evidence of acute ischemia. 2. Nonspecific white matter changes which can be seen in small-vessel ischemic change, demyelinating processes and migraine headaches. Reading Location: [id number] CC: Dr. Jackson Borges DO; Dr. Cristian Hopper MD Communications Director: Signed Normal [facility] CBC W/Diff, Automatedon - Absolute Lymph 2.51 X10 3/uL Normal 0.83-4.51 [facility] Comment on above: Performed By: #### L 500.2500, L501.4020, L100.0100, L300.4310, L300.3900 #### [facility] [address] [place], [place], [id number] Absolute Neut 5.2 X10 3/uL Normal 2.0-7.7 [facility] Comment on above: Performed By: #### L 500.2500, L501.4020, L100.0100, L300.4310, L300.3900 #### [facility] [address] [place], [address] Basophils/100 WBC (Bld) 0.5 % Normal 0-1 [facility] Comment on above: Performed By: #### L 500.2500, L501.4020, L100.0100, L300.4310, L300.3900 #### [facility] [address] [place], [address] Eosinophils/100 WBC (Bld) 2.1 % Normal 0-5 [facility] Comment on above: Performed By: #### L 500.2500, L501.4020, L100.0100, L300.4310, L300.3900 #### [facility] [address] [place], [address] Erythrocyte distribution width (RBC) [Ratio] 12.5 % Normal 11.6-14.6 [facility] Comment on above: Performed By: #### L 500.2500, L501.4020, L100.0100, L300.4310, L300.3900 #### [facility] [address] [place], [address] Hematocrit (Bld) [Volume fraction] 41.9 % Normal 37-47 [facility] Comment on above: Performed By: #### L 500.2500, L501.4020, L100.0100, L300.4310, L300.3900 #### [facility] [address] [place], [address] Hemoglobin (Bld) [Mass/Vol] 13.7 g/dL Normal 12.0-15.0 [facility] Comment on above: Performed By: #### L 500.2500, L501.4020, L100.0100, L300.4310, L300.3900 #### [facility] [address] [place], [address] IG% 0.400 Normal 0.0-0.9 [facility] Comment on above: Result Comment: IG% - Immature Granulocytes (promyelocytes, myelocytes and metamyelocytes) > 1% indicates that a LEFT SHIFT is Present. Performed By: #### L 500.2500, L501.4020, L100.0100, L300.4310, L300.3900 #### [facility] [address] [place], [address] Lymphocytes/100 WBC (Bld) 29.7 % Normal 19-41 [facility] Comment on above: Performed By: #### L 500.2500, L501.4020, L100.0100, L300.4310, L300.3900 #### [facility] [address] [place], [address] MCH (RBC) [Entitic mass] 30.0 pg Normal 27.0-32.0 [facility] Comment on above: Performed By: #### L 500.2500, L501.4020, L100.0100, L300.4310, L300.3900 #### [facility] [address] [place], [address] MCHC (RBC) [Mass/Vol] 32.7 g/dL Normal 32-36 [facility] Comment on above: Performed By: #### L 500.2500, L501.4020, L100.0100, L300.4310, L300.3900 #### [facility] [address] [place], [address] MCV (RBC) [Entitic vol] 91.7 fL Normal 81-99 [facility] Comment on above: Performed By: #### L 500.2500, L501.4020, L100.0100, L300.4310, L300.3900 #### [facility] [address] [place], [address] Monocytes/100 WBC (Bld) 5.9 % Normal 0-10 [facility] Comment on above: Performed By: #### L 500.2500, L501.4020, L100.0100, L300.4310, L300.3900 #### [facility] [address] [place], [address] Neutrophils/100 WBC (Bld) 61.4 % Normal 47-70 [facility] Comment on above: Performed By: #### L 500.2500, L501.4020, L100.0100, L300.4310, L300.3900 #### [facility] [address] [place], [address] Nucleated RBC (Bld) [#/Vol] 0 10*3/uL Normal 0-5 [facility] Comment on above: Performed By: #### L 500.2500, L501.4020, L100.0100, L300.4310, L300.3900 #### [facility] [address] [place], [address] Platelet mean volume (Bld) [Entitic vol] 9.4 fL Normal 6.2-12.0 [facility] Comment on above: Performed By: #### L 500.2500, L501.4020, L100.0100, L300.4310, L300.3900 #### [facility] [address] [place], [address] Platelets (Bld) [#/Vol] 268 10*3/uL Normal 150-450 [facility] Comment on above: Performed By: #### L 500.2500, L501.4020, L100.0100, L300.4310, L300.3900 #### [facility] [address] [place], [address] RBC (Bld) [#/Vol] 4.57 10*6/uL Normal 4.2-5.4 [facility] Comment on above: Performed By: #### L 500.2500, L501.4020, L100.0100, L300.4310, L300.3900 #### [facility] [address] [place], [address] RDW SD 42.0 fl Normal 35.1-43.9 [facility] Comment on above: Performed By: #### L 500.2500, L501.4020, L100.0100, L300.4310, L300.3900 #### [facility] [address] [place], [address] WBC (Bld) [#/Vol] 8.5 10*3/uL Normal 4.4-11.0 [facility] Comment on above: Performed By: #### L 500.2500, L501.4020, L100.0100, L300.4310, L300.3900 #### [facility] [address] [place], [address] CTA Head AND Neck W/ Contras ton 11-06-2024 CTA Head AND Neck W/ Contrast [facility] Imaging Services [address] [place] [address] CTA Head AND Neck W/ Contrast MR#: [id number] Acct: [id number] Name: JACQUELINE BRYSON Rep #: [id number] : 1960 F 64 From: Felipe ley MD PCP: Dr. Cristian Hopper MD Status: [facility] Study: CTA Head AND Neck W/ Contrast Date of Exam: Exam# [id number] Ordering Dr: Glen Awan DO PROCEDURE: CTA HEAD AND NECK W/ CONTRAST TECHNIQUE: CTA imaging of the head and neck from the aortic arch to the skull vertex with intravenous contrast. 3D reconstructions. CONTRAST: COMPARISON: None. # of known CTs in the past 12 months: 0 # of known Cardiac Nuclear Medicine Studies in the past 12 months: 0 FINDINGS: Aortic Arch: Normal size and branching pattern. No significant atherosclerotic plaque. 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 RIGHT Carotid: Right CCA: Unremarkable. Right ICA: Unremarkable. LEFT Carotid: Left CCA: Unremarkable. Left ICA: Unremarkable. Left ECA: Unremarkable. Vertebrals: Codominant. Arise from the subclavians. Both vertebrals form the basilar. RIGHT Vertebral: Unremarkable. LEFT Vertebral: Unremarkable. Unenhanced imaging of the brain is unremarkable. No intracranial aneurysms or large vascular malformations are identified. Anterior cerebral arteries: Unremarkable. Middle cerebral arteries: Unremarkable. Basilar artery: Unremarkable. Posterior cerebral arteries: Unremarkable. Other major branches of the posterior circulation: Unremarkable. Major venous structures: Unremarkable. Other findings: No lymphadenopathy. Lung apices are clear. Bones are unremarkable. CT/CTA Head AND Neck W/ Contrast IMPRESSION: RIGHT CAROTID: Unremarkable. LEFT CAROTID: Unremarkable. VERTEBRALS: Unremarkable. INTRACRANIAL: Unremarkable. One or more dose reduction techniques were used (e.g., Automated exposure control, adjustment of the mA and/or kV according to patient size, use of iterative reconstruction technique). Reading Location: [facility] CC: Dr. Cristian Hopper MD; Dr. Glen Awan DO Communications Director: Signed Normal [facility] Carbon dioxide measurementOr dered By: Glen Awan on 11-06-2024 CO2 [Moles/Vol] 29.0 mmol/L 21.0-32.0 [facility] Chest 1 Viewon 11-06-2024 Chest 1 View [facility] Imaging Services [address] [place] [address] Chest 1 View MR#: [id number] Acct: [id number] Name: JACQUELINE BRYSON Rep #: [id number] : 1960 F 64 From: Felipe ley MD PCP: Dr. Cristian Hopper MD Status: REG ER Study: Chest 1 View Date of Exam: 11/06/24 Exam# [id number] Ordering Dr: Glen Awan DO PROCEDURE: CHEST 1 VIEW REASON FOR EXAM: Neuro deficit. Acute stroke suspected. TECHNIQUE: Single frontal image including the chest and abdomen. COMPARISON: None. FINDINGS: EKG electrodes are seen. The cardiothymic contour is normal. The lungs are clear. Hiatal hernia. Degenerative changes of the thoracic vertebrae. RAD/Chest 1 View IMPRESSION: Lungs are clear. Hiatal hernia. Reading Location: [facility] CC: Dr. Cristian Hopper MD; Dr. Glen Awan DO Communications Director: Signed Normal [facility] Chloride measurementOrdered By: Glen Awan on 11-06-2024 Chloride [Moles/Vol] 100 mmol/L 98-107 [facility] Emergency Department Summary on 11-06-2024 Emergency Department Summary [facility] Medical Records Department [address] [place] [id number] Emergency Department Summary 11/06/24 MR#: [id number] Acct: [id number] Name: JACQUELINE BRYSON Rep #: [id number] : 1960 64 From: Glen Awan DO PCP: Dr. Cristian Hopper MD Status:REG ER Location: ED HPI History of Present Illness Chief Complaint: Dizziness [facility] Medical History Hypertension Lumbar radiculopathy, acute Acute lumbar myofascial strain Contact with and (suspected) exposure to other viral communicable diseases Acute frontal sinusitis, unspecified Depression Obesity Premature atrial contractions Multiple premature ventricular complexes Hypothyroidism Greater trochanteric bursitis of both hips Fracture of greater trochanter of right femur Synovial cyst of hand Right carpal tunnel syndrome Arthritis Asthma Former smoker Bilateral carpal tunnel syndrome Trigger thumb of right hand Arthritis of carpometacarpal (CMC) joint of right thumb Degenerative joint disease of cervical spine Home Medications ???Medication ???Instructions ???Recorded ???Last Taken ???Type cholecalciferol (vitamin D3) 50 50 mcg PO DAILY 09/02/21 11/05/24 History mcg (2,000 unit) capsule (Vitamin D3) vitamin B complex 1 cap PO DAILY 09/02/21 11/05/24 H istory loratadine 10 mg tablet (Claritin) 10 mg PO QHS 09/09/21 11/05/24 H istory levothyroxine 100 mcg tablet 100 mcg PO DAILY 08/25/22 11/06/24 History pantoprazole 40 mg tablet,delayed 40 mg PO DAILY 08/25/22 11/05/24 History release sucralfate 1 gram tablet 1 g PO BID 08/25/22 11/06/24 Histo ry meloxicam 15 mg tablet 15 mg PO DAILY 02/15/23 11/05/24 H istory lisinopril 20 mg tablet 20 mg PO DAILY 11/06/24 11/05/24 H istory metoprolol succinate 25 mg 25 mg PO DAILY 11/06/24 11/05/24 H istory tablet,extended release 24 hr Allergy/AdvReac Type Severity Reaction Status Date / Time amoxicillin (From Augmentin) Allergy Severe see note Verified 11/06/24 13:41 clavulanic acid (From Allergy Severe unknown Verified 11/06/24 13:41 Augmentin) Family History Other Breast cancer CAD (coronary artery disease) Surgical History History of carpal tunnel surgery of left wrist History of vocal cord paralysis Hx of foot surgery Hx of foot surgery Hx of repair of right rotator cuff Hx of thyroidectomy History of Social History household members: spouse housing: house Smoking Status: Former smoker alcohol intake: never EXAM Physical Exam Const Vital Signs: 11/06/24 13:40 11/06/24 14:34 11/06/24 15:39 Temperature 98.2 F Temperature Source Temporal Pulse Rate 73 74 Respiratory Rate 16 Blood Pressure 160/87 H 136/90 H Blood Pressure Mean 111 105 Pulse Ox 98 98 96 Oxygen Delivery Method Room Air Room Air 11/06/24 16:46 11/06/24 17:00 Temperature 98.3 F Temperature Source Pulse Rate 74 78 Respiratory Rate 16 Blood Pressure 136/90 H 160/75 H Blood Pressure Mean 105 103 Pulse Ox 96 96 Oxygen Delivery Method MDM MDM MDM Narrative Medical decision making narrative: HISTORY OF PRESENT ILLNESS: Of note was it was very difficult to obtain an initial history from the patient. During the patient's initial ED evaluation she wanted to discuss the origin of her symptoms from several months ago. While history is extremely important but is very difficult to perform my job effectively without having context to a specific historical component. I asked the patient to give me a sense of the symptoms that concern of the most and brought her in today. As I tried to redirect her in an effort to put her symptoms into the context of a chief complaint and typical emergency physician thought process/algorithms patient refused to state her chief complaint. Stating she want me to listen to the whole story. When I explained to the patient the emergency department is most effective at ruling out or stabilizing life or limb threatening condition she noted while I know this is not life-threatening. I explained to the patient that is extremely important that I understand what her chief complaint was so that I could develop a sound differential diagnosis to then attempt to figure out if she was having a life or limb threatening emergency. This discussion caused the patient significant consternation. I maintained my professionalism at all times. The hx i was able to obtain is as follows. 64-year-old female presents with dizziness. She states she has had dizziness since Wednesday (11/03/24). St (more content not included)... Normal [facility] Eosinophil percentageOrdered By: Glen Awan on 11-06-2024 Eosinophils/100 WBC (Bld) 2.1 % 0-5 [facility] Erythrocyte distribution wid th ratioOrdered By: Glen Awan on 11-06-2024 Erythrocyte distribution width (RBC) [Ratio] 12.5 % 11.6-14.6 [facility] Erythrocyte distribution wid th standard deviationOrdered By: Glen Awan on 11-06-2024 Erythrocyte distribution width (RBC) [Entitic vol] 42.0 fL 35.1-43.9 [facility] Erythrocyte distribution width (RBC) [Ratio] 42.0 fl 35.1-43.9 [facility] Estimated glomerular filtrat ion rate (GFR) AmericanOrdered By: Glen Awan on 11-06-2024 Estimated GFR (MDRD) Amer 134 mL/min >60 [facility] Comment on above: GFR Calc Estimation of creatinine briana aranceOrdered By: Glen Awan on 11-06-2024 Estimated Creatinine Clearance Calc 88.34 ml/min [facility] Glomerular filtration rate ( GFR) estimationOrdered By: Glen Awan on 11-06-2024 Estimated GFR (MDRD) Non-Af Amer 111 mL/min >60 [facility] Comment on above: Non- GFR Calc GFR/1.73 sq M.predicted among non-blacks MDRD (S/P/Bld) [Vol rate/Area] 111 mL/min/{1.73_m2} >60 [facility] Comment on above: Non- GFR Calc Glucose measurementOrdered B y: Glen Awan on 11-06-2024 Glucose [Mass/Vol] 107 mg/dL High 74-106 [facility] Comment on above: Fasting Glucose resu lt from 100 to 125 mg/dL suggests IMPAIRED HOMEOSTASIS per A.D.A. criteria. H AND P Exam - Hospital[place] 11-06-2024 H&P Exam - Hospitalist [facility] Medical Records Department [address] [place] [address] H P Exam - Hospitalist 11/06/24 1717 MR#: [id number] Acct: [id number] Name: JACQUELINE BRYSON Rep #: [id number] : 1960 64 From: Jackson Borges DO PCP: Dr. Cristian Hopper MD Status:REG ER Location: ED HPI - General General Date of Service: 11/06/24 Chief Complaint: Dizziness, headache, left facial numbness. HPI Narrative JACQUELINE BRYSON, is a 64 F who presents with a myriad of complaints. Says about a month ago, she started experiencing left facial numbness. Was seen at the [facility] at that time and underwent CT angiogram, CT of the head, MRI of the brain. Seen by teleneurology during that visit and Diagnosed with intractable headache and hypertensive urgency. Was also noted to have an ICA aneurysm 5 mm that was asymptomatic. She continued to have a headache during this time the facial numbness. Then on Wednesday, she started experiencing dizziness. Dizziness was worse with any kind of movement better with rest. Never experienced any dizziness like this in the past. Was seen here in the emergency room and had a small area of encephalomalacia/possib le infarct. Radiology reviewed and appear to be stable from December 2021. The ED physician spoke with neurology and felt that the changes were not related with her current symptoms. I would recommend patient follow-up with neurology. Patient states that she is been having trouble seeing neurology ever since her discharge from [facility]. Patient underwent CT of the head and CT of the brain showed no acute changes. But given the patient's symptoms, she is very concerned that the dizziness she has been experiencing for a month ago may be related with her ongoing vertigo symptoms that she started having on Wednesday. Additionally, patient has been feeling rundown and having dry eyes. She wants answers in regards to what is going on with her. [facility] Medical History Hypertension Lumbar radiculopathy, acute Acute lumbar myofascial strain Contact with and (suspected) exposure to other viral communicable diseases Acute frontal sinusitis, unspecified Depression Obesity Premature atrial contractions Multiple premature ventricular complexes Hypothyroidism Greater trochanteric bursitis of both hips Fracture of greater trochanter of right femur Synovial cyst of hand Right carpal tunnel syndrome Arthritis Asthma Former smoker Bilateral carpal tunnel syndrome Trigger thumb of right hand Arthritis of carpometacarpal (CMC) joint of right thumb Degenerative joint disease of cervical spine Home Medications ???Medication ???Instructions ???Recorded ???Last Taken ???Type cholecalciferol (vitamin D3) 50 50 mcg PO DAILY 09/02/21 11/05/24 History mcg (2,000 unit) capsule (Vitamin D3) vitamin B complex 1 cap PO DAILY 09/02/21 11/05/24 H istory loratadine 10 mg tablet (Claritin) 10 mg PO QHS 09/09/21 11/05/24 H istory levothyroxine 100 mcg tablet 100 mcg PO DAILY 08/25/22 11/06/24 History pantoprazole 40 mg tablet,delayed 40 mg PO DAILY 08/25/22 11/05/24 History release sucralfate 1 gram tablet 1 g PO BID 08/25/22 11/06/24 Histo ry meloxicam 15 mg tablet 15 mg PO DAILY 02/15/23 11/05/24 H istory lisinopril 20 mg tablet 20 mg PO DAILY 11/06/24 11/05/24 H istory metoprolol succinate 25 mg 25 mg PO DAILY 11/06/24 11/05/24 H istory tablet,extended release 24 hr Allergy/AdvReac Type Severity Reaction Status Date / Time amoxicillin (From Augmentin) Allergy Severe see note Verified 11/06/24 13:41 clavulanic acid (From Allergy Severe unknown Verified 11/06/24 13:41 Augmentin) Family History Other Breast cancer CAD (coronary artery disease) Surgical History History of carpal tunnel surgery of left wrist History of vocal cord paralysis Hx of foot surgery Hx of foot surgery Hx of repair of right rotator cuff Hx of thyroidectomy History of Social History household members: spouse housing: house Smoking Status: Former smoker alcohol intake: never ROS ROS Narrative All review of systems were negative except as mentioned above in the history of present illness and the other review of systems. Vital Signs Vital Signs Vital Signs: 11/06/24 13:40 11/06/24 14:34 11/06/24 15:39 Temperature 36.8 C Temperature Source Temporal Pulse Rate 73 74 Respiratory Rate 16 Blood Pressure 160/87 H 136/90 H Blood Pressure Mean 111 105 Pulse Ox 98 98 96 Oxygen Delivery Method Room Air Room Air 11/06/24 16:46 11/06/24 17:00 Temper (more content not included)... Normal [facility] Hematocrit Auto (Bld) [Volum e fraction]Ordered By: Glen Awan on 11-06-2024 Hematocrit (Bld) [Volume fraction] 41.9 % 37-47 [facility] Hemoglobin measurementOrdere d By: Glen Awan on 11-06-2024 Hemoglobin (Bld) [Mass/Vol] 13.7 g/dL 12.0-15.0 [facility] Immature granulocytes/100 WB C Auto (Bld)Ordered By: Glen Awan on 11-06-2024 Immature granulocytes/100 WBC (Bld) 0.400 % 0.0-0.9 [facility] Comment on above: IG% - Immature Granu locytes (promyelocytes, myelocytes and metamyelocytes) > 1% indicates that a LEFT SHIFT is Present. Influenza virus A and B and SARS-CoV-2 (COVID-19) and Respiratory syncytial virus RNAOrdered By: Jackson Borges on 11-06-2024 SARS-CoV-2 (COVID-19) RNA DONAL+probe Ql (Unsp spec) [facility] International normalized rat io (INR) calculationOrdered By: Glen Awan on 11-06-2024 INR Coag (Bld) [Relative time] 1.0 {INR} [facility] L501.4020on 11-06-2024 TROPONIN-I HS < 3 Low 3.0-54.0 [facility] Comment on above: Order Comment: 'TROP ' Serial specimen #1, #2 or #3: 1 Result Comment: Plea se Note: New Test Units and Gender Specific Reference Ranges. For more information see Policy Stat Procedure [facility] High Sensitivity Troponin (TNIH) and attachments. Performed By: #### L 500.2500, L501.4020, L100.0100, L300.4310, L300.3900 ####[facility] [address] [place], [place], [id number] Lymphocytes Auto (Unsp spec) [#/Vol]Ordered By: Glen Awan on 11-06-2024 Lymphocytes (Bld) [#/Vol] 2.51 10*3/uL 0.83-4.51 [facility] Lymphocytes/100 WBC Auto (Un sp spec)Ordered By: Glen Awan on 11-06-2024 Lymphocytes/100 WBC (Bld) 29.7 % 19-41 [facility] M100.678on 11-06-2024 M100.678 SARS-CoV-2 (COVID 19 ) Negative INFLUENZA A Negative INFLUENZA B Negative RSV PCR Negative Normal [facility] Comment on above: Performed By: #### M 100.678 ####[facility] [address] [place], [address] MCV (mean corpuscular volume ) determinationOrdered By: Glen Awan on 11-06-2024 MCV (RBC) [Entitic vol] 91.7 fL 81-99 [facility] Mean corpuscular hemoglobin (MCH) determinationOrdered By: Glen Awan on 11-06-2024 MCH (RBC) [Entitic mass] 30.0 pg 27.0-32.0 [facility] Mean corpuscular hemoglobin concentration (MCHC) determinationOrdered By: Glen Awan on 11-06-2024 MCHC (RBC) [Mass/Vol] 32.7 g/dL 32-36 [facility] Mean platelet volume determi nationOrdered By: Glen Awan on 11-06-2024 Platelet mean volume (Bld) [Entitic vol] 9.4 fL 6.2-12.0 [facility] Monocyte percentageOrdered B y: Glen Awan on 11-06-2024 Monocytes/100 WBC (Bld) 5.9 % 0-10 [facility] Neutrophil percentageOrdered By: Glen Awan on 11-06-2024 Neutrophils/100 WBC (Bld) 61.4 % 47-70 [facility] Nucleated red blood cell per centageOrdered By: Glen Awan on 11-06-2024 Nucleated RBC/100 WBC (Bld) [Ratio] 0 % 0-5 [facility] Partial Thromboplast Timeon 11-06-2024 aPTT Coag (Bld) [Time] 26.0 s Normal 24.1-36.2 [facility] Comment on above: Performed By: #### L 500.2500, L501.4020, L100.0100, L300.4310, L300.3900 #### [facility] [address] [place], [address] Platelet countOrdered By: [place] Awan on 11-06-2024 Platelets (Bld) [#/Vol] 268 10*3/uL 150-450 [facility] Potassium measurementOrdered By: Glen Awan on 11-06-2024 Potassium [Moles/Vol] 3.7 mmol/L 3.5-5.1 [facility] Prothrombin Time w/INRon INR Coag (PPP) [Relative time] 1.0 {INR} Normal [facility] Comment on above: Performed By: #### L 500.2500, L501.4020, L100.0100, L300.4310, L300.3900 #### [facility] [address] [place], [address] PT Coag (PPP) [Time] 13.7 s Normal 11.7-14.9 [facility] Comment on above: Performed By: #### L 500.2500, L501.4020, L100.0100, L300.4310, L300.3900 #### [facility] [address] [place], [address] Prothrombin timeOrdered By: Glen Awan on 11-06-2024 PT Coag (PPP) [Time] 13.7 s 11.7-14.9 [facility] RBC Auto (Bld) [#/Vol]Ordere d By: Glen Awan on 11-06-2024 RBC (Bld) [#/Vol] 4.57 10*6/uL 4.2-5.4 [facility] Serum anion gap measurementO rdered By: Glen Awan on 11-06-2024 Anion gap [Moles/Vol] 8 mmol/L 5-15 [facility] Serum or plasma calcium riri urement (mass/volume)Ordered By: Glen Awan on 11-06-2024 Calcium [Mass/Vol] 9.4 mg/dL 8.5-10.1 [facility] Serum or plasma creatinine m easurement (mass/volume)Ordered By: Glen Awan on 11-06-2024 Creatinine [Mass/Vol] 0.58 mg/dL 0.55-1.02 [facility] Comment on above: The validity of the calculated GFR & GFRAA in patients over 70 years has not been determined. Clinical correlation is essential. Serum or plasma urea nitroge n measurement (mass/volume)Ordered By: Glen Awan on 11-06-2024 Urea nitrogen [Mass/Vol] 19 mg/dL High 7-18 [facility] Sodium levelOrdered By: Rachelle Awan on 11-06-2024 Sodium [Moles/Vol] 137 mmol/L 136-145 [facility] Troponin IOrdered By: Glen Awan on 11-06-2024 Troponin I < 3 pg/mL Low 3.0-54.0 [facility] Comment on above: Please Note: New Veda t Units and Gender Specific Reference Ranges. For more information see Policy Stat Procedure [facility] High Sensitivity Troponin (TNIH) and attachments. Troponin I High Sensitivity < 3 pg/mL Low 3.0-54.0 [facility] Comment on above: Please Note: New Veda t Units and Gender Specific Reference Ranges. For more information see Policy Stat Procedure [facility] High Sensitivity Troponin (TNIH) and attachments. White blood cell (WBC) count Ordered By: Glen Awan on 11-06-2024 WBC (Bld) [#/Vol] 8.5 10*3/uL 4.4-11.0 [facility] aPTT Coag (PPP) [Time]Ordere d By: Glen Awan on 11-06-2024 aPTT Coag (Bld) [Time] 26.0 s 24.1-36.2 [facility] 12 Lead EKGon 11-03-2024 12 Lead EKG [facility] Cardiovascular Services [address] [place] [address] 12 Lead EKG 11/03/24 0911 MR#: [id number] Acct: [id number] Name: JACQUELINE BRYSON Rep #: [id number] : 1960 64 From: David Forte MD Attending Dr: Status: DEP ER Ordering Dr: Erick Nguyen MD Date: 11/03/24 Location: ED Sex: F C Admitted: Test Reason : PALPS Blood Pressure : */* mmHG Vent. Rate : 61 BPM Atrial Rate : 61 BPM P-R Int : 162 ms QRS Dur : 82 ms QT Int : 386 ms P-R-T Axes : 54 21 61 degrees QTcB Int : 388 ms Normal sinus rhythm Normal ECG Confirmed by David Forte ([id number]), editor managing newspaper KEISHA ADAM ([id number]) on 11/06/2024 9:50:44 AM Referred By: RUSTAM Confirmed By: David Forte 11/06/24 0950 Date David Forte MD CC: Dr. Erick Nguyen MD; Dr. Cristian Hopper MD Signed Normal [facility] Absolute lymphocyte countOrd ered By: Erick Nguyen on 11-03-2024 Lymphocytes Auto (Unsp spec) [#/Vol] 2.21 10*3/uL 0.83-4.51 [facility] Absolute neutrophil countOrd ered By: Erick Nguyen on 11-03-2024 Neutrophils (Bld) [#/Vol] 4.6 10*3/uL 2.0-7.7 [facility] Automated lymphocyte count a s percentage of total leukocytesOrdered By: Erick Nguyen on 11-03-2024 Lymphocytes/100 WBC Auto (Unsp spec) 28.6 % 19-41 [facility] Basophil percentageOrdered B y: Erick Nguyen on 11-03-2024 Basophils/100 WBC (Bld) 0.6 % 0-1 [facility] Brain/Head without Contrasto n 11-03-2024 Brain/Head without Contrast [facility] Imaging Services [address] [place], [place] [id number] Brain/Head without Contrast MR#: [id number] Acct: [id number] Name: JACQUELINE BRYSON Rep #: [id number] : 1960 F 64 From: Felipe ley MD PCP: Dr. Cristian Hopper MD Status: REG ER Study: Brain/Head without Contrast Date of Exam: 10/15 10/07 Exam# [id number] Ordering Dr: Erick Nguyen MD EXAM: CT scan of the head without intravenous contrast administration. CLINICAL HISTORY: Intermittent left facial paresthesias. Known carotid aneurysm. COMPARISON: December 26, 2021. TECHNIQUE: Multiple axial tomographic images were obtained without intravenous contrast administration. Coronal and sagittal reconstruction was obtained as well. FINDINGS: Stable focal area of decreased attenuation in the inferior aspect of the left temporal lobe. This may represent prior ischemic involvement. No significant mass effect is seen. CT/Brain/Head without Contrast IMPRESSION: Focal area of decreased attenuation in the anterior aspect of the left temporal lobe suggestive of old ischemic insult. Reading Location: [facility] CC: Dr. Erick Nguyen MD; Dr. Cristian Hopper MD Communications Director: Signed Normal [facility] CBC W/Diff, Automatedon 10-15 Absolute Lymph 2.21 X10 3/uL Normal 0.83-4.51 [facility] Comment on above: Performed By: #### L 100.0100, L501.4020 ####[facility] [address] [place], [address] Absolute Neut 4.6 X10 3/uL Normal 2.0-7.7 [facility] Comment on above: Performed By: #### L 100.0100, L501.4020 ####[facility] [address] [place], [address] Basophils/100 WBC (Bld) 0.6 % Normal 0-1 [facility] Comment on above: Performed By: #### L 100.0100, L501.4020 ####[facility] [address] [place], [address] Eosinophils/100 WBC (Bld) 5.3 % High 0-5 [facility] Comment on above: Performed By: #### L 100.0100, L501.4020 ####[facility] [address] [place], [address] Erythrocyte distribution width (RBC) [Ratio] 12.7 % Normal 11.6-14.6 [facility] Comment on above: Performed By: #### L 100.0100, L501.4020 ####[facility] [address] [place], [address] Hematocrit (Bld) [Volume fraction] 42.6 % Normal 37-47 [facility] Comment on above: Performed By: #### L 100.0100, L501.4020 ####[facility] [address] [place], [address] Hemoglobin (Bld) [Mass/Vol] 13.7 g/dL Normal 12.0-15.0 [facility] Comment on above: Performed By: #### L 100.0100, L501.4020 ####[facility] [address] [place], [address] IG% 0.100 Normal 0.0-0.9 [facility] Comment on above: Result Comment: IG% - Immature Granulocytes (promyelocytes, myelocytes and metamyelocytes) > 1% indicates that a LEFT SHIFT is Present. Performed By: #### L 100.0100, L501.4020 ####[facility] [address] [place], [address] Lymphocytes/100 WBC (Bld) 28.6 % Normal 19-41 [facility] Comment on above: Performed By: #### L 100.0100, L501.4020 ####[facility] [address] [place], [address] MCH (RBC) [Entitic mass] 29.6 pg Normal 27.0-32.0 [facility] Comment on above: Performed By: #### L 100.0100, L501.4020 ####[facility] [address] [place], [address] MCHC (RBC) [Mass/Vol] 32.2 g/dL Normal 32-36 [facility] Comment on above: Performed By: #### L 100.0100, L501.4020 ####[facility] [address] [place], [address] MCV (RBC) [Entitic vol] 92.0 fL Normal 81-99 [facility] Comment on above: Performed By: #### L 100.0100, L501.4020 ####[facility] [address] [place], [address] Monocytes/100 WBC (Bld) 5.4 % Normal 0-10 [facility] Comment on above: Performed By: #### L 100.0100, L501.4020 ####[facility] [address] [place], [address] Neutrophils/100 WBC (Bld) 60.0 % Normal 47-70 [facility] Comment on above: Performed By: #### L 100.0100, L501.4020 ####[facility] [address] [place], [address] Nucleated RBC (Bld) [#/Vol] 0 10*3/uL Normal 0-5 [facility] Comment on above: Performed By: #### L 100.0100, L501.4020 ####[facility] [address] [place], [address] Platelet mean volume (Bld) [Entitic vol] 9.4 fL Normal 6.2-12.0 [facility] Comment on above: Performed By: #### L 100.0100, L501.4020 ####[facility] [address] [place], [address] Platelets (Bld) [#/Vol] 283 10*3/uL Normal 150-450 [facility] Comment on above: Performed By: #### L 100.0100, L501.4020 ####[facility] [address] [place], [address] RBC (Bld) [#/Vol] 4.63 10*6/uL Normal 4.2-5.4 [facility] Comment on above: Performed By: #### L 100.0100, L501.4020 ####[facility] [address] [place], [address] RDW SD 43.4 fl Normal 35.1-43.9 [facility] Comment on above: Performed By: #### L 100.0100, L501.4020 ####[facility] [address] [place], [address] WBC (Bld) [#/Vol] 7.7 10*3/uL Normal 4.4-11.0 [facility] Comment on above: Performed By: #### L 100.0100, L501.4020 ####[facility] [address] [place], [address] Emergency Department Summary on 11-03-2024 Emergency Department Summary [facility] Medical Records Department [address] [place] [address] Emergency Department Summary 11/03/24 MR#: [id number] Acct: [id number] Name: JACQUELINE BRYSON Rep #: [id number] : 1960 64 From: Erick Nguyen MD PCP: Dr. Cristian Hopper MD Status:REG ER Location: ED HPI History of Present Illness Chief Complaint: Numb/Ting Informant: patient Narrative Narrative: 64-year-old female presenting with multiple symptoms. For the last 3 days mostly in the evenings she is having episodes of palpitations that make her feel lightheaded but without chest pain or dyspnea or syncope, lasting 30 minutes or so. She states she has had these before but not in the last couple months. For the last 3-4 weeks or so, she has been feeling fatigued, and all day every day, having episodes of left lower facial numbness. She denies any other associated symptoms when that occurs. Separately, she has been also having some days when both eyes feel like they have sand in them, and her eyelids on both sides are red and swollen/puffy. When this occurs, she often has blurred vision and trouble focusing but denies any visual field cuts, and sometimes has the blurry vision without feeling like her eyes are uncomfortable or swollen and without an apparent association with the numbness/tingling in the left face. Denies tingling/numbness in any extremities or focal weakness in any extremity at any point in time. This past month in September she was admitted to [facility] because of high blood pressures and headaches that were suspected to be caused by the elevated blood pressure after she had a lot of negative brain imaging testing according to the patient. 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 She takes metoprolol. She saw cardiology Dr. Denny remotely when she was having some palpitations that were presumed related to her thyroid, that since was surgically removed and the surgery was complicated by vocal cord paralysis causing her to be chronically hoarse which is unchanged today. She states yesterday her eyelids were red and swollen on both sides all day but today they feel fine. 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 She states she had labs done yesterday here. [facility] Medical History Hypertension Lumbar radiculopathy, acute Acute lumbar myofascial strain Contact with and (suspected) exposure to other viral communicable diseases Acute frontal sinusitis, unspecified Depression Obesity Premature atrial contractions Multiple premature ventricular complexes Hypothyroidism Greater trochanteric bursitis of both hips Fracture of greater trochanter of right femur Synovial cyst of hand Right carpal tunnel syndrome Arthritis Asthma Former smoker Bilateral carpal tunnel syndrome Trigger thumb of right hand Arthritis of carpometacarpal (CMC) joint of right thumb Degenerative joint disease of cervical spine Home Medications ???Medication ???Instructions ???Recorded ???Last Taken ???Type cholecalciferol (vitamin D3) 50 50 mcg PO DAILY 09/02/21 Unknown H istory mcg (2,000 unit) capsule (Vitamin D3) lisinopril 10 mg tablet 10 mg PO QHS 09/02/21 Unknown Hist ory vitamin B complex 1 cap PO DAILY 09/02/21 Unknown Hi story loratadine 10 mg tablet (Claritin) 10 mg PO QHS 09/09/21 Unknown Hi story levothyroxine 100 mcg tablet 100 mcg PO DAILY 08/25/22 Unknown History pantoprazole 40 mg tablet,delayed 40 mg PO DAILY 08/25/22 Unknown H istory release sucralfate 1 gram tablet 1 g PO BID 08/25/22 Unknown Histor y meloxicam 15 mg tablet tablet PO 02/15/23 Unknown History Allergy/AdvReac Type Severity Reaction Status Date / Time amoxicillin (From Augmentin) Allergy Severe see note Verified 11/03/24 09:10 clavulanic acid (From Allergy Severe unknown Verified 11/03/24 09:10 Augmentin) Family History Other Breast cancer CAD (coronary artery disease) Surgical History History of carpal tunnel surgery of left wrist History of vocal cord paralysis Hx of foot surgery Hx of foot surgery Hx of repair of right rotator cuff Hx of thyroidectomy History of Social History Smoking Status: Former smoker alcohol intake: never ROS ROS ED Constitutional Constitutional ED: Reports fatigue; Denies chills or fever(s) Eyes Eyes: Reports as per HPI, blurry vision bilateral (Intermittent not currently present) and puffy eyes; Denies diplopia ENT ENT ED: Denies rhinorrhea or sore throat Cardiovas (more content not included)... Normal [facility] Eosinophil percentageOrdered By: Erick Nguyen on 11-03-2024 Eosinophils/100 WBC (Bld) 5.3 % High 0-5 [facility] Erythrocyte distribution wid th ratioOrdered By: Erick Nguyen on 11-03-2024 Erythrocyte distribution width (RBC) [Ratio] 12.7 % 11.6-14.6 [facility] Erythrocyte distribution wid th standard deviationOrdered By: Erick Nguyen on 11-03-2024 Erythrocyte distribution width (RBC) [Entitic vol] 43.4 fL 35.1-43.9 [facility] Erythrocyte distribution width (RBC) [Ratio] 43.4 fl 35.1-43.9 [facility] Hematocrit Auto (Bld) [Volum e fraction]Ordered By: Erick Nguyen on 11-03-2024 Hematocrit (Bld) [Volume fraction] 42.6 % 37-47 [facility] Hemoglobin measurementOrdere d By: Erick Nguyen on 11-03-2024 Hemoglobin (Bld) [Mass/Vol] 13.7 g/dL 12.0-15.0 [facility] Immature granulocytes/100 WB C Auto (Bld)Ordered By: Erick Nguyen on 11-03-2024 Immature granulocytes/100 WBC (Bld) 0.100 % 0.0-0.9 [facility] Comment on above: IG% - Immature Granu locytes (promyelocytes, myelocytes and metamyelocytes) > 1% indicates that a LEFT SHIFT is Present. L501.4020on 11-03-2024 TROPONIN-I HS < 3 Low 3.0-54.0 [facility] Comment on above: Order Comment: 'TROP ' Serial specimen #1, #2 or #3: 1 Result Comment: Plea se Note: New Test Units and Gender Specific Reference Ranges. For more information see Policy Stat Procedure Williamson High Sensitivity Troponin (TNIH) and attachments. Performed By: #### L 100.0100, L501.4020 ####[facility] [address] [place], [place], [id number] Lymphocytes Auto (Unsp spec) [#/Vol]Ordered By: Erick Nguyen on 11-03-2024 Lymphocytes (Bld) [#/Vol] 2.21 10*3/uL 0.83-4.51 [facility] Lymphocytes/100 WBC Auto (Un sp spec)Ordered By: Erick Nguyen on 11-03-2024 Lymphocytes/100 WBC (Bld) 28.6 % 19-41 [facility] MCV (mean corpuscular volume ) determinationOrdered By: Erick Nguyen on 11-03-2024 MCV (RBC) [Entitic vol] 92.0 fL 81-99 [facility] Mean corpuscular hemoglobin (MCH) determinationOrdered By: Erick Nguyen on 11-03-2024 MCH (RBC) [Entitic mass] 29.6 pg 27.0-32.0 [facility] Mean corpuscular hemoglobin concentration (MCHC) determinationOrdered By: Erick Nguyen on 11-03-2024 MCHC (RBC) [Mass/Vol] 32.2 g/dL 32-36 [facility] Mean platelet volume determi nationOrdered By: Erick Nguyen on 11-03-2024 Platelet mean volume (Bld) [Entitic vol] 9.4 fL 6.2-12.0 [facility] Monocyte percentageOrdered B y: Erick Nguyen on 11-03-2024 Monocytes/100 WBC (Bld) 5.4 % 0-10 [facility] Neutrophil percentageOrdered By: Erick Nguyen on 11-03-2024 Neutrophils/100 WBC (Bld) 60.0 % 47-70 [facility] Nucleated red blood cell per centageOrdered By: Erick Nguyen on 11-03-2024 Nucleated RBC/100 WBC (Bld) [Ratio] 0 % 0-5 [facility] Platelet countOrdered By: Geni Nguyen on 11-03-2024 Platelets (Bld) [#/Vol] 283 10*3/uL 150-450 [facility] RBC Auto (Bld) [#/Vol]Ordere d By: Erick Nguyen on 11-03-2024 RBC (Bld) [#/Vol] 4.63 10*6/uL 4.2-5.4 [facility] Troponin IOrdered By: Michelle Nguyen on 11-03-2024 Troponin I < 3 pg/mL Low 3.0-54.0 [facility] Comment on above: Please Note: New Veda t Units and Gender Specific Reference Ranges. For more information see Policy Stat Procedure Williamson High Sensitivity Troponin (TNIH) and attachments. Troponin I High Sensitivity < 3 pg/mL Low 3.0-54.0 [facility] Comment on above: Please Note: New Veda t Units and Gender Specific Reference Ranges. For more information see Policy Stat Procedure Williamson High Sensitivity Troponin (TNIH) and attachments. White blood cell (WBC) count Ordered By: Erick Nguyen on 11-03-2024 WBC (Bld) [#/Vol] 7.7 10*3/uL 4.4-11.0 [facility] Albumin to globulin ratioOrd ered By: Cristian Hopper on 11-02-2024 Albumin/Globulin [Mass ratio] 0.8 {ratio} Low 0.9-2.4 [facility] Bilirubin, totalOrdered By: Cristian Hopper on 11-02-2024 Bilirubin [Mass/Vol] 0.50 mg/dL 0.20-1.00 [facility] Comment on above: For patients on eltr ombopag therapy, use of Dimension Williamson TBIL is not recommended. Blood urea nitrogen (BUN)/cr eatinine ratioOrdered By: Cristina Hopper on 11-02-2024 Urea nitrogen/Creatinine [Mass ratio] 29.2 mg/mg High 10-20 [facility] Carbon dioxide measurementOr dered By: Cristian Hopper on 11-02-2024 CO2 [Moles/Vol] 29.0 mmol/L 21.0-32.0 [facility] Chloride measurementOrdered By: Cristian Hopper on 11-02-2024 Chloride [Moles/Vol] 104 mmol/L 98-107 [facility] Comprehensive Metabolic Prof ilon 11-02-2024 Albumin [Mass/Vol] 3.4 g/dL Normal 3.2-5.0 [facility] Comment on above: Performed By: #### L 500.4050, L101.9900 ####[facility] [address] [place], [address] Albumin/Globulin [Mass ratio] 0.8 {ratio} Low 0.9-2.4 [facility] Comment on above: Performed By: #### L 500.4050, L101.9900 ####[facility] [address] [place], [address] ALK P 68 U/L Normal 45-117 [facility] Comment on above: Performed By: #### L 500.4050, L101.9900 ####[facility] [address] [place], [address] ALT [Catalytic activity/Vol] 23 U/L Normal 13-56 [facility] Comment on above: Performed By: #### L 500.4050, L101.9900 ####[facility] [address] [place], [address] AST [Catalytic activity/Vol] 17 U/L Normal 15-37 [facility] Comment on above: Performed By: #### L 500.4050, L101.9900 ####[facility] [address] [place], [address] Bilirubin [Mass/Vol] 0.50 mg/dL Normal 0.20-1.00 [facility] Comment on above: Result Comment: For patients on eltrombopag therapy, use of Dimension Williamson TBIL is not recommended. Performed By: #### L 500.4050, L101.9900 ####[facility] [address] [place], [address] BUN/CRE 29.2 RATIO High 10-20 [facility] Comment on above: Performed By: #### L 500.4050, L101.9900 ####[facility] [address] [place], [address] CA,Total 9.3 mg/dL Normal 8.5-10.1 [facility] Comment on above: Performed By: #### L 500.4050, L101.9900 ####[facility] [address] [place], [address] Chloride [Moles/Vol] 104 mmol/L Normal 98-107 [facility] Comment on above: Performed By: #### L 500.4050, L101.9900 ####[facility] [address] [place], [address] CO2 [Moles/Vol] 29.0 mmol/L Normal 21.0-32.0 [facility] Comment on above: Performed By: #### L 500.4050, L101.9900 ####[facility] [address] [place], [address] Creatinine [Mass/Vol] 0.75 mg/dL Normal 0.55-1.02 [facility] Comment on above: Result Comment: The validity of the calculated GFR GFRAA in patients over 70 years has not been determined. Clinical correlation is essential. Performed By: #### L 500.4050, L101.9900 ####[facility] [address] [place], [address] EST GFR - AA 99 mL/min Normal >60 [facility] Comment on above: Result Comment: Afri can Norwegian GFR Calc Performed By: #### L 500.4050, L101.9900 ####[facility] [address] [place], [address] GAP 4 Low 5-15 [facility] Comment on above: Performed By: #### L 500.4050, L101.9900 ####[facility] [address] [place], [address] GFR/1.73 sq M.predicted among non-blacks MDRD (S/P/Bld) [Vol rate/Area] 82 mL/min/{1.73_m2} Normal >60 [facility] Comment on above: Result Comment: Non- GFR Calc Performed By: #### L 500.4050, L101.9900 ####[facility] [address] [place], [address] Globulin (S) [Mass/Vol] 4.4 g/dL High 2.2-4.2 [facility] Comment on above: Performed By: #### L 500.4050, L101.9900 ####[facility] [address] [place], [address] Glucose [Mass/Vol] 99 mg/dL Normal 74-106 [facility] Comment on above: Performed By: #### L 500.4050, L101.9900 ####[facility] [address] [place], [address] Potassium [Moles/Vol] 4.2 mmol/L Normal 3.5-5.1 [facility] Comment on above: Performed By: #### L 500.4050, L101.9900 ####[facility] [address] [place], [address] Sodium [Moles/Vol] 137 mmol/L Normal 136-145 [facility] Comment on above: Performed By: #### L 500.4050, L101.9900 ####[facility] [address] [place], [address] T PROT 7.8 g/dL Normal 6.4-8.2 [facility] Comment on above: Performed By: #### L 500.4050, L101.9900 ####[facility] [address] [place], [address] Urea nitrogen [Mass/Vol] 22 mg/dL High 7-18 [facility] Comment on above: Performed By: #### L 500.4050, L101.9900 ####[facility] [address] [place], [address] Erythrocyte Sed Rateon 11-02 SED RATE 24 mm/hr Normal 0-30 [facility] Comment on above: Performed By: #### L 500.4050, L101.9900 ####[facility] [address] [place], [address] Erythrocyte sedimentation ra teOrdered By: Cristian Hopper on 11-02-2024 ESR (Bld) [Velocity] 24 mm/h 0-30 [facility] Estimated glomerular filtrat ion rate (GFR) AmericanOrdered By: Cristian Hopper on 11-02-2024 Estimated GFR (MDRD) Amer 99 mL/min >60 [facility] Comment on above: GFR Calc Glomerular filtration rate ( GFR) estimationOrdered By: Cristian Hopper on 11-02-2024 Estimated GFR (MDRD) Non-Af Amer 82 mL/min >60 [facility] Comment on above: Non- GFR Calc GFR/1.73 sq M.predicted among non-blacks MDRD (S/P/Bld) [Vol rate/Area] 82 mL/min/{1.73_m2} >60 [facility] Comment on above: Non- GFR Calc Glucose measurementOrdered B y: Cristian Hopper on 11-02-2024 Glucose [Mass/Vol] 99 mg/dL 74-106 [facility] Laboratory - Chemistry and C hemistry - challengeOrdered By: Cristian Hopper on 11-02-2024 AST [Catalytic activity/Vol] 17 U/L 15-37 [facility] Potassium measurementOrdered By: Cristian Hopper on 11-02-2024 Potassium [Moles/Vol] 4.2 mmol/L 3.5-5.1 [facility] Serum anion gap measurementO rdered By: Cristian Hopper on 11-02-2024 Anion gap [Moles/Vol] 4 mmol/L Low 5-15 [facility] Serum globulin measurementOr dered By: Cristian Hopper on 11-02-2024 Globulin (S) [Mass/Vol] 4.4 g/dL High 2.2-4.2 [facility] Serum or plasma alanine garibay otransferase (ALT) measurementOrdered By: Cristian Hopper on 11-02-2024 ALT [Catalytic activity/Vol] 23 U/L 13-56 [facility] Serum or plasma albumin riri urement (mass/volume)Ordered By: Cristian Hopper on 11-02-2024 Albumin [Mass/Vol] 3.4 g/dL 3.2-5.0 [facility] Serum or plasma alkaline mary sphatase measurementOrdered By: Cristian Hopper on 11-02-2024 ALP [Catalytic activity/Vol] 68 U/L 45-117 [facility] Serum or plasma calcium riri urement (mass/volume)Ordered By: Cristian Hopper on 11-02-2024 Calcium [Mass/Vol] 9.3 mg/dL 8.5-10.1 [facility] Serum or plasma creatinine m easurement (mass/volume)Ordered By: Cristian Hopper on 11-02-2024 Creatinine [Mass/Vol] 0.75 mg/dL 0.55-1.02 [facility] Comment on above: The validity of the calculated GFR & GFRAA in patients over 70 years has not been determined. Clinical correlation is essential. Serum or plasma urea nitroge n measurement (mass/volume)Ordered By: Cristian Eva on 11-02-2024 Urea nitrogen [Mass/Vol] 22 mg/dL High 7-18 [facility] Sodium levelOrdered By: Kip caal Hopper on 11-02-2024 Sodium [Moles/Vol] 137 mmol/L 136-145 [facility] Total proteinOrdered By: Kvng raymundo Hopper on 11-02-2024 Protein [Mass/Vol] 7.8 g/dL 6.4-8.2 [facility] ALLIED HEALTHon 10-08-2024 ALLIED HEALTH HNO ID: [id number] Author: BRUCE FERNANDEZ MRI Tech Service: Radiology Author Type: Lift Truck Mechanic Type: Allied Health Filed: 10/08/2024 08:45 Note Text: Radiology Service Progress Note PATIENT NAME: Jacqueline Bryson DATE OF SERVICE: October 08, 2024 TIME: 8:44 AM PATIENT IDENTITY VERIFICATION COMPLETED USING TWO (2) IDENTIFIERS: Name and Date of confirmed by patient verbally and Name and Date of confirmed by identification band. FALL SCREENING: Has the patient had 2 falls in the last year or 1 fall with injury or currently using an Ambulatory Assistive Device (Walker, Cane, Wheelchair, Crutches, etc.)? Inpatient: Screened on floor PATIENT GENDER DATA: Assigned female at . status: : No status: NO. PATIENT RELEVANT IMPLANT DATA REVIEWED: Yes PATIENT PRESENTS WITH AN IMPLANTABLE OR ATTACHED UNDERGROUND HEAVY EQUIPMENT OPERATOR: No RADIOLOGY DEPARTMENT: MR; Exam(s) Completed: Head: Routine Brain PERIPHERAL IV DATA: Not applicable SIGNED BY: DEBORAH Davis October 08, 2024 8:[address] [facility] CASE MANAGEMon 10-08-2024 CASE MANAGEM HNO ID: [id number] Author: LIYAH VALDES LSW Service: ASSESSMENT Author Type: Aerosol Line Operator Type: Care Mgt Progress Note Filed: 10/08/2024 15:40 Note Text: CARE MANAGEMENT DISCHARGE NOTE SERVICE DATE: October 08, 2024 SERVICE TIME: 3:39 PM Admission Date: 10/06/2024 LOS: 2 days Discharge Arrangement Services Arranged Provider Name: NA Phone: NA Caregiver Assessment Transportation Arrangements Transportation Arrangements: Car Date of Trip: 10/08/24 Time of Trip: 1630 Destination: Home Handoff Communication: Handoff to: Primary Care Physician Primary Care Physician Name/Phone: Dr. Cristian Hopper Additional Information: CM notified regarding d/c today, home. No additional services noted. Family transported pt home. CM will follow, as needed, SIGNATURE: VIPUL Peck ACM PATIENT NAME: Jacqueline Bryson DATE: October 08, 2024 TIME: 3:39 PM Normal [facility] CBC panel Auto (Bld)on 10-08 Erythrocyte distribution width (RBC) [Ratio] 12.8 % Normal 11.5-15.0 [facility] Comment on above: Order Comment: Diego ortiz Type: BLOOD SPECIMENOrdering Facility: [facility] Address: [address] [place] [address] Performed By: #### 5 8410-2 ####[facility]ATORYCLIA [id number] [address] [place] Hematocrit (Bld) [Volume fraction] 32.4 % Low 36.0-46.0 [facility] Comment on above: Order Comment: Diego ortiz Type: BLOOD SPECIMENOrdering Facility: [facility] Address: [address] [place] [address] Performed By: #### 5 8410-2 ####[facility] LABORATORYCLIA [id number] [place] [address] [place] Hemoglobin (Bld) [Mass/Vol] 10.8 g/dL Low 11.5-15.5 [facility] Comment on above: Order Comment: Diego ortiz Type: BLOOD SPECIMENOrdering Facility: [facility] Address: [address] [place] [address] Performed By: #### 5 8410-2 ####[facility] LABORATORYCLIA [id number] [place] [address] [place] MCH (RBC) [Entitic mass] 30.3 pg Normal 26.0-34.0 [facility] Comment on above: Order Comment: Speci men Type: BLOOD SPECIMENOrdering Facility: [facility] Address: [address] [place] [address] Performed By: #### 5 8410-2 ####[facility] LABORATORYCLIA [id number] [address] [place] MCHC (RBC) [Mass/Vol] 33.3 g/dL Normal 30.5-36.0 [facility] Comment on above: Order Comment: Speci men Type: BLOOD SPECIMENOrdering Facility: [facility] Address: [address] [place] [address] Performed By: #### 5 8410-2 ####[facility] LABORATORYCLIA [id number] [address] [place] MCV (RBC) [Entitic vol] 91.0 fL Normal 80.0-100.0 [facility] Comment on above: Order Comment: Speci men Type: BLOOD SPECIMENOrdering Facility: [facility] Address: [address] [place] [address] Performed By: #### 5 8410-2 ####[facility] LABORATORYCLIA [id number] [place] [address] [place] Nucleated RBC (Bld) [#/Vol] 10*3/uL Normal <0.01 [facility] Comment on above: Order Comment: Speci men Type: BLOOD SPECIMENOrdering Facility: [facility] Address: [address] [place] [address] Performed By: #### 5 8410-2 ####[facility] LABORATORYCLIA [id number] [address] [place] Platelet mean volume (Bld) [Entitic vol] 9.8 fL Normal 9.0-12.7 [facility] Comment on above: Order Comment: Speci men Type: BLOOD SPECIMENOrdering Facility: [facility] Address: [address] [place] [address] Performed By: #### 5 8410-2 ####[facility] LABORATORYCLIA [id number] [place] [address] [facility] [place] Platelets (Bld) [#/Vol] 232 10*3/uL Normal 150-400 [facility] Comment on above: Order Comment: Speci men Type: BLOOD SPECIMENOrdering Facility: [facility] Address: [address] [place], [place] [address] Performed By: #### 5 8410-2 ####[facility] LABORATORYCLIA [id number] [address] OF [facility] RBC (Bld) [#/Vol] 3.56 10*6/uL Low 3.90-5.20 [facility] Comment on above: Order Comment: Speci men Type: BLOOD SPECIMENOrdering Facility: [facility] Address: [address] [place], [place] [address] Performed By: #### 5 8410-2 ####[facility] LABORATORYCLIA [id number] [address] WBC (Bld) [#/Vol] 6.68 10*3/uL Normal 3.70-11.00 [facility] Comment on above: Order Comment: Speci men Type: BLOOD SPECIMENOrdering Facility: [facility] Address: [address] [place] [address] Performed By: #### 5 8410-2 ####[facility] LABORATORYCLIA [id number] [address] CNCOon 10-08-2024 CNCO Letter Text Normal [facility] CNDSon 10-08-2024 CNDS HNO ID: [id number] Author: CRISTIAN HOPPER MD Service: Family Practice Author Type: Physician Type: Discharge Summary Filed: 10/11/2024 08:27 Note Text: DISCHARGE SUMMARY PATIENT NAME: Jacqueline Bryson Code Status: Not on file Highest Readmission Risk Score: 12 The 30 day readmissions risk score is derived from an internally validated risk model which evaluates patient level characteristics, utilization history, medication orders and lab results up until the day of discharge. Patients with a score of 40 or above are considered highest risk for readmission. Specific patient level drivers will be listed at the bottom of the summary. Admission Information Admission Information ADMIT DATE: 10/06/2024 DISCHARGE DATE: 10/08/2024 MY DOCTORS AND MEDICAL TEAM: My Main Hospital Doctor: Cristian Hopper MD Primary Care Provider: Cristian Hopper MD My Medical Team Members: Treatment Team: Attending Provider: Cristian Hopper MD MY CONDITION AT DISCHARGE: Stable REASON I WAS IN THE HOSPITAL: high blood pressure SUMMARY OF WHAT HAPPENED WHILE I WAS IN THE HOSPITAL: you were seen in the ER for high blood pressure and headache. ER work-up did not find an abnormality but wanted you admitted for further evaluation. MRI was negative and you were cleared by neurology. 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 * OPERATIONS PERFORMED WHILE IN THE HOSPITAL: None IMPORTANT TEST/PROCEDURES: No procedures performed TEST RESULTS NOT AVAILABLE AT THIS TIME: No pending results Discharge Disposition Discharge Disposition: Home With Self Care Activity When You Leave the Hospital Resume pre-hospital activity Diet Instructions Resume your pre-hospital diet Call Your Doctor If Your temperature is greater than 101F Follow Up Appointments Follow-Up Appointment When: In 1 week Patient/Parents to call for appointment?: Yes Cristian Hopper MD [phone] [facility] [address] [place] [phone] PCP Requested Referral GENERAL: alert, no distress, cooperative SKIN: No rashes or lesions. OROPHARYNX: Oropharynx normal. NECK: no jugulovenous distention, supple LUNGS: Lungs clear to auscultation. CARDIAC: normal S1 and S2; no rubs, murmurs, or gallops ABDOMEN: Abdomen soft, non-tender. BS normal. No masses or organomegaly. EXTREMETIES: No deformities, cyanosis, edema, clubbing or skin discoloration. NEURO: Alert, oriented X 3, Gait normal. Motor and Sensation grossly intact., FOLLOW-UP APPOINTMENTS ALREADY SCHEDULED WITH [facility]: No future appointments. ALLERGIES Allergen Reactions Augmentin [Amoxicil* GI Upset Seasonal Allergies Other: See Comments Cold like symptoms DISCHARGE MEDICATION: Medication List CONTINUE taking these medications acetaminophen 325 mg tablet Commonly known as: TYLENOL Take 2 tablets by mouth every 6 hours as needed for pain. FLUoxetine 10 mg capsule Commonly known as: PROzac levothyroxine 112 mcg Cap lisinopril 10 mg tablet Commonly known as: ZESTRIL meloxicam 15 mg tablet Commonly known as: MOBIC metoprolol succinate ER 25 mg 24 hr tablet Commonly known as: TOPROL XL pantoprazole DR 40 mg tablet Commonly known as: PROTONIX Take 1 tablet by mouth twice daily before meals (0600/1600). sucralfate 1 gram tablet Commonly known as: CARAFATE Take 1 tablet by mouth twice daily before meals. triamcinolone acetonide 0.1 % cream Commonly known as: KeNALog Apply 1 application to affected area once daily. Additional Information Additional Health Information I Need to Know After I Leave the Hospital No additional instructions. The patient's risk for 30-day readmission is determined using the following contributing factors: Pt variables contributing to increased readmission risk: 17 Most Recent BUN Result 9.2 First Resulted Calcium During Admission 1 Previous ED Visit (6 mos.)? 1 Number of Previous ED Visits (6 mos.) 1 Insurance - Private Coverage 1 Discharge Disposition - Home Plan of care discussed with Provider, RN, Patient I have performed the iubh-hy-eayd and relevant services for a total of < 30 minutes. SIGNATURE: Cristian Hopper MD DATE: October 11, 2024 TIME: 8:27 AM Normal [facility] Comprehensive metabolic 2000 panelon 10-08-2024 Albumin [Mass/Vol] 3.4 g/dL Low 3.9-4.9 [facility] Comment on above: Order Comment: Speci angel Type: BLOOD SPECIMENOrdering Facility: [facility] Address: [address] [place] [address] Performed By: #### 2 4323-8 ####[facility] BE[facility] LABORATORYCLIA [id number] [address] STATES OF [facility] ALP [Catalytic activity/Vol] 65 U/L Normal 34-123 [facility] Comment on above: Order Comment: Speci men Type: BLOOD SPECIMENOrdering Facility: [facility] Address: [address] [place] [address] Performed By: #### 2 4323-8 ####[facility] BE[facility] LABORATORYCLIA [id number] [address] OF [facility] ALT [Catalytic activity/Vol] 15 U/L Normal 7-38 [facility] Comment on above: Order Comment: Harjeeti men Type: BLOOD SPECIMENOrdering Facility: [facility] Address: [address] [place] [address] Performed By: #### 2 4323-8 ####[facility] LABORATORYCLIA [id number] [place] [address] [place] Anion gap [Moles/Vol] 8 mmol/L Normal 8-15 [facility] Comment on above: Order Comment: Speci men Type: BLOOD SPECIMENOrdering Facility: [facility] Address: [address] [place] [address] Performed By: #### 2 4323-8 ####GU[facility]AN LABORATORYCLIA [id number] [place] [address] [place] AST [Catalytic activity/Vol] 20 U/L Normal 13-35 [facility] Comment on above: Order Comment: Speci men Type: BLOOD SPECIMENOrdering Facility: [facility] Address: [address] [place] [address] Performed By: #### 2 4323-8 ####GU[facility]AN LABORATORYCLIA [id number] [place] [address] [place] Bilirubin [Mass/Vol] 0.4 mg/dL Normal 0.2-1.3 [facility] Comment on above: Order Comment: Speci men Type: BLOOD SPECIMENOrdering Facility: [facility] Address: [address] [place] [address] Performed By: #### 2 4323-8 ####GU[facility]AN LABORATORYCLIA [id number] [address] STATES [place] Calcium [Mass/Vol] 8.8 mg/dL Normal 8.5-10.2 [facility] Comment on above: Order Comment: Speci men Type: BLOOD SPECIMENOrdering Facility: [facility] Address: [address] [place] [address] Performed By: #### 2 4323-8 ####GUAMAN LABORATORYCLIA [id number] [place] [address] [place] Chloride [Moles/Vol] 105 mmol/L Normal 98-107 [facility] Comment on above: Order Comment: Speci men Type: BLOOD SPECIMENOrdering Facility: [facility] Address: [address] [place] [address] Performed By: #### 2 4323-8 ####GU[facility]AN LABORATORYCLIA [id number] [address] STATES [place] CO2 [Moles/Vol] 28 mmol/L Normal 22-30 [facility] Comment on above: Order Comment: Harjeeti men Type: BLOOD SPECIMENOrdering Facility: [facility] Address: [address] [place] [address] Performed By: #### 2 4323-8 ####GU[facility] LABORATORYCLIA [id number] [address] Creatinine [Mass/Vol] 0.57 mg/dL Low 0.58-0.96 [facility] Comment on above: Order Comment: Harjeeti men Type: BLOOD SPECIMENOrdering Facility: [facility] Address: [address] [place] [address] Performed By: #### 2 4323-8 ####GU[facility] LABORATORYCLIA [id number] [address] Creatinine and Glomerular filtration rate.predicted panel (S/P/Bld) 102 mL/min/1.73m??? Normal >=60 [facility] Comment on above: Order Comment: Speci men Type: BLOOD SPECIMENOrdering Facility: [facility] Address: [address] [place] [address] Result Comment: Lydia mated Glomerular Filtration Rate (eGFR) is calculated using the 2020 CKD-EPI creatinine equation. This equation utilizes serum creatinine, sex, and age as parameters. The creatinine assay has traceable calibration to isotope dilution-mass spectrometry. Refer to KDIGO guidelines for clinical interpretation. In patients with unstable renal function, e.g. those with acute kidney injury, the eGFR may not accurately reflect actual GFR. Performed By: #### 2 4323-8 ####GU[facility]AN LABORATORYCLIA [id number] [address] STATES OF [facility] Glucose [Mass/Vol] 105 mg/dL High 74-99 [facility] Comment on above: Order Comment: Diego angel Type: BLOOD SPECIMENOrdering Facility: [facility] Address: [address] [place] [address] Result Comment: The [place] Diabetes Association (ADA) provides guidance for cutoff values for fasting glucose and random glucose. The ADA defines fasting as no caloric intake for at least 8 hours. Fasting plasma glucose results between 100 to 125 mg/dL indicate increased risk for diabetes (prediabetes). Fasting plasma glucose results greater than or equal to 126 mg/dL meet the criteria for diagnosis of diabetes. In the absence of unequivocal hyperglycemia, results should be confirmed by repeat testing. In a patient with classic symptoms of hyperglycemia or hyperglycemic crisis, random plasma glucose results greater than or equal to 200 mg/dL meet the criteria for diagnosis of diabetes. Reference: Standards of Medical Care in Diabetes 2016, [place] Diabetes Association. Diabetes Care. 2016.39(Suppl 1). Performed By: #### 2 4323-8 ####GUAMAN LABORATORYCLIA [id number] [place] [address] [place] Potassium [Moles/Vol] 3.3 mmol/L Low 3.7-5.1 [facility] Comment on above: Order Comment: Speci men Type: BLOOD SPECIMENOrdering Facility: [facility] Address: [address] [place] [address] Performed By: #### 2 4323-8 ####GUAMAN LABORATORYCLIA [id number] [place] [address] [place] Protein [Mass/Vol] 6.5 g/dL Normal 6.3-8.0 [facility] Comment on above: Order Comment: Speci men Type: BLOOD SPECIMENOrdering Facility: [facility] Address: [address] [place] [address] Performed By: #### 2 4323-8 ####GUAMAN LABORATORYCLIA [id number] [place] [address] [place] Sodium [Moles/Vol] 141 mmol/L Normal 136-144 [facility] Comment on above: Order Comment: Speci men Type: BLOOD SPECIMENOrdering Facility: [facility] Address: [address] [place] [address] Performed By: #### 2 4323-8 ####GUAMAN LABORATORYCLIA [id number] [place] [address] [place] Urea nitrogen [Mass/Vol] 17 mg/dL Normal 7-21 [facility] Comment on above: Order Comment: Speci men Type: BLOOD SPECIMENOrdering Facility: [facility] Address: [address] [place] [address] Performed By: #### 2 4323-8 ####GUAMAN LABORATORYCLIA [id number] [place] [address] [place] MRI BRAIN WO IVCONon 025 MRI BRAIN WO IVCON * * *Final Report* * * DATE OF EXAM: Oct 08 2024 8:52AM [facility] 0294 - MRI BRAIN WO IVCON / PROCEDURE REASON: Headache, papilledema * * * * Physician Interpretation * * * * EXAMINATION: MRI BRAIN WO IVCON CLINICAL HISTORY: Headache, papilledema TECHNIQUE: Routine noncontrast MRI protocol including diffusion images. MQ: [id number] COMPARISON: CT brain and CTA head neck of the previous day. RESULT: Acute Change: There is no evidence of restricted diffusion to suggest an acute infarct. Hemorrhage: No evidence of prior parenchymal hemorrhage on the susceptibility weighted images. Mass Lesion/ Mass Effect: No evidence of an intracranial mass or extra-axial fluid collection. No significant mass effect. Chronic Change: Scattered patchy areas of increased T2 and FLAIR signal are present in the supratentorial white matter which is a nonspecific finding but likely represents mild chronic microvascular ischemia. Parenchyma: No significant volume loss for age. The brain parenchyma is otherwise within normal limits of signal intensity and morphology. Ventricles: Normal caliber and morphology. Skull Base: Hypothalamic and pituitary region are grossly normal. Craniocervical junction is normal. No significant marrow replacement process. Vasculature: Major intracranial arterial structures, and dural venous sinuses show typical flow void, suggesting patency by spin echo criteria. Other: The visualized paranasal sinuses and mastoid air cells are clear. The orbits and extracranial soft tissues are unremarkable. IMPRESSION: No evidence of an acute intracranial process. Patchy white matter disease most likely chronic microvascular ischemic change. Communications Director: PSCB Transcribe Date/Time: Oct 08 2024 8:57A Dictated by : SEEMA DICKERSON MD This examination was interpreted and the report reviewed and electronically signed by: SEEMA DICKERSON MD on Oct 08 2024 8:58AM EST [id number] [facility] HEALTH 10-07-2024 [facility] HNO ID: [id number] Author: BRUCE FERNANDEZ MRI Tech Service: Radiology Author Type: Lift Truck Mechanic Type: Allied Health Filed: 10/07/2024 18:01 Note Text: RADIOLOGY SERVICE PROGRESS NOTE DATE OF SERVICE: October 07, 2024 TIME OF SERVICE: 1800 EVENT: EXAM/PROCEDURE NOT COMPLETED - Exam rescheduled for 10-08-24. ADDITIONAL EVENT DETAILS: no staff available per floor nurse crissy SIGNATURE: Bruce ErickDEBORAH PATIENT NAME: Jacqueline Bryson DATE: October 07, 2024 TIME: 6:00 PM PAGER/CONTACT #: [facility] CASE MGT INIT ASSESon 2024 CASE MGT INIT ASSES HNO ID: [id number] Author: MISSY ALBRECHT LSW Service: ASSESSMENT Author Type: Aerosol Line Operator Type: Care Mgt Initial Assessment Filed: 10/07/2024 12:54 Note Text: CARE MANAGEMENT: ASSESSMENT AND DISCHARGE PLAN SERVICE DATE: October 07, 2024 SERVICE TIME: 12:53 PM PCP: Cristian Hopper MD-verified Primary Contact: Extended Emergency Contact Information Primary Emergency Contact: Kenyetta Fernandez Clyde Relation: Sibling Secondary Emergency Contact: Aleyda Bryson [employer] Relation: Daughter Admission Status: Inpatient Insurance Provider: [facility] Discharge Planning requested by: Per Department Practice Potential Transition Plans Home;To Be Determined Advance Directives Current Advance Directive: None Party Plan Salesperson Attempted to Assist with AD Completion: Yes Action: Education Provided Current Living Arrangements and Support Lives with: Alone Type of Residence: Private Residence (House) Does the patient have to climb stairs at home?: Yes;stairs outside the home;stairs within the home Support: Family members How do you manage to accomplish the following: Independent: Ambulation;Bathe/Shower ;Dress;Meals/Meal Prep;Going to the bathroom;Medication Management;Transportati on to appointments/community Current Services/Equipment Current Post-Acute Service(s): None Discharge Planning Patient Goal(s): Be able to go home, Independent living, General wellness [place] of Choice Explained: [place] of [place] Given: No Reason Not Given: No placements necessary Are you interested in bedside delivery of your medications? No Discharge Planning Participant(s): Patient Patient/Family Comments: Pt. would like to return to her own home upon discharge Caregiver Assessment: Caregiver is ready, willing and able to meet the patient's needs as recommended by the inter-professional team: No Caregiver needed Transport at Discharge: Transportation Arrangements: To Be Determined Needs Prior to Discharge: Needs Prior to Discharge: To Be Determined Post-Acute Discharge Plan: SW reviewed EMR and met w/pt. Bedside to complete an assessment. Pt. Has been admitted with HTN and Headache. Neuro is on consult, MRI of the brain has been ordered. Pt. remains on RA. Pt. Is from home alone and does not require DME for ambulation. When medically ready for discharge, friend/family to transport home. SIGNATURE: Missy Albrecht CLOTH MERCERIZING SUPERVISOR, A R COLLECTIONS REP PATIENT NAME: Jacqueline Bryson DATE: October 07, 2024 TIME: 12:53 PM Normal [facility] CBC panel Auto (Bld)on 10-07 Erythrocyte distribution width (RBC) [Ratio] 12.7 % Normal 11.5-15.0 [facility] Comment on above: Order Comment: Diego ortiz Type: BLOOD SPECIMENOrdering Facility: [facility] Address: [address] [place] [address] Performed By: #### 5 8410-2 ####GUAMAN LABORATORYCLIA [id number] [place] [address] [place] Hematocrit (Bld) [Volume fraction] 32.7 % Low 36.0-46.0 [facility] Comment on above: Order Comment: Diego ortiz Type: BLOOD SPECIMENOrdering Facility: [facility] Address: [address] [place] [address] Performed By: #### 5 8410-2 ####GU[facility]AN LABORATORYCLIA [id number] [place] [address] [place] Hemoglobin (Bld) [Mass/Vol] 10.5 g/dL Low 11.5-15.5 [facility] Comment on above: Order Comment: Diego ortiz Type: BLOOD SPECIMENOrdering Facility: [facility] Address: [address] [place] [address] Performed By: #### 5 8410-2 ####GU[facility] LABORATORYCLIA [id number] [address] MCH (RBC) [Entitic mass] 29.9 pg Normal 26.0-34.0 [facility] Comment on above: Order Comment: Speci men Type: BLOOD SPECIMENOrdering Facility: [facility] Address: [address] [place] [address] Performed By: #### 5 8410-2 ####GU[facility]AN LABORATORYCLIA [id number] [address] STATES OF [place] MCHC (RBC) [Mass/Vol] 32.1 g/dL Normal 30.5-36.0 [facility] Comment on above: Order Comment: Speci men Type: BLOOD SPECIMENOrdering Facility: [facility] Address: [address] [place] [address] Performed By: #### 5 8410-2 ####[facility] BE[facility] LABORATORYCLIA [id number] [address] [place] MCV (RBC) [Entitic vol] 93.2 fL Normal 80.0-100.0 [facility] Comment on above: Order Comment: Speci men Type: BLOOD SPECIMENOrdering Facility: [facility] Address: [address] [place] [address] Performed By: #### 5 8410-2 ####GU[facility] LABORATORYCLIA [id number] [address] Nucleated RBC (Bld) [#/Vol] 10*3/uL Normal <0.01 [facility] Comment on above: Order Comment: Speci men Type: BLOOD SPECIMENOrdering Facility: [facility] Address: [address] [place] [address] Performed By: #### 5 8410-2 ####GU[facility] LABORATORYCLIA [id number] [address] [place] Platelet mean volume (Bld) [Entitic vol] 9.8 fL Normal 9.0-12.7 [facility] Comment on above: Order Comment: Speci men Type: BLOOD SPECIMENOrdering Facility: [facility] Address: [address] [place] [address] Performed By: #### 5 8410-2 ####GU[facility] LABORATORYCLIA [id number] [address] OF [place] Platelets (Bld) [#/Vol] 199 10*3/uL Normal 150-400 [facility] Comment on above: Order Comment: Speci men Type: BLOOD SPECIMENOrdering Facility: [facility] Address: [address] [place] [address] Performed By: #### 5 8410-2 ####[facility] LABORATORYCLIA [id number] [address] OF [place] RBC (Bld) [#/Vol] 3.51 10*6/uL Low 3.90-5.20 [facility] Comment on above: Order Comment: Speci men Type: BLOOD SPECIMENOrdering Facility: [facility] Address: [address] [place] [address] Performed By: #### 5 8410-2 ####[facility] LABORATORYCLIA [id number] [address] OF [facility] WBC (Bld) [#/Vol] 4.96 10*3/uL Normal 3.70-11.00 [facility] Comment on above: Order Comment: Speci men Type: BLOOD SPECIMENOrdering Facility: [facility] Address: [address] [place] [address] Performed By: #### 5 8410-2 ####GU[facility] LABORATORYCLIA [id number] [address] CONSULTon 10-07-2024 CONSULT HNO ID: [id number] Author: GARIMA PERAZA MD, PhD Service: Neurology General Author Type: Physician Type: Consults Filed: 10/07/2024 10:31 Note Text: TELENEUROLOGY VISIT - New Consultation Name and :Jacqueline Bryson 1960 Patient consented to teleneurology visit on order for consult. New Patient: I'm a licensed provider in the state of [place]. I want to confirm your location in [place]. Virtual visits are a convenient way for us to meet for the first time, but there are some situations in which an in-person evaluation may be required at a later time. I want to check in to confirm your consent to be seen virtually today. The Teleneurologist or MAURA is available from 8 am to 5 pm on WEEKDAYS. During weekends, coverage is only during rounding hours. Rounding hours are: [place]: 1 pm to 5 pm [place]: 8 am to 12 pm [place]: 8 am to 12 pm [place]: 1 pm to 3 pm [place]: 1 pm to 5 pm [place]: 1 pm to 5 pm [facility]: 3 pm to 5 pm Statutory holidays do not have teleneuro coverage. [facility]/[place]: During Off hours for Teleneurology please page (not call) [place] [facility] [phone] internal medicine nurse practitioner for concerns. [place]: During Off hours for Teleneurology please page (not call) [place] [facility] [address] internal medicine nurse practitioner for concerns. [facility]: There is no off-hours coverage for Teleneurology. Name: Jacqueline Bryson Age: [age] year old Gender: female Chief Complaint:Headache (Intermittent h/a x 3 weeks, more persistent over last two days.) and Hypertension (Elevated HR at home) Admission Date: 10/06/2024 Consult Requested By: Cristian Hopper MD, for headache and HTN urgency, recommendations will be communicated by shared medical record. HPI: Jacqueline is a 64 year old right handed female with Past Medical History of HTN presenting with 2 weeks. She thought she had sinus headaches and was taking sudafed. She complains of frontal headaches. She felt hot and cold on her head and some hatchet vision and hatchet pain in her teeth. Worse with head movement, no sensitivity to light or sound. No neck pain. No history of migraine, cluster headache. Has occasional headache and sinus headaches but no long-term chronic headaches. She does not check blood pressure at home but presented with severe HTN. Toradol and metoclopramide helped No other incurrent illness. Review of Systems Review of systems as indicated in HPI. All other systems negative. Has some problem sleeping due to waking up with headache. some pain in left side base of ribs . ACTIVE PROBLEM LIST Dysphagia, Unspecified(967.20) Vocal Cord Paralysis Thyroid Mass Hyperopia Posterior Vitreous Detachment of Left Eye Upper GI Bleed Epigastric Pain Hypothyroid Uncontrolled Hypertension PAST MEDICAL HISTORY Diagnosis Date Asthma Hyperopia Seasonal allergies Thyroid activity decreased Vocal cord paralysis Medications: Reviewed Current Facility-Administered Medications Medication Dose Route Frequency Provider Last Rate Last Admin NaCl 0.9% iv flush bag 20 mL INTRAVENOUS PRN Karol Wu, PRINTING ESTIMATOR.SENIOR BIOINFORMATICS SCIENTIST lisinopril 10 mg tab(s) (ZESTRIL) 10 mg ORAL DAILY Karol Wu, PRINTING ESTIMATOR.SENIOR BIOINFORMATICS SCIENTIST 10 mg at 10/07/24 0902 metoprolol succinate ER 25 mg tab(s) (TOPROL XL) 25 mg ORAL DAILY Karol Wu, PRINTING ESTIMATOR.SENIOR BIOINFORMATICS SCIENTIST 25 mg at 10/07/[address] 40 mg tab(s) (PROTONIX) 40 mg ORAL BID AC (599/1599) Karol Wu, PRINTING ESTIMATOR.SENIOR BIOINFORMATICS SCIENTIST 40 mg at 10/07/24 0610 sucralfate 1 g tab(s) (CARAFATE) 1 g ORAL BID AC Karol Wu, PRINTING ESTIMATOR.SENIOR BIOINFORMATICS SCIENTIST 1 g at 10/07/24 0610 FLUoxetine 10 mg cap(s) (PROzac) 10 mg ORAL DAILY Karol Wu, PRINTING ESTIMATOR.SENIOR BIOINFORMATICS SCIENTIST acetaminophen 650 mg tab(s) (TYLENOL) 650 mg ORAL q 4 H PRN Karol Wu, PRINTING ESTIMATOR.SENIOR BIOINFORMATICS SCIENTIST 650 mg at 10/07/24 0902 hydrALAZINE 10 mg injection (APRESOLINE) 10 mg INTRAVENOUS q 6 H PRN Karol Wu, PRINTING ESTIMATOR.SENIOR BIOINFORMATICS SCIENTIST levothyroxine 112 mcg tab(s) (SYNTHROID) 112 mcg ORAL BEFORE BREAKFAST DAILY Cristian Hopper MD 112 mcg at 10/07/24 0610 ALLERGIES Allergen Reactions Augmentin [Amoxicil* GI Upset Seasonal Allergies Other: See Comments Cold like symptoms FAMILY HISTORY Problem Relation Age of Onset Cataract Mother Breast Cancer Sister breast Cancer Sister heart PAST SURGICAL HISTORY Procedure Laterality Date CARPAL TUNNEL Bilateral SECTION HX 10/04/2000 COLONOSCOPY FLX DX W/COLLJ SPEC WHEN PFRMD 02/27/2019 Colonoscopy FOOT SURGERY HX 1976 x2 LARYNGOPLASTY MEDIALIZATION UNLIATERAL Right 08/2012 ROTATOR CUFF REPAIR 2005 THYROIDECTOMY TOTAL/COMPLETE Bilateral 07/2011 Tobacco Use: Medium Risk (07/10/2024) Patient History Smoking Tobacco Use: Former Smokeless Tobacco Use: Never Passive Exposure: Not on file Alcohol Use: Not on file PHYSICAL EXAM: Physical exam performed with telepresenter and observed and documented by clinician in this note BP 145/70 Pulse (!) 56 Temp 36.7 ?C (98.1 ?F) (Oral) Resp 17 Ht (more content not included)... Normal [facility] CRP SerPl-mCncon 10-07-2024 CRP [Mass/Vol] 0.6 mg/dL Normal <0.9 [facility] Comment on above: Order Comment: Speci men Type: BLOOD SPECIMEN Ordering Facility: [facility] Address: [address] [place] [address] Performed By: #### 1 988-5 #### [facility] CLIA [id number] [address] Comprehensive metabolic 2000 panelon 10-07-2024 Albumin [Mass/Vol] 3.5 g/dL Low 3.9-4.9 [facility] Comment on above: Order Comment: Speci men Type: BLOOD SPECIMEN Ordering Facility: [facility] Address: [address] [place] [address] Performed By: #### 2 4323-8 #### [facility] CLIA [id number] [address] ALP [Catalytic activity/Vol] 65 U/L Normal 34-123 [facility] Comment on above: Order Comment: Speci men Type: BLOOD SPECIMEN Ordering Facility: [facility] Address: [address] [place] [address] Performed By: #### 2 4323-8 #### [facility] CLIA [id number] [address] ALT [Catalytic activity/Vol] 15 U/L Normal 7-38 [facility] Comment on above: Order Comment: Speci men Type: BLOOD SPECIMEN Ordering Facility: [facility] Address: [address] [place] [address] Performed By: #### 2 4323-8 #### [facility] CLIA [id number] [address] Anion gap [Moles/Vol] 7 mmol/L Low 8-15 [facility] Comment on above: Order Comment: Speci men Type: BLOOD SPECIMEN Ordering Facility: [facility] Address: [address] [place] [address] Performed By: #### 2 4323-8 #### [facility] CLIA [id number] [address] [place] [address] [place] AST [Catalytic activity/Vol] 21 U/L Normal 13-35 [facility] Comment on above: Order Comment: Speci men Type: BLOOD SPECIMEN Ordering Facility: [facility] Address: [address] [place] [address] Performed By: #### 2 4323-8 #### [facility] CLIA [id number] [address] [place] [address] [place] Bilirubin [Mass/Vol] 0.4 mg/dL Normal 0.2-1.3 [facility] Comment on above: Order Comment: Speci men Type: BLOOD SPECIMEN Ordering Facility: [facility] Address: [address] [place] [address] Performed By: #### 2 4323-8 #### [facility] CLIA [id number] [address] [place] [address] [place] Calcium [Mass/Vol] 8.6 mg/dL Normal 8.5-10.2 [facility] Comment on above: Order Comment: Speci men Type: BLOOD SPECIMEN Ordering Facility: [facility] Address: [address] [place] [address] Performed By: #### 2 4323-8 #### [facility] CLIA [id number] [address] [place] [address] [place] Chloride [Moles/Vol] 105 mmol/L Normal 98-107 [facility] Comment on above: Order Comment: Speci men Type: BLOOD SPECIMEN Ordering Facility: [facility] Address: [address] [place] [address] Performed By: #### 2 4323-8 #### [facility] CLIA [id number] [address] [place] [address] [place] CO2 [Moles/Vol] 29 mmol/L Normal 22-30 [facility] Comment on above: Order Comment: Speci men Type: BLOOD SPECIMEN Ordering Facility: [facility] Address: [address] [place] [address] Performed By: #### 2 4323-8 #### [facility] CLIA [id number] [address] Creatinine [Mass/Vol] 0.61 mg/dL Normal 0.58-0.96 [facility] Comment on above: Order Comment: Diego ortiz Type: BLOOD SPECIMEN Ordering Facility: [facility] Address: [address] [place] [address] Performed By: #### 2 4323-8 #### [facility] CLIA [id number] [address] Creatinine and Glomerular filtration rate.predicted panel (S/P/Bld) 100 mL/min/1.73m??? Normal >=60 [facility] Comment on above: Order Comment: Diego ortiz Type: BLOOD SPECIMEN Ordering Facility: [facility] Address: [address] [place] [address] Result Comment: Lydia mated Glomerular Filtration Rate (eGFR) is calculated using the 2020 CKD-EPI creatinine equation. This equation utilizes serum creatinine, sex, and age as parameters. The creatinine assay has traceable calibration to isotope dilution-mass spectrometry. Refer to KDIGO guidelines for clinical interpretation. In patients with unstable renal function, e.g. those with acute kidney injury, the eGFR may not accurately reflect actual GFR. Performed By: #### 2 4323-8 #### [facility] CLIA [id number] [address] Glucose [Mass/Vol] 86 mg/dL Normal 74-99 [facility] Comment on above: Order Comment: Diego ortiz Type: BLOOD SPECIMEN Ordering Facility: [facility] Address: [address] [place] [address] Result Comment: The [place] Diabetes Association (ADA) provides guidance for cutoff values for fasting glucose and random glucose. The ADA defines fasting as no caloric intake for at least 8 hours. Fasting plasma glucose results between 100 to 125 mg/dL indicate increased risk for diabetes (prediabetes). Fasting plasma glucose results greater than or equal to 126 mg/dL meet the criteria for diagnosis of diabetes. In the absence of unequivocal hyperglycemia, results should be confirmed by repeat testing. In a patient with classic symptoms of hyperglycemia or hyperglycemic crisis, random plasma glucose results greater than or equal to 200 mg/dL meet the criteria for diagnosis of diabetes. Reference: Standards of Medical Care in Diabetes 2016, [place] Diabetes Association. Diabetes Care. 2016.39(Suppl 1). Performed By: #### 2 4323-8 #### [facility] CLIA [id number] [address] [place] Potassium [Moles/Vol] 3.8 mmol/L Normal 3.7-5.1 [facility] Comment on above: Order Comment: Diego ortiz Type: BLOOD SPECIMEN Ordering Facility: [facility] Address: [address] [place] [address] Performed By: #### 2 4323-8 #### [facility] CLIA [id number] [address] STATES OF [facility] Protein [Mass/Vol] 6.4 g/dL Normal 6.3-8.0 [facility] Comment on above: Order Comment: Diego ortiz Type: BLOOD SPECIMEN Ordering Facility: [facility] Address: [address] [place] [address] Performed By: #### 2 4323-8 #### [facility] CLIA [id number] [address] Sodium [Moles/Vol] 141 mmol/L Normal 136-144 [facility] Comment on above: Order Comment: Diego ortiz Type: BLOOD SPECIMEN Ordering Facility: [facility] Address: [address] [place] [address] Performed By: #### 2 4323-8 #### [facility] CLIA [id number] [address] [place] Urea nitrogen [Mass/Vol] 19 mg/dL Normal 7-21 [facility] Comment on above: Order Comment: Harjeeti angel Type: BLOOD SPECIMEN Ordering Facility: [facility] Address: [address] [place] [address] Performed By: #### 2 4323-8 #### [facility] CLIA [id number] [address] [place] [address] [place] ESR Westergren method (Bld) [Velocity]on 10-07-2024 ESR (Bld) [Velocity] 22 mm/h High 0-20 [facility] Comment on above: Order Comment: Speci men Type: BLOOD SPECIMENOrdering Facility: [facility] Address: [address] [facility] [place] [address] Performed By: #### 4 537-7 ####[facility] [id number] [id number] [address] [place] HISTORY PHYSICALon HISTORY PHYSICAL HNO ID: [id number] Author: CRISTIAN HOPPER MD Service: Family Practice Author Type: Physician Type: H&P Filed: 10/07/2024 07:50 Note Text: HISTORY AND PHYSICAL EXAMINATION - INTERNAL MEDICINE PATIENT NAME: Jacqueline Bryson SERVICE DATE: 10/07/2024 SERVICE TIME: 7:21 AM PRIMARY CARE PHYSICIAN: Cristian Hopper MD ASSESSMENT AND PLAN Principal Problem: Uncontrolled hypertension (POA: Yes) Assessment AND Plan: home meds, given clonidine in the ER Hydralazine prn Consult to teleneuro given facial numbness and MRI Resolved Problems: * No resolved hospital problems. * Exogenous Class 1 Obesity SUBJECTIVE CHIEF COMPLAINT: headache and high bp HISTORY OF PRESENT ILLNESS: Ms. Bryson is a 64 year old female who presents with headaches and high blood pressure. She states for the last 2 weeks she has felt like she has had increased headaches which is unusual for her. Yesterday she had left-sided facial numbness and frontal headache as well as occipital headache. She reports that [facility] and had her blood department and it was 170s systolic. She states she went home and took 2 of her lisinopril instead of 1 to see if that helped her pressure. Today her blood pressure remains elevated so she came to the emergency department as advised from the nurse triage line. She reports she has been on 10 mg of lisinopril for many years without needing titration. She used to take metoprolol after an episode for hyperthyroid induced tachycardic but was taken off when her thyroid stabilized. PAST MEDICAL HISTORY: PAST MEDICAL HISTORY Diagnosis Date Asthma Hyperopia Seasonal allergies Thyroid activity decreased Vocal cord paralysis PAST SURGICAL HISTORY: PAST SURGICAL HISTORY Procedure Laterality Date CARPAL TUNNEL Bilateral SECTION HX 10/04/2000 COLONOSCOPY FLX DX W/COLLJ SPEC WHEN PFRMD 02/27/2019 Colonoscopy FOOT SURGERY HX 1976 x2 LARYNGOPLASTY MEDIALIZATION UNLIATERAL Right 08/2012 ROTATOR CUFF REPAIR 2005 THYROIDECTOMY TOTAL/COMPLETE Bilateral 07/2011 FAMILY HISTORY: FAMILY HISTORY Problem Relation Age of Onset Cataract Mother Breast Cancer Sister breast Cancer Sister heart SOCIAL HISTORY: Social History Tobacco Use Smoking status: Former Current packs/day: 0.00 Average packs/day: 0.3 packs/day for 8.0 years (2.4 ttl pk-yrs) Types: Cigarettes Start date: 01/03/1985 Quit date: 01/03/1993 Years since quittin.7 Smokeless tobacco: Never Substance Use Topics Alcohol use: Yes Comment: occasionally MEDICATIONS: meloxicam (MOBIC) 15 mg tablet, Take 15 mg by mouth once daily., Disp: , Rfl: , 10/04/2024 levothyroxine 112 mcg cap, Take 112 mcg by mouth once daily., Disp: , Rfl: , 10/06/2024 acetaminophen (TYLENOL) 325 mg tablet, Take 2 tablets by mouth every 6 hours as needed for pain., Disp: , Rfl: , Past Week sucralfate (CARAFATE) 1 gram tablet, Take 1 tablet by mouth twice daily before meals., Disp: 60 tablet, Rfl: 2, 10/04/2024 lisinopril (ZESTRIL, PRINIVIL) 10 mg tablet, Take 10 mg by mouth once daily., Disp: , Rfl: , 10/05/2024 triamcinolone acetonide (KENALOG) 0.1 % cream, Apply 1 application to affected area once daily., Disp: 15 g, Rfl: 0, Unknown pantoprazole DR (PROTONIX) 40 mg tablet, Take 1 tablet by mouth twice daily before meals (0600/1600)., Disp: 60 tablet, Rfl: 2 FLUoxetine (PROZAC) 10 mg capsule, Take 10 mg by mouth once daily., Disp: , Rfl: , Unknown metoprolol succinate ER (TOPROL XL) 25 mg 24 hr tablet, Take 25 mg by mouth once daily., Disp: , Rfl: , Unknown ALLERGIES: ALLERGIES Allergen Reactions Augmentin [Amoxicil* GI Upset Seasonal Allergies Other: See Comments Cold like symptoms COMPLETE REVIEW OF SYSTEMS: GENERAL: No weight loss, malaise or fevers HEENT:+headaches, No changes in hearing or vision, no nose bleeds or other nasal problems NECK: Negative for lumps, goiter, pain and significant neck swelling RESPIRATORY: Negative for cough, wheezing or shortness of breath. CARDIOVASCULAR: Negative for chest pain, leg swelling or palpitations. GI: Negative for abdominal discomfort, blood in stools or black stools or change in bowel habits : No history of dysuria, frequency or incontinence MUSCULOSKELETAL: Negative for joint pain or swelling, back pain or muscle pain. SKIN: Negative for lesions, rash, and itching. PSYCH: Negative for sleep disturbance, mood disorder and recent psychosocial stressors. HEMATOLOGY/LYMPHOLOGY Negative for prolonged bleeding, bruising easily or swollen nodes. ENDOCRINE: Negative for cold or heat intolerance, polyuria, polydipsia and goiter. NEURO: No history of headaches, syncope, paralysis, seizures or tremors + facial numbness. OBJECTIVE PHYSICAL EXAM: Patient Vitals for the past 24 hrs: BP Temp Temp src Pulse Resp SpO2 Height Weight 10/07/24 0712 145/70 36.7 ?C (98.1 ?F) Oral (!) 56 17 95 % -- -- 10/07/24 (more content not included)... [facility] 36on 10-06-2024 36 S-Pt left message wi th Telephone Agent that she has High BP and headache R-NO CONTACT X2 line busy Unsure who PCP is as not in our system Reason for Disposition Third attempt to contact caller AND no contact made. Phone number verified. Answer Assessment - Initial Assessment Questions . Protocols used: No Contact or Duplicate Contact Kkyy-ZZJDN-IE [facility] HEALTH 10-06-2024 ALLIED HEALTH HNO ID: [id number] Author: TORIBIO WOODRUFF RT(R) Service: Radiology Author Type: Technologist Type: Allied Health Filed: 10/06/2024 10:15 Note Text: Radiology Service Progress Note PATIENT NAME: Jacqueline Bryson DATE OF SERVICE: October 06, 2024 TIME: 10:15 AM PATIENT IDENTITY VERIFICATION COMPLETED USING TWO (2) IDENTIFIERS: Name and Date of confirmed by patient verbally. FALL SCREENING: Has the patient had 2 falls in the last year or 1 fall with injury or currently using an Ambulatory Assistive Device (Walker, Cane, Wheelchair, Crutches, etc.)? Emergency Room Patient: Screened in ED PATIENT GENDER DATA: Assigned female at . status: : No status: N/A PATIENT RELEVANT IMPLANT DATA REVIEWED: Not Applicable PATIENT PRESENTS WITH AN IMPLANTABLE OR ATTACHED UNDERGROUND HEAVY EQUIPMENT OPERATOR: No RADIOLOGY DEPARTMENT: General X-ray: Exam(s) Completed: Chest X-Ray PERIPHERAL IV DATA: Not applicable SIGNED BY: RT Mariangel(R) October 06, 2024 10:15 AM Normal [facility] CBC W Auto Differential pane l (Bld)on 10-06-2024 Basophils (Bld) [#/Vol] 0.04 10*3/uL Normal <0.11 [facility] Comment on above: Order Comment: Speci men Type: BLOOD SPECIMEN Ordering Facility: [facility] Address: [address] [place] [address] Performed By: #### 5 7021-8 #### [facility] CLIA [id number] [address] [place] [address] [place] Basophils/100 WBC (Bld) 0.7 % Normal [facility] Comment on above: Order Comment: Speci angel Type: BLOOD SPECIMEN Ordering Facility: [facility] Address: [address] [place] [address] Performed By: #### 5 7021-8 #### [facility] CLIA [id number] [address] [place] [address] [place] Differential cell count method Nom (Bld) Auto Normal [facility] Comment on above: Order Comment: Speci men Type: BLOOD SPECIMEN Ordering Facility: [facility] Address: [address] [place] [address] Performed By: #### 5 7021-8 #### [facility] CLIA [id number] [address] [place] [address] [place] Eosinophils (Bld) [#/Vol] 0.43 10*3/uL Normal <0.46 [facility] Comment on above: Order Comment: Speci men Type: BLOOD SPECIMEN Ordering Facility: [facility] Address: [address] [place] [address] Performed By: #### 5 7021-8 #### [facility] CLIA [id number] [address] [place] [address] [place] Eosinophils/100 WBC (Bld) 7.3 % Normal [facility] Comment on above: Order Comment: Speci men Type: BLOOD SPECIMEN Ordering Facility: [facility] Address: [address] [place] [address] Performed By: #### 5 7021-8 #### [facility] CLIA [id number] [address] [place] Erythrocyte distribution width (RBC) [Ratio] 12.6 % Normal 11.5-15.0 [facility] Comment on above: Order Comment: Speci men Type: BLOOD SPECIMEN Ordering Facility: [facility] Address: [address] [place] [address] Performed By: #### 5 7021-8 #### [facility] CLIA [id number] [address] [place] Hematocrit (Bld) [Volume fraction] 36.1 % Normal 36.0-46.0 [facility] Comment on above: Order Comment: Speci men Type: BLOOD SPECIMEN Ordering Facility: [facility] Address: [address] [place] [address] Performed By: #### 5 7021-8 #### [facility] CLIA [id number] [address] [place] Hemoglobin (Bld) [Mass/Vol] 11.8 g/dL Normal 11.5-15.5 [facility] Comment on above: Order Comment: Speci men Type: BLOOD SPECIMEN Ordering Facility: [facility] Address: [address] [place] [address] Performed By: #### 5 7021-8 #### [facility] CLIA [id number] [address] [place] Immature granulocytes (Bld) [#/Vol] 10*3/uL Normal <0.10 [facility] Comment on above: Order Comment: Speci men Type: BLOOD SPECIMEN Ordering Facility: [facility] Address: [address] [place] [address] Performed By: #### 5 7021-8 #### [facility] CLIA [id number] [address] Immature granulocytes/100 WBC (Bld) 0.2 % Normal [facility] Comment on above: Order Comment: Speci men Type: BLOOD SPECIMEN Ordering Facility: [facility] Address: [address] [place] [address] Performed By: #### 5 7021-8 #### [facility] CLIA [id number] [address] [place] [address] [place] Lymphocytes (Bld) [#/Vol] 1.56 10*3/uL Normal 1.00-4.00 [facility] Comment on above: Order Comment: Speci men Type: BLOOD SPECIMEN Ordering Facility: [facility] Address: [address] [place] [address] Performed By: #### 5 7021-8 #### [facility] CLIA [id number] [address] Lymphocytes/100 WBC (Bld) 26.4 % Normal [facility] Comment on above: Order Comment: Speci men Type: BLOOD SPECIMEN Ordering Facility: [facility] Address: [address] [place] [address] Performed By: #### 5 7021-8 #### [facility] CLIA [id number] [address] STATES [facility] MCH (RBC) [Entitic mass] 30.2 pg Normal 26.0-34.0 [facility] Comment on above: Order Comment: Speci men Type: BLOOD SPECIMEN Ordering Facility: [facility] Address: [address] [place] [address] Performed By: #### 5 7021-8 #### [facility] CLIA [id number] [address] [place] MCHC (RBC) [Mass/Vol] 32.7 g/dL Normal 30.5-36.0 [facility] Comment on above: Order Comment: Speci men Type: BLOOD SPECIMEN Ordering Facility: [facility] Address: [address] [place] [address] Performed By: #### 5 7021-8 #### [facility] CLIA [id number] [address] [place] [address] [place] MCV (RBC) [Entitic vol] 92.3 fL Normal 80.0-100.0 [facility] Comment on above: Order Comment: Speci men Type: BLOOD SPECIMEN Ordering Facility: [facility] Address: [address] [place] [address] Performed By: #### 5 7021-8 #### [facility] CLIA [id number] [address] [place] [address] [place] Monocytes (Bld) [#/Vol] 0.30 10*3/uL Normal <0.87 [facility] Comment on above: Order Comment: Speci men Type: BLOOD SPECIMEN Ordering Facility: [facility] Address: [address] [place] [address] Performed By: #### 5 7021-8 #### [facility] CLIA [id number] [address] Monocytes/100 WBC (Bld) 5.1 % Normal [facility] Comment on above: Order Comment: Speci men Type: BLOOD SPECIMEN Ordering Facility: [facility] Address: [address] [place] [address] Performed By: #### 5 7021-8 #### [facility] CLIA [id number] [address] [place] Neutrophils (Bld) [#/Vol] 3.58 10*3/uL Normal 1.45-7.50 [facility] Comment on above: Order Comment: Speci men Type: BLOOD SPECIMEN Ordering Facility: [facility] Address: [address] [place] [address] Performed By: #### 5 7021-8 #### [facility] CLIA [id number] [address] [place] Neutrophils/100 WBC (Bld) 60.3 % Normal [facility] Comment on above: Order Comment: Speci men Type: BLOOD SPECIMEN Ordering Facility: [facility] Address: [address] [place] [address] Performed By: #### 5 7021-8 #### [facility] CLIA [id number] [address] [place] Nucleated RBC (Bld) [#/Vol] 10*3/uL Normal <0.01 [facility] Comment on above: Order Comment: Speci men Type: BLOOD SPECIMEN Ordering Facility: [facility] Address: [address] [place] [address] Performed By: #### 5 7021-8 #### [facility] CLIA [id number] [address] [place] Nucleated RBC/100 WBC (Bld) [Ratio] 0.0 /100 WBC Normal [facility] Comment on above: Order Comment: Speci men Type: BLOOD SPECIMEN Ordering Facility: [facility] Address: [address] [place] [address] Performed By: #### 5 7021-8 #### [facility] CLIA [id number] [address] [place] Platelet mean volume (Bld) [Entitic vol] 9.3 fL Normal 9.0-12.7 [facility] Comment on above: Order Comment: Speci men Type: BLOOD SPECIMEN Ordering Facility: [facility] Address: [address] [place] [address] Performed By: #### 5 7021-8 #### [facility] CLIA [id number] [address] [place] Platelets (Bld) [#/Vol] 235 10*3/uL Normal 150-400 [facility] Comment on above: Order Comment: Speci men Type: BLOOD SPECIMEN Ordering Facility: [facility] Address: [address] [place] [address] Performed By: #### 5 7021-8 #### [facility] CLIA [id number] [address] [place] [address] [place] RBC (Bld) [#/Vol] 3.91 10*6/uL Normal 3.90-5.20 [facility] Comment on above: Order Comment: Speci men Type: BLOOD SPECIMEN Ordering Facility: [facility] Address: [facility] [place] [address] Performed By: #### 5 7021-8 #### [facility] CLIA [id number] [address] [place] [address] [place] WBC (Bld) [#/Vol] 5.92 10*3/uL Normal 3.70-11.00 [facility] Comment on above: Order Comment: Speci men Type: BLOOD SPECIMEN Ordering Facility: [facility] Address: [address] [place] [address] [place] [address] Performed By: #### 5 7021-8 #### [facility] CLIA [id number] [address] [place] [address] [place] [address] BRAIN WO IVCONon 10-06-19 CT BRAIN WO IVCON * * *Final Report* * * DATE OF EXAM: Oct 06 2024 10:58AM [facility] [place] 0504 - CT BRAIN WO IVCON / PROCEDURE REASON: Headache, sudden, severe * * * * Physician Interpretation * * * * EXAMINATION: CTA NECK W IVCON, CT BRAIN WO IVCON, CTA HEAD W IVCON HISTORY: Sudden headache. Intermittent headache for 3 weeks. TECHNIQUE: Routine CT of the brain without IV contrast. Next, high resolution axial images were obtained through the head, neck and superior mediastinum following bolus administration of intravenous contrast for CT angiography. 3D maximum intensity projection images were created, reviewed and archived . MQ: [id number] Contrast: 80 mL Omnipaque [address] Radiation dose: Integrated Dose-Length Product (DLP) for this visit = 1075 mGy*cm. CT Dose Reduction Employed: Automated exposure control(AEC) and iterative recon COMPARISON: None. RESULT: BRAIN: Acute change: No evidence of an acute infarct or other acute parenchymal process. ASPECT Score = 10 Hemorrhage: No evidence of acute intracranial hemorrhage. ECASS hemorrhagic transformation score: Not Applicable Mass Lesion / Mass Effect: There is no evidence of an intracranial mass or extra-axial fluid collection. No significant mass effect. Chronic change: Patchy foci of low attenuation coefficient are present within white matter which is a nonspecific finding but likely represents moderate microvascular ischemia. Parenchyma: There is no significant volume loss. The brain parenchyma is otherwise within normal limits for age. Ventricles: The ventricles are within normal limits of size and configuration for age. Other: The visualized paranasal sinuses are grossly clear. The skull and visualized extracranial soft tissues are grossly normal. NECK: Soft tissues: The soft tissue planes are maintained throughout. No evidence of a soft tissue mass in the neck or superior mediastinum. No significant lymphadenopathy is seen. Spine: Alignment is normal. Moderate degenerative changes are present. Lung apices: The visualized lung apices are clear. CT ARTERIOGRAM: Extracranial Circulation: Aortic Arch: Aberrant right subclavian artery. There is no significant stenosis in the proximal brachiocephalic vessels. Carotid Stenosis: Right Common: No significant stenosis. Right Internal Carotid Plaque: No significant plaque formation. Right Internal Carotid Stenosis (% by NASCET Criteria): 0 Left Common: No significant stenosis. Left Internal Carotid Plaque: No significant plaque formation. Left Internal Carotid Stenosis (% by NASCET Criteria): 0 Cervical Vertebral Arteries: Patency: Bilateral Dominance: Codominant Intracranial Circulation: Anterior Circulation: Patent bilateral intracranial ICAs. Bilateral ACAs are patent with codominant A1 segments. Both MCAs are patent. 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 Vertebrobasilar Circulation: Patent bilateral V4 vertebral artery segments, basilar artery, and major branch vessels. Both domestic helper are patent with conventional bilateral origins. Dural venous sinuses and major deep veins are grossly patent. Customer Assistant (topogram) images: No significant findings. IMPRESSION: 1. No acute intracranial findings. Chronic findings as detailed. 2. No large vessel occlusion or high-grade arterial stenosis intracranially. 3. 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 4. No hemodynamically significant stenosis of the extracranial carotid or vertebral artery segments. Arterial blood flow was measured to detect acute large vessel occlusion by computer aided detection software: Not Performed. Concordance between software and imaging review: Not Applicable. Communications Director: ARJUN Transcribe Date/Time: Oct 06 2024 11:00A Dictated by : CLAUDIA SANCHEZ MD This examination was interpreted and the report reviewed and electronically signed by: CLAUDIA SANCHEZ MD on Oct 06 2024 11:10AM EST [id number] [facility] CTA HEAD W IVCONon CTA HEAD W IVCON * * *Final Report* * * DATE OF EXAM: Oct 06 2024 10:58AM [facility] [place] 0022 - CTA HEAD W IVCON / PROCEDURE REASON: Headache, sudden, severe * * * * Physician Interpretation * * * * EXAMINATION: CTA NECK W IVCON, CT BRAIN WO IVCON, CTA HEAD W IVCON HISTORY: Sudden headache. Intermittent headache for 3 weeks. TECHNIQUE: Routine CT of the brain without IV contrast. Next, high resolution axial images were obtained through the head, neck and superior mediastinum following bolus administration of intravenous contrast for CT angiography. 3D maximum intensity projection images were created, reviewed and archived . MQ: CTABNPlus_4 Contrast: 80 mL Omnipaque [address] Radiation dose: Integrated Dose-Length Product (DLP) for this visit = 1075 mGy*cm. CT Dose Reduction Employed: Automated exposure control(AEC) and iterative recon COMPARISON: None. RESULT: BRAIN: Acute change: No evidence of an acute infarct or other acute parenchymal process. ASPECT Score = 10 Hemorrhage: No evidence of acute intracranial hemorrhage. ECASS hemorrhagic transformation score: Not Applicable Mass Lesion / Mass Effect: There is no evidence of an intracranial mass or extra-axial fluid collection. No significant mass effect. Chronic change: Patchy foci of low attenuation coefficient are present within white matter which is a nonspecific finding but likely represents moderate microvascular ischemia. Parenchyma: There is no significant volume loss. The brain parenchyma is otherwise within normal limits for age. Ventricles: The ventricles are within normal limits of size and configuration for age. Other: The visualized paranasal sinuses are grossly clear. The skull and visualized extracranial soft tissues are grossly normal. NECK: Soft tissues: The soft tissue planes are maintained throughout. No evidence of a soft tissue mass in the neck or superior mediastinum. No significant lymphadenopathy is seen. Spine: Alignment is normal. Moderate degenerative changes are present. Lung apices: The visualized lung apices are clear. CT ARTERIOGRAM: Extracranial Circulation: Aortic Arch: Aberrant right subclavian artery. There is no significant stenosis in the proximal brachiocephalic vessels. Carotid Stenosis: Right Common: No significant stenosis. Right Internal Carotid Plaque: No significant plaque formation. Right Internal Carotid Stenosis (% by NASCET Criteria): 0 Left Common: No significant stenosis. Left Internal Carotid Plaque: No significant plaque formation. Left Internal Carotid Stenosis (% by NASCET Criteria): 0 Cervical Vertebral Arteries: Patency: Bilateral Dominance: Codominant Intracranial Circulation: Anterior Circulation: Patent bilateral intracranial ICAs. Bilateral ACAs are patent with codominant A1 segments. Both MCAs are patent. 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 Vertebrobasilar Circulation: Patent bilateral V4 vertebral artery segments, basilar artery, and major branch vessels. Both domestic helper are patent with conventional bilateral origins. Dural venous sinuses and major deep veins are grossly patent. Customer Assistant (topogram) images: No significant findings. IMPRESSION: 1. No acute intracranial findings. Chronic findings as detailed. 2. No large vessel occlusion or high-grade arterial stenosis intracranially. 3. 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 4. No hemodynamically significant stenosis of the extracranial carotid or vertebral artery segments. Arterial blood flow was measured to detect acute large vessel occlusion by computer aided detection software: Not Performed. Concordance between software and imaging review: Not Applicable. Communications Director: ARJUN Transcribe Date/Time: Oct 06 2024 11:00A Dictated by : CLAUDIA SANCHEZ MD This examination was interpreted and the report reviewed and electronically signed by: CLAUDIA SANCHEZ MD on Oct 06 2024 11:10AM EST [id number] [facility] CTA NECK W IVCONon CTA NECK W IVCON * * *Final Report* * * DATE OF EXAM: Oct 06 2024 10:58AM [facility] [place] 0024 - CTA NECK W IVCON / PROCEDURE REASON: Headache, sudden, severe * * * * Physician Interpretation * * * * EXAMINATION: CTA NECK W IVCON, CT BRAIN WO IVCON, CTA HEAD W IVCON HISTORY: Sudden headache. Intermittent headache for 3 weeks. TECHNIQUE: Routine CT of the brain without IV contrast. Next, high resolution axial images were obtained through the head, neck and superior mediastinum following bolus administration of intravenous contrast for CT angiography. 3D maximum intensity projection images were created, reviewed and archived . MQ: CTABNPlus_4 Contrast: 80 mL Omnipaque [address] Radiation dose: Integrated Dose-Length Product (DLP) for this visit = 1075 mGy*cm. CT Dose Reduction Employed: Automated exposure control(AEC) and iterative recon COMPARISON: None. RESULT: BRAIN: Acute change: No evidence of an acute infarct or other acute parenchymal process. ASPECT Score = 10 Hemorrhage: No evidence of acute intracranial hemorrhage. ECASS hemorrhagic transformation score: Not Applicable Mass Lesion / Mass Effect: There is no evidence of an intracranial mass or extra-axial fluid collection. No significant mass effect. Chronic change: Patchy foci of low attenuation coefficient are present within white matter which is a nonspecific finding but likely represents moderate microvascular ischemia. Parenchyma: There is no significant volume loss. The brain parenchyma is otherwise within normal limits for age. Ventricles: The ventricles are within normal limits of size and configuration for age. Other: The visualized paranasal sinuses are grossly clear. The skull and visualized extracranial soft tissues are grossly normal. NECK: Soft tissues: The soft tissue planes are maintained throughout. No evidence of a soft tissue mass in the neck or superior mediastinum. No significant lymphadenopathy is seen. Spine: Alignment is normal. Moderate degenerative changes are present. Lung apices: The visualized lung apices are clear. CT ARTERIOGRAM: Extracranial Circulation: Aortic Arch: Aberrant right subclavian artery. There is no significant stenosis in the proximal brachiocephalic vessels. Carotid Stenosis: Right Common: No significant stenosis. Right Internal Carotid Plaque: No significant plaque formation. Right Internal Carotid Stenosis (% by NASCET Criteria): 0 Left Common: No significant stenosis. Left Internal Carotid Plaque: No significant plaque formation. Left Internal Carotid Stenosis (% by NASCET Criteria): 0 Cervical Vertebral Arteries: Patency: Bilateral Dominance: Codominant Intracranial Circulation: Anterior Circulation: Patent bilateral intracranial ICAs. Bilateral ACAs are patent with codominant A1 segments. Both MCAs are patent. 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 Vertebrobasilar Circulation: Patent bilateral V4 vertebral artery segments, basilar artery, and major branch vessels. Both domestic helper are patent with conventional bilateral origins. Dural venous sinuses and major deep veins are grossly patent. Customer Assistant (topogram) images: No significant findings. IMPRESSION: 1. No acute intracranial findings. Chronic findings as detailed. 2. No large vessel occlusion or high-grade arterial stenosis intracranially. 3. 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 4. No hemodynamically significant stenosis of the extracranial carotid or vertebral artery segments. Arterial blood flow was measured to detect acute large vessel occlusion by computer aided detection software: Not Performed. Concordance between software and imaging review: Not Applicable. Communications Director: PSCB Transcribe Date/Time: Oct 06 2024 11:00A Dictated by : CLAUDIA SANCHEZ MD This examination was interpreted and the report reviewed and electronically signed by: CLAUDIA SANCHEZ MD on Oct 06 2024 11:10AM EST [id number] Normal [facility] Comprehensive metabolic 2000 panelon 10-06-2024 Albumin [Mass/Vol] 3.9 g/dL Normal 3.9-4.9 [facility] Comment on above: Order Comment: Speci men Type: BLOOD SPECIMENOrdering Facility: [facility] Address: [address] [place] [address] Performed By: #### 1 9123-9, [id number], 3016-3, 29663-7 ####[facility] LABORATORYCLIA [id number] [place] [address] [place] ALP [Catalytic activity/Vol] 71 U/L Normal 34-123 [facility] Comment on above: Order Comment: Speci men Type: BLOOD SPECIMENOrdering Facility: [facility] Address: [address] [place] [address] Performed By: #### 1 9123-9, [id number], 3016-3, 71152-7 ####[facility] LABORATORYCLIA [id number] [address] [place] ALT [Catalytic activity/Vol] 17 U/L Normal 7-38 [facility] Comment on above: Order Comment: Speci men Type: BLOOD SPECIMENOrdering Facility: [facility] Address: [address] [place] [address] Performed By: #### 1 9123-9, [id number], 3016-3, 79070-5 ####[facility] LABORATORYCLIA [id number] [address] STATES [facility] Anion gap [Moles/Vol] 8 mmol/L Normal 8-15 [facility] Comment on above: Order Comment: Speci men Type: BLOOD SPECIMENOrdering Facility: [facility] Address: [address] [place] [address] Performed By: #### 1 9123-9, [id number], 3016-3, 69710-1 ####[facility] LABORATORYCLIA [id number] [place] [address] [place] AST [Catalytic activity/Vol] 27 U/L Normal 13-35 [facility] Comment on above: Order Comment: Speci men Type: BLOOD SPECIMENOrdering Facility: [facility] Address: [address] [place] [address] Performed By: #### 1 9123-9, [id number], 3016-3, 40768-0 ####[facility] LABORATORYCLIA [id number] [place] [address] [place] Bilirubin [Mass/Vol] 0.4 mg/dL Normal 0.2-1.3 [facility] Comment on above: Order Comment: Speci men Type: BLOOD SPECIMENOrdering Facility: [facility] Address: [address] [place] [address] Performed By: #### 1 9123-9, [id number], 3, 84766-4 ####[facility] LABORATORYCLIA [id number] [place] [address] [place] Calcium [Mass/Vol] 9.2 mg/dL Normal 8.5-10.2 [facility] Comment on above: Order Comment: Speci men Type: BLOOD SPECIMENOrdering Facility: [facility] Address: [address] [place] [address] Performed By: #### 1 9123-9, [id number], 63, 97381-9 ####[facility] LABORATORYCLIA [id number] [place] [address] [place] Chloride [Moles/Vol] 101 mmol/L Normal 98-107 [facility] Comment on above: Order Comment: Speci men Type: BLOOD SPECIMENOrdering Facility: [facility] Address: [address] [place] [address] Performed By: #### 1 9123-9, [id number], 3016-3, 66740-3 ####[facility] LABORATORYCLIA [id number] [place] [address] [place] CO2 [Moles/Vol] 29 mmol/L Normal 22-30 [facility] Comment on above: Order Comment: Specreno ortiz Type: BLOOD SPECIMENOrdering Facility: [facility] Address: [address] [place] [address] Performed By: #### 1 9123-9, [id number], 3016-3, 48507-5 ####[facility] LABORATORYCLIA [id number] [place] [address] [place] Creatinine [Mass/Vol] 0.60 mg/dL Normal 0.58-0.96 [facility] Comment on above: Order Comment: Speci men Type: BLOOD SPECIMENOrdering Facility: [facility] Address: [address] [place] [address] Performed By: #### 1 9123-9, [id number], 3016-3, 30740-5 ####[facility] LABORATORYCLIA [id number] [address] Creatinine and Glomerular filtration rate.predicted panel (S/P/Bld) 100 mL/min/1.73m??? Normal >=60 [facility] Comment on above: Order Comment: Diego ortiz Type: BLOOD SPECIMENOrdering Facility: [facility] Address: [address] [place] [address] Result Comment: Lydia mated Glomerular Filtration Rate (eGFR) is calculated using the 2020 CKD-EPI creatinine equation. This equation utilizes serum creatinine, sex, and age as parameters. The creatinine assay has traceable calibration to isotope dilution-mass spectrometry. Refer to KDIGO guidelines for clinical interpretation. In patients with unstable renal function, e.g. those with acute kidney injury, the eGFR may not accurately reflect actual GFR. Performed By: #### 1 9123-9, [id number], 3016-3, 85202-2 ####[facility] LABORATORYCLIA [id number] [place] [address] [place] Glucose [Mass/Vol] 91 mg/dL Normal 74-99 [facility] Comment on above: Order Comment: Diego angel Type: BLOOD SPECIMENOrdering Facility: [facility] Address: [address] [place] [address] Result Comment: The [place] Diabetes Association (ADA) provides guidance for cutoff values for fasting glucose and random glucose. The ADA defines fasting as no caloric intake for at least 8 hours. Fasting plasma glucose results between 100 to 125 mg/dL indicate increased risk for diabetes (prediabetes). Fasting plasma glucose results greater than or equal to 126 mg/dL meet the criteria for diagnosis of diabetes. In the absence of unequivocal hyperglycemia, results should be confirmed by repeat testing. In a patient with classic symptoms of hyperglycemia or hyperglycemic crisis, random plasma glucose results greater than or equal to 200 mg/dL meet the criteria for diagnosis of diabetes. Reference: Standards of Medical Care in Diabetes 2016, [place] Diabetes Association. Diabetes Care. 2016.39(Suppl 1). Performed By: #### 1 9123-9, [id number], 3016-3, 68048-2 ####[facility] LABORATORYCLIA [id number] [place] [address] [place] Potassium [Moles/Vol] 3.5 mmol/L Low 3.7-5.1 [facility] Comment on above: Order Comment: Diego ortiz Type: BLOOD SPECIMENOrdering Facility: [facility] Address: [address] [place] [address] Performed By: #### 1 9123-9, [id number], 3016-3, 46788-7 ####[facility] LABORATORYCLIA [id number] [place] [address] [place] Protein [Mass/Vol] 7.2 g/dL Normal 6.3-8.0 [facility] Comment on above: Order Comment: Diego ortiz Type: BLOOD SPECIMENOrdering Facility: [facility] Address: [address] [place] [address] Performed By: #### 1 9123-9, [id number], 3016-3, 17875-4 ####[facility] LABORATORYCLIA [id number] [place] [id number] [place] Sodium [Moles/Vol] 138 mmol/L Normal 136-144 [facility] Comment on above: Order Comment: Diego ortiz Type: BLOOD SPECIMENOrdering Facility: [facility] Address: [address] [place] [address] Performed By: #### 1 9123-9, [id number], 3016-3, 30615-3 ####[facility] LABORATORYCLIA [id number] [place] [id number] [place] Urea nitrogen [Mass/Vol] 16 mg/dL Normal 7-21 [facility] Comment on above: Order Comment: Speci men Type: BLOOD SPECIMENOrdering Facility: [facility] Address: [address] [place] [address] Performed By: #### 1 9123-9, [id number], 3016-3, 49566-5 ####[facility] LABORATORYCLIA [id number] [place] [id number] [facility] [place] ECG COMPLETEon 10-06-2024 ECG COMPLETE Ventricular Rate : 5 8 BPM Atrial Rate : 58 BPM P-R Interval : 176 ms QRS Duration : 84 ms Q-T Interval : 406 ms QTC Calculation(Bazett) : 398 ms Calculated P [place] : 46 degrees Calculated R [place] : 15 degrees Calculated T [place] : 61 degrees SINUS BRADYCARDIA OTHERWISE NORMAL ECG NO STEMI Confirmed by TINO SCHOFIELD MD ([id number]), editor managing newspaper OCLIN WYMAN ([id number]) on 10/23/2024 10:58:44 AM NAME : JACQUELINE BRYSON PID : [id number] : 1960 Gender : Female Race : ORD : [id number] Procedure Date : Oct 06 2024 09:51:46 Edit Date : Oct 23 2024 10:58:48 Diagnosis: SINUS BRADYCARDIA OTHERWISE NORMAL ECG NO STEMI Confirmed by TINO SCHOFIELD MD ([id number]), editor managing newspaper COLIN WYMAN ([id number]) on 10/23/2024 10:58:44 AM Test Reason : maynard Location : 1 : ER 9 Overread By : TINO SCHOFIELD MD Edited By : COLIN WYMAN Referred By : , Acquired by : lance [facility] ED NOTEon 10-06-2024 ED NOTE HNO ID: [id number] Author: KRISHNA DAVIS RN Service: ? Author Type: Registered Nurse Type: ED Notes Filed: 10/06/2024 12:48 Note Text: [facility] ED PROV NOTEon 10-06-2024 ED PROV NOTE HNO ID: [id number] Author: TINO SCHOFIELD MD Service: ? Author Type: Physician Type: ED Provider Notes Filed: 10/06/2024 14:24 Note Text: ED Provider Note Patient Name: Jacqueline Bryson : 1960 SERVICE DATE: 10/06/24 History Patient presents with: Headache: Intermittent h/a x 3 weeks, more persistent over last two days. Hypertension: Elevated HR at home 64-year-old female presents the emergency department with headaches and high blood pressure. She states for the last 2 weeks she has felt like she has had increased headaches which is unusual for her. Yesterday she had left-sided facial numbness and frontal headache as well as occipital headache. She reports that [facility] and had her blood department and it was 170s systolic. She states she went home and took 2 of her lisinopril instead of 1 to see if that helped her pressure. Today her blood pressure remains elevated so she came to the emergency department as advised from the nurse triage line. She reports she has been on 10 mg of lisinopril for many years without needing titration. She used to take metoprolol after an episode for hyperthyroid induced tachycardic but was taken off when her thyroid stabilized. History provided by: Patient orthotics assistant used: No PAST MEDICAL HISTORY Diagnosis Date Asthma Hyperopia Seasonal allergies Thyroid activity decreased Vocal cord paralysis PAST SURGICAL HISTORY Procedure Laterality Date CARPAL TUNNEL Bilateral SECTION HX 10/04/2000 COLONOSCOPY FLX DX W/COLLJ SPEC WHEN PFRMD 02/27/2019 Colonoscopy FOOT SURGERY HX 1976 x2 LARYNGOPLASTY MEDIALIZATION UNLIATERAL Right 08/2012 ROTATOR CUFF REPAIR 2005 THYROIDECTOMY TOTAL/COMPLETE Bilateral 07/2011 FAMILY HISTORY Problem Relation Age of Onset Cataract Mother Breast Cancer Sister breast Cancer Sister heart Social History Tobacco Use Smoking status: Former Current packs/day: 0.00 Average packs/day: 0.3 packs/day for 8.0 years (2.4 ttl pk-yrs) Types: Cigarettes Start date: 01/03/1985 Quit date: 01/03/1993 Years since quittin.7 Smokeless tobacco: Never Substance and Sexual Activity Alcohol use: Yes Comment: occasionally Drug use: Not on file Sexual activity: Not on file ALLERGIES Allergen Reactions Augmentin [Amoxicil* GI Upset Seasonal Allergies Other: See Comments Cold like symptoms Review of Systems Constitutional: Negative for chills and fever. HENT: Negative for congestion and sore throat. Eyes: Positive for visual disturbance. Respiratory: Negative for cough and shortness of breath. Cardiovascular: Negative for chest pain and palpitations. Gastrointestinal: Negative for abdominal pain and vomiting. Endocrine: Negative. Genitourinary: Negative for dysuria and frequency. Musculoskeletal: Negative for arthralgias and myalgias. Skin: Negative for rash and wound. Allergic/Immunologic: Negative. Neurological: Positive for numbness (Left face) and headaches. Negative for dizziness and syncope. Psychiatric/Behavioral: Negative. Physical Exam Vitals [10/06/24 0926] BP Pulse Temp Temp src Resp SpO2 Weight Height (!) 230/106 79 -- -- 20 97 % 73.5 kg (162 lb) -- Physical Exam Vitals and nursing note reviewed. Constitutional: General: She is not in acute distress. Appearance: Normal appearance. She is not toxic-appearing. HENT: Head: Normocephalic and atraumatic. No raccoon eyes, Loomis's sign or contusion. Right Ear: Hearing, tympanic membrane, ear canal and external ear normal. No hemotympanum. Left Ear: Hearing, tympanic membrane, ear canal and external ear normal. No hemotympanum. Nose: Nose normal. Right Nostril: No septal hematoma. Left Nostril: No septal hematoma. Mouth/Throat: Mouth: Mucous membranes are moist. Eyes: General: Gaze aligned appropriately. Extraocular Movements: Extraocular movements intact. Conjunctiva/sclera: Conjunctivae normal. Pupils: Pupils are equal, round, and reactive to light. Cardiovascular: Rate and Rhythm: Normal rate and regular rhythm. Pulses: Normal pulses. Pulmonary: Effort: Pulmonary effort is normal. Breath sounds: Normal breath sounds. No wheezing, rhonchi or rales. Abdominal: General: Bowel sounds are normal. Palpations: Abdomen is soft. Musculoskeletal: Cervical back: Normal range of motion. Skin: General: Skin is warm. Capillary Refill: Capillary refill takes less than 2 seconds. Neurological: General: No focal deficit present. Mental Status: She is alert and oriented to person, place, and time. GCS: GCS eye subscore is 4. GCS verbal subscore is 5. GCS motor subscore is 6. Cranial Nerves: Cranial nerves 2-12 are intact. Sensory: Sensation is intact. Motor: Motor function is intact. Coordination: Coordination is intact. Comments: Strength 5/5 upper and lower extremities Psychiatric: Mood and Affect: Mood normal. Behavior: (more content not included)... Normal [facility] HIGH SENSITIVITY TROPONIN T (INITIAL)on 10-06-2024 Troponin T.cardiac High sensitivity method [Mass/Vol] <6 Normal <12 [facility] Comment on above: Order Comment: Speci men Type: BLOOD SPECIMENOrdering Facility: [facility] Address: [address] [place] [address] Performed By: #### 1 9123-9, [id number], 3016-3, 03834-7 ####[facility]ORATORYCLIA [id number] [address] HIGH SENSITIVITY TROPONIN T (SECOND)on 10-06-2024 Troponin T.cardiac High sensitivity method [Mass/Vol] 6 ng/L Normal <12 [facility] Comment on above: Order Comment: Speci [facility] Type: BLOOD SPECIMENOrdering Facility: [facility] Address: [address] [place] [address] Performed By: #### L [id number] ####[facility]ORATORYCLIA [id number] [place] [id number] [place] Magnesium SerPl-mCncon 10-06 Magnesium [Mass/Vol] 2.1 mg/dL Normal 1.7-2.3 [facility] Comment on above: Order Comment: Speci men Type: BLOOD SPECIMENOrdering Facility: [facility] Address: [address] [place] [address] Performed By: #### 1 9123-9, [id number], 3016-3, 41008-3 ####[facility]ORYCLIA [id number] [place] [id number] [place] PT panel Coag (PPP)on 2024 INR Coag (PPP) [Relative time] 1.1 {INR} Normal 0.9-1.3 [facility] Comment on above: Order Comment: Speci men Type: BLOOD SPECIMENOrdering Facility: [facility] Address: [address] [place] [address] Result Comment: Kathya min K Antagonist (VKA) Therapeutic Range: INR 2 to 3 (Target INR of 2.5) Note: For patients treated with VKA drugs, such as warfarin, the [employer] 2012 Guideline recommends a therapeutic INR range of 2 to 3 (target INR of 2.5). This recommendation includes high-risk patients with antiphospholipid syndrome with previous arterial or venous thromboembolism, current-generation mechanical or bioprosthetic aortic heart valve replacement. Note: Patients with mechanical aortic valve replacement and additional risk factors for thromboembolic events (atrial fibrillation, previous thromboembolism, LV dysfunction, hypercoagulable conditions) or an older generation mechanical AVR (i.e., ball in-Cage) or any mechanical MVR should have a INR therapeutic range of 2.5 to 3.5 (target INR of 3). Adair GH, et al. Chest 2012, 141:7S-47S Khloe RA, et al. [facility] 2017, 70: 252-289 Performed By: #### 3 4528-0, 42832-9 ####[facility]ATORYCLIA [id number] [address] STATES OF [facility] PT Coag (PPP) [Time] 11.4 s Normal 9.7-13.0 [facility] Comment on above: Order Comment: Speci men Type: BLOOD SPECIMENOrdering Facility: [facility] Address: [address] [place] [address] Performed By: #### 3 4528-0, 87060-0 ####[facility]ORATORYCLIA [id number] [address] OF [facility] TSH SerPl-aCncon 10-06-2024 TSH Qn 0.827 m[IU]/L Normal 0.270-4.20 0 [facility] Comment on above: Order Comment: Speci men Type: BLOOD SPECIMENOrdering Facility: [facility] Address: [address] [place] [address] Performed By: #### 1 9123-9, [id number], 3016-3, 01679-6 ####[facility]ORYCLIA [id number] [address] STATES OF [facility] XR CHEST 2V FRONTAL/LATon XR CHEST 2V FRONTAL/LAT * * *Final Repor t* * * DATE OF EXAM: Oct 06 2024 10:15AM MDX [id number] - XR CHEST 2V FRONTAL/LAT / PROCEDURE REASON: Chest Pain * * * * Physician Interpretation * * * * EXAMINATION: CHEST RADIOGRAPH (2 VIEW FRONTAL and LATERAL) CLINICAL HISTORY: Chest Pain MQ: [id number] EXAM DATE/TIME: 10/06/2024 10:15 AM COMPARISON: 08/11/2015 RESULT: Lines, tubes, and devices: None. Lungs and pleura: No consolidation. No lung mass. No pleural effusion. No pneumothorax. Cardiomediastinal silhouette: Normal cardiomediastinal silhouette. Bones and soft tissues: Unremarkable. IMPRESSION: No acute radiographic abnormality. Communications Director: PSCB Transcribe Date/Time: Oct 06 2024 10:33A Dictated by : KATE BELTRAN DO This examination was interpreted and the report reviewed and electronically signed by: KATE BELTRAN DO on Oct 06 2024 10:33AM EST [id number] Normal [facility] aPTT PPPon 10-06-2024 aPTT Coag (PPP) [Time] 27.1 s Normal 23.0-32.4 [facility] Comment on above: Order Comment: Speci men Type: BLOOD SPECIMENOrdering Facility: [facility] Address: [address] [place] [address] Performed By: #### 3 4528-0, 52156-1 ####[facility] LABORATORYCLIA [id number] [place] [address] [place] SP/HP.SP.Kraig 07-31-2024 SP/HP.SP.EV [facility] Speech Pathology [facility] [address] [place] [id number] / REHABILITATION SERVICES INITIAL EVALUATION MR#: [id number] Acct: [id number] Name: JACQUELINE BRYSON Rep #: [id number] : 1960 64 From: Carlos Diaz M.A., CCC-S LP Referring Dr.: MICHAEL SAHU Status: REG RCR Insurance: [facility] [employer] SELF PAY INSURANCE Visit History Visit Info Date of Eval: 07/28/24 Visit: 1 Patient's Approved Number of Visits: 25 Insurance Date Limit: 09/12/24 Radiation Protection Technician: MERARY History Attending Doctor: MICHAEL SAHU Referring Doctor: MICHAEL SAHU Reason for Referral: VOCAL CHORD PARALYSIS. RX HERE Medical Diagnosis: Vocal cord Paralysis Date of Onset of Diagnosis: Unilateral vocal cord Previous speech therapy: No Other Relevant Medical History/Diagnoses/Surge ry: High blood pressure, stomach ulcers, allergies seasonal, Thyroidectomy 2010 which resulted in right vocal cord paralysis. in 2011, she had a thyroplasty for medialization of right cord. She has not had any other speech therapy. 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 Pain Is pain an issue with your current prescribed condition?: No Personal Preferred language: Greenlandic Patient Allergies Allergies Allergies: Allergies amoxicillin (From Augmentin) Allergy (Severe, Verified 06/07/24 08:07) see note ended up in ED with upset stomach and agitated clavulanic acid (From Augmentin) Allergy (Severe, Verified 06/07/24 08:07) unknown Subjective Voice Informal Questioner Do you scream (anger, sporting event, work, noisy envirmonment): Less than average Do you raise your voice (e.g. parenting, calling from room to room, etc.): Less than average Do you talk for long periods of time without a break (teacher, bernard): More than average Are you a talker: More than average How often do you use the telephone: More than average Intubation Was the Client intubated: No Intake Water (ounces): 16 Coffee (ounces): 8 Tea (ounces): 8 Soda (ounces): 0 Energy drinks (ounces): 0 Milk (ounces): 6 Juice (ounces): 0 Sports drinks (ounces): 0 Alcoholic Beverage Intake Intake: Occasionally Beer (ounces): 8 Other Product Usage Do you use products containing menthol (if yes, list): No Do you take Vitamin C Supplements (if yes, list amt (mg)/day: No Do you use recreational drugs (if yes, list type/amt/frequency): No Objective Voice Objective data Objective Data: Objective data: Sound pressure level (SPL acoustic correlation of vocal loudness) was measured with a sound level meter at a distance of 40 cm from the patient's mouth. Average conversational loudness is 70-80 dB and sustained phonation duration is 15 to 20 seconds for a typical adult. Sustained Phonatin duration (seconds): 8 Vocal Intensity at Paragraph Level (dB SPL): 61.9 dB Vocal Intensity at Conversational Level (dB SPL): 60.8 dB Voice Handicap Index (VHI) VHI VHI Administered: Yes VHI: Patient completed the Voice Handicap Index, which is a 30 item, self administered questionnaire that asks an individual to describe their voice and the effects of their voice on their life. Three subscales cover the areas of functional, emotional, and physical aspects of the voice disorders. Points from the questions can be combined to assign a total score, or they can be combined by subscale. Results for the VHI are as follows: Date: 07/28/24 VHI Test Functional: She received a score of 14 for functional aspect. She is impaired on her functional use of voice due to difficulty with others hearing her, both on the phone as well as in person, often having to repeat herself, as well as sometimes feeling left out of conversations due to her voice. Physical: She received a score of 32 on the physical aspect. She reported: running out of air sometimes when speaking, voice varying throughout the day, being often asked what's wrong with your voice?, straining to produce voice, voicing giving out when speaking and needing to use a great deal of effort to speak. Emotional: She received a score of 23 on the emotional aspect. She reported: others seem irritated with my voice, others not understanding her voice difficulties, and feeling embarrassed when asked to repeat. Most notably, She reported always to her voice problem upseting her. Total Severity Rating: Severe (61-120) Comments VHI: -: The patient's total score of 69 also placed her within the severe range. According to these results, the patient feels that her voice problem is severe and greatly affects the functional, emotional and physical aspects of her life. Subjective Clinical Impression Ad (more content not included)... [facility] ) JACQUELINE BRYSON ([id number]) 1960 F Date Time Provider Department 07/10/24 10:00 AM MICHAEL SAHU [facility] During your visit today, we recorded the following information about you: Pulse Respiration Blood pressure Weight 64/minute 16/minute 148/87 73.8 kg Height 1.575 m Michael Sahu MD 07/10/2024 11:43 AM Signed Rub a small amount of the triamcinolone/Kenalog cream in each ear once a day as needed for the itching. Try speech therapy. If that is not effective, consider seeing Dr. Stevens again. Michael Sahu MD 07/13/2024 6:13 PM Signed Procedure: Laryngeal stroboscopy Pre-/post diagnosis: Hoarseness Description: Local anesthetic was applied through the right nares. The flexible laryngoscope was used. There was no mucosal lesion. There was no right TVC motion. The right TVC did have a good medial position. There was good left TVC motion. There was good glottic closure. The TVC bilaterally appeared to be even in height. On stroboscopy, there was bilateral mildly decreased wave amplitude. The findings were reviewed with the patient. Michael Sahu MD Created using voice recognition software, some errors may have occurred. Corrections may be performed at a later date. Michael Sahu MD 07/13/2024 6:13 PM Signed [place]: Jacqueline Bryson is a 64 year old, White, female who presents, I am here about my larynx and ears. 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 She had hoarseness and trouble swallowing liquids. She had a right TVC medialization with implant/laryngoplasty by Dr. Stevens, 08/2012. She feels there was a good result but about a year ago she started to have more hoarseness and trouble coughing after drinking liquids again. Her voice seems to get worse when she talks more. She has bilateral ear itching. She does not have general bleeding or bruising problems and does not use aspirin or blood thinners. SUBJECTIVE: I reviewed the allergies, medications, problem list, PMH/PSH, FmHx and SocHx as documented in Epic chart. PHYSICAL EXAM: VS: BP 148/87 Pulse 64 Resp 16 Ht 157.5 cm (5' 2) Wt 73.8 kg (162 lb 9.6 oz) BMI 29.74 kg/m? CONST/MS: The patient appears to be in NAD and has a mild to moderately hoarse voice quality. H/F/N: The facial motion is overall normal. There are no palpable salivary gland, thyroid or neck masses. Ears: The external ears and canals are without lesions. Each TM is intact and mobile on pneumatic otoscopy. Nose: The external nose is without lesions. The nasal mucosa appears healthy on nasal speculum exam. The septum has left deviation. The IT are not hypertrophic. OC/OP: The lips and gums are without lesions. The tongue/oral mucosa is healthy. The hard/soft palate, tonsil fossa and posterior pharynx are without lesions. The teeth have some crowns. PREPRESS SPECIALIST: The mirror exam is prevented by gagging. HP/LX: The mirror exam is prevented by gagging. OBJECTIVE: I reviewed the ENT notes and op notes. ASSESSMENT AND PLAN: I counseled the patient about the differential diagnosis, natural course, treatment options and answered their questions for all diagnoses and orders: 1. 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 Ear itching - ICD9: 698.9, ICD10: L29.9 She was counseled to try speech therapy. If this is not helpful, she was counseled to see Dr. Stevens again and see if there can be a revision of the surgery. A prescription for Kenalog cream 0.1%, 15 g, NRF was sent. She was counseled to use a small amount of that in the ears daily as needed for itching. Return if symptoms worsen or fail to improve. Michael Sahu MD 35 minutes Total time including preparation, obtaining/reviewing history, exam, interpreting results, ordering, counseling/education, referring/communicating and documentation. Created using voice recognition software, some errors may have occurred. Corrections may be performed at a later date. PROCEDURE NOTE Procedure: Laryngeal stroboscopy Pre-/post diagnosis: Hoarseness Description: Local anesthetic was applied through the right nares. The flexible laryngoscope was used. There was no mucosal lesion. There was no right TVC motion. The right TVC did have a good medial position. There was good left TVC motion. There was good glottic closure. The TVC bilaterally appeared to be even in height. On stroboscopy, there was bilateral mildly decreased wave amplitude. The findings were reviewed with the patient. Michael Sahu MD Created using voice recognition software, some errors may have occurred. Corrections may be performed at a later date. Allergies As of Date: 07/10/2024 Noted Allergy Reaction AUGMENTIN (AMOXICILLIN-POT CLAVUL*03/22/2018 8 - GI Upset SEASONAL ALLERGIES 07/18/2012 14 - Other (more content not included)... Normal [facility] Knee 4 or More Viewson 06-07 Knee 4 or More Views [facility]iology [address] [place] [address] Knee 4 or More Views MR#: [id number] Acct: [id number] Name: JACQUELINE BRYSON Rep #: [id number] : 1960 F 63 From: Winnie Mehta MD PCP: Dr. Cristian Hopper MD Status: DEP AMB Study: Knee 4 or More Views Date of Exam: 06/07/24 Exam# [id number] Ordering Dr: [place] [id number] EXAM: XR LEFT KNEE COMPLETE, 4 OR MORE VIEWS CLINICAL INDICATION: pain TECHNIQUE: Four or more views of the left knee. COMPARISON: No relevant prior studies available. FINDINGS: BONES/JOINTS: Narrowing and osteophytes at the medial patellofemoral joint best seen on the sunrise view. Significantly asymmetric narrowing and subchondral sclerosis and periarticular osteophytes at the lateral joint compartment, mild widening with periarticular osteophytes at the medial joint compartment. Trace if any joint effusion. No visible fracture. SOFT TISSUES: Unremarkable. No soft tissue swelling or gas. No radiopaque foreign body. RAD/Knee 4 or More Views IMPRESSION: Multi compartmental degenerative changes, especially at the lateral joint. No visible fracture or joint effusion. Electronically Signed: Winnie Mehta MD at 2:31 EDT , CC: Dr. Cristian Hopper MD; Dr. Cristian Kumar DO Communications Director: Signed Normal [facility] Orthopedic Visit Reporton Orthopedic Visit Report [facility] [address] [place] [address] OFFICE VISIT Date of Service: 06/07/24 MR#: [id number] Acct: [id number] Name: JACQUELINE BRYSON Rep #: [id number] : 1960 Provider: Dr. Cristian shin DO Age/Sex: 63/F Location: [facility] [place].JAYNE Status: Signed Intake Vital Signs 02/15/23 14:18 05/23/24 09:30 06/07/24 08:02 Height 5 ft 2 in 5 ft 2 in 5 ft 2 in Weight: 161 lb 2 oz BMI 29.5 Intake Visit Reasons: LEFT KNEE Accompanied by: Self Is patient in pain?: Yes Allergies amoxicillin (From Augmentin) Allergy (Severe, Verified 06/07/24 08:07) see note clavulanic acid (From Augmentin) Allergy (Severe, Verified 06/07/24 08:07) unknown Medications ???Medication ???Instructions ???Recorded ???Confirmed ???Type cholecalciferol (vitamin D3) 50 50 mcg PO DAILY 09/02/21 06/07/24 History mcg (2,000 unit) capsule (Vitamin D3) lisinopril 10 mg tablet 10 mg PO QHS 09/02/21 06/07/24 History vitamin B complex 1 cap PO DAILY 09/02/21 06/07/24 History loratadine 10 mg tablet (Claritin) 10 mg PO QHS 09/09/21 06/07/24 History levothyroxine 100 mcg tablet 100 mcg PO DAILY 08/25/22 06/07/24 History pantoprazole 40 mg tablet,delayed 40 mg PO DAILY 08/25/22 06/07/24 History release sucralfate 1 gram tablet 1 g PO BID 08/25/22 06/07/24 History meloxicam 15 mg tablet tablet PO 02/15/23 06/07/24 History PFSH Medical History Acute frontal sinusitis, unspecified Acute lumbar myofascial strain Arthritis Arthritis of carpometacarpal (CMC) joint of right thumb Asthma Bilateral carpal tunnel syndrome Contact with and (suspected) exposure to other viral communicable diseases Degenerative joint disease of cervical spine Depression Former smoker Fracture of greater trochanter of right femur Greater trochanteric bursitis of both hips Hypothyroidism Lumbar radiculopathy, acute Multiple premature ventricular complexes Obesity Premature atrial contractions Right carpal tunnel syndrome Synovial cyst of hand Trigger thumb of right hand Surgical History History of History of carpal tunnel surgery of left wrist History of vocal cord paralysis Hx of foot surgery Hx of foot surgery Hx of repair of right rotator cuff Hx of thyroidectomy Family History Other Breast cancer CAD (coronary artery disease) Social History Smoking Status: Former smoker alcohol intake: never HPI LEFT KNEE Details: This documentation accurately reflects the service provided and the decisions made by me, Dr. Cristian Kumar, DO 06/07/24 0754. Part of today???s visit was documented by Helen Rizzo, acting as scribe. JACQUELINE BRYSON is a 63 year old F here today for left knee pain. Patient states that she has had pain since September. She states that her dog knocked her over from the back and she landed on her knee. She notes that she didnt have pain immediately but her pain has worsened about a week later and since then. Patient notes that she has pain over her posterior knee and mostly lateral knee. She notes that she has a catching over her anterior knee with ambulation but it is not significantly painful. She states at night when in bed, she will have pain over her lateral knee, into her calf. She complains of grinding and crunching. Patient feels like she has instability. She notes that she has increased pain with increased activities. Patient takes tylenol for pain and meloxicam daily. Patient denies any physical therapy or bracing. Patient denies any recent xrays. Ortho Exam General General: Yes no acute distress Neurologic: Yes alert and Yes oriented x3 Psychologic: Yes reasonable and appropriate Right Knee Patella Translation: 1 Left Knee Skin/Wound: Yes CDI, No ecchymosis, No erythema and No swelling Knee ROM: Yes ROM-Extension -20 to 0 (full) and Yes ROM-Flexion 0-140 (full) Examination: Yes Lat jt line tenderness Stability: NML: Anterior Drawer, NML: Posterior Drawer, NML: Valgus 0, NML: Valgus 30 and NML: Varus 0 and 1+: Varus 30 (2mm lateral gapping ) Patella Translation: 1 KNEE: slight valgus deformity. no patellar instability. crepitus with knee flexion. mild lateral joint line tenderness Office Procedures Ortho Injections Injections Yes Knee Left Is this a patient provided medication?: No Details: Obtained consent for injection. Under sterile conditions, injected the patient's left knee with 1.5cc bupivacaine, 1.5cc lidocaine and 1cc depomedrol. The patient tolerated the injection well without any noted complication. Patient should call our office if redness develops, (more content not included)... Normal [facility] CBC (INCLUDES DIFF/PLT)on Basophils (Bld) [#/Vol] 0.049 10*3/uL Normal 0-200 [facility] Comment on above: Performed By: #### 1 0231, 7600, 6399 #### [facility] [address] , [address] [place] [address] Director Mission: Pardeep Correia MD Basophils/100 WBC (Bld) 0.9 % Normal [facility] Comment on above: Performed By: #### 1 0231, 7600, 6399 #### [facility] [address], [address] [place] [address] Director Mission: Pardeep Correia MD Eosinophils (Bld) [#/Vol] 0.329 10*3/uL Normal 15-500 [facility] Comment on above: Performed By: #### 1 023, 7599, 6399 #### [facility] [place] [address] Director Mission: Pardeep Correia MD Eosinophils/100 WBC (Bld) 6.1 % Normal [facility] Comment on above: Performed By: #### 1 023, 7599, 6399 #### [facility] [place] [address] Director Mission: Pardeep Correia MD Erythrocyte distribution width (RBC) [Ratio] 13.0 % Normal 11.0-15.0 [facility] Comment on above: Performed By: #### 1 230, 7599, 6399 #### [facility] [place] [address] Director Mission: Pardeep Correia MD Hematocrit (Bld) [Volume fraction] 39.9 % Normal 35.0-45.0 [facility] Comment on above: Performed By: #### 1 230, 7599, 6399 #### [facility] [place] [address] Director Mission: Pardeep Correia MD Hemoglobin (Bld) [Mass/Vol] 13.3 g/dL Normal 11.7-15.5 [facility] Comment on above: Performed By: #### 1 023, 7599, 6399 #### [facility] [place] [address] Director Mission: Pardeep Correia MD Lymphocytes (Bld) [#/Vol] 1.809 10*3/uL Normal 850-3900 [facility] Comment on above: Performed By: #### 1 023, 7599, 6399 #### [facility] [place] [address] Director Mission: Pardeep Correia MD Lymphocytes/100 WBC (Bld) 33.5 % Normal [facility] Comment on above: Performed By: #### 1 023, 7599, 6399 #### [facility] [place] [address] Director Mission: Pardeep Correia MD MCH (RBC) [Entitic mass] 30.8 pg Normal 27.0-33.0 [facility] Comment on above: Performed By: #### 1 023, 7599, 6399 #### [facility] [place] [address] Director Mission: Pardeep Correia MD MCHC (RBC) [Mass/Vol] 33.3 g/dL Normal 32.0-36.[address] [facility] Comment on above: Performed By: #### 1 023, 7599, 6399 #### [facility] [place] [address] Director Mission: Pardeep Correia MD MCV (RBC) [Entitic vol] 92.4 fL Normal 80.0-100.0 [facility] Comment on above: Performed By: #### 1 023, 7599, 6399 #### [facility] [place] [address] Director Mission: Pardeep Correia MD Monocytes (Bld) [#/Vol] 0.308 10*3/uL Normal 200-950 [facility] Comment on above: Performed By: #### 1 023, 7599, 6399 #### [facility] [place] [address] Director Mission: Pardeep Correia MD Monocytes/100 WBC (Bld) 5.7 % Normal [facility] Comment on above: Performed By: #### 1 023, 7599, 6399 #### [facility] [place] [address] Director Mission: Pardeep Correia MD Neutrophils (Bld) [#/Vol] 2.905 10*3/uL Normal 8212-0691 [facility] Comment on above: Performed By: #### 1 023, 7599, 6399 #### [facility] of [address], [address] [place] [address] Director Mission: Pardeep Correia MD Neutrophils/100 WBC (Bld) 53.8 % Normal [facility] Comment on above: Performed By: #### 1 023, 7599, 6399 #### [facility] [address], [address] [place] [address] Director Mission: Pardeep Correia MD Platelet mean volume (Bld) [Entitic vol] 10.2 fL Normal 7.5-12.5 [facility] Comment on above: Performed By: #### 1 023, 7599, 6399 #### [facility] of [address], [address] [place] [address] Director Mission: Pardeep Correia MD Platelets (Bld) [#/Vol] 273 10*3/uL Normal 140-400 [facility] Comment on above: Performed By: #### 1 023, 7599, 6399 #### [facility] [address], [address] [place] [address] Director Mission: Pardeep Correia MD RBC (Bld) [#/Vol] 4.32 10*6/uL Normal 3.80-5.10 [facility] Comment on above: Performed By: #### 1 230, 7599, 6399 #### [facility] [address], [address] [place] [address] Director Mission: Pardeep Correia MD WBC (Bld) [#/Vol] 5.4 10*3/uL Normal 3.8-10.8 [facility] Comment on above: Performed By: #### 1 023, 7599, 6399 #### [facility] of [address], [address] [place] [address] Director Mission: Pardeep Correia MD COMPREHENSIVE METABOLIC PANE [facility] 05-17-2024 Albumin [Mass/Vol] 4.1 g/dL Normal 3.6-5.1 [facility] Comment on above: Performed By: #### 1 0231, 7599, 6399 #### [facility] [address], [address] [place] [address] Director Mission: Pardeep Correia MD Albumin/Globulin [Mass ratio] 1.4 {ratio} Normal 1.0-2.5 [facility] Comment on above: Performed By: #### 1 0231, 7600, 6399 #### [facility] [address], [address] [place] [address] Director Mission: Pardeep Correia MD ALP [Catalytic activity/Vol] 62 U/L Normal 37-153 [facility] Comment on above: Performed By: #### 1 0231, 0, 6399 #### [facility] [address], [address] [place] [address] Director Mission: Pardeep Correia MD ALT [Catalytic activity/Vol] 20 U/L Normal 6-29 [facility] Comment on above: Performed By: #### 1 0231, 7599, 6399 #### [facility] [address], [address] [place] [address] Director Mission: Pardeep Correia MD AST [Catalytic activity/Vol] 23 U/L Normal 10-35 [facility] Comment on above: Performed By: #### 1 0231, 7600, 6399 #### [facility] [address], [address] [place] [address] Director Mission: Pardeep Correia MD Bilirubin [Mass/Vol] 0.5 mg/dL Normal 0.2-1.2 [facility] Comment on above: Performed By: #### 1 0231, 0, 6399 #### [facility] [address], [address] [place] [address] Director Mission: Pardeep Correia MD BUN/CREATININE RATIO SEE NOTE: Normal 6-22 [facility] Comment on above: Result Comment: Not Reported: BUN and Creatinine are within reference range. Performed By: #### 1 0231, 0, 6399 #### [facility] [address], [address] [place] [address] Director Mission: Padreep Correia MD Calcium [Mass/Vol] 9.0 mg/dL Normal 8.6-10.4 [facility] Comment on above: Performed By: #### 1 023, 7599, 6399 #### [facility] [address], [address] [place] [address] Director Mission: Pardeep Correia MD Chloride [Moles/Vol] 104 mmol/L Normal 98-110 [facility] Comment on above: Performed By: #### 1 023, 7599, 6399 #### [facility] [place] [address] Director Mission: Pardeep Correia MD CO2 [Moles/Vol] 27 mmol/L Normal 20-32 [facility] Comment on above: Performed By: #### 1 023, 7599, 6399 #### [facility] [place] [address] Director Mission: Pardeep Correia MD Creatinine [Mass/Vol] 0.64 mg/dL Normal 0.50-1.[address] [facility] Comment on above: Performed By: #### 1 023, 7599, 6399 #### [facility] [place] [address] Director Mission: Pardeep Correia MD GFR/1.73 sq M.predicted among non-blacks MDRD (S/P/Bld) [Vol rate/Area] 99 mL/min/{1.73_m2} Normal > OR = 60 [facility] Comment on above: Performed By: #### 1 023, 7599, 6399 #### [facility] [place] [address] Director Mission: Pardeep Correia MD Globulin (S) [Mass/Vol] 2.9 g/dL Normal 1.9-3.7 [facility] Comment on above: Performed By: #### 1 023, 7599, 6399 #### [facility] [place] [address] [place] [address] Director Mission: Pardeep Correia MD Glucose [Mass/Vol] 97 mg/dL Normal 65-99 [facility] Comment on above: Result Comment: Fasting reference interval Performed By: #### 1 0231, 7600, 6399 #### [facility] [address], [address] [place] [address] Director Mission: Pardeep Correia MD Potassium [Moles/Vol] 4.5 mmol/L Normal 3.5-5.[address] [facility] Comment on above: Performed By: #### 1 0231, 7600, 6399 #### [facility] [address], [address] [place] [address] Director Mission: Pardeep Correia MD Protein [Mass/Vol] 7.0 g/dL Normal 6.1-8.1 [facility] Comment on above: Performed By: #### 1 0231, 7599, 6399 #### [facility] [address], [address] [place] [address] Director Mission: Pardeep Correia MD Sodium [Moles/Vol] 140 mmol/L Normal 135-146 [facility] Comment on above: Performed By: #### 1 0231, 7599, 6399 #### [facility] [address], [address] [place] [address] Director Mission: Pardeep Correia MD Urea nitrogen [Mass/Vol] 18 mg/dL Normal 7-25 [facility] Comment on above: Performed By: #### 1 0231, 7600, 6399 #### [facility] [address], [address] [place] [address] Director Mission: Pardeep Correia MD LIPID PANEL, [facility] Cholesterol [Mass/Vol] 178 mg/dL Normal <200 [facility] Comment on above: Order Comment: FASTI NG:YES FASTING: YES Performed By: #### 1 0231, 7600, 6399 #### [facility] [address], [address] [place] [address] Director Mission: Pardeep Correia MD Cholesterol in HDL [Mass/Vol] 61 mg/dL Normal > OR = 50 [facility] Comment on above: Order Comment: FASTI NG:YES FASTING: YES Performed By: #### 1 0231, 7600, 6399 #### [facility] [address], [address] [place] [address] Director Mission: Pardeep Correia MD Cholesterol in LDL [Mass/Vol] 104 mg/dL High [facility] Comment on above: Order Comment: FASTI NG:YES FASTING: YES Result Comment: Refe rence range: <100 Desirable range <100 mg/dL for primary prevention; <70 mg/dL for patients with CHD or diabetic patients with > or = 2 CHD risk factors. LDL-C is now calculated using the Karla calculation, which is a validated novel method providing better accuracy than the Friedewald equation in the estimation of LDL-C. Toribio SS et al. COLT. 2013;310(19): 1359-6047 (http://education.Answer.To.ExpertBeacon/faq/SSS613) Performed By: #### 1 3071, 1180, 0899 #### [facility] [place] [address] Director Mission: Pardeep Correia MD Cholesterol.total/Choles terol in HDL [Mass ratio] 2.9 {ratio} Normal <5.0 [facility] Comment on above: Order Comment: FASTI NG:YES FASTING: YES Performed By: #### 1 0231, 8510, 6399 #### [facility] [address], [address] [place] [address] Director Mission: Pardeep Correia MD NON HDL CHOLESTEROL 117 mg/dL (calc) Normal <130 [facility] Comment on above: Order Comment: FASTI NG:YES FASTING: YES Result Comment: For patients with diabetes plus 1 major ASCVD risk factor, treating to a non-HDL-C goal of <100 mg/dL (LDL-C of <70 mg/dL) is considered a therapeutic option. Performed By: #### 1 0231, 7050, 6399 #### [facility] [address], [address] [place] [address] Director Mission: Pardeep Correia MD Triglyceride [Mass/Vol] 45 mg/dL Normal <150 [facility] Comment on above: Order Comment: FASTI NG:YES FASTING: YES Performed By: #### 1 0231, 7600, 6399 #### [facility] [address], [address] [place] [address] Director Mission: Pardeep Correia MD TSHon 05-17-2024 TSH Qn 1.02 m[IU]/L Normal 0.40-4.50 [facility] Comment on above: Performed By: #### 1 0231, 7600, 6399 #### [facility] [address], [address] [place] [address] Director Mission: Pardeep Correia MD CULTURE, URINE, ROUTINEon CULTURE, URINE, ROUTINE SEE NOTE Abnormal [facility] Comment on above: Result Comment: CULTURE, URINE, ROUTINE Micro Number: [id number] Test Status: Final Specimen Source: Urine Specimen Quality: Adequate Result: 10,000-49,000 CFU/mL of Group B Streptococcus isolated Beta-hemolytic streptococci are predictably susceptible to Penicillin and other beta-lactams. Susceptibility testing not routinely performed. Please contact the laboratory within 3 days if susceptibility testing is desired. Comment: Erythromycin and clindamycin are not recommended for treatment of urinary tract infections, but clindamycin may be useful for treatment of rectovaginal colonization or infection. Performed By: #### 3 95 #### [facility] [address], [address] [place] [address] Director Mission: Pardeep Correia MD Albumin Elph [Mass/Vol]Order ed By: Luis Walton on 01-13-2024 Albumin [Mass/Vol] 3.9 g/dL 2.9-4.4 [facility] No Panel InformationOrdered By: Luis Walton on 01-13-2024 Addendum Document Comment . [facility] Comment on above: The SPE pattern appe ars unremarkable. Evidence ofmonoclonal protein is not apparent.Performed at: [place] [id number] [place], [place] [id number] Director: Patrice Arteaga PhD, Phone: [phone] Fjgum-8-Ejgpljxov 0.3 g/dL 0.0-0.4 [facility] Adfwm-6-Jhsmenvfj 0.9 g/dL 0.4-1.0 [facility] Gamma Globulins 1.4 g/dL 0.4-1.8 [facility] Protein Fractions Elph [Inte rp]Ordered By: Luis Walton on 01-13-2024 Protein Fractions [Interp] Comment . [facility] Comment on above: Protein electrophore sis scan will follow via computer,mail, or material planning analyst delivery. Serum albumin to globulin ra devora by protein electrophoresisOrdered By: Luis Walton on 01-13-2024 Albumin/Globulin Elph [Mass ratio] 1.1 0.7-1.7 [facility] Serum globulin measurement ( mass/volume)Ordered By: Luis Walton on 01-13-2024 Globulin (S) [Mass/Vol] 3.7 g/dL 2.2-3.9 [facility] Serum or plasma beta globuli n measurement by electrophoresis (mass/volume)Ordered By: Luis Walton on 01-13-2024 Beta globulin Elph [Mass/Vol] 1.1 g/dL 0.7-1.3 [facility] Serum or plasma protein mono clonal measurement by electrophoresis (mass/volume)Ordered By: Luis Walton on 01-13-2024 Protein.monoclonal Elph [Mass/Vol] Not Observed g/dL Not Observed [facility] Total protein bloodOrdered B y: Luis Walton on 01-13-2024 Protein [Mass/Vol] 7.6 g/dL 6.0-8.5 [facility] Basophil percentageOrdered B y: Luis Walton on 01-07-2024 Bilirubin [Mass/Vol] 1.00 mg/dL 0.20-1.00 [facility] Comment on above: For patients on eltr ombopag therapy, use of Dimension [place] TBIL is not recommended. Chloride [Moles/Vol] 101 mmol/L 98-107 [facility] Glucose [Mass/Vol] 94 mg/dL 74-106 [facility] Potassium [Moles/Vol] 4.1 mmol/L 3.5-5.1 [facility] Protein [Mass/Vol] 8.6 g/dL 6.4-8.2 [facility] Sodium [Moles/Vol] 135 mmol/L 136-145 [facility] Laboratory - Chemistry and C hemistry - challengeOrdered By: Luis Walton on 01-07-2024 Albumin/Globulin [Mass ratio] 0.9 {ratio} 0.9-2.4 [facility] ALP [Catalytic activity/Vol] 72 U/L 45-117 [facility] ALT [Catalytic activity/Vol] 27 U/L 13-56 [facility] CO2 [Moles/Vol] 27.0 mmol/L 21.0-32.0 [facility] Globulin (S) [Mass/Vol] 4.6 g/dL 2.2-4.2 [facility] Urea nitrogen/Creatinine [Mass ratio] 23.4 mg/mg 10-20 [facility] No Panel InformationOrdered By: Luis Walton on 01-07-2024 Estimated GFR (MDRD) Amer 97 mL/min >60 [facility] Comment on above: GFR Calc Estimated GFR (MDRD) Non-Af Amer 80 mL/min >60 [facility] Comment on above: Non- GFR Calc Serum or plasma calcium riri urement (mass/volume)Ordered By: Luis Walton on 01-07-2024 Calcium [Mass/Vol] 9.6 mg/dL 8.5-10.1 [facility] Serum or plasma creatinine m easurement (mass/volume)Ordered By: Luis Walton on 01-07-2024 Creatinine [Mass/Vol] 0.77 mg/dL 0.55-1.02 [facility] Comment on above: The validity of the calculated GFR & GFRAA in patients over 70 years has not been determined. Clinical correlation is essential. Serum or plasma urea nitroge n measurement (mass/volume)Ordered By: Luis Walton on 01-07-2024 Urea nitrogen [Mass/Vol] 18 mg/dL 7-18 [facility] Thin prep Papanicolaou smear with manual screeningOrdered By: Luisjing Walton on 01-07-2024 Thin prep Papanicolaou smear with manual screening 4.0 g/dL 3.2-5.0 [facility] Thin prep Papanicolaou smear with manual screening 24 U/L 15-37 [facility] Thin prep Papanicolaou smear with manual screening 7 5-15 [facility] Absolute lymphocyte countOrd ered By: Luis Anton on 12-03-2023 Lymphocytes Auto (Unsp spec) [#/Vol] 1.99 10*3/uL 0.83-4.51 [facility] Automated lymphocyte count a s percentage of total leukocytesOrdered By: Luis Walton on 12-03-2023 Lymphocytes/100 WBC Auto (Unsp spec) 26.5 % 19-41 [facility] Basophil percentageOrdered B y: Luis Walton on 12-03-2023 Basophils/100 WBC (Bld) 0.8 % 0-1 [facility] Bilirubin [Mass/Vol] 0.50 mg/dL 0.20-1.00 [facility] Comment on above: For patients on eltr ombopag therapy, use of Dimension [place] TBIL is not recommended. Chloride [Moles/Vol] 107 mmol/L 98-107 [facility] Cholesterol [Mass/Vol] 191 mg/dL <200 [facility] Comment on above: <200 mg/dL Desirable 200-240 mg/dL Borderline >240 mg/dL High Risk Eosinophils/100 WBC (Bld) 4.1 % 0-5 [facility] Glucose [Mass/Vol] 101 mg/dL 74-106 [facility] Comment on above: Fasting Glucose resu lt from 100 to 125 mg/dL suggests IMPAIRED HOMEOSTASIS per A.D.A. criteria. Hemoglobin (Bld) [Mass/Vol] 13.6 g/dL 12.0-15.0 [facility] Monocytes/100 WBC (Bld) 4.7 % 0-10 [facility] Neutrophils (Bld) [#/Vol] 4.8 10*3/uL 2.0-7.7 [facility] Neutrophils/100 WBC (Bld) 63.6 % 47-70 [facility] Potassium [Moles/Vol] 4.1 mmol/L 3.5-5.1 [facility] Protein [Mass/Vol] 8.4 g/dL 6.4-8.2 [facility] Sodium [Moles/Vol] 139 mmol/L 136-145 [facility] Triglyceride [Mass/Vol] 56 mg/dL <199 [facility] Comment on above: The drugs N-Acetylcy steine and Metamizole may falsely depress this assay.Serum Triglycerides Reference Interval Normal <150 mg/dL Borderline high 150 - 199 mg/dL High 200 - 499 mg/dL Very High > or = 500 mg/dL WBC (Bld) [#/Vol] 7.5 10*3/uL 4.4-11.0 [facility] Determination of erythrocyte mean corpuscular volume (MCV)Ordered By: Luis Walton on 12-03-2023 MCV (RBC) [Entitic vol] 91.1 fL 81-99 [facility] Erythrocyte distribution wid th ratioOrdered By: Luis Walton on 12-03-2023 Erythrocyte distribution width (RBC) [Ratio] 13.1 % 11.6-14.6 [facility] Erythrocyte distribution wid th standard deviationOrdered By: Luis Walton on 12-03-2023 Erythrocyte distribution width (RBC) [Entitic vol] 43.9 fL 35.1-43.9 [facility] Hematocrit Auto (Bld) [Volum e fraction]Ordered By: Luis Walton on 12-03-2023 Hematocrit (Bld) [Volume fraction] 42.8 % 37-47 [facility] Immature granulocytes/100 WB C Auto (Bld)Ordered By: Luis Walton on 12-03-2023 Immature granulocytes/100 WBC (Bld) 0.300 % 0.0-0.9 [facility] Comment on above: IG% - Immature Granu locytes (promyelocytes, myelocytes and metamyelocytes) > 1% indicates that a LEFT SHIFT is Present. Iron measurement (mass/mass) Ordered By: Luis Walton on 12-03-2023 Iron (Unsp spec) [Mass/Mass] 67 ug/dL 50-170 [facility] Laboratory - Chemistry and C hemistry - challengeOrdered By: Luis Walton on 12-03-2023 Albumin/Globulin [Mass ratio] 0.9 {ratio} 0.9-2.4 [facility] ALP [Catalytic activity/Vol] 68 U/L 45-117 [facility] ALT [Catalytic activity/Vol] 28 U/L 13-56 [facility] Cholesterol in HDL [Mass/Vol] 66 mg/dL >40 [facility] Comment on above: The drugs N-Acetylcy steine and Metamizole may falsely depress this assay. Reference Range HDL <40 mg/dL Low HDL Cholesterol HDL >or= 60 mg/dL High HDL Cholesterol Cholesterol in LDL [Mass/Vol] 114 mg/dL 0-130 [facility] CO2 [Moles/Vol] 25.0 mmol/L 21.0-32.0 [facility] Globulin (S) [Mass/Vol] 4.5 g/dL 2.2-4.2 [facility] Urea nitrogen/Creatinine [Mass ratio] 23.1 mg/mg 10-20 [facility] Laboratory - Hematology and Cell countsOrdered By: Luis Walton on 12-03-2023 MCH (RBC) [Entitic mass] 28.9 pg 27.0-32.0 [facility] MCHC (RBC) [Mass/Vol] 31.8 g/dL 32-36 [facility] Nucleated RBC/100 WBC (Bld) [Ratio] 0 % 0-5 [facility] Platelet mean volume (Bld) [Entitic vol] 10.8 fL 6.2-12.0 [facility] Platelets (Bld) [#/Vol] 177 10*3/uL 150-450 [facility] No Panel InformationOrdered By: Luis Walton on 12-03-2023 Estimated GFR (MDRD) Amer 102 mL/min >60 [facility] Comment on above: GFR Calc Estimated GFR (MDRD) Non-Af Amer 85 mL/min >60 [facility] Comment on above: Non- GFR Calc VLDL Cholesterol 11 mg/dL 5-40 [facility] RBC Auto (Bld) [#/Vol]Ordere d By: Luis Walton on 12-03-2023 RBC (Bld) [#/Vol] 4.70 10*6/uL 4.2-5.4 [facility] Serum or plasma calcium riri urement (mass/volume)Ordered By: Luis Walton on 12-03-2023 Calcium [Mass/Vol] 9.4 mg/dL 8.5-10.1 [facility] Serum or plasma creatinine m easurement (mass/volume)Ordered By: Luis Walton on 12-03-2023 Creatinine [Mass/Vol] 0.74 mg/dL 0.55-1.02 [facility] Comment on above: The validity of the calculated GFR & GFRAA in patients over 70 years has not been determined. Clinical correlation is essential. Serum or plasma thyroid stim ulating hormone (TSH) measurement (units/volume)Ordered By: Luis Walton on 12-03-2023 TSH Qn 2.59 uIU/mL 0.358-3.74 [facility] Serum or plasma urea nitroge n measurement (mass/volume)Ordered By: Luis Walton on 12-03-2023 Urea nitrogen [Mass/Vol] 17 mg/dL 7-18 [facility] Thin prep Papanicolaou smear with manual screeningOrdered By: Luis Walton on 12-03-2023 Thin prep Papanicolaou smear with manual screening 3.9 g/dL 3.2-5.0 [facility] Thin prep Papanicolaou smear with manual screening 31 U/L 15-37 [facility] Thin prep Papanicolaou smear with manual screening 7 5-15 [facility] Whole blood hemoglobin A1c/t otal hemoglobin ratio (mass fraction)Ordered By: Luis Walton on 12-03-2023 HbA1c (Bld) [Mass fraction] 5.9 % 3.8-5.6 [facility] Comment on above: Normal < 5.7 % Predi abetic 5.7 - 6.4 % Diabetic >or= 6.5 % Please note range changes. Absolute lymphocyte countOrd ered By: Cristian Hopper on 07-09-2023 Lymphocytes Auto (Unsp spec) [#/Vol] 2.09 10*3/uL 0.83-4.51 [facility] Basophil percentageOrdered B y: Cristian Hopper on 07-09-2023 Basophils/100 WBC (Bld) 0.6 % 0-1 [facility] Eosinophils/100 WBC (Bld) 1.9 % 0-5 [facility] Neutrophils (Bld) [#/Vol] 4.3 10*3/uL 2.0-7.7 [facility] Neutrophils/100 WBC (Bld) 61.7 % 47-70 [facility] WBC (Bld) [#/Vol] 7.0 10*3/uL 4.4-11.0 [facility] Blood erythrocytes count (nu mber/volume)Ordered By: Cristian Hopper on 07-09-2023 RBC (Bld) [#/Vol] 4.39 10*6/uL 4.2-5.4 [facility] Blood hemoglobin measurement (mass/volume)Ordered By: Cristian Hopper on 07-09-2023 Hemoglobin (Bld) [Mass/Vol] 13.2 g/dL 12.0-15.0 [facility] Blood lymphocytes/100 leukoc ytesOrdered By: Cristian Hopper on 07-09-2023 Lymphocytes/100 WBC (Bld) 30.0 % 19-41 [facility] Blood monocytes/100 leukocyt esOrdered By: Cristian Hopper on 07-09-2023 Monocytes/100 WBC (Bld) 5.7 % 0-10 [facility] Blood platelet mean volumeOr dered By: Cristian Hopper on 07-09-2023 Platelet mean volume (Bld) [Entitic vol] 9.4 fL 6.2-12.0 [facility] Determination of erythrocyte mean corpuscular volume (MCV)Ordered By: Cristian Hopper on 07-09-2023 MCV (RBC) [Entitic vol] 91.6 fL 81-99 [facility] Hematocrit Auto (Bld) [Volum e fraction]Ordered By: Cristian Hopper on 07-09-2023 Hematocrit (Bld) [Volume fraction] 40.2 % 37-47 [facility] Laboratory - Hematology and Cell countsOrdered By: Cristian Hopper on 07-09-2023 Erythrocyte distribution width (RBC) [Entitic vol] 43.1 fL 35.1-43.9 [facility] Erythrocyte distribution width (RBC) [Ratio] 12.8 % 11.6-14.6 [facility] Immature granulocytes/100 WBC (Bld) 0.100 % 0.0-0.9 [facility] Comment on above: IG% - Immature Granu locytes (promyelocytes, myelocytes and metamyelocytes) > 1% indicates that a LEFT SHIFT is Present. MCH (RBC) [Entitic mass] 30.1 pg 27.0-32.0 [facility] Nucleated RBC/100 WBC (Bld) [Ratio] 0 % 0-5 [facility] MCHC Auto (RBC) [Mass/Vol]Or dered By: Cristian Hopper on 07-09-2023 MCHC (RBC) [Mass/Vol] 32.8 g/dL 32-36 [facility] Platelets bldOrdered By: Kvng Hopper on 07-09-2023 Platelets (Bld) [#/Vol] 268 10*3/uL 150-450 [facility] Absolute lymphocyte countOrd ered By: Luis Walton on 12-01-2022 Lymphocytes Auto (Unsp spec) [#/Vol] 2.37 10*3/uL 0.83-4.51 [facility] Basophil percentageOrdered B y: Luis Walton on 12-01-2022 Basophils/100 WBC (Bld) 0.8 % 0-1 [facility] Eosinophils/100 WBC (Bld) 5.4 % 0-5 [facility] Neutrophils (Bld) [#/Vol] 4.4 10*3/uL 2.0-7.7 [facility] Neutrophils/100 WBC (Bld) 56.7 % 47-70 [facility] WBC (Bld) [#/Vol] 7.7 10*3/uL 4.4-11.0 [facility] Blood erythrocytes count (nu mber/volume)Ordered By: Luis Walton on 12-01-2022 RBC (Bld) [#/Vol] 4.69 10*6/uL 4.2-5.4 [facility] Blood hemoglobin measurement (mass/volume)Ordered By: Luis Walton on 12-01-2022 Hemoglobin (Bld) [Mass/Vol] 13.1 g/dL 12.0-15.0 [facility] Blood lymphocytes/100 leukoc ytesOrdered By: Luis Walton on 12-01-2022 Lymphocytes/100 WBC (Bld) 30.7 % 19-41 [facility] Blood monocytes/100 leukocyt esOrdered By: Luis Walton on 12-01-2022 Monocytes/100 WBC (Bld) 6.1 % 0-10 [facility] Blood platelet mean volumeOr dered By: Luis Walton on 12-01-2022 Platelet mean volume (Bld) [Entitic vol] 9.6 fL 6.2-12.0 [facility] Determination of erythrocyte mean corpuscular volume (MCV)Ordered By: Luis Walton on 12-01-2022 MCV (RBC) [Entitic vol] 88.9 fL 81-99 [facility] Hematocrit Auto (Bld) [Volum e fraction]Ordered By: Luis Walton on 12-01-2022 Hematocrit (Bld) [Volume fraction] 41.7 % 37-47 [facility] Laboratory - Hematology and Cell countsOrdered By: Luis Walton on 12-01-2022 Erythrocyte distribution width (RBC) [Entitic vol] 48.6 fL 35.1-43.9 [facility] Erythrocyte distribution width (RBC) [Ratio] 15.1 % 11.6-14.6 [facility] Immature granulocytes/100 WBC (Bld) 0.300 % 0.0-0.9 [facility] Comment on above: IG% - Immature Granu locytes (promyelocytes, myelocytes and metamyelocytes) > 1% indicates that a LEFT SHIFT is Present. MCH (RBC) [Entitic mass] 27.9 pg 27.0-32.0 [facility] Nucleated RBC/100 WBC (Bld) [Ratio] 0 % 0-5 [facility] MCHC Auto (RBC) [Mass/Vol]Or dered By: Luis Walton on 12-01-2022 MCHC (RBC) [Mass/Vol] 31.4 g/dL 32-36 [facility] No Panel InformationOrdered By: Luis Walton on 12-01-2022 Thyroid Stimulating Hormone (TSH) 5.93 uIU/mL 0.358-3.74 [facility] Platelets bldOrdered By: Wilma Walton on 12-01-2022 Platelets (Bld) [#/Vol] 296 10*3/uL 150-450 [facility] Absolute lymphocyte countOrd ered By: Tracy Rogel on 08-25-2022 Lymphocytes Auto (Unsp spec) [#/Vol] 1.60 10*3/uL 0.83-4.51 [facility] Basophil percentageOrdered B y: Tracy Rogel on 08-25-2022 Basophils/100 WBC (Bld) 0.7 % 0-1 [facility] Chloride [Moles/Vol] 104 mmol/L 98-107 [facility] Eosinophils/100 WBC (Bld) 4.0 % 0-5 [facility] Glucose [Mass/Vol] 90 mg/dL 74-106 [facility] Neutrophils (Bld) [#/Vol] 3.3 10*3/uL 2.0-7.7 [facility] Neutrophils/100 WBC (Bld) 59.7 % 47-70 [facility] Potassium [Moles/Vol] 3.9 mmol/L 3.5-5.1 [facility] Sodium [Moles/Vol] 137 mmol/L 136-145 [facility] WBC (Bld) [#/Vol] 5.5 10*3/uL 4.4-11.0 [facility] Blood erythrocytes count (nu mber/volume)Ordered By: Tracy Rogel on 08-25-2022 RBC (Bld) [#/Vol] 3.74 10*6/uL 4.2-5.4 [facility] Blood hemoglobin measurement (mass/volume)Ordered By: Tracy Rogel on 08-25-2022 Hemoglobin (Bld) [Mass/Vol] 10.8 g/dL 12.0-15.0 [facility] Blood lymphocytes/100 leukoc ytesOrdered By: Tracy Rogel on 08-25-2022 Lymphocytes/100 WBC (Bld) 28.9 % 19-41 [facility] Blood monocytes/100 leukocyt esOrdered By: Tracy Rogel on 08-25-2022 Monocytes/100 WBC (Bld) 6.5 % 0-10 [facility] Blood platelet mean volumeOr dered By: Tracy Rogel on 08-25-2022 Platelet mean volume (Bld) [Entitic vol] 9.9 fL 6.2-12.0 [facility] Determination of erythrocyte mean corpuscular volume (MCV)Ordered By: Tracy Rogel on 08-25-2022 MCV (RBC) [Entitic vol] 95.2 fL 81-99 [facility] Hematocrit Auto (Bld) [Volum e fraction]Ordered By: Tracy Rogel on 08-25-2022 Hematocrit (Bld) [Volume fraction] 35.6 % 37-47 [facility] Laboratory - Chemistry and C hemistry - challengeOrdered By: Tracy Rogel on 08-25-2022 CO2 [Moles/Vol] 27.0 mmol/L 21.0-32.0 [facility] Free T4 [Mass/Vol] 1.27 ng/dL 0.76-1.46 [facility] Magnesium [Mass/Vol] 2.1 mg/dL 1.6-2.6 [facility] Urea nitrogen/Creatinine [Mass ratio] 28.4 mg/mg 10-20 [facility] Laboratory - Hematology and Cell countsOrdered By: Tracy Rogel on 08-25-2022 Erythrocyte distribution width (RBC) [Entitic vol] 51.8 fL 35.1-43.9 [facility] Erythrocyte distribution width (RBC) [Ratio] 14.7 % 11.6-14.6 [facility] Immature granulocytes/100 WBC (Bld) 0.200 % 0.0-0.9 [facility] Comment on above: IG% - Immature Granu locytes (promyelocytes, myelocytes and metamyelocytes) > 1% indicates that a LEFT SHIFT is Present. MCH (RBC) [Entitic mass] 28.9 pg 27.0-32.0 [facility] Nucleated RBC/100 WBC (Bld) [Ratio] 0 % 0-5 [facility] MCHC Auto (RBC) [Mass/Vol]Or dered By: Tracy Rogel on 08-25-2022 MCHC (RBC) [Mass/Vol] 30.3 g/dL 32-36 [facility] No Panel InformationOrdered By: Tracy Rogel on 08-25-2022 Estimated GFR (MDRD) Amer 131 mL/min >60 [facility] Comment on above: GFR Calc Estimated GFR (MDRD) Non-Af Amer 108 mL/min >60 [facility] Comment on above: Non- GFR Calc Free Triiodothyronine (T3) pg/dL 2.3 pg/mL 2.18-3.98 [facility] Thyroid Stimulating Hormone (TSH) 3.59 uIU/mL 0.358-3.74 [facility] Vitamin D 25-Hydroxy 44.4 ng/mL [facility] Comment on above: Vitamin D 25(OH) Sta tus Range Deficiency <20 ng/mL (50nmol/L) Insufficiency 20 - 30 ng/mL (50 - 75 nmol/L) Sufficiency 30 - 100 ng/mL (75 - 250 nmol/L) Toxicity >100 ng/mL (>250 nmol/L) Platelets bldOrdered By: Benedict Rogel on 08-25-2022 Platelets (Bld) [#/Vol] 295 10*3/uL 150-450 [facility] Serum or plasma calcium riri urement (mass/volume)Ordered By: Tracy Rogel on 08-25-2022 Calcium [Mass/Vol] 8.4 mg/dL 8.5-10.1 [facility] Serum or plasma creatinine m easurement (mass/volume)Ordered By: Tracy Rogel on 08-25-2022 Creatinine [Mass/Vol] 0.60 mg/dL 0.55-1.02 [facility] Comment on above: The validity of the calculated GFR & GFRAA in patients over 70 years has not been determined. Clinical correlation is essential. Serum or plasma urea nitroge n measurement (mass/volume)Ordered By: Tracy Rogel on 08-25-2022 Urea nitrogen [Mass/Vol] 17 mg/dL 7-18 [facility] Thin prep Papanicolaou smear with manual screeningOrdered By: Tracy Rogel on 08-25-2022 Thin prep Papanicolaou smear with manual screening 6 5-15 [facility] Absolute lymphocyte counton 07-23-2022 Lymphocytes Auto (Unsp spec) [#/Vol] 2.23 10*3/uL 0.83-4.51 [facility] Work Phone: Basophil percentageon 2021 Basophils/100 WBC (Bld) 0.4 % 0-1 [facility] Work Phone: [phone] Eosinophils/100 WBC (Bld) 3.0 % 0-5 [facility] Work Phone: Neutrophils (Bld) [#/Vol] 3.9 10*3/uL 2.0-7.7 [facility] Work Phone: Neutrophils/100 WBC (Bld) 57.6 % 47-70 [facility] Work Phone: WBC (Bld) [#/Vol] 6.7 10*3/uL 4.4-11.0 [facility]: Blood erythrocytes count (nu mber/volume)on 07-23-2022 RBC (Bld) [#/Vol] 2.93 10*6/uL 4.2-5.4 [facility] Work Phone: Blood hemoglobin measurement (mass/volume)on 07-23-2022 Hemoglobin (Bld) [Mass/Vol] 9.0 g/dL 12.0-15.0 [facility] Work Phone: Blood lymphocytes/100 leukoc yteson 07-23-2022 Lymphocytes/100 WBC (Bld) 33.3 % 19-41 [facility] Work Phone: Blood monocytes/100 leukocyt eson 07-23-2022 Monocytes/100 WBC (Bld) 5.4 % 0-10 [facility] Work Phone: Blood platelet mean volumeon 07-23-2022 Platelet mean volume (Bld) [Entitic vol] 9.5 fL 6.2-12.0 [facility] Work Phone: Determination of erythrocyte mean corpuscular volume (MCV)on 07-23-2022 MCV (RBC) [Entitic vol] 96.2 fL 81-99 [facility] Work Phone: Hematocrit Auto (Bld) [Volum e fraction]on 07-23-2022 Hematocrit (Bld) [Volume fraction] 28.2 % 37-47 [facility] Work Phone: Laboratory - Hematology and Cell countson 07-23-2022 Erythrocyte distribution width (RBC) [Entitic vol] 46.5 fL 35.1-43.9 [facility] Work Phone: Erythrocyte distribution width (RBC) [Ratio] 13.3 % 11.6-14.6 [facility] Work Phone: Immature granulocytes/100 WBC (Bld) 0.300 % 0.0-0.9 [facility] Work Phone: Comment on above: IG% - Immature Granu locytes (promyelocytes, myelocytes and metamyelocytes) > 1% indicates that a LEFT SHIFT is Present. MCH (RBC) [Entitic mass] 30.7 pg 27.0-32.0 [facility] Work Phone: Nucleated RBC/100 WBC (Bld) [Ratio] 0 % 0-5 [facility] Work Phone: MCHC Auto (RBC) [Mass/Vol]on 07-23-2022 MCHC (RBC) [Mass/Vol] 31.9 g/dL 32-36 [facility] Work Phone: Platelets bldon 07-23-2022 Platelets (Bld) [#/Vol] 343 10*3/uL 150-450 [facility] Work Phone: No Panel Informationon 02-13 Thyroid Stimulating Hormone (TSH) 9.64 uIU/mL 0.358-3.74 [facility] Work Phone: Absolute lymphocyte counton 12-26-2021 Lymphocytes Auto (Unsp spec) [#/Vol] 2.55 10*3/uL 0.83-4.51 [facility] Work Phone: Basophil percentageon 2021 Basophils/100 WBC (Bld) 0.4 % 0-1 [facility] Work Phone: Bilirubin [Mass/Vol] 0.60 mg/dL 0.20-1.00 [facility] Work Phone: Comment on above: For patients on eltr ombopag therapy, use of Dimension [place] TBIL is not recommended. Chloride [Moles/Vol] 105 mmol/L 98-107 [facility] Work Phone: [phone] Eosinophils/100 WBC (Bld) 6.3 % 0-5 [facility] Work Phone: [phone] Glucose [Mass/Vol] 86 mg/dL 74-106 [facility] Work Phone: [phone] Neutrophils (Bld) [#/Vol] 4.6 10*3/uL 2.0-7.7 [facility] Work Phone: [phone] Neutrophils/100 WBC (Bld) 56.4 % 47-70 [facility] Work Phone: [phone] Potassium [Moles/Vol] 5.2 mmol/L 3.5-5.1 [facility] Work Phone: [phone] Comment on above: Moderate Hemolysis, Result may be falsely increased. Protein [Mass/Vol] 8.2 g/dL 6.4-8.2 [facility] Work Phone: [phone] Sodium [Moles/Vol] 137 mmol/L 136-145 [facility] Work Phone: [phone] WBC (Bld) [#/Vol] 8.1 10*3/uL 4.4-11.0 [facility] Work Phone: [phone] Blood erythrocytes count (nu mber/volume)on 12-26-2021 RBC (Bld) [#/Vol] 4.34 10*6/uL 4.2-5.4 [facility] Work Phone: Blood hemoglobin measurement (mass/volume)on 12-26-2021 Hemoglobin (Bld) [Mass/Vol] 13.2 g/dL 12.0-15.0 [facility] Work Phone: [phone] Blood lymphocytes/100 leukoc yteson 12-26-2021 Lymphocytes/100 WBC (Bld) 31.5 % 19-41 [facility] Work Phone: [phone] Blood monocytes/100 leukocyt eson 12-26-2021 Monocytes/100 WBC (Bld) 5.3 % 0-10 [facility] Work Phone: Blood platelet mean volumeon 12-26-2021 Platelet mean volume (Bld) [Entitic vol] 9.4 fL 6.2-12.0 [facility] Work Phone: Determination of erythrocyte mean corpuscular volume (MCV)on 12-26-2021 MCV (RBC) [Entitic vol] 88.7 fL 81-99 [facility] Work Phone: Hematocrit Auto (Bld) [Volum e fraction]on 12-26-2021 Hematocrit (Bld) [Volume fraction] 38.5 % 37-47 [facility] Work Phone: Laboratory - Chemistry and C hemistry - challengeon 12-26-2021 ALP [Catalytic activity/Vol] 78 U/L 45-117 [facility] Work Phone: ALT [Catalytic activity/Vol] 35 U/L 13-56 [facility] Work Phone: CO2 [Moles/Vol] 26.0 mmol/L 21.0-32.0 [facility] Work Phone: Globulin (S) [Mass/Vol] 4.7 g/dL 2.2-4.2 [facility] Work Phone: Urea nitrogen/Creatinine [Mass ratio] 19.9 mg/mg 10-20 [facility] Work Phone: Laboratory - Hematology and Cell countson 12-26-2021 Erythrocyte distribution width (RBC) [Entitic vol] 39.5 fL 35.1-43.9 [facility] Work Phone: Erythrocyte distribution width (RBC) [Ratio] 12.2 % 11.6-14.6 [facility] Work Phone: Immature granulocytes/100 WBC (Bld) 0.100 % 0.0-0.9 [facility] Work Phone: Comment on above: IG% - Immature Granu locytes (promyelocytes, myelocytes and metamyelocytes) > 1% indicates that a LEFT SHIFT is Present. MCH (RBC) [Entitic mass] 30.4 pg 27.0-32.0 [facility] Work Phone: Nucleated RBC/100 WBC (Bld) [Ratio] 0 % 0-5 [facility] Work Phone: MCHC Auto (RBC) [Mass/Vol]on 12-26-2021 MCHC (RBC) [Mass/Vol] 34.3 g/dL 32-36 [facility] Work Phone: No Panel Informationon 12-26 Estimated Creatinine Clearance Calc 71.88 ml/min [facility] Work Phone: Estimated GFR (MDRD) Amer 118 mL/min >60 [facility] Work Phone: Comment on above: GFR Calc Estimated GFR (MDRD) Non-Af Amer 98 mL/min >60 [facility] Work Phone: Comment on above: Non- GFR Calc Troponin I High Sensitivity < 3 pg/mL 3.0-54.0 [facility] Work Phone: Comment on above: Please Note: New Veda t Units and Gender Specific Reference Ranges. For more information see Policy Stat Procedure Williamson High Sensitivity Troponin (TNIH) and attachments. Platelets bldon 12-26-2021 Platelets (Bld) [#/Vol] 263 10*3/uL 150-450 [facility] Work Phone: Serum or plasma albumin riri urement (mass/volume)on 12-26-2021 Albumin [Mass/Vol] 3.5 g/dL 3.2-5.0 [facility] Work Phone: Serum or plasma albumin/glob ulin mass ratioon 12-26-2021 Albumin/Globulin [Mass ratio] 0.7 {ratio} 0.9-2.4 [facility] Work Phone: Serum or plasma calcium riri urement (mass/volume)on 12-26-2021 Calcium [Mass/Vol] 9.1 mg/dL 8.5-10.1 [facility] Work Phone: Serum or plasma creatinine m easurement (mass/volume)on 12-26-2021 Creatinine [Mass/Vol] 0.65 mg/dL 0.55-1.02 [facility] Work Phone: Comment on above: The validity of the calculated GFR & GFRAA in patients over 70 years has not been determined. Clinical correlation is essential. Serum or plasma urea nitroge n measurement (mass/volume)on 12-26-2021 Urea nitrogen [Mass/Vol] 13 mg/dL 7-18 [facility] Work Phone: Thin prep Papanicolaou smear with manual screeningon 12-26-2021 Thin prep Papanicolaou smear with manual screening 67 U/L 15-37 [facility] Work Phone: Comment on above: Moderate Hemolysis, Result may be falsely increased. Thin prep Papanicolaou smear with manual screening 6 5-15 [facility] Work Phone: Cervical or vagninal specime n microscopic examination by cytology stain (reported ason 12-25-2021 Cytology report Cyto stain Doc (Cvx/Vag) Comment . [facility] Work Phone: Comment on above: The Pap smear is a s creening test designed to aid in thedetection of premalignant and malignant conditions of theuterine cervix. It is not a diagnostic procedure andshould not be used as the sole means of detecting cervicalcancer. Both false-positive and false-negative reports dooccur. Detection in cervical specim en of any of human papilloma virus (HPV) 16, 18, 31, 33,on 12-25-2021 HPV 16+18+31+33+35+39+45+51+ 52+56+58+59+66+68 DNA Probe+sig amp Ql (Cvx) TNP [facility] Work Phone: Comment on above: Test not performedTe st not performed. Liquid based PAP vial containedinsufficient specimen for molecular testing; likely aconsequence of insufficient cellularity in originalcollection.This nucleic acid amplification test detects fourteen high-risk HPV types (16,18,31,33,35,39,45,51,52,56,58,59,66,68)without differentiation. Laboratory - Cytologyon 12-12 [employer] Cyto stain Nom (Cvx/Vag) [ID] Comment . [facility] Work Phone: Comment on above: Karolina Mcguire chnologist (ASCP) Laboratory - Miscellaneous t estson 12-25-2021 Service comment (Unsp spec) [Interp] Comment . [facility] Work Phone: Comment on above: This liquid based Th inPrep(R) pap test was screened withthe use of an image guided system. Service comment (Unsp spec) [Interp] . . [facility] Work Phone: No Panel Informationon 12-25 Pathology report final diagnosis Narrative Comment . [facility] Work Phone: Comment on above: NEGATIVE FOR INTRAEP ITHELIAL LESION OR MALIGNANCY. Office Visiton 05-20-2017 Documentation of current medications (procedure) Done Invalid Interpretation Code [facility] Work Phone: Office Visiton 12-30-2015 Documentation of current medications (procedure) Done Invalid Interpretation Code [facility] Work Phone: [phone] Smoking cessation education (procedure) yes Invalid Interpretation Code [facility] Work Phone: Tobacco smoking status NHIS Unknown Invalid Interpretation Code [facility] Work Phone: [phone] Tobacco use CPHS Former smoker Invalid Interpretation Code [facility] Work Phone: [phone] Vital Signs Date Time Vital Sign Value Performing Clinician Facility 02-07-2025 09:51-0400 Body height 157.[address] Cristian Hopper MD Work Phone: [facility] 02-07-2025 09:51-0400 Body mass index (BMI) [Ratio] 30.9 kg/m2 Dr. Cristian Hopper MD Work Phone: [facility] 02-07-2025 09:51-0400 Body temperature 98.6 [degF] Dr. Cristian Hopper MD Work Phone: [facility] 02-07-2025 09:51-0400 Body weight 76.[address] Cristian Hopper MD Work Phone: [facility] 02-07-2025 09:51-0400 Diastolic blood pressure 77 mm[Hg] Dr. Cristian Hopper MD Work Phone: [facility] 02-07-2025 09:51-0400 Heart rate 86 /min Dr. Cristian Hopper MD Work Phone: [facility] 02-07-2025 09:51-0400 Respiratory rate 15 /min Dr. Cristian Hopper MD Work Phone: [facility] 02-07-2025 09:51-0400 SaO2% (BldA) [Mass fraction] 98 % Dr. Cristian Hopper MD Work Phone: [facility] 02-07-2025 09:51-0400 Systolic blood pressure 120 mm[Hg] Dr. Cristian Hopper MD Work Phone: [facility] 01-10-2025 09:18-0400 Body weight 78.56 kg Yunior Webb MD Work Phone: [facility] 01-10-2025 09:18-0400 Diastolic blood pressure 84 mm[Hg] Yunior Webb MD Work Phone: [facility] 01-10-2025 09:18-0400 Systolic blood pressure 130 mm[Hg] Yunior Webb MD Work Phone: [facility] 12-14-2024 12:21-0400 Body temperature 97 [degF] Buzz De Los Santos MD Work Phone: [facility] 12-14-2024 12:21-0400 Body weight 74.84 kg Buzz De Los Santos MD Work Phone: [facility] 12-14-2024 12:21-0400 Diastolic blood pressure 77 mm[Hg] Buzz De Los Santos MD Work Phone: [facility] 12-14-2024 12:21-0400 Heart rate 65 /min Buzz De Los Santos MD Work Phone: [facility] 12-14-2024 12:21-0400 Systolic blood pressure 126 mm[Hg] Buzz De Los Santos MD Work Phone: [facility] 11-17-2024 08:42-0500 Body temperature 98.2 [degF] Dr. Cristian Hopper MD Work Phone: [facility] 11-17-2024 08:42-0500 Body weight 74.[address] Cristian Hopper MD Work Phone: [facility] 11-17-2024 08:42-0500 Diastolic blood pressure 85 mm[Hg] Dr. Cristian Hopper MD Work Phone: [facility] 11-17-2024 08:42-0500 Heart rate 72 /min Dr. Cristian Hopper MD Work Phone: [facility] 11-17-2024 08:42-0500 Respiratory rate 16 /min Dr. Cristian Hopper MD Work Phone: [facility] 11-17-2024 08:42-0500 SaO2% (BldA) [Mass fraction] 97 % Dr. Cristian Hopper MD Work Phone: [facility] 11-17-2024 08:42-0500 Systolic blood pressure 139 mm[Hg] Dr. Cristian Hopper MD Work Phone: [facility] 11-15-2024 14:51-0500 Body height 157.[address] Cristian Hopper MD Work Phone: [facility] 11-15-2024 14:51-0500 Body mass index (BMI) [Ratio] 29.9 kg/m2 Dr. Cristian Hopper MD Work Phone: [facility] 11-15-2024 14:51-0500 Body weight 74.[address] Cristian Hopper MD Work Phone: [facility] 11-07-2024 15:00-0500 Body temperature 97.9 [degF] Dr. Cristian Hopper MD Work Phone: [facility] 11-07-2024 15:00-0500 Diastolic blood pressure 75 mm[Hg] Dr. Cristian Hopper MD Work Phone: [facility] 11-07-2024 15:00-0500 Heart rate 68 /min Dr. Cristian Hopper MD Work Phone: [facility] 11-07-2024 15:00-0500 Respiratory rate 18 /min Dr. Cristian Hopper MD Work Phone: [facility] 11-07-2024 15:00-0500 SaO2% (BldA) [Mass fraction] 97 % Dr. Cristian Hopper MD Work Phone: [facility] 11-07-2024 15:00-0500 Systolic blood pressure 121 mm[Hg] Dr. Cristian Hopper MD Work Phone: [facility] 11-06-2024 19:43-0500 Body mass index (BMI) [Ratio] 28.7 kg/m2 Dr. Cristian Hopper MD Work Phone: [facility] 11-06-2024 19:43-0500 Body weight 71.[address] Cristian Hopper MD Work Phone: [facility] 11-03-2024 13:00-0500 Body temperature 98.4 [degF] Dr. Cristian Hopper MD Work Phone: [facility] 11-03-2024 13:00-0500 Diastolic blood pressure 78 mm[Hg] Dr. Cristian Hopper MD Work Phone: [facility] 11-03-2024 13:00-0500 Heart rate 78 /min Dr. Cristian Hopper MD Work Phone: [facility] 11-03-2024 13:00-0500 Respiratory rate 14 /min Dr. Cristian Hopper MD Work Phone: [facility] 11-03-2024 13:00-0500 SaO2% (BldA) [Mass fraction] 99 % Dr. Cristian Hopper MD Work Phone: [facility] 11-03-2024 13:00-0500 Systolic blood pressure 138 mm[Hg] Dr. Cristian Hopper MD Work Phone: [facility] 11-03-2024 09:10-0500 Body mass index (BMI) [Ratio] 30.7 kg/m2 Dr. Cristian Hopper MD Work Phone: [facility] 11-03-2024 09:10-0500 Body weight 76.[address] Cristian Hopper MD Work Phone: [facility] 07-10-2024 10:56-0400 Body height 157.5 cm Michael Sahu MD Work Phone: [facility] 07-10-2024 10:56-0400 Body mass index (BMI) [Ratio] 29.74 kg/m2 Michael Sahu MD Work Phone: [facility] 07-10-2024 10:56-0400 Body weight 73.75 kg Michael Sahu MD Work Phone: [facility] 07-10-2024 10:56-0400 Diastolic blood pressure 87 mm[Hg] Michael Sahu MD Work Phone: [facility] 07-10-2024 10:56-0400 Heart rate 64 /min Michael Sahu MD Work Phone: [facility] 07-10-2024 10:56-0400 Respiratory rate 16 /min Michael Sahu MD Work Phone: [facility] 07-10-2024 10:56-0400 Systolic blood pressure 148 mm[Hg] Michael Sahu MD Work Phone: [facility] 02-15-2023 14:18-0400 Body height 157.[address] Cristian Hopper Work Phone: [facility] 02-15-2023 14:18-0400 Body mass index (BMI) [Ratio] 34.9 kg/m2 Dr. Cristian Hopper Work Phone: [facility] 02-15-2023 14:18-0400 Body weight 86.[address] Cristian Hopper Work Phone: [facility] 02-05-2023 14:31-0400 Body temperature 97.2 [degF] Dr. Cristian Hopper Work Phone: [facility] 02-05-2023 14:31-0400 Diastolic blood pressure 82 mm[Hg] Dr. Cristian Hopper Work Phone: [facility] 02-05-2023 14:31-0400 Heart rate 77 /min Dr. Cristian Hopper Work Phone: [facility] 02-05-2023 14:31-0400 Respiratory rate 16 /min Dr. Cristian Hopper Work Phone: [facility] 02-05-2023 14:31-0400 SaO2% (BldA) [Mass fraction] 95 % Dr. Cristian Hopper Work Phone: [facility] 02-05-2023 14:31-0400 Systolic blood pressure 128 mm[Hg] Dr. Cristina Hopper Work Phone: [facility] 09-08-2022 11:30-0500 Body height 156.[address] Cristian Hopper Work Phone: [facility] 09-08-2022 11:30-0500 Body mass index (BMI) [Ratio] 34.4 kg/m2 Dr. Cristian Hopper Work Phone: [facility] 09-08-2022 11:30-0500 Body temperature 96.5 [degF] Dr. Cristian Hopper Work Phone: [facility] 09-08-2022 11:30-0500 Body weight 84.[address] Cristian Hopper Work Phone: [facility] 09-08-2022 11:30-0500 Diastolic blood pressure 82 mm[Hg] Dr. Cristian Hopper Work Phone: [facility] 09-08-2022 11:30-0500 Heart rate 68 /min Dr. Cristian Hopper Work Phone[facility] [facility] 09-08-2022 11:30-0500 Respiratory rate 18 /min Dr. Cristian Hopper Work Phone: [facility] 09-08-2022 11:30-0500 SaO2% (BldA) [Mass fraction] 96 % Dr. Cristian Hopper Work Phone: [facility] 09-08-2022 11:30-0500 Systolic blood pressure 136 mm[Hg] Dr. Cristian Hopper Work Phone: [facility] 08-25-2022 09:09-0500 Body mass index (BMI) [Ratio] 34.2 kg/m2 Dr. Cristian Hopper Work Phone: [facility] 08-25-2022 09:09-0500 Body weight 84.[address] Cristian Hopper Work Phone: [facility] 08-25-2022 09:09-0500 Diastolic blood pressure 84 mm[Hg] Dr. Cristian Hopper Work Phone: [facility] 08-25-2022 09:09-0500 Heart rate 56 /min Dr. Cristian Hopper Work Phone: [facility] 08-25-2022 09:09-0500 Respiratory rate 16 /min Dr. Cristian Hopper Work Phone: [facility] 08-25-2022 09:09-0500 Systolic blood pressure 148 mm[Hg] Dr. Cristian Hopper Work Phone: [facility] 06-18-2022 15:51-0400 Body temperature 97.6 [degF] Dr. Cristian Hopper Work Phone: [facility] Work Phone: 06-18-2022 15:51-0400 Diastolic blood pressure 80 mm[Hg] Dr. Cristian Hopper Work Phone: [facility] Work Phone: 06-18-2022 15:51-0400 Heart rate 68 /min Dr. Cristian Hopper Work Phone: [facility] Work Phone: 06-18-2022 15:51-0400 Respiratory rate 15 /min Dr. Cristian Hopper Work Phone: [facility] Work Phone: 06-18-2022 15:51-0400 SaO2% (BldA) [Mass fraction] 96 % Dr. Cristian Hopper Work Phone: [facility] Work Phone: 06-18-2022 15:51-0400 Systolic blood pressure 152 mm[Hg] Dr. Cristian Hopper Work Phone: [facility] Work Phone: 02-18-2022 08:53-0400 Body height 157.[address] Cristian Hopper Work Phone: [facility] Work Phone: 02-18-2022 08:53-0400 Body mass index (BMI) [Ratio] 33 kg/m2 Dr. Cristian Hopper Work Phone: [facility] Work Phone: 02-18-2022 08:53-0400 Body weight 82.[address] Cristian Hopper Work Phone: [facility] Work Phone: 02-18-2022 08:53-0400 Diastolic blood pressure 80 mm[Hg] Dr. Cristian Hopper Work Phone: [facility] Work Phone: 02-18-2022 08:53-0400 Heart rate 64 /min Dr. Cristian Hopper Work Phone: [facility] Work Phone: 02-18-2022 08:53-0400 Respiratory rate 16 /min Dr. Cristian Hopper Work Phone: [facility] Work Phone: 02-18-2022 08:53-0400 SaO2% (BldA) [Mass fraction] 98 % Dr. Cristian Hopper Work Phone: [facility] Work Phone: 02-18-2022 08:53-0400 Systolic blood pressure 130 mm[Hg] Dr. Cristian Hopper Work Phone: [facility] Work Phone: 02-18-2022 08:53-0400 Body height 157.[address] Cristian Hopper Work Phone: [facility] Work Phone: 02-18-2022 08:53-0400 Body mass index (BMI) [Ratio] 33 kg/m2 Dr. Cristian Hopper Work Phone: [facility] Work Phone: 02-18-2022 08:53-0400 Body weight 82.[address] Cristian Hopper Work Phone: [facility] Work Phone: 02-18-2022 08:53-0400 Diastolic blood pressure 80 mm[Hg] Dr. Cristian Hopper Work Phone: [facility] Work Phone: 02-18-2022 08:53-0400 Heart rate 64 /min Dr. Cristian Hopper Work Phone: [facility] Work Phone: 02-18-2022 08:53-0400 Respiratory rate 16 /min Dr. Cristian Hopper Work Phone: [facility] Work Phone: 02-18-2022 08:53-0400 SaO2% (BldA) [Mass fraction] 98 % Dr. Cristian Hopper Work Phone: [facility] Work Phone: 02-18-2022 08:53-0400 Systolic blood pressure 130 mm[Hg] Dr. Cristian Hopper Work Phone: [facility] Work Phone: 12-26-2021 18:21-0400 Diastolic blood pressure 115 mm[Hg] Dr. Cristian Hopper Work Phone: [facility] Work Phone: 12-26-2021 18:21-0400 Systolic blood pressure 160 mm[Hg] Dr. Cristian Hopper Work Phone: [facility] Work Phone: 12-26-2021 17:34-0400 Heart rate 105 /min Dr. Cristian Hopper Work Phone: [facility] Work Phone: 12-26-2021 17:34-0400 Respiratory rate 20 /min Dr. Cristian Hopper Work Phone: [facility] Work Phone: 12-26-2021 17:34-0400 SaO2% (BldA) [Mass fraction] 99 % Dr. Cristian Hopper Work Phone: [facility] Work Phone: 12-26-2021 14:57-0400 Body height 157.[address] Cristian Hopper Work Phone: [facility] Work Phone: 12-26-2021 14:57-0400 Body mass index (BMI) [Ratio] 34.4 kg/m2 Dr. Cristian Hopper Work Phone: [facility] Work Phone: 12-26-2021 14:57-0400 Body temperature 97.9 [degF] Dr. Cristian Hopper Work Phone: [facility] Work Phone: 12-26-2021 14:57-0400 Body weight 85.[address] Cristian Hopper Work Phone: [facility] Work Phone: 12-16-2021 08:44-0400 Body temperature 96.9 [degF] Dr. Cristian Hopper Work Phone: [facility] Work Phone: 12-16-2021 08:44-0400 Diastolic blood pressure 74 mm[Hg] Dr. Cristian Hopper Work Phone: [facility] Work Phone: 12-16-2021 08:44-0400 Heart rate 73 /min Dr. Cristian Hopper Work Phone: [facility] Work Phone: 12-16-2021 08:44-0400 Respiratory rate 16 /min Dr. Cristian Hopper Work Phone: [facility] Work Phone: 12-16-2021 08:44-0400 SaO2% (BldA) [Mass fraction] 95 % Dr. Cristian Hopper Work Phone: [facility] Work Phone: 12-16-2021 08:44-0400 Systolic blood pressure 118 mm[Hg] Dr. Cristian Hopper Work Phone: [facility] Work Phone: 12-16-2021 06:40-0400 Body height 157.[address] Cristian Hopper Work Phone: [facility] Work Phone: 04-05-2022 06:40-0400 Body mass index (BMI) [Ratio] 34.2 kg/m2 Dr. Cristian Hopper Work Phone: [facility] Work Phone: 12-16-2021 06:40-0400 Body weight 84.[address] Cristian Hopper Work Phone: [facility] Work Phone: 11-07-2021 12:05-0500 Body temperature 98.2 [degF] Dr. Cristian Hopper Work Phone: [facility] Work Phone: 11-07-2021 12:05-0500 Diastolic blood pressure 82 mm[Hg] Dr. Cristian Hopper Work Phone: [facility] Work Phone: 11-07-2021 12:05-0500 Heart rate 82 /min Dr. Cristian Hopper Work Phone: [facility] Work Phone: 11-07-2021 12:05-0500 Respiratory rate 15 /min Dr. Cristian Hopper Work Phone: [facility] Work Phone: 11-07-2021 12:05-0500 SaO2% (BldA) [Mass fraction] 98 % Dr. Cristian Hopper Work Phone: [facility] Work Phone: 11-07-2021 12:05-0500 Systolic blood pressure 140 mm[Hg] Dr. Cristian Hopper Work Phone: [facility] Work Phone: 09-09-2021 07:57-0500 Body temperature 97.2 [degF] Dr. Cristian Hopper Work Phone: [facility] Work Phone: 09-09-2021 07:57-0500 Diastolic blood pressure 92 mm[Hg] Dr. Cristian Hopper Work Phone: [facility] Work Phone: 09-09-2021 07:57-0500 Heart rate 71 /min Dr. Cristian Hopper Work Phone: [facility] Work Phone: 09-09-2021 07:57-0500 Respiratory rate 16 /min Dr. Cristian Hopper Work Phone: [facility] Work Phone: 09-09-2021 07:57-0500 SaO2% (BldA) [Mass fraction] 98 % Dr. Cristian Hopper Work Phone: [facility] Work Phone: 09-09-2021 07:57-0500 Systolic blood pressure 114 mm[Hg] Dr. Cristian Hopper Work Phone: [facility] Work Phone: 09-09-2021 05:36-0500 Body mass index (BMI) [Ratio] 35.6 kg/m2 Dr. Cristian Hopper Work Phone: [facility] Work Phone: 09-09-2021 05:36-0500 Body weight 88.[address] Cristian Hopper Work Phone: [facility] Work Phone: 09-27-2015 13:23-0500 BMI (Body Mass Index) 38.04 kg/m2 [facility] Work Phone: 09-27-2015 13:23-0500 Height 157.48 cm [facility] Work Phone: 09-27-2015 13:23-0500 Weight 94.35 kg [facility] Work Phone: Encounters Encounter Date Encounter Type Care Provider Facility Start: 02-26-2025 ambulatory Cristian Canchola ty:[facility] Start: 02-21-2025 ambulatory Cristian Canchola ty:[facility] Start: 02-14-2025 End: 02-14-2025 ambulatory Yunior Webb MD Work Phone: [facility] Comment on above: Dizziness (Primary D x) Start: 02-12-2025 End: 02-12-2025 ambulatory YUNIOR [facility] Start: 02-12-2025 End: 02-12-2025 Follow-up encounter Yunior Webb MD Work Phone: [facility] Comment on above: Dizziness (Primary D x) Start: 02-07-2025 End: 02-07-[address] Cristian Sanchez MD -[facility] Work Phone: Start: 02-07-2025 End: 02-07-[address] Cristian Hopper MD Work Phone: [facility] Work Phone: Start: 02-01-2025 End: 02-01-2025 ambulatory YUNIOR [facility] Start: 01-29-2025 End: 01-29-2025 ambulatory YUNIOR [facility] Start: 01-29-2025 End: 01-29-2025 Follow-up encounter Yunior Webb MD Work Phone: [facility] Comment on above: Dizziness (Primary D x) Start: 01-24-2025 End: 01-24-2025 Follow-up encounter Yunior Webb MD Work Phone: [facility] Comment on above: Dizziness (Primary D x) Start: 01-24-2025 End: 01-24-2025 ambulatory YUNIOR [facility] Start: 01-22-2025 End: 01-22-2025 Follow-up encounter Yunior Webb MD Work Phone: [facility] Comment on above: Dizziness (Primary D x) Start: 01-22-2025 End: 01-22-[address] [facility] Start: 01-22-2025 End: 01-22-2025 Subsequent hospital visit by physician Yunior Webb MD Work Phone: [facility] Comment on above: Facial weakness Start: 01-22-2025 End: 01-22-[address] [facility] Start: 01-17-2025 End: 01-17-2025 Follow-up encounter Yunior Webb MD Work Phone: [facility] Comment on above: Dizziness (Primary D x) Start: 01-17-2025 End: 01-17-[address] [facility] Start: 01-15-2025 End: 01-15-[address] [facility] Start: 01-15-2025 End: 01-15-2025 Follow-up encounter Yunior Webb MD Work Phone: [facility] Comment on above: Dizziness (Primary D x) Start: 01-11-2025 End: 01-11-[address] Cristian Hopper MD Work Phone: -Laboratory Work Phone: Start: 01-11-2025 End: 01-11-2025 ambulatory Yunior Webb MD Work Phone: [facility] Comment on above: Dizziness Start: 01-10-2025 End: 01-10-2025 Office outpatient new 45 minutes Yunior Webb MD Work Phone: [facility] Comment on above: Facial weakness (Mimi roberto Dx); Cerebral aneurysm; Dizziness Start: 01-10-2025 End: 01-11-2025 ambulatory [facility] Start: 12-14-2024 End: 12-14-2024 Office outpatient new 45 minutes Buzz De Los Santos MD Work Phone: [facility] Comment on above: Cerebral aneurysm (P rimary Dx) Start: 12-14-2024 End: 12-14-[address] [facility] Start: 12-07-2024 End: 12-07-[address] Cristian Hopper MD Work Phone: [facility] Work Phone: Start: 12-07-2024 End: 12-07-[address] Cristian Hopper MD -Laboratory Work Phone: Start: 12-07-2024 End: 12-07-2024 ambulatory Cristian Hopper Facility:[facility] Start: 12-06-2024 End: 12-17-2024 Telephone encounter Buzz De Los Santos MD Work Phone: [facility] [place] Comment on above: Appointment Request Start: 11-30-2024 End: 11-30-[address] Cristian Hopper MD Work Phone: [facility] Work Phone: Start: 11-30-2024 End: 11-30-[address] Cristian Kumar DO -Physical Therapy Work Phone: Start: 11-17-2024 End: 11-17-2024 Patient encounter procedure Dorothy CERDA -[facility] Work Phone: Start: 11-17-2024 End: 11-17-2024 ambulatory Cristian Hopper Facility:[facility] Start: 11-15-2024 End: 11-15-[address] Cristian Kumar DO -[facility] Work Phone: Start: 11-15-2024 End: 11-15-2024 ambulatory Cristian Hopper Facility:[facility] Start: 11-15-2024 End: 11-15-[address] Cristian Hopper MD Work Phone: [facility] Work Phone: Start: 11-15-2024 End: 11-15-[address] Cristian Kumar DO -Radiology, [facility] Work Phone: Start: 11-15-2024 End: 11-15-2024 ambulatory [facility] Facility:[facility] Start: 11-07-2024 Non-patient / Non-visit Dr. Robert Camarillo DO -[facility] Work Phone: Start: 11-06-2024 Non-patient / Non-visit Dr. Jackson Borges DO -[facility] Work Phone: Start: 11-06-2024 End: 11-07-2024 ambulatory Jackson Borges Facility:[facility] Start: 11-06-2024 End: 11-07-2024 Evaluation and management of inpatient Dr. Robert Camarillo DO -Progressive Care Unit Work Phone: Start: 11-03-2024 ambulatory Cristian [place] Facili ty:[facility] Start: 11-03-2024 Non-patient / Non-visit Dr. Reggie Correa MD -[facility] Work Phone: Start: 11-03-2024 End: 11-03-[address] Erick Nguyen MD -Cardiovascular Services Work Phone: Start: 11-03-2024 End: 11-03-2024 Emergency department patient visit Dr. Erick Nguyen MD -Emergency Department Work Phone: Start: 11-03-2024 End: 11-03-2024 ambulatory Cristian [place] Facility:[facility] Start: 11-02-2024 End: 11-02-[address] Cristian Hopper MD -Laboratory Work Phone: Start: 11-02-2024 End: 11-02-2024 ambulatory [facility] Facility:[facility] Start: 10-19-2024 End: 10-19-2024 ambulatory CRISTIAN Yohana HIRAM Facility:[facility] Start: 10-06-2024 End: 10-06-2024 ambulatory Deb Browning RN [facility] Start: 10-06-2024 End: 10-06-2024 Patient encounter procedure Deb Browning RN [facility] Start: 10-06-2024 End: 10-08-2024 Evaluation and management of inpatient CRISTIAN HOPPER Facility:[facility] Start: 09-07-2024 End: 09-07-2024 ambulatory LISSET LISA Facility:[facility] Start: 09-07-[address] David Hopper MD Work Phone: -Speech Therapy Work Phone: Start: 07-10-2024 End: 07-10-2024 Patient encounter procedure Michael Sahu MD Work Phone: [facility]ENT) Comment on above: Hoarseness; Paralysis of right vocal cord; Ear itching Start: 07-10-2024 End: 07-10-2024 ambulatory CRISTIAN HOPPER Facility:[facility] Start: 06-07-2024 End: 06-07-2024 ambulatory Cristian Hopper Facility:[facility] Start: 04-12-2024 End: 04-27-2024 ambulatory Cristian Eva Facility:[facility] Start: 01-13-2024 End: 01-13-2024 ambulatory [facility] Work Phone: Start: 01-13-2024 End: 01-13-2024 Patient encounter procedure [facility]-Laboratory Work Phone: Start: 01-07-2024 End: 01-07-2024 ambulatory [facility] Work Phone: Start: 01-07-2024 End: 01-07-2024 Patient encounter procedure [facility]-Laboratory Work Phone: Start: 12-31-2023 End: 12-31-2023 ambulatory [facility] Work Phone: Start: 12-31-2023 End: 12-31-2023 Patient encounter procedure [facility]-Outpatient Breast Imaging Work Phone: Start: 12-03-2023 End: 12-03-2023 ambulatory [facility] Work Phone: Start: 12-03-2023 End: 12-03-2023 Patient encounter procedure [facility]-Laboratory Work Phone: Start: 07-09-2023 End: 07-09-2023 ambulatory [facility] Work Phone: Start: 07-09-2023 End: 07-09-2023 Patient encounter procedure [facility]-Laboratory Work Phone: Start: 03-06-2023 End: 03-06-[address] Cristian Hopper Work Phone: [facility] Work Phone: Start: 03-06-2023 End: 03-06-[address] Cristian Hopper Work Phone: [facility] Start: 03-04-2023 End: 03-04-[address] Cristian Hopper Work Phone: [facility] Work Phone: Start: 03-04-2023 End: 03-04-[address] Cristian Hopper Work Phone: [facility]-Physical Therapy Start: 02-25-[address] David Hopper Work Phone: [facility]-Physical Therapy Start: 02-15-2023 End: 02-15-[address] Cristian Hopper Work Phone: [facility] Start: 02-05-2023 End: 02-05-[address] Cristian Hopper Work Phone: [facility] Work Phone: Start: 02-05-2023 End: 02-05-[address] Cristian Hopper Work Phone: [facility] Start: 12-01-2022 End: 12-01-[address] Cristian Hopper Work Phone: [facility] Work Phone: Start: 12-01-2022 End: 12-01-[address] Cristian Hopper Work Phone: [facility]-Laboratory Start: 09-08-2022 End: 09-08-[address] Cristian Hopper Work Phone: [facility] Start: 08-25-2022 End: 08-25-[address] Cristian Hopper Work Phone: [facility] Work Phone: Start: 08-25-2022 End: 08-25-[address] Cristian Hopper Work Phone: [facility] Start: 07-23-2022 End: 07-23-[address] Cristian Hopper Work Phone: [facility]-Laboratory Start: 06-18-2022 End: 06-18-[address] Cristian Hopper Work Phone: [facility] Start: 03-25-2022 Non-patient / Non-visit Dr. Cristian Hopper Work Phone: [facility] Start: 03-25-2022 End: 03-25-[address] Cristian Hopper Work Phone: [facility]-Cardiovascular Services Start: 02-18-2022 End: 02-18-[address] Cristian Hopper Work Phone: [facility] Start: 02-17-2022 Non-patient / Non-visit Dr. Cristian Hopper Work Phone: [facility] Start: 02-13-2022 End: 02-13-[address] Crsitian Hopper Work Phone: [facility], [facility] Start: 02-04-2022 End: 02-04-[address] Cristian Hopper Work Phone: [facility]-Pulmonary Services/Neurology Start: 01-26-2022 End: 01-26-[address] Cristian Hopper Work Phone: [facility] Start: 01-01-2022 End: 01-01-[address] Cristian Hopper Work Phone: [facility]-Ultrasound, [facility] Start: 12-30-2021 End: 12-30-[address] Cristian Hopper Work Phone: [facility]-Outpatient Bone Densitometry Start: 12-29-2021 End: 12-29-[address] Cristian Hopper Work Phone: [facility] Start: 12-26-2021 End: 12-26-2021 Emergency department patient visit Dr. Crsitian Hopper Work Phone: [facility]-Emergency Department Start: 12-25-2021 End: 12-25-[address] Cristian Hopper Work Phone: [facility]-Laboratory, Specimen Start: 12-16-2021 Non-patient / Non-visit Dr. Cristian Hopper Work Phone: [facility] Start: 12-16-2021 End: 12-16-2021 Admission to same day surgery center Dr. Cristian Hopper Work Phone: [facility]-Surgical Day Care Start: 11-07-2021 End: 11-07-[address] Cristian Hopper Work Phone: [facility] Start: 10-20-2021 End: 10-20-[address] Cristian Hopper Work Phone: [facility] Start: 09-22-2021 End: 09-22-[address] Cristian Hopper Work Phone: [facility] Start: 09-09-2021 Non-patient / Non-visit Dr. Cristian Hopper Work Phone: [facility] Start: 09-09-2021 End: 09-09-2021 Admission to same day surgery center [facility] Start: 08-27-2021 End: 08-27-[address] Cristian Hopper Work Phone: [facility] Procedures Date Procedure Procedure Detail Performing Clinician Start: 01-11-2025 Measurement of Borre edie burgdorferi antibody Dr. Cristian Hopper MD Work Phone: Comment on above: Lyme antibodies not detected. Reflex testing is notindicated.No laboratory evidence of infection with B. burgdorferi(Lyme disease). Negative results may occur in patientsrecently infected (less than or equal to 14 days) with B.burgdorferi. If recent infection is suspected, repeattesting on a new sample collected in 7 to 14 days isrecommended.Performed at: [address] [id number] Director: Patrice Arteaga PhD, Phone: [phone] Start: 11-15-2024 Plain X-ray of shoulder Dr. Cristian Hopper MD Work Phone: Start: 11-15-2024 X-ray of cervical spine Dr. Cristian Hopper MD Work Phone: Start: 11-06-2024 MRI of brain without contrast Dr. Cristian Hopper MD Work Phone: Start: 11-06-2024 Plain chest X-ray Dr. Kavin Hopper MD Work Phone: Start: 11-06-2024 CT angiography of he ad and neck Dr. Cristian Hopper MD Work Phone: Start: 11-06-[address] Cristian Hopper MD Work Phone: Start: 11-06-2024 Measurement of renal function Dr. Cristian Hopper MD Work Phone: Comment on above: GFR Calc Start: 11-06-2024 SARS-CoV-2, Influenz a & RSV (PCR) Dr. Cristian Hopper MD Work Phone: Start: 11-03-2024 CT of head without contrast Dr. Cristian Hopper MD Work Phone: Start: 11-02-2024 Measurement of renal function Dr. Cristian Hopper MD Work Phone: Comment on above: GFR Calc Start: 10-06-2024 Thyrotropin [Units/v olume] in Serum or Plasma Buzz De Los Santos MD Work Phone: Start: 12-31-2023 End: 12-31-2023 Screening mammography Start: 03-06-2023 MRI of lumbar spine Dr. Cristian Hopper Work Phone: Start: 02-05-2023 X-ray of lumbar spin e, two or three views Dr. Cristian Hopper Work Phone: Start: 03-25-2022 Radionuclide imaging of perfusion of myocardium under exercise stress Dr. Cristian Hopper Work Phone: Start: 02-13-2022 Plain x-ray of pelvi s and lower extremity Dr. Cristian Hopper Work Phone: Start: 01-01-[address] Cristian Hopper Work Phone: Start: 01-01-[address] Kavin Hopper Work Phone: Start: 12-30-2021 Dual energy X-ray absorptiometry Dr. Cristian Hopper Work Phone: Start: 12-26-2021 CT of head without contrast Dr. Cristian Hopper Work Phone: Start: 12-16-2021 Decompression of med alex nerve Dr. Cristian Hopper Work Phone: Start: 09-09-2021 Decompression of med alex nerve Dr. Cristian Hopper Work Phone: Start: 02-27-2019 Colonoscopy Michael garcia MD Work Phone: Start: 10-07-2015 End: 10-17-2015 Arthrocentesis aspir&/inj major jt/bursa w/o us David Martinez Work Phone: Start: 10-07-2015 End: 10-17-2015 Drain/inject, joint/bursa David Martinez Work Phone: Plan of Treatment Date Care Activity Detail Author Start: 2035 RSV Vaccine (1 - 1-d ose 75+ series) RSV Vaccine (1 - 1-dose 75+ series) [facility] Start: 08-21-2029 DTaP/Tdap/Td Vaccine s (2 - Td or Tdap) DTaP/Tdap/Td Vaccines (2 - Td or Tdap) [facility] Start: 08-21-2029 Urine microalbumin profile DTaP,Tdap,Td Vaccine (2 - Td or Tdap) [facility] Start: 02-27-2029 Screening for malign ant neoplasm of colon [facility] Start: 10-06-2025 Thyroid stimulating hormone measurement TSH Level [facility] Start: 07-18-2025 Diabetes Screening Diabetes Screenin g [facility] Start: 06-14-2025 End: 06-14-2025 Patient encounter procedure 06/14/2025 9:00 AM EDT Office Visit [facility] Rhe[facility] [address] [place] [address] Peewee Jenkins MD [address] [place] [address] [facility] - [place] Start: 04-18-2025 End: 04-18-2025 Patient encounter procedure 04/18/2025 2:15 PM EDT Office Visit [facility] Neurology [address] [address] Yunior Webb MD [address] [place] [address] [place] [address] [facility] Health Neurology [facility] Start: 03-01-2025 End: 03-01-2025 Patient encounter procedure 03/01/2025 9:30 AM EDT Appointment [facility] [address] [place] [id number] Yunior Webb MD [facility] [place] [address] [facility] Start: 02-14-2025 End: 02-14-2025 ambulatory [facility] Start: 02-12-2025 End: 02-12-2025 Follow-up encounter 02/12/2025 8:45 AM EDT Follow-Up [facility] [address] [place] [phone] Marek Santos, PT [facility] Start: 02-01-2025 End: 02-01-2025 Follow-up [facility] Start: 01-29-2025 End: 01-29-2025 Follow-up encounter [facility] Start: 01-24-2025 End: 01-24-2025 Follow-up encounter [facility] Start: 01-22-2025 End: 01-22-2025 Follow-up [facility] Start: 01-22-2025 End: 01-22-2025 Patient encounter procedure 01/22/2025 7:45 AM EDT Appointment [facility] [address] [place] [address] Yunior Webb MD [facility] [place], [place] [id number] [facility] Start: 01-22-2025 Subsequent hospital visit by physician 01/22/2025 7:45 AM EDT Hospital Encounter [facility] [address] [place] [phone] Yunior Webb MD [address] [place], [place] [id number] [facility] Start: 01-17-2025 End: 01-17-2025 Follow-up [facility] Start: 01-15-2025 End: 01-15-2025 Follow-up encounter 01/15/2025 11:00 AM EDT Follow-[facility] [address] [place] [phone] Sola Ly, PT [facility] Start: 01-11-2025 End: 01-11-2025 ambulatory 01/11/2025 7:45 AM EDT Evaluation [facility] [address] [place] [phone] Yunior Webb MD [address] [place] [id number] Marek Santos, PT [facility] Start: 01-10-2025 End: 01-10-2026 Borrelia burgdorferi IgG+IgM Ab [Units/volume] in Serum LYME ANTIBODY SCREEN WITH REFLEX TO IMMUNOBLOT Lab Routine Facial weakness Expected: 01/10/2025 (Approximate), Expires: 01/10/2026 [facility] Comment on above: Expected: 01/10/2025 (Approximate), Expires: 01/10/2026 Start: 01-10-2025 End: 01-10-2026 Creatinine [Mass/volume] in Serum or Plasma Creatinine, Serum Lab Routine Facial weakness Expected: 01/10/2025 (Approximate), Expires: 01/10/2026 [facility] Comment on above: Expected: 01/10/2025 (Approximate), Expires: 01/10/2026 Start: 01-10-2025 End: 01-10-2026 MR Brain WO and W contrast IV MR brain w and wo contrast Imaging Routine Facial weakness Expected: 01/10/2025, Expires: 01/10/2026 [facility] Work Phone: Comment on above: Expected: 01/10/2025 , Expires: 01/10/2026 Start: 01-10-2025 End: 01-10-2026 Vestibular test Vestibular test Neurology Routine Dizziness Expected: 01/10/2025 (Approximate), Expires: 01/10/2026 [facility] Comment on above: Expected: 01/10/2025 (Approximate), Expires: 01/10/2026 Start: 01-10-2025 End: 01-10-2025 Patient encounter procedure 01/10/2025 9:30 AM EDT Office Visit [facility] [address] [place] [address] Yunior Webb MD [address] [place] [address] [facility] Start: 12-30-2024 Screening for malign ant neoplasm of breast Mammogram [facility] Start: 11-15-2024 Patient referral [facility] Work Phone: Start: 11-07-2024 Patient discharge [facility] Start: 11-07-2024 [facility] Start: 11-06-2024 End: 11-07-2024 [facility] Start: 11-06-2024 Following clinical pathway protocol [facility] Start: 11-06-2024 Assessment of risk o f venous thromboembolism [facility] Start: 11-06-2024 Insertion of cathete r into peripheral vein [facility] Start: 11-06-2024 Measuring intake and output [facility] Start: 11-06-2024 Providing care accor ding to standard [facility] Start: 11-06-2024 Provision of activit y privileges [facility] Start: 11-06-2024 Referral to occupati onal therapist [facility] Start: 11-06-2024 Referral to service [facility] Start: 11-06-2024 Admission procedure [facility] Start: 11-03-2024 [facility] Start: 05-14-2024 Covid-19 Vaccine ( season) Covid-19 Vaccine ( season) [facility] Start: 02-07-2024 Shingrix Vaccine (2 of 2) Carrizales grix Vaccine (2 of 2) [facility] Start: 02-07-2024 Zoster Vaccines (2 of 2) Zoste r Vaccines (2 of 2) [facility] Start: 02-05-2023 Patient referral [facility] Work Phone: Start: 12-30-2021 Dual energy X-ray absorptiometry Dexa Bone Density Study [facility] Work Phone: Start: 12-16-2021 Anes nerve muscle td n fascia&bursa forearm wrist ANESTH LOWER ARM SURGERY [facility] Work Phone: Start: 12-16-2021 Exc lesion tdn shth/ jt capsl hand/fngr REMOVE TENDON SHEATH LESION [facility] Work Phone: Start: 12-16-2021 Neuroplasty &/transp os median nrv carpal tunne CARPAL TUNNEL SURGERY [facility] Work Phone: Start: 12-16-2021 Application of ice collar, cap or bag [facility] Work Phone: Start: 12-16-2021 Catheterization of vein [facility] Work Phone: Start: 12-16-2021 Elevation of affecte d extremity [facility] Work Phone: Start: 12-16-2021 Following clinical pathway protocol [facility] Work Phone: Start: 12-16-2021 Patient discharge [facility] Work Phone: Start: 12-16-2021 Procedure discontinued [facility] Work Phone: Start: 12-16-2021 Taking patient vital signs [facility] Work Phone: Start: 12-16-2021 Vital signs measurements [facility] Work Phone: Start: 12-16-2021 [facility] Work Phone: Start: 12-16-2021 Medication education [facility] Work Phone: Start: 09-09-2021 Anes nerve muscle td n fascia&bursa forearm wrist ANESTH LOWER ARM SURGERY [facility] Work Phone: Start: 09-09-2021 Neuroplasty &/transp os median nrv carpal tunne CARPAL TUNNEL SURGERY [facility] Work Phone: Start: 2020 RSV Immunization for Adults (1 - Risk 60-74 years 1-dose series) RSV Immunization for Adults (1 - Risk 60-74 years 1-dose series) [facility] Start: 05-20-2017 End: 05-20-2017 Radiologic exam knee complete 4/more views X-Ray, Knee [facility] Work Phone: Start: 05-20-2017 End: 05-20-2017 Appointment Appointment [facility] Work Phone: Start: 05-20-2017 End: 05-20-2017 X-ray exam, knee, 4 or more X-Ray, Knee [facility] Work Phone: Start: 08-13-2016 Screening for malign ant neoplasm of breast Mammogram Screening [facility] Start: 10-09-2015 End: 10-09-2015 Physical Therapy General Physical Therapy [facility], [address] [place] [address], [address] [facility] Work Phone: Start: 10-09-2015 End: 10-09-2015 Physical Therapy General [facility] Work Phone: Start: 11-16-2014 Pneumococcal Vaccine : 50+ Years (2 of 2 - PCV) Pneumococcal Vaccine: 50+ Years (2 of 2 - PCV) [facility] Start: 2005 Lipid panel Lipid Screening [facility] Start: 2005 Screening for malign ant neoplasm of colon [facility] Start: 1990 Screening for malign ant neoplasm of cervix [facility] Start: 1981 Screening for malign ant neoplasm of cervix [facility] Start: 1978 Annual PCP Team [employer] yam[employer] Disease Visit Annual PCP Team Chronic Disease Visit [facility] Start: 1978 Anxiety Screening Anxiety Screening [facility] Start: 1978 Depression Screening Depression Scre ening [facility] Start: 1978 Diabetes mellitus screening Diabetes Screening [facility] Start: 1978 Hepatitis C screening Hepatitis C Sc reening [facility] Start: 1978 HIV screening HIV Screening [facility] Start: 1972 Depression Screening Depression Scre ing [facility] Start: 1961 MMR Vaccines (1 of 1 - Standard series) MMR Vaccines (1 of 1 - Standard series) [facility] Start: 1960 Annual wellness visit Medicare Initial Physical (IPPE) [facility] Start: 1960 HIV screening HIV Screening [facility] Start: 1960 Lipid panel Lip[facility] Start: 1960 Screening for malign ant neoplasm of colon [facility] End: 01-22-2025 MR Brain WO and W contrast IV [facility] Work Phone: Comment on above: Once for 1 Occurrenc es starting 01/22/2025 until 01/22/2025 MR Cervical spine [facility] MR Lumbar spine [facility] Patient Education [facility] Work Phone: Patient referral [facility] Work Phone: Immunizations Immunization Date Immunization Notes Care Provider Fa cility 06-14-2024 influenza, seasonal, injectable, preservative free Dr. Cristian Hopper MD Work Phone: [facility] 12-13-2023 zoster vaccine recombinant Buzz De Los Santos MD Work Phone: [facility] 07-19-2023 influenza, injectabl e, quadrivalent, preservative free [facility] 07-30-2022 Influenza, injectabl e, Madin Ruchi Canine Kidney, quadrivalent with preservative Buzz De Los Santos MD Work Phone: [facility] 07-08-2021 Covid (Moderna) Dr. Cristian Hopper Work Phone: [facility] 06-18-2021 influenza, injectabl e, quadrivalent, preservative free [facility] 06-18-2021 influenza, seasonal, injectable Dr. Cristian Hopper Work Phone: [facility] 11-08-2020 Covid (Moderna) Dr. Cristian Hopper Work Phone: [facility] 10-11-2020 Covid (Moderna) Dr. Cristian Hopper Work Phone: [facility] 06-19-2020 influenza, injectabl e, quadrivalent, preservative free [facility] 06-19-2020 influenza, seasonal, injectable Dr. Cristian Hopper Work Phone: [facility] 08-21-2019 tetanus toxoid, redu elda diphtheria toxoid, and acellular pertussis vaccine, adsorbed Dr. Cristian Hopper Work Phone: [facility] 07-04-2019 influenza, injectabl e, quadrivalent, preservative free [facility] 07-04-2019 influenza, seasonal, injectable Dr. Cristian Hopper Work Phone: [facility] 06-10-2018 influenza, injectabl e, quadrivalent, preservative free [facility] 06-10-2018 influenza, seasonal, injectable Dr. Cristian Hopper Work Phone: [facility] 2017 influenza, injectabl e, quadrivalent, preservative free [facility] 2017 influenza, seasonal, injectable Dr. Cristian Hopper Work Phone: [facility] 07-13-2016 influenza, injectabl e, quadrivalent, preservative free [facility] 07-13-2016 influenza, seasonal, injectable Dr. Cristian Hopper Work Phone: [facility] 06-12-2015 influenza, injectabl e, quadrivalent, preservative free [facility] 06-12-2015 influenza, seasonal, injectable Dr. Cristian Hopper Work Phone: [facility] 09-03-2014 hepatitis B vaccine, pediatric or pediatric/adolescent dosage Dr. Cristian Hopper Work Phone: [facility] 06-07-2014 influenza, injectabl e, quadrivalent, preservative free [facility] 06-07-2014 influenza, seasonal, injectable Dr. Cristian Hopper Work Phone: [facility] 03-26-2014 hepatitis B vaccine, pediatric or pediatric/adolescent dosage Dr. Cristian Hopper Work Phone: [facility] 02-15-2014 hepatitis B vaccine, pediatric or pediatric/adolescent dosage Dr. Cristian Hopper Work Phone: [facility] 11-16-2013 influenza, seasonal, injectable Buzz De Los Santos MD Work Phone: [facility] 11-16-2013 pneumococcal polysaccharide vaccine, 23 valent Deb Browning RN [facility] Payers Date Payer Category Payer Commercial Managed [facility] [employer] [id number] 2024 Self-pay [id number] 2024 Unknown 2023 Private Health Insurance [employer] [id number] 2023-Present [phone] [address] [place] [address] PPO [id number] 2023 Unknown [id number] 2016 Unknown [id number] Unknown [id number] Unknown [id number]. 462 Unknown [id number] 2.16.840.1.460648.3.579.2. 462 Unknown [id number] 2.16.840.1.726984.3.579.2. 462 Unknown [id number] 2.16.840.1.413183.3.579.2. 462 Unknown [id number] 2.16.840.1.025308.3.579.2. 462 Unknown [id number] 2.16.840.1.350382.3.579.2. 462 Unknown [id number] 2.16.840.1.478401.3.579.2. 462 Unknown [id number] 2.16.840.1.035723.3.579.2. 462 Unknown [id number] 2.16.840.1.946896.3.579.2. 462 Unknown [id number] 2.16.840.1.471189.3.579.2. 462 Unknown [id number] 2.16.840.1.804028.3.579.2. 462 Unknown [id number] 2.16.840.1.698247.3.579.2. 462 Unknown [id number] 2.16.840.1.199836.3.579.2. 462 Unknown [id number] 2.16.840.1.797319.3.579.2. 462 Unknown [id number] 2.16.840.1.245980.3.579.2. 462 Unknown [id number] 2.16.840.1.377033.3.579.2. 462 Unknown [id number] 2.16.840.1.579537.3.579.2. 462 Unknown [id number] 2.16.840.1.889440.3.579.2. 462 Unknown [id number] 2.16.840.1.284314.3.579.2. 462 Unknown [id number] 2.16.840.1.970293.3.579.2. 462 Social History Date Type Detail Facility [facility] Work Phone: Start: 12-09-2021 End: 02-15-2023 Tobacco smoking status [facility] Unknown if ever smoked [facility] Start: 11-16-2019 None [facility] Start: 11-16-2019 Alone [facility] Start: 02-20-2019 Non-smoker [facility] Start: 1960 Sex Assigned At Female [facility] Start: 07-10-2024 End: 02-07-2025 Tobacco smoking status CAIS Ex-smoker [facility] Start: 01-03-1985 End: 01-03-1993 History of tobacco use Current smoker [facility] Start: 01-03-1985 End: 01-03-1993 History of tobacco use Cigarette Smoker [facility] Start: 07-10-2024 End: 01-10-2025 Cigarettes smoked current (pack per day) - Reported 0.3 [facility] Start: 07-10-2024 Tobacco use and exposure Smokeless tobacco non-user [facility] Start: 07-10-2024 Alcoholic beverage intake Current drinker of alcohol (finding) [facility] Start: 07-10-2024 End: 01-10-2025 Tobacco use panel [facility] National Score (1-10 0), lower number is lower risk 59 [facility] Start: 01-04-2012 Alcohol Comment occasionally [facility] Start: 1960 Sex assigned at Not on file [facility] Start: 04-13-2022 End: 12-12-2024 Sex Female (finding) [facility] Start: 12-14-2024 Alcoholic beverage intake Not Asked [facility] Start: 12-14-[address] [facility] Start: 01-10-2025 Alcoholic beverage intake Ex-drinker (finding) [facility] Medical Equipment Procedure Code Equipment Code Equipment Original Text Equipment Identifier Dates [id number]-[id number] Implant - [id number] Start: 08-29-2012 Comment on above: Description: Silicon e block custom cut into a prosthesis by Dr. Stevens during case. Goals Date Patient Goal Desired Activity /State Functional Status Date Assessment Result Facility 11-07-2024 Functional status Ambulates [facility] Work Phone: Mental Status Date Assessment Result Facility 11-07-2024 Cognitive function Voice/Name [facility] Work Phone: 11-03-2024 Cognitive function Voice/Name [facility] Work Phone: 12-26-2021 Cognitive function Level Of Cons ciousness Awake;Alert;Appropriate;Follow s Commands [facility] Work Phone: 12-16-2021 Cognitive function Voice/Name [facility] Work Phone: 09-09-2021 Cognitive function Awake;Alert;Appropriat e [facility] Work Phone: Clinical Notes 12-25-2021 to 02-14-2025 Marek Santos, PT - 02/14/2025 8:45 AM Shima Santos, PT - 02/12/2025 8:45 AM Shima Santos, PT - 01/29/2025 8:45 AM Shima Santos, PT - 01/24/2025 5:15 PM EDT Note Date & Type Note Facility 02-14-2025 History of Present illness Narrative Images from the original note were not included. [facility] AT [facility] [address] [facility] [address] Dept: [phone] Dept PHYSICAL THERAPY RE-EVALUATION Patient Name: Jacqueline Bryson : 1960 Date of Service: 02/14/2025 Referring Provider: Yunior Webb MD Visit #: 9 Diagnosis: Dizziness Reason for referral: dizziness Mechanism of injury: Pt reports in June she began to experience facial, head and LE numbness, headaches and fatigue of unknown onset. Pt reports she began experiencing dizziness in October of unknown onset. She reports she got up out of bed one day and began experiencing vertigo with vomiting. She reports she went to the ER where they performed the noe maneuver which significantly helped. She reports no longer experiencing vertigo but continues to experience some ongoing dizziness. Patient Preferences: Jacqueline Precautions/Red Flags: Yes Blurry vision but denies diplopia, denies tinnitus, denies dysphagia, denies new onset dysarthria, denies drop attacks Subjective General Comments: Pt reports she had a terrible day yesterday. She reports she felt like she was on a boat yesterday. She reports she had a great day the other day but yesterday symptoms were bad. She reports mild dizziness and fatigue to start therapy today. She reports she is unable to get into rheumatology until June. Pt reports 50% improvement since therapy started. She reports dizziness is getting better, but she continues to have good and bad days. Outcome Measures Dizziness Handicap Inventory: 01/11/25: 52 02/14/2025: 48 Objective Vestibular Visual Assessment Date 01/11/2025 02/14/2025 Smooth Pursuits positive - dizziness, able to track Positive - dizziness, difficulty with R tracking Convergence positive - >12 inches Positive - >12 inches Saccades positive - small corrective saccades B Positive - corrective saccades on R Head Impulse positive - corrective saccades with quick turns Positive- dizziness but able to maintain gaze Gait: independent and safe but mild imbalance noted Functional Gait Assessment Date 02/14/2025 Gait Level Surface 2 Change in Gait Speed 3 Gait Horiz Head Turns 2 Gait Vertical Head Turns 2 Gait Pivot Turn 2 Step Over Obstacle 1 Narrow JAYNE Gait 1 Gait Eyes Closed 1 Backwards Gait 2 Steps 2 Total 18 <22 = fall risk mCTSIB Date 02/14/2025 Romberg EO - firm 1, 30 secs Romberg EC - firm 3, 8 secs Romberg EO - airex 1, 30 secs Romberg EC - airex 3, 2 secs Assessment Pt has been seen for 9 therapy visits for treatment of Dizziness. Pt reports 50% improvement since therapy started and has minimally progressed on goals thus far. She continues to demonstrate positive smooth pursuits, convergence, saccades and head impulse testing reporting dizziness. She continues to demonstrate imbalance with gait which is exacerbated with head movements. FGA and mCTSIB testing today indicates visual reliance on gait with dysfunctional vestibular system. Pt is scheduled to received vestibular testing in February and follow up with her physician as well. She would like to hold therapy for now until she receives further assessment. Due to ongoing dysfunction, she will continue to benefit from skilled treatment to promote a reduction imbalance and fall risk for improved ease of work function and community ambulation. Rehab Potential: Good Goals Active General/Ortho Patient will be independent with HEP. (Progressing) Start: 01/11/25 Expected End: 03/16/25 Vestibular Pt will improve score on DHI to <30 to demonstrate improved ease of cleaning at home (Progressing) Start: 01/11/25 Expected End: 03/16/25 Pt will ascend/descend stairs reciprocally without complaints of dizziness to demonstrate improved ease of mobility at home and in the community (Progressing) Start: 01/11/25 Expected End: 03/16/25 Patient will report no dizziness/vertigo for 1 week to allow for to allow for improved ease of driving (Progressing) Start: 01/11/25 Expected End: 03/16/25 Pt will report returning to work unrestricted and symptom free (Progressing) Start: 01/11/25 Expected End: 03/16/25 Plan Frequency and Duration: 1-2/wk for 4 weeks. Hold case open 30 days in case patient does not wish to return. Therapeutic Contents: client education, home exercise program, manual therapy techniques, neuromuscular re-education, therapeutic activities, therapeutic exercise, vestibular rehabilitation, and modalities as needed Plan for next session: Continue to work on balance on uneven surfaces and gaze stabilization exercises. Risks and benefits were discussed with the patient and/or family, and the patient and/or family participated with the plan of care and agrees. Treatment Patient Education: Re-assessed objective measures and goals. Performed mCTSIB and FGA to assess and treat imbalance. Discussed further POC and prognosis. Updated and reviewed HEP. Home Exercise Program: Reviewed Time Entry Total Treatment Time Start Time: 854 Stop Time: 924 Time Calculation (min): 30 min PT Therapeutic Procedures Time Entry Neuromuscular Re-Education Time Entry: 24 Marek Santos PT documented in this encounter [facility] 02-12-2025 History of Present illness Narrative Images from the original note were not included. [facility] [address] [facility] [address] Dept: [phone] Dept PHYSICAL THERAPY TREATMENT Patient Name: Jacqueline Bryson : 1960 Date of Service: 02/12/2025 Referring Provider: Yunior Webb MD Visit #: 8 Diagnosis: Dizziness Reason for referral: dizziness Mechanism of injury: Pt reports in June she began to experience facial, head and LE numbness, headaches and fatigue of unknown onset. Pt reports she began experiencing dizziness in October of unknown onset. She reports she got up out of bed one day and began experiencing vertigo with vomiting. She reports she went to the ER where they performed the noe maneuver which significantly helped. She reports no longer experiencing vertigo but continues to experience some ongoing dizziness. 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 She is performing further follow up with the neurologist. She reports she has been having better days regarding her balance. She reports dizziness can correlate with level of fatigue. She reports cervical spine exercises continue to help with her neck pain. She reports the past couple of days, she feels more comfortable walking with less imbalance. Compliance with HEP: Yes Objective Objective measurements not taken today. Treatment Balance/Neuromuscular Re-Education Balance/Neuromuscular Re-Education Activity 4: smooth pursuits, standing on airex Activity 4 Comment: 3x30 Balance/Neuromuscular Re-Education Activity 5: saccades: standing horizontal, airex Activity 5 Comment: 3x30 Balance/Neuromuscular Re-Education Activity 7: gaze stabilization with ambulation: horizontal Activity 7 Comment: 4x200' Balance/Neuromuscular Re-Education Activity 8: Standing on airex horizontal VOR x1 Activity 8 Comment: 3x30 Home Exercise Program: Progressed home exercise program Assessment Skilled physical therapy interventions utilized to improve patient s impairments and work towards established goals. Patient response to treatment: Continued with focus on gaze stabilization and vestibular re-training today. She demonstrates less imbalance today with gaze stabilization exercises. She continues to present with scissoring ataxic gait during VOR x1 ambulation. Recommended to continue with gaze stabilization exercises at home to reduce imbalance. Patient will benefit from continued physical therapy to promote a reduction in dizziness and imbalance. The rationale for today s treatment was explained to the patient. Verbal cues were provided for correct form with all exercises. Advised patient to continue with Home Exercise Program (HEP). Goals General/Ortho Patient will be independent with HEP. (Progressing) Start: 01/11/25 Expected End: 03/13/25 Vestibular Pt will improve score on DHI to <30 to demonstrate improved ease of cleaning at home (Not Addressed) Start: 01/11/25 Expected End: 03/13/25 Pt will ascend/descend stairs reciprocally without complaints of dizziness to demonstrate improved ease of mobility at home and in the community (Progressing) Start: 01/11/25 Expected End: 03/13/25 Patient will report no dizziness/vertigo for 1 week to allow for to allow for improved ease of driving (Progressing) Start: 01/11/25 Expected End: 03/13/25 Pt will report returning to work unrestricted and symptom free (Progressing) Start: 01/11/25 Expected End: 03/13/25 Plan Plan for next session: re-assess Time Entry Total Treatment Time Start Time: 0850 Stop Time: 914 Time Calculation (min): 25 min PT Therapeutic Procedures Time Entry Neuromuscular Re-Education Time Entry: 24 Marek Santos PT documented in this encounter [facility] 01-29-2025 History of Present illness Narrative Images from the original note were not included. [facility] [address] [facility] [address] Dept: [phone] Dept PHYSICAL THERAPY TREATMENT Patient Name: Jacqueline Bryson : 1960 Date of Service: 01/29/2025 Referring Provider: Yunior Webb MD Visit #: 6 Diagnosis: Dizziness Reason for referral: dizziness Mechanism of injury: Pt reports in June she began to experience facial, head and LE numbness, headaches and fatigue of unknown onset. Pt reports she began experiencing dizziness in October of unknown onset. She reports she got up out of bed one day and began experiencing vertigo with vomiting. She reports she went to the ER where they performed the noe maneuver which significantly helped. She reports no longer experiencing vertigo but continues to experience some ongoing dizziness. Patient Preferences: Jacqueline Precautions/Red Flags: Yes Blurry vision but denies diplopia, denies tinnitus, denies dysphagia, denies new onset dysarthria, denies drop attacks Subjective Pt reports when she goes to her R, that is when she notices she is off balance. She reports she is still walking like she is drunk and is off balance. She reports her neck feels much better but has not noticed a change balance pathak while working on her neck. Compliance with HEP: Yes Objective Objective measurements not taken today. Treatment Balance/Neuromuscular Re-Education Balance/Neuromuscular Re-Education Activity 4: smooth pursuits, standing on airex Activity 4 Comment: 3x30 Balance/Neuromuscular Re-Education Activity 7: gaze stabilization with ambulation: horizontal Activity 7 Comment: 4x200' Balance/Neuromuscular Re-Education Activity 8: Standing on airex horizontal VOR x1 Activity 8 Comment: 3x30 Therapeutic Exercise Therapeutic Exercise Activity 1: upper trap stretch 2x30 Activity 1 Comment: seated Therapeutic Exercise Activity 2: cervical extension snag x10 Therapeutic Exercise Activity 3: cervical rotation snag x10 B Therapeutic Exercise Activity 4: doorway stretch 4x10 b Soft Tissue Mobilization Location: suboccipitals and upper traps Position: supine Technique: release and STM Home Exercise Program: reviewed Assessment Skilled physical therapy interventions utilized to improve patient s impairments and work towards established goals. Patient response to treatment: STM was performed today to reduce inflammation, desensitize nervous system, relieve pain and reduce myofascial restrictions. Pt demonstrates reduced cervical tension post STM. No adverse reaction during STM today with good skin integrity post treatment. Continued with chin tucks and SNAG's and added upper trap stretch and periscapular strengthening to continue to promote a reduction in cervicogenic dizziness symptoms. Continued with gaze stabilization exercises to continue to promote a reduction in dizziness related symptoms with walking and working. Progressed gaze stabilization today performing VOR and smooth pursuits on airex. Also progressed to hallway walking for VOR. Pt requires cueing to adjust head position and limit accessory motion to improve ease of walking VOR. Patient will benefit from continued physical therapy to reduce imbalance and dizziness to reduce fall risk and ease of working The rationale for today s treatment was explained to the patient. Verbal cues were provided for correct form with all exercises. Advised patient to continue with Home Exercise Program (HEP). Goals General/Ortho Patient will be independent with HEP. (Progressing) Start: 01/11/25 Expected End: 03/13/25 Vestibular Pt will improve score on DHI to <30 to demonstrate improved ease of cleaning at home (Not Addressed) Start: 01/11/25 Expected End: 03/13/25 Pt will ascend/descend stairs reciprocally without complaints of dizziness to demonstrate improved ease of mobility at home and in the community (Not Addressed) Start: 01/11/25 Expected End: 03/13/25 Patient will report no dizziness/vertigo for 1 week to allow for to allow for improved ease of driving (Progressing) Start: 01/11/25 Expected End: 03/13/25 Pt will report returning to work unrestricted and symptom free (Progressing) Start: 01/11/25 Expected End: 03/13/25 Plan Plan for next session: Continue to focus on gaze stabilization. VOR x1 and x2 Time Entry Total Treatment Time Start Time: 45 Stop Time: 30 Time Calculation (min): 45 min PT Therapeutic Procedures Time Entry Therapeutic Exercise Time Entry: 8 Manual Therapy Time Entry: 10 Neuromuscular Re-Education Time Entry: 23 Marek Santos PT documented in this encounter [facility] 01-24-2025 History of Present illness Narrative Images from the original note were not included. [facility] [address] [facility] [address] Dept: [phone] Dept PHYSICAL THERAPY TREATMENT Patient Name: Jacqueline Bryson : 1960 Date of Service: 01/24/2025 Referring Provider: Yunior Webb MD Visit #: 5 Diagnosis: Dizziness Reason for referral: dizziness Mechanism of injury: Pt reports in June she began to experience facial, head and LE numbness, headaches and fatigue of unknown onset. Pt reports she began experiencing dizziness in October of unknown onset. She reports she got up out of bed one day and began experiencing vertigo with vomiting. She reports she went to the ER where they performed the noe maneuver which significantly helped. She reports no longer experiencing vertigo but continues to experience some ongoing dizziness. Patient Preferences: Jacqueline Precautions/Red Flags: Yes Blurry vision but denies diplopia, denies tinnitus, denies dysphagia, denies new onset dysarthria, denies drop attacks Subjective Pt reports feeling tired to start therapy today. She reports she felt much better after last session. She reports it is the best her neck has felt and dizziness has been less. Compliance with HEP: Yes Objective Objective measurements not taken today. Treatment Therapeutic Exercise # of Activities: 20 Therapeutic Exercise Activity 1: upper trap stretch 2x30 Activity 1 Comment: supine and seated Therapeutic Exercise Activity 2: cervical extension snag x10 Therapeutic Exercise Activity 3: cervical rotation snag x10 B Therapeutic Exercise Activity 4: doorway stretch 4x10 b Balance/Neuromuscular Re-Education # of Activities: 20 Balance/Neuromuscular Re-Education Activity 1: supine chin tuck Activity 1 Comment: 5 x10 Balance/Neuromuscular Re-Education Activity 2: seated chin tuck Activity 2 Comment: 5 x10 Balance/Neuromuscular Re-Education Activity 5: saccades: standing horizontal Activity 5 Comment: 2x60 Balance/Neuromuscular Re-Education Activity 7: gaze stabilization with ambulation: vertical and horizontal Activity 7 Comment: 2x20' each Balance/Neuromuscular Re-Education Activity 8: Romberg balance with horizontal VOR x1 Activity 8 Comment: x30 Balance/Neuromuscular Re-Education Activity 10: rows 2x10 Activity 10 Comment: red Balance/Neuromuscular Re-Education Activity 11: pulldowns 2x10 Activity 11 Comment: red Balance/Neuromuscular Re-Education Activity 12: w 2x10 Activity 12 Comment: red Balance/Neuromuscular Re-Education Activity 13: tandem gait 2x20' Soft Tissue Mobilization Location: suboccipitals and upper traps Position: supine Technique: release and STM Home Exercise Program: Progressed home exercise program Assessment Skilled physical therapy interventions utilized to improve patient s impairments and work towards established goals. Patient response to treatment: STM was performed today to reduce inflammation, desensitize nervous system, relieve pain and reduce myofascial restrictions. Pt demonstrates reduced cervical tension post STM. No adverse reaction during STM today with good skin integrity post treatment. Continued with chin tucks and SNAG's and added upper trap stretch and periscapular strengthening to continue to promote a reduction in cervicogenic dizziness symptoms. Continued with gaze stabilization exercises to continue to promote a reduction in dizziness related symptoms with walking and working. Patient will benefit from continued physical therapy to promote a return to symptom free work. The rationale for today s treatment was explained to the patient. Verbal cues were provided for correct form with all exercises. Advised patient to continue with Home Exercise Program (HEP). Goals General/Ortho Patient will be independent with HEP. (Progressing) Start: 01/11/25 Expected End: 03/13/25 Vestibular Pt will improve score on DHI to <30 to demonstrate improved ease of cleaning at home (Not Addressed) Start: 01/11/25 Expected End: 03/13/25 Pt will ascend/descend stairs reciprocally without complaints of dizziness to demonstrate improved ease of mobility at home and in the community (Progressing) Start: 01/11/25 Expected End: 03/13/25 Patient will report no dizziness/vertigo for 1 week to allow for to allow for improved ease of driving (Progressing) Start: 01/11/25 Expected End: 03/13/25 Pt will report returning to work unrestricted and symptom free (Progressing) Start: 01/11/25 Expected End: 03/13/25 Plan Plan for next session: Assess response to work on cervical spine. Continue with STM as tolerated Time Entry Total Treatment Time Start Time: 1715 Stop Time: 1755 Time Calculation (min): 40 min PT Therapeutic Procedures Time Entry Therapeutic Exercise Time Entry: 10 Manual Therapy Time Entry: 13 Neuromuscular Re-Education Time Entry: 17 Marek Santos PT documented in this encounter [facility] 01-22-2025 History of Present illness Narrative Images from the original note were not included. [facility] [address] [facility] [address] Dept: [phone] Dept PHYSICAL THERAPY TREATMENT Patient Name: Jacqueline Bryson : 1960 Date of Service: 01/22/2025 Referring Provider: Yunior Webb MD Visit #: 4 Diagnosis: Dizziness Reason for referral: dizziness Mechanism of injury: Pt reports in June she began to experience facial, head and LE numbness, headaches and fatigue of unknown onset. Pt reports she began experiencing dizziness in October of unknown onset. She reports she got up out of bed one day and began experiencing vertigo with vomiting. She reports she went to the ER where they performed the noe maneuver which significantly helped. She reports no longer experiencing vertigo but continues to experience some ongoing dizziness. Patient Preferences: Jacqueline Precautions/Red Flags: Yes Blurry vision but denies diplopia, denies tinnitus, denies dysphagia, denies new onset dysarthria, denies drop attacks Subjective Pt reports feeling dizzy today. She reports more dizzy today than usual. She describes her dizziness as if she is on a boat. She reports ongoing dizziness with walking. She rates her dizziness at 6/10. Compliance with HEP: Yes Objective Objective measurements not taken today. Treatment Therapeutic Exercise # of Activities: 20 Therapeutic Exercise Activity 1: upper trap stretch 2x30 Therapeutic Exercise Activity 2: cervical extension snag x10 Therapeutic Exercise Activity 3: cervical rotation snag x10 B Balance/Neuromuscular Re-Education # of Activities: 20 Balance/Neuromuscular Re-Education Activity 1: supine chin tuck Activity 1 Comment: 5 x10 Balance/Neuromuscular Re-Education Activity 4: smooth pursuit: standing horizontal Activity 4 Comment: 2x60 Balance/Neuromuscular Re-Education Activity 5: saccades: standing horizontal Activity 5 Comment: 2x60 Balance/Neuromuscular Re-Education Activity 7: gaze stabilization with ambulation: vertical and horizontal Activity 7 Comment: 4x20' each Balance/Neuromuscular Re-Education Activity 8: Romberg balance with horizontal VOR x1 Activity 8 Comment: 3x30 Soft Tissue Mobilization Location: suboccipitals and upper traps Position: supine Technique: release and STM Home Exercise Program: Progressed home exercise program Assessment Skilled physical therapy interventions utilized to improve patient s impairments and work towards established goals. Patient response to treatment: STM was performed today to reduce inflammation, desensitize nervous system, relieve pain and reduce myofascial restrictions. Pt demonstrates less dizziness post STM. No adverse reaction during STM today with good skin integrity post treatment. Continued to work on gaze stabilization to promote habituation and a reduction in dizziness with walking. Added cervical extension and rotation SNAG's to address potential cervical component of dizziness. Pt with good response to SNAG's noting a reduction in dizziness during re-assessment of gait. Prescribed SNAG's to perform at home and assess response. Patient will benefit from continued physical therapy to promote a reduction in dizziness and fall risk The rationale for today s treatment was explained to the patient. Verbal cues were provided for correct form with all exercises. Advised patient to continue with Home Exercise Program (HEP). Goals General/Ortho Patient will be independent with HEP. (Progressing) Start: 01/11/25 Expected End: 03/13/25 Vestibular Pt will improve score on DHI to <30 to demonstrate improved ease of cleaning at home (Not Addressed) Start: 01/11/25 Expected End: 03/13/25 Pt will ascend/descend stairs reciprocally without complaints of dizziness to demonstrate improved ease of mobility at home and in the community (Progressing) Start: 01/11/25 Expected End: 03/13/25 Patient will report no dizziness/vertigo for 1 week to allow for to allow for improved ease of driving (Progressing) Start: 01/11/25 Expected End: 03/13/25 Pt will report returning to work unrestricted and symptom free (Progressing) Start: 01/11/25 Expected End: 03/13/25 Plan Plan for next session: assess response to SNAG's and add periscapular strength if good response Time Entry Total Treatment Time Start Time: 1155 Stop Time: 1235 Time Calculation (min): 40 min PT Therapeutic Procedures Time Entry Therapeutic Exercise Time Entry: 10 Manual Therapy Time Entry: 10 Neuromuscular Re-Education Time Entry: 20 Marek Wackerly, PT documented in this encounter [facility] 01-17-2025 History of Present illness Narrative Images from the original note were not included. [facility] [address] [facility] [address] Dept: [phone] Dept PHYSICAL THERAPY TREATMENT Patient Name: Jacqueline Bryson : 1960 Date of Service: 01/17/2025 Referring Provider: Yunior Webb MD Visit #: 3 Diagnosis: Dizziness Reason for referral: dizziness Mechanism of injury: Pt reports in June she began to experience facial, head and LE numbness, headaches and fatigue of unknown onset. Pt reports she began experiencing dizziness in October of unknown onset. She reports she got up out of bed one day and began experiencing vertigo with vomiting. She reports she went to the ER where they performed the noe maneuver which significantly helped. She reports no longer experiencing vertigo but continues to experience some ongoing dizziness. Patient Preferences: Jacqueline Precautions/Red Flags: Yes Blurry vision but denies diplopia, denies tinnitus, denies dysphagia, denies new onset dysarthria, denies drop attacks Subjective Pt is feeling about the same. She is doing her HEP. She does get dizzy at times, especially with the horizontal exercises. She did drive the high way today and she did have some dizziness with merging but overall did well. Compliance with HEP: Yes Objective Objective measurements not taken today. Treatment Balance/Neuromuscular Re-Education # of Activities: 20 Balance/Neuromuscular Re-Education Activity 5: saccades: seated - vertical, horizontal Activity 5 Comment: 1' ea Balance/Neuromuscular Re-Education Activity 6: gaze stabilization: seated - vertical, horizontal Activity 6 Comment: 30 ea Balance/Neuromuscular Re-Education Activity 7: gaze stabilization with ambulation: vertical and horizontal Activity 7 Comment: 20' lap ea Balance/Neuromuscular Re-Education Activity 8: Romberg balance Activity 8 Comment: 3x30 Balance/Neuromuscular Re-Education Activity 9: tandem balance Activity 9 Comment: 2x20 ea Home Exercise Program: Progressed home exercise program Assessment Skilled physical therapy interventions utilized to improve patient s impairments and work towards established goals. Patient response to treatment: Pt tolerates session well. Pt reports doing her smooth pursuit exercises prior to coming in for her session today. Therefore, continued on with saccades. Pt was then able to add gaze stabilization in both vertical and horizontal planes with increases in symptoms with horizontal plane. Pt was also able to initiate balance work with. Pt did require SBA and occasional CGA with both gaze stabilization with ambulation and balance exercises. Pleased with pt's efforts. HEP was updated and issued. Patient will benefit from continued physical therapy to continue with current plan to further address dizziness in order to improve functional abilities with her ADLs, mobility and driving. The rationale for today s treatment was explained to the patient. Verbal cues were provided for correct form with all exercises. Advised patient to continue with Home Exercise Program (HEP). Goals General/Ortho Patient will be independent with HEP. (Progressing) Start: 01/11/25 Expected End: 03/13/25 Vestibular Pt will improve score on DHI to <30 to demonstrate improved ease of cleaning at home (Not Addressed) Start: 01/11/25 Expected End: 03/13/25 Pt will ascend/descend stairs reciprocally without complaints of dizziness to demonstrate improved ease of mobility at home and in the community (Progressing) Start: 01/11/25 Expected End: 03/13/25 Patient will report no dizziness/vertigo for 1 week to allow for to allow for improved ease of driving (Progressing) Start: 01/11/25 Expected End: 03/13/25 Pt will report returning to work unrestricted and symptom free (Progressing) Start: 01/11/25 Expected End: 03/13/25 Plan Plan for next session: continue to progress balance work, progress gaze stabilization exercises as tolerated Time Entry Total Treatment Time Start Time: 1016 Stop Time: 1042 Time Calculation (min): 26 min PT Therapeutic Procedures Time Entry Neuromuscular Re-Education Time Entry: Sola Ly PT documented in this encounter [facility] 01-15-2025 History of Present illness Narrative Images from the original note were not included. [facility] [address] [facility] [address] Dept: [phone] Dept PHYSICAL THERAPY TREATMENT Patient Name: Jacqueline Bryson : 1960 Date of Service: 01/15/2025 Referring Provider: Yunior Webb MD Visit #: 2 Diagnosis: Dizziness Reason for referral: dizziness Mechanism of injury: Pt reports in June she began to experience facial, head and LE numbness, headaches and fatigue of unknown onset. Pt reports she began experiencing dizziness in October of unknown onset. She reports she got up out of bed one day and began experiencing vertigo with vomiting. She reports she went to the ER where they performed the noe maneuver which significantly helped. She reports no longer experiencing vertigo but continues to experience some ongoing dizziness. Patient Preferences: Jacqueline Precautions/Red Flags: Yes Blurry vision but denies diplopia, denies tinnitus, denies dysphagia, denies new onset dysarthria, denies drop attacks Subjective Pt is feeling about the same. Compliance with HEP: NA Objective Objective measurements not taken today. Treatment Balance/Neuromuscular Re-Education # of Activities: 20 Balance/Neuromuscular Re-Education Activity 1: supine chin tuck Activity 1 Comment: 5 x10 Balance/Neuromuscular Re-Education Activity 2: seated chin tuck Activity 2 Comment: 5 x10 Balance/Neuromuscular Re-Education Activity 3: seated scap squeeze Activity 3 Comment: 5 x10 Balance/Neuromuscular Re-Education Activity 4: smooth pursuit: seated - vertical, horizonal Activity 4 Comment: 1' ea Balance/Neuromuscular Re-Education Activity 5: saccades: seated - vertical, horizontal Activity 5 Comment: 1' ea Soft Tissue Mobilization Location: cerival spine Body Position: Supine Comments: SOR with slight traction, STM to cervical Home Exercise Program: Created Assessment Skilled physical therapy interventions utilized to improve patient s impairments and work towards established goals. Patient response to treatment: Pt tolerated session well. Following verbal consent, STM to suboccipitals and cervical spine was initiated today to reduce inflammation, desensitize nervous system, relieve pain and reduce myofascial restrictions. No adverse reaction during STM today with good skin integrity post treatment. Pt was able to initiated chin tuck and scap squeeze to address postural deficits. Pt was also able to initiate visual habituation exercises. HEP was issued. Patient will benefit from continued physical therapy to continue with current plan to further address dizziness and postural deficits for improved tolerance to her ADLs, mobility and work tasks. The rationale for today s treatment was explained to the patient. Verbal cues were provided for correct form with all exercises. Advised patient to continue with Home Exercise Program (HEP). Goals General/Ortho Patient will be independent with HEP. (Progressing) Start: 01/11/25 Expected End: 03/13/25 Vestibular Pt will improve score on DHI to <30 to demonstrate improved ease of cleaning at home (Not Addressed) Start: 01/11/25 Expected End: 03/13/25 Pt will ascend/descend stairs reciprocally without complaints of dizziness to demonstrate improved ease of mobility at home and in the community (Not Progressing) Start: 01/11/25 Expected End: 03/13/25 Patient will report no dizziness/vertigo for 1 week to allow for to allow for improved ease of driving (Not Progressing) Start: 01/11/25 Expected End: 03/13/25 Pt will report returning to work unrestricted and symptom free (Not Progressing) Start: 01/11/25 Expected End: 03/13/25 Plan Plan for next session: continue to progress visual habituation and gaze stabilization exercises as tolerated Time Entry Total Treatment Time Start Time: 1108 Stop Time: 1142 Time Calculation (min): 34 min PT Therapeutic Procedures Time Entry Manual Therapy Time Entry: 10 Neuromuscular Re-Education Time Entry: 22 Sola Ly PT documented in this encounter [facility] 01-11-2025 History of Present illness Narrative [facility] [address] [facility] [address] Dept: [phone] Dept PHYSICAL THERAPY EVALUATION Patient Name: Jacqueline Bryson : 1960 Date of Service: 01/11/2025 Referring Provider: Yunior Webb MD Diagnosis: Dizziness General Information Reason for referral: dizziness Mechanism of injury: Pt reports in June she began to experience facial, head and LE numbness, headaches and fatigue of unknown onset. Pt reports she began experiencing dizziness in October of unknown onset. She reports she got up out of bed one day and began experiencing vertigo with vomiting. She reports she went to the ER where they performed the noe maneuver which significantly helped. She reports no longer experiencing vertigo but continues to experience some ongoing dizziness. Patient Preferences: Jacqueline Precautions/Red Flags: Yes Blurry vision but denies diplopia, denies tinnitus, denies dysphagia, denies new onset dysarthria, denies drop attacks Fall Risk: No. She reports no falls. 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 PMHX: Jacqueline has a past medical history of Arthritis, Asthma, High blood pressure, Numbness, Stomach ulcer, and Thyroid disorder. PSHX: Jacqueline has a past surgical history that includes Rotator cuff repair; section; Total thyroidectomy; Vocal Cord Surgery; and Carpal tunnel release (Bilateral). Have you experienced any anxiety or depression? Yes Have you experienced thoughts of self-harm or suicidal thoughts? No [employer] Workout Reviewed: Yes Physician follow-up appointment?: Yes. Vestibular testing in February. Follow up with Dr. Webb in April. Previous Treatment: Noe maneuver in ER which helped in . Imaging: Brain MRI 10/08/10/18 IMPRESSION: No evidence of an acute intracranial process. Patchy white matter disease most likely chronic microvascular ischemic change. Subjective Chief Complaint: dizziness Dizziness/Vertigo Symptoms Score: Current 5/10, Best 5/10, Worst 8/10 Type: chronic Descriptors: imbalance, dizziness Nausea/Vomiting: No Duration: several minutes Aggravating: bending forward, standing up, turning head, looking down the steps Relieving: none Pain Assessment Severity: Current 0/10, Best 0/10, Worst 10/10 Type: chronic Location: lower cervical spine Descriptors: sharp, stabbing Aggravating: breathing, sneezing Relieving: meloxicam Headaches No Prior Level of Function: Independent without difficulty prior to June. Current Level of Function: She reports increased difficulty with vacuuming, sweeping and cleaning her home secondary to dizziness, imbalance and fatigue. She reports having to be cautious going up and down the stairs especially when carrying laundry. She reports she is unable to carry items such as plants or groceries. She reports feeling off balance when walking veering to her R. She reports she is avoiding driving on the highway as she gets dizziness with turning her head. Patient s Stated Goal: Learn what is going on and how to correct it. Outcome Measures Dizziness Handicap Inventory: 52 Objective Vestibular Posture: mild forward head, rounded shoulder posture Palpation: tenderness to palpation at suboccipitals and R SCM Segmental Mobility: C1-4 CPA's do not provoke symptoms Cervical AROM (*pain) Date 01/11/2025 Flexion (% of normal) 70 Extension (% of normal) 60 Side Bend R (degrees) 40 Side Bend L (degrees) 40 Rotation R (% of normal) 70 Rotation L (% of normal) 60 NT = not tested Visual Assessment Date 01/11/2025 Spontaneous nystagmus negative Gaze-evoked nystagmus negative Test of Skew negative Smooth Pursuits positive - dizziness, able to track Convergence positive - >12 inches Saccades positive - small corrective saccades B Head Impulse positive - corrective saccades with quick turns Head Shake Nystagmus negative Positional Testing Date 01/11/2025 Right Maranda-Hallpike negative Left Maranda-Hallpike negative Right Roll Test NT Left Roll Test NT Gait: independent and safe but mild imbalance noted Today's session was limited as the fire alarms sounded and we had to exit the building. Further testing will be performed in future sessions. Assessment Pt presents to therapy today with complaints of dizziness which began in October of this year after getting out of bed one day. Pt reports difficulty with cleaning, stair navigation and driving secondary to symptoms. Pt presentation is consistent with diagnosis of peripheral vestibular disorder noted by reproduction of symptoms with head impulse, saccades and smooth pursuits testing. Will also consider cervicogenic origin as possibility due to chronic history of neck pain and minimal visual deficits. Pt will benefit from skilled therapy to address above deficits in order to promote a return to symptom free driving, cleaning and stair navigation. Evaluation complexity is moderate secondary to: patient has 3 or more personal factors and/or comorbidities that will affect plan of care, therapy will be addressing 3 or more elements, and clinical presentation is evolving. Body Systems Affected: musculoskeletal, neuromuscular, vestibul-ocular, and vestibular Rehab Potential: Good Learning Preferences: demonstration, explanation, and performance Barriers to Rehab: chronicity, comorbidities, and severity Goals General/Ortho Patient will be independent with HEP. (Initiated) Start: 01/11/25 Expected End: 03/13/25 Vestibular Pt will improve score on DHI to <30 to demonstrate improved ease of cleaning at home (Initiated) Start: 01/11/25 Expected End: 03/13/25 Pt will ascend/descend stairs reciprocally without complaints of dizziness to demonstrate improved ease of mobility at home and in the community (Initiated) Start: 01/11/25 Expected End: 03/13/25 Patient will report no dizziness/vertigo for 1 week to allow for to allow for improved ease of driving (Initiated) Start: 01/11/25 Expected End: 03/13/25 Pt will report returning to work unrestricted and symptom free (Initiated) Start: 01/11/25 Expected End: 03/13/25 Plan Frequency and Duration: 2/wk for 8 weeks Therapeutic Contents: client education, home exercise program, manual therapy techniques, neuromuscular re-education, therapeutic activities, therapeutic exercise, vestibular rehabilitation, and modalities as needed Plan for next session: Begin gaze stabilization. Provide cervical retraction and periscapular strength exercises Risks and benefits were discussed with the patient and/or family, and the patient and/or family participated with the plan of care and agrees. Treatment Not performed. Patient Education: Educated patient on diagnosis, prognosis and POC. Home Exercise Program: Deferred Time Entry Total Treatment Time Start Time: 749 Stop Time: 829 Time Calculation (min): 40 min PT Evaluation Time Entry PT Evaluation (Moderate) Time Entry: 40 Marek Santos PT documented in this encounter [facility] 01-10-2025 History of Present illness Narrative Department of Neurological Sciences Impression: Diagnosis Plan 1. Facial weakness 2. Cerebral aneurysm [facility] Presents left facial weakness and numbness that began in June. Has decreased forehead furrowing on the left. Complains of dizziness, maranda Hallpike is negative for nystagmus. Etiology of left facial nerve dysfunction includes Brown's palsy although ipsilateral numbness is also concerning for multiple cranial neuropathies. Plan: MRI IAC with contrast to evaluate for persistent enhancement of the left facial and possibly trigeminal nerve. Lyme titers. Vestibular testing and therapy. Aneurysm management per endovascular. CHIEF COMPLAINT: Chief Complaint Patient presents with New Patient Pt states having some face numbness and back of legs numb, dizziness, off balance and tingling When sneezing whole body gets tingling like if your leg would fall asleep HISTORY OF PRESENT ILLNESS: The patient is a 64 y.o. female with past medical history of arthritis, asthma, hypertension, gastric ulcer, right vocal cord paralysis s/p thryodicetomy who presents with left facial numbness and weakness. Reports that she developed left lower facial weakness and numbness in June 2024. She recalls having some itching over the left ear before developing droopy eye, drooping mouth and numbness and tingling over the left side of the face. Pain area she had 2 days of headache over her forehead. Associated with crawling sensations on the top of her head. Noted burning sensation in her back, some imbalance, fatigue, chest tightness. [place] that she was sleeping all day long. Recalls having episodic dizziness when she stands up quickly and shaking her head. Dizziness is not clearly triggered or worsened by rolling over in bed, loud noise and valsalva. Had some tingling sensations in whole body with sneezing. Workup included MRI brain without contrast x2. 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 Had Noe maneuver in the ED with some improvement ot dizziness. Denies hyperacusis, diplopia. Affirms some hearing loss, recalls seeing an ear nose and throat in remote past. 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 Medications: Current Outpatient Medications: amLODIPine (Norvasc) 5 MG tablet, 5 mg., Disp: , Rfl: b complex vitamins capsule, Take 1 capsule by mouth daily., Disp: , Rfl: chlorhexidine (Peridex) 0.12 % solution, , Disp: , Rfl: cholecalciferol (Vitamin D-3) 50 MCG (1999) capsule, Take by mouth., Disp: , Rfl: levothyroxine (Synthroid, Levoxyl) 112 MCG tablet, , Disp: , Rfl: lisinopril 20 MG tablet, , Disp: , Rfl: loratadine (Claritin) 10 MG tablet, Take by mouth., Disp: , Rfl: meloxicam (Mobic) 15 MG tablet, Take 15 mg by mouth daily., Disp: , Rfl: metoprolol succinate XL (Toprol-XL) 25 MG 24 hr tablet, Take 25 mg by mouth daily. (Patient not taking: Reported on 12/14/2024), Disp: , Rfl: nabumetone (Relafen) 750 MG tablet, , Disp: , Rfl: pantoprazole (ProtoNix) 40 MG EC tablet, , Disp: , Rfl: sucralfate (Carafate) 1 g tablet, , Disp: , Rfl: triamcinolone (Kenalog) 0.1 % oral paste, apply to ulcer inside mouth three times a day, Disp: , Rfl: Allergies: Amoxicillin-pot clavulanate Social History: Social History Socioeconomic History Marital status: Single Spouse name: Not on file Number of children: Not on file Years of education: Not on file Highest education level: Not on file Occupational History Not on file Tobacco Use Smoking status: Former Smokeless tobacco: Not on file Tobacco comments: Quit smoking: Quit smokin11/17/1991 Substance and Sexual Activity Alcohol use: Not Currently Comment: holiday occasion Drug use: Not Currently Types: Marijuana Sexual activity: Not on file Other Topics Concern Not on file Social History Narrative Not on file Social Drivers of Health Financial Resource Strain: Not on file Food Insecurity: No Food Insecurity (10/07/2024) Received from [facility] Hunger Vital Sign Worried About Running Out of Food in the Last Year: Never true Ran Out of Food in the Last Year: Never true Transportation Needs: No Transportation Needs (10/07/2024) Received from [facility] PRAPARE - Transportation Lack of Transportation (Medical): No Lack of Transportation (Non-Medical): No Physical Activity: Not on file Stress: Not on file Social Connections: Not on file Intimate Partner Violence: Not on file Housing Stability: Low Risk (10/07/2024) Received from [facility] Housing Stability Vital Sign Unable to Pay for Housing in the Last Year: No Number of Times Moved in the Last Year: 1 Homeless in the Last Year: No Family History: Family History Problem Relation Name Age of Onset Thyroid disease Mother Arthritis Mother Hypertension Mother No Known Problems Father Breast cancer Sister Radha Thyroid disease Sister Radha Hypertension Sister Ella Diabetes type II Sister Ella Arthritis Sister Fany Other ([id number]) Sister Maria T angiosarcoma Cervical cancer Sister Maria T Diabetes Sister guillermina High Blood Pressure Sister Riddhi Cancer Maternal Grandmother REVIEW OF SYSTEMS: No fevers, significant weight loss, hearing loss, tinnitus, dysphagia, photosensitivity, visual disturbances, chest tightness, chest pain, shortness of breath, palpitations, abdominal pain, nausea, heat intolerance, dysuria, joint pain, muscle pain, imbalance, dizziness PHYSICAL EXAM: Vitals: BP 130/84 (BP Location: Right arm, Patient Position: Sitting, BP Cuff Size: Adult) Wt 173 lb 3.2 oz (78.6 kg) General: The patient was well developed, in no acute distress. HEENT: Normocephalic, atraumatic. Conjunctiva, lids, pupils, and irises clear. Oral mucosa is moist. Neck: No carotid bruits. Full range of motion. Cardiovascular: Regular rate and rhythm. No murmurs. Arms and legs are warm and well-perfused. No clubbing, cyanosis or edema. Lungs: Clear to auscultation. Abdomen: Soft, non-tender, non-distended. Positive bowel sounds. Skin (Restricted to face and distal upper and lower extremities): Unremarkable. Musculoskeletal: No tenderness observed. Neurological Examination: Mental Status: Patient is currently awake, alert, and oriented to person, place, and time. Able to state the reason for today's visit and can recall events leading up to this visit. Speech is fluent without any evidence of dysphasia. Cranial Nerves: II Optic: Pupils equal and reactive. Visual langston full. No papilledema appreciated on fundoscopic exam. III Oculomotor, IV Trochlear, Abducens: Extraocular movements intact. No nystagmus. No gaze palsy or paresis. No ptosis. V Trigeminal: Facial sensation normal and symmetric in V1-V3 distribution. VII Facial: Subtle left facial weakness with asymmetric furrowing of forehead on the left VIII Vestibulocochlear: decreased to finger rub IX Glossopharyngeal / X Vagus: Palate elevates symmetrically and uvula midline. XI Accessory: Shoulder shrug symmetric. XII Hypoglossal: Tongue midline with normal bilateral strength. Motor Examination: Full 5/5 strength in bilateral upper and lower extremities to confrontation. Normal muscle bulk. No obvious atrophy or fasciculations seen. No pronator drift. Normal tone. No rigidity. No tremor. Sensory Examination: Sensation intact to light touch, pinprick, temperature, and vibration bilaterally throughout. No extinction to double simultaneous stimulation. Reflexes: 1-2+ reflexes in biceps, triceps, brachioradialis, patella, and Achilles bilaterally. No clonus. Cerebellar Examination: There is no overt dysmetria nor dysdiadochokinesia with [id number] or rapid alternating movements. Gait Examination: Cautious documented in this encounter [facility] 12-14-2024 History of Present illness Narrative History of Present Illness: 64 yo woman here for evaluation of left ICA aneurysm. This was found during evaluation of headache and numbness of the left side of her face. 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 She was referred to vascular surgery in [place] who referred her to our office. She is a former smoker. There is no known history of cerebral aneurysms in her family. 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 Current Outpatient Medications: amLODIPine (Norvasc) 5 MG tablet, 5 mg., Disp: , Rfl: chlorhexidine (Peridex) 0.12 % solution, , Disp: , Rfl: FLUoxetine (PROzac) 10 MG capsule, Take 10 mg by mouth daily., Disp: , Rfl: levothyroxine (Synthroid, Levoxyl) 112 MCG tablet, , Disp: , Rfl: lisinopril 20 MG tablet, , Disp: , Rfl: meloxicam (Mobic) 15 MG tablet, Take 15 mg by mouth daily., Disp: , Rfl: metoprolol succinate XL (Toprol-XL) 25 MG 24 hr tablet, Take 25 mg by mouth daily., Disp: , Rfl: nabumetone (Relafen) 750 MG tablet, , Disp: , Rfl: pantoprazole (ProtoNix) 40 MG EC tablet, , Disp: , Rfl: sucralfate (Carafate) 1 g tablet, , Disp: , Rfl: triamcinolone (Kenalog) 0.1 % cream, Apply 1 Application topically daily., Disp: , Rfl: triamcinolone (Kenalog) 0.1 % oral paste, apply to ulcer inside mouth three times a day, Disp: , Rfl: Social History Tobacco Use Smoking status: Former Smokeless tobacco: Not on file Tobacco comments: Quit smoking: Quit smokin11/17/1991 Substance Use Topics Alcohol use: Not on file Family History Problem Relation Name Age of Onset Thyroid disease Mother Breast cancer Sister Hypertension Sister Arthritis Mother Hypertension Mother Arthritis Sister Cancer Maternal Grandmother Other ([id number]) Sister Diabetes Sister Thyroid disease Sister Cancer Sister Review of Systems Constitutional: Negative. HENT: Negative. Eyes: Positive for pain. Respiratory: Negative. Cardiovascular: Negative. Gastrointestinal: Negative. Endocrine: Negative. Genitourinary: Negative. Musculoskeletal: Negative. Skin: Negative. Allergic/Immunologic: Negative. Hematological: Negative. Psychiatric/Behavioral: Negative. All other systems reviewed and are negative. Examination: BP Readings from Last 3 Encounters: No data found for BP Wt Readings from Last 3 Encounters: No data found for Wt BP 126/77 (BP Location: Left arm) Pulse 65 Temp 36.1 C (97 F) Wt 74.8 kg (165 lb) Neurological Examination: Higher Functions: Mental Status Exam: Level of Alertness:Awake Orientation: person,place,time, Memory:normal Fund of Knowledge: normal Attention/Concentration: normal Language: normal Dysarthria Not present Cranial Nerves: -II Visual acuity: normal -II Visual langston: normal -III Pupils (~ 3 mm OD, 3 mm OS) equal, round, reactive to light -III-IV- Extraocular Movements: intact -Nystagmus Not present -Saccades and pursuits normal -V Facial sensation: intact -VII Facial strength: intact -VIII Hearing: intact -X Palate: intact -XI Shoulder shrug: intact -XII Tongue movement: normal Funduscopic Exam: normal Motor Examination: Tone Normal -Bulk: normal -Muscle Stretch : Drift:absent normal -Reflexes ; normal -Plantar responce: Flexor bilaterally Sensory Intact to light touch, pain / temperature, proprioception, Coordination: Arms Normal finger to nose, Tremors not present, Gait Normal Imaging reviewed with patient: CTA from [place] Impression/Plan: 64 yo woman with left ICA terminus aneurysm. - Found during evaluation of headache and elevated BP (negative MRI for stroke). Possibly hypertensive emergency, but still has face numbness. - Left ICA aneurysm reported as 5mm, but may be closer to 7 based on my review - h/o vertigo, HTN - Very concerned about face numbness that seems to be moving to the right side. Do not feel that numbness is due to aneurysm, but we discussed aneurysm rupture risk, stroke risk factors, and warning signs. We reviewed imaging and treatment options, benefits, risks, and alternatives. At this time she wishes to continue conservative medical management and observation of her aneurysm. Interim rupture risk was discussed and she is in understanding. Recommend continued BP control and also continued smoking cessation. RTC 6 months aneurysm surveillance clinic. Able to offer catheter angiography if patient would like to pursue treatment options. General neurology referral for other concerns. MD Magali I spent 40 minutes with the patient discussing clinical history, imaging, and treatment options (medical, endovascular and surgical). They expressed understanding and agreement with the plan. Patient Education: >= 3 elements of education during at least one visit within a 12 month period - lifestyle, physical activity, diet and medications. Life Style Modification: Yes Smoking cessation counseling: Yes documented in this encounter [facility] 12-14-2024 Note History of Present I llness: 64 yo woman here for evaluation of left ICA aneurysm. This was found during evaluation of headache and numbness of the left side of her face. 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 She was referred to vascular surgery in [place] who referred her to our office. She is a former smoker. There is no known history of cerebral aneurysms in her family. 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 Current Outpatient Medications: amLODIPine (Norvasc) 5 MG tablet, 5 mg., Disp: , Rfl: chlorhexidine (Peridex) 0.12 % solution, , Disp: , Rfl: FLUoxetine (PROzac) 10 MG capsule, Take 10 mg by mouth daily., Disp: , Rfl: levothyroxine (Synthroid, Levoxyl) 112 MCG tablet, , Disp: , Rfl: lisinopril 20 MG tablet, , Disp: , Rfl: meloxicam (Mobic) 15 MG tablet, Take 15 mg by mouth daily., Disp: , Rfl: metoprolol succinate XL (Toprol-XL) 25 MG 24 hr tablet, Take 25 mg by mouth daily., Disp: , Rfl: nabumetone (Relafen) 750 MG tablet, , Disp: , Rfl: pantoprazole (ProtoNix) 40 MG EC tablet, , Disp: , Rfl: sucralfate (Carafate) 1 g tablet, , Disp: , Rfl: triamcinolone (Kenalog) 0.1 % cream, Apply 1 Application topically daily., Disp: , Rfl: triamcinolone (Kenalog) 0.1 % oral paste, apply to ulcer inside mouth three times a day, Disp: , Rfl: Social History Tobacco Use Smoking status: Former Smokeless tobacco: Not on file Tobacco comments: Quit smoking: Quit smokin11/17/1991 Substance Use Topics Alcohol use: Not on file Family History Problem Relation Name Age of Onset Thyroid disease Mother Breast cancer Sister Hypertension Sister Arthritis Mother Hypertension Mother Arthritis Sister Cancer Maternal Grandmother Other ([id number]) Sister Diabetes Sister Thyroid disease Sister Cancer Sister Review of Systems Constitutional: Negative. HENT: Negative. Eyes: Positive for pain. Respiratory: Negative. Cardiovascular: Negative. Gastrointestinal: Negative. Endocrine: Negative. Genitourinary: Negative. Musculoskeletal: Negative. Skin: Negative. Allergic/Immunologic: Negative. Hematological: Negative. Psychiatric/Behavioral: Negative. All other systems reviewed and are negative. Examination: BP Readings from Last 3 Encounters: No data found for BP Wt Readings from Last 3 Encounters: No data found for Wt BP 126/77 (BP Location: Left arm) Pulse 65 Temp 36.1 ?C (97 ?F) Wt 74.8 kg (165 lb) Neurological Examination: Higher Functions: Mental Status Exam: Level of Alertness:Awake Orientation: person,place,time, Memory:normal Fund of Knowledge: normal Attention/Concentration: normal Language: normal Dysarthria Not present Cranial Nerves: -II Visual acuity: normal -II Visual langston: normal -III Pupils (~ 3 mm OD, 3 mm OS) equal, round, reactive to light -III-IV- Extraocular Movements: intact -Nystagmus Not present -Saccades and pursuits normal -V Facial sensation: intact -VII Facial strength: intact -VIII Hearing: intact -X Palate: intact -XI Shoulder shrug: intact -XII Tongue movement: normal Funduscopic Exam: normal Motor Examination: Tone Normal -Bulk: normal -Muscle Stretch : Drift:absent normal -Reflexes ; normal -Plantar responce: Flexor bilaterally Sensory Intact to light touch, pain / temperature, proprioception, Coordination: Arms Normal finger to nose, Tremors not present, Gait Normal Imaging reviewed with patient: CTA from [facility] Impression/Plan: 64 yo woman with left ICA terminus aneurysm. - Found during evaluation of headache and elevated BP (negative MRI for stroke). Possibly hypertensive emergency, but still has face numbness. - Left ICA aneurysm reported as 5mm, but may be closer to 7 based on my review - h/o vertigo, HTN - Very concerned about face numbness that seems to be moving to the right side. Do not feel that numbness is due to aneurysm, but we discussed aneurysm rupture risk, stroke risk factors, and warning signs. We reviewed imaging and treatment options, benefits, risks, and alternatives. At this time she wishes to continue conservative medical management and observation of her aneurysm. Interim rupture risk was discussed and she is in understanding. Recommend continued BP control and also continued smoking cessation. RTC 6 months aneurysm surveillance clinic. Able to offer catheter angiography if patient would like to pursue treatment options. General neurology referral for other concerns. MD Magali I spent 40 minutes with the patient discussing clinical history, imaging, and tr (more content not included)... [facility] 12-06-2024 Telephone encounter Note Name of Caller: Jacqueline Contact Reason for Appointment: Diagnosis I67.1 (ICD-10-CM) - Cerebral aneurysm, nonruptured Office Name: [facility] 03-26-2025 Miscellaneous Notes Name of Caller: Jacqueline Contact Reason for Appointment: Diagnosis I67.1 (ICD-10-CM) - Cerebral aneurysm, nonruptured Office Name: Endovascular documented in this encounter [facility] 11-15-2024 Radiology Diagnostic study note [facility] Imaging Services [address] [place] [id number] Cerv Spine 2 or 3 Views MR#: [id number] Acct: [id number] Name: JACQUELINE BRYSON Rep #: [id number] : 1960 F 64 From: Maciel Patrick DO PCP: Dr. Cristian Hopper MD Status: R EG CLI Study:Cerv Spine 2 or 3 Views Date of Exam: 11/15/24 Exam# [id number] Ordering Dr: Cristian Kumar DO PROCEDURE: CERV SPINE 2 OR 3 VIEWS REASON FOR EXAM: Radiating arm pain TECHNIQUE: 4 views of the cervical spine. COMPARISON: None. FINDINGS: No acute fracture or subluxation. Mild anterior vertebral body osteophyte formation. Multilevel narrowing of the intervertebral disc spaces, most notably at C4-C5, C5-C6 and C6-C7. Straightening of the cervical alignment likely due to positioning. Prevertebral soft tissues are unremarkable. RAD/Cerv Spine 2 or 3 Views IMPRESSION: No acute fracture or subluxation. Multilevel degenerative disc disease as described above. If clinically indicated MRI of the cervical spine may be obtained for further characterization. Reading Location: [facility] CC: Dr. Cristian Hopper MD; Dr. Cristian Kumar DO ~ Communications Director: Signed [facility] 11-15-2024 Radiology Diagnostic study note [facility] Imaging Services [address] [place] [id number] Shoulder min 2 Views MR#: [id number] Acct: [id number] Name: JACQUELINE BRYSON Rep #: [id number] : 1960 F 64 From: Guido Smith MD PCP: Dr. Cristian Hopper MD Status: R EG CLI Study:Shoulder min 2 Views Date of Exam: 11/15/24 Exam# [id number] Ordering Dr: Cristian Kumar DO PROCEDURE: SHOULDER MIN 2 VIEWS REASON FOR EXAM: Right shoulder pain. TECHNIQUE: Four views of the right shoulder were obtained. COMPARISON: Comparison is made with prior study dated November 16 2019. FINDINGS: RIGHT SHOULDER: No fracture. No suspicious bone lesion. Normal alignment of the acromioclavicular and glenohumeral joints. Moderate degree of osteoarthritis of the right glenohumeral joint. RAD/Shoulder min 2 Views IMPRESSION: Moderate degree of osteoarthritis of the right glenohumeral joint. Reading Location: [id number] CC: Dr. Cristian Hopper MD; Dr. Cristian Kumar DO ~ Communications Director: Signed [facility] 11-07-2024 Note [facility] Medical Records Department [address] [place] [address] Discharge Summary 11/07/24 1437 MR#: [id number] Acct: [id number] Name: JACQUELINE BRYSON Rep #: [id number] : 1960 64 From: Robert Camarillo DO PCP: Dr. Cristian Hopper MD Status:DIS BO Location: [place] [address] Providers Date of Admission: 11/06/24 Date of Discharge: 11/07/24 Primary Care Physician: Dr. Cristian Hopper MD Reason For Visit: DIZZINESS Diagnosis Discharge Diagnosis (1) Vertigo: Status: Inactive Code(s): R42 - Dizziness and giddiness Plan Final diagnosis #1 benign vertigo #2 essential hypertension #3 hypothyroidism #4 facial paresthesias-etiology unknown Medications at Discharge Home Medications cholecalciferol (vitamin D3) 50 mcg (2,000 unit) capsule (Vitamin D3) 50 mcg PO DAILY vitamin 09/02/21 vitamin B complex 1 cap PO DAILY vitamin 09/02/21 loratadine 10 mg tablet (Claritin) 10 mg PO QHS allergies 09/09/21 pantoprazole 40 mg tablet,delayed release 40 mg PO DAILY reflux 08/25/22 sucralfate 1 gram tablet 1 g PO BID stomache 08/25/22 meloxicam 15 mg tablet 15 mg PO DAILY pain 02/15/23 metoprolol succinate 25 mg tablet,extended release 24 hr 25 mg PO QHS blood pressure 11/06/24 levothyroxine 112 mcg tablet 112 mcg PO DAILY thyroid 11/07/24 lisinopril 10 mg tablet 20 mg PO QHS blood pressure 11/07/24 Hospital Course Operations None Procedures None Summary of Care Provided Minutes Spent on Discharge: 30 Hospital Course: This 64-year-old white female was seen in the emergency room with the chief complaint of dizziness, headache, and left facial numbness. Workup in the emergency room included a head and neck CTA which was unremarkable, patient's CBC was unremarkable, chemistry profile was remarkable for a BUN of 19. Patient was placed in observation status on PCU and seen by PT and OT, she was placed on Antivert and this was then changed to Valium. Patient did not report any relief of symptoms with either drug. In the afternoon of 11/07/2024, patient stated that she felt she was able to go home, she was to follow-up with vestibular PT. MRI of the brain was obtained that showed no evidence of acute ischemia, there were nonspecific white matter changes suggestive of small vessel ischemic changes. Patient was seen and examined on 11/07/2024: On examination she appeared in good health and spirits, she does not appear to be in any distress. Vital signs as documented. Skin warm and dry and without overt rashes. Neck without JVD, thyroid appears normal, trachea is midline, neck is supple. Lungs clear, normal air movement was noted. Heart exam notable for regular rhythm, normal sounds and absence of murmurs, rubs or gallops. Abdomen unremarkable and without evidence of organomegaly, masses, or abdominal aortic enlargement, bowel sounds are present in all 4 quadrants, no abdominal tenderness was noted. Extremities nonedematous, no cyanosis was noted, no clubbing was noted. Neuro: Cranial nerves II through XII are grossly intact, no focal motor deficits were noted, sensation to light touch and pinprick is intact, motor exam 5/5 throughout. Psych: Patient is alert and oriented x3, she does not appear anxious or depressed, she does not appear agitated. Patient was stable for discharge home on 11/07/2024. Weight / BMI Weight Weight: 71.3 kg Body Mass Index (BMI) 28.7 ABG / Lab / Microbiology Data 11/06/24 14:32 11/06/24 14:32 Laboratory: Laboratory Results - last 24 hr 11/06/24 14:32: WBC 8.5, RBC 4.57, Hgb 13.7, Hct 41.9, MCV 91.7, MCH 30.0, MCHC 32.7, RDW Std Deviation 42.0, RDW Coeff of Kenn 12.5, Plt Count 268, MPV 9.4, Immature Gran % (Auto) 0.400, Neut % (Auto) 61.4, Lymph % (Auto) 29.7, Dewitt % (Auto) 5.9, Eos % (Auto) 2.1, Baso % (Auto) 0.5, Absolute Neuts (auto) 5.2, Absolute Lymphs (auto) 2.51, Nucleated RBC % 0, PT 13.7, INR 1.0, APTT 26.0, Sodium 137, Potassium 3.7, Chloride 100, Carbon Dioxide 29.0, Anion Gap 8, BUN 19 H, Creatinine 0.58, Estim Creat Clear Calc 88.34, Est GFR (MDRD) Af Amer 134, Est GFR (MDRD) Non-Af 111, B UN/Creatinine Ratio 32.6 H, Glucose 107 H, Calcium 9.4, Troponin I High Sens < 3 L 11/07/24 05:26: Magnesium 2.0, TSH 0.686 Microbiology: Microbiology 11/06/24 21:05 Mucosa - Nasopharyngeal SARS-CoV-2, Influenza RSV (PCR) - Final Radiography Diagnostic Testing: Radiology Impression Head/Neck CTA 11/06/24 15:30 IMPRESSION: RIGHT CAROTID: Unremarkable. LEFT CAROTID: Unremarkable. VERTEBRALS: Unremarkable. INTRACRANIAL: Unremarkable. One or more dose reduction techniques were used (e.g., Automated exposure control, adjustment of the mA and/or kV according to patient size, use of iterative reconstruction technique). (more content not included)... [facility] 11-06-2024 Evaluation note Diagnosis Onset Date Resolution Vertigo inactive November 06, 2024 5:12pm Cervical radiculopathy due to degenerative joint disease of spine acute November 2:42pm DJD of right shoulder acute Mar 2024 2:42pm Lower thoracic back pain acute November 15, 2024 2:42pm Right rotator cuff tendinitis acute November 15, 2024 2:42pm Aneurysm of intracranial portion of left internal carotid artery acute November 17, 2024 8:24am [facility] Work Phone: [phone] Evaluation note* Diagnosis Onset Date Resolution Status Admit Date Vertigo inactive November 06, 2024 5:12pm Cervical radiculopathy due t o degenerative joint disease of spine acute November 15, 2024 2:42pm DJD of right shoulder acute Nov 2:42pm Lower thoracic back pain acute November 15, 2024 2:42pm Right rotator cuff tendinitis acute November 15, 2024 2:42pm Aneurysm of intracranial portion of left internal carotid artery acute November 17, 2024 8:24am Cervical radiculopathy due t o degenerative joint disease of spine acute February 07, 2025 9 :45am [facility] Work Phone: [phone] Telephone encounter Note* Telephone Encounter - Deb Browning RN - 10/06/2024 8:36 AM EST S-Pt left message with Telephone Agent that she has High BP and headache R-NO CONTACT X2 line busy Unsure who PCP is as not in our system Reason for Disposition Third attempt to contact caller AND no contact made. Phone number verified. Answer Assessment - Initial Assessment Questions . Protocols used: No Contact or Duplicate Contact [phone] Miscellaneous Notes* Telephone Encounter - Deb Browning RN - 10/06/2024 8:36 AM EST S-Pt left message with Telephone Agent that she has High BP and headache R-NO CONTACT X2 line busy Unsure who PCP is as not in our system Reason for Disposition Third attempt to contact caller AND no contact made. Phone number verified. Answer Assessment - Initial Assessment Questions . Protocols used: No Contact or Duplicate Contact [id number] documented in this [facility]10-31-2024 NoteHNO ID: [id number] Author: MICHAEL SAHU MD Service: ? Author Type: Physician Type: Progress Notes Filed: 07/13/2024 18:13 Note Text: [place]: Jacqueline Bryson is a 64 year old, White, female who presents, I am here about my larynx and ears. 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 She had hoarseness and trouble swallowing liquids. She had a right TVC medialization with implant/laryngoplasty by Dr. Stevens, 08/2012. She feels there was a good result but about a year ago she started to have more hoarseness and trouble coughing after drinking liquids again. Her voice seems to get worse when she talks more. She has bilateral ear itching. She does not have general bleeding or bruising problems and does not use aspirin or blood thinners. SUBJECTIVE: I reviewed the allergies, medications, problem list, PMH/PSH, FmHx and SocHx as documented in Epic chart. PHYSICAL EXAM: VS: BP 148/87 Pulse 64 Resp 16 Ht 157.5 cm (5' 2) Wt 73.8 kg (162 lb 9.6 oz) BMI 29.74 kg/m? CONST/MS: The patient appears to be in NAD and has a mild to moderately hoarse voice quality. H/F/N: The facial motion is overall normal. There are no palpable salivary gland, thyroid or neck masses. Ears: The external ears and canals are without lesions. Each TM is intact and mobile on pneumatic otoscopy. Nose: The external nose is without lesions. The nasal mucosa appears healthy on nasal speculum exam. The septum has left deviation. The IT are not hypertrophic. OC/OP: The lips and gums are without lesions. The tongue/oral mucosa is healthy. The hard/soft palate, tonsil fossa and posterior pharynx are without lesions. The teeth have some crowns. PREPRESS SPECIALIST: The mirror exam is prevented by gagging. HP/LX: The mirror exam is prevented by gagging. OBJECTIVE: I reviewed the ENT notes and op notes. ASSESSMENT AND PLAN: I counseled the patient about the differential diagnosis, natural course, treatment options and answered their questions for all diagnoses and orders: 1. 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 Ear itching - ICD9: 698.9, ICD10: L29.9 She was counseled to try speech therapy. If this is not helpful, she was counseled to see Dr. Stevens again and see if there can be a revision of the surgery. A prescription for Kenalog cream 0.1%, 15 g, NRF was sent. She was counseled to use a small amount of that in the ears daily as needed for itching. Return if symptoms worsen or fail to improve. Michael Sahu MD 35 minutes Total time including preparation, obtaining/reviewing history, exam, interpreting results, ordering, counseling/education, referring/communicating and documentation. Created using voice recognition software, some errors may have occurred. Corrections may be performed at a later date. PROCEDURE NOTE Procedure: Laryngeal stroboscopy Pre-/post diagnosis: Hoarseness Description: Local anesthetic was applied through the right nares. The flexible laryngoscope was used. There was no mucosal lesion. There was no right TVC motion. The right TVC did have a good medial position. There was good left TVC motion. There was good glottic closure. The TVC bilaterally appeared to be even in height. On stroboscopy, there was bilateral mildly decreased wave amplitude. The findings were reviewed with the patient. Michael Sahu MD Created using voice recognition software, some errors may have occurred. 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 She had hoarseness andtrouble swallowing liquids. She had a right TVC medialization with implant/laryngoplasty by Dr. Stevens, 08/2012. She feels there was a good result but about a year ago she started to have more hoarseness and trouble coughing after drinking liquids again. Her voice seems to get worse when she talks more. She has bilateral ear itching. She does not have general bleeding or bruising problems and does not use aspirin or blood thinners. SUBJECTIVE: I reviewed the allergies, medications, problem list, PMH/PSH, FmHx and SocHx as documented in Epic chart. PHYSICAL EXAM: VS: BP 148/87 Pulse 64 Resp 16 Ht 157.5 cm (5' 2) Wt 73.8 kg (162 lb 9.6 oz) BMI 29.74 kg/m CONST/MS: The patient appears to be in NAD and has a mild to moderately hoarse voice quality. H/F/N: The facial motion is overall normal. There are no palpable salivary gland, thyroid or neck masses. Ears: The external ears and canals are without lesions. Each TM is intact and mobile on pneumatic otoscopy. Nose: The external nose is without lesions. The nasal mucosa appears healthy on nasal speculum exam. The septum has left deviation. The IT are not hypertrophic. OC/OP: The lips and gums are without lesions. The tongue/oral mucosa is healthy. The hard/soft palate, tonsil fossa and posterior pharynx are without lesions. The teeth have some crowns. PREPRESS SPECIALIST: The mirror exam is prevented by gagging. HP/LX: The mirror exam is prevented by gagging. OBJECTIVE: I reviewed the ENT notes and op notes. ASSESSMENT & PLAN: I counseled the patient about the differential diagnosis, natural course, treatment options and answered their questions for all diagnoses and orders: 1. 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 Ear itching - ICD9: 698.9, ICD10: L29.9 She was counseled to try speech therapy. If this is not helpful, she was counseled to see Dr. Stevens again and see if there can be a revision of the surgery. A prescription for Kenalog cream 0.1%, 15g, NRF was sent. She was counseled to use a small amount of that in the ears daily as needed for itching. Return if symptoms worsen or fail to improve. Michael Sahu MD 35 minutes Total time including preparation, obtaining/reviewing history, exam, interpreting results, ordering, counseling/education, referring/communicating and documentation. Created using voice recognition software, some errors may have occurred. Corrections may be performed at a later date. PROCEDURE NOTE Procedure: Laryngeal stroboscopy Pre-/post diagnosis: Hoarseness Description: Local anesthetic was applied through the right nares. The flexible laryngoscope was used. There was no mucosal lesion. There was no right TVC motion. The right TVC did have a good medialposition. There was good left TVC motion. There was good glottic closure. The TVC bilaterally appeared to be even in height. On stroboscopy, there was bilateral mildly decreased wave amplitude. The findings were reviewed with the patient. Michael Sahu MD Created using voice recognition software, some errors may have occurred. Corrections may be performed at a later date. [facility] NoteHNO ID: [id number] Author: MICHAEL SAHU MD Service: ? Author Type: Physician Type: Procedures Filed: 07/13/2024 18:13 Note Text: Procedure: Laryngeal stroboscopy Pre-/post diagnosis: Hoarseness Description: Local anesthetic was applied through the right nares. The flexible laryngoscope was used. There was no mucosal lesion. There was no right TVC motion. The right TVC did have a good medial position. There was good left TVC motion. There was good glottic closure. The TVC bilaterally appeared to be even in height. On stroboscopy, there was bilateral mildly decreased wave amplitude. The findings were reviewed with the patient. Michael Sahu MD Created using voice recognition software, some errors may have occurred. Corrections may be performed at a later date.[facility] 07-13-2024 Procedure note* Michael Sahu MD - 07/13/2024 6:04 PM EDT Procedure: Laryngeal stroboscopy Pre-/post diagnosis: Hoarseness Description: Local anesthetic was applied through the right nares. The flexible laryngoscope was used. There was no mucosal lesion. There was no right TVC motion. The right TVC did have a good medialposition. There was good left TVC motion. There was good glottic closure. The TVC bilaterally appeared to be even in height. On stroboscopy, there was bilateral mildly decreased wave amplitude. The findings were reviewed with the patient. Michael Sahu MD Created using voice recognition software, some errors may have occurred. Corrections may be performed at a later date. [facility]10-[facility] Procedure note* Michael Sahu MD - 07/13/2024 6:04 PM EDT Procedure: Laryngeal stroboscopy Pre-/post diagnosis: Hoarseness Description: Local anesthetic was applied through the right nares. The flexible laryngoscope was used. There was no mucosal lesion. There was no right TVC motion. The right TVC did have a good medialposition. There was good left TVC motion. There was good glottic closure. The TVC bilaterally appeared to be even in height. On stroboscopy, there was bilateral mildly decreased wave amplitude. The findings were reviewed with the patient. Michael Sahu MD Created using voice recognition software, some errors may have occurred. Corrections may be performed at a later date. [facility] Instructions* Patient Instructions* Michael Sahu MD - 07/10/2024 11:43 AM EDT Rub a small amount of the triamcinolone/Kenalog cream in each ear once a day as needed for the itching. Try speech therapy. If that is not effective, consider seeing Dr. Stevens again. [facility]06[facility] Discharge summary Author Feliciano Hurd [facility] March 04, 2023 6:02pm Note Date/Time March 04, 2023 5:55 pm [facility] Physical Therapy [facility] [address] [place] [address] / REHABILITATION SERVICES DISCHARGE SUMMARY MR#: [id number] Acct: [id number] Name: JACQUELINE BRYSON Rep #: [id number] : 1960 62 From: Theodore Diane. T, OCS Referring Dr.: Dr. Cristian Hopper MD Status : REG RCR Insurance: [employer] SELF PAY INSURANCE It has been my pleasure to treat JACQUELINE BRYSON referred by Dr. Cristian Hopper MD, with the diagnosis of SCIATICA for a total of 7 visit(s). Discharge Date: 03/04/23 Please see the following information for a summary of their discharge status. Subjective: Doing Right Lower Extremity Pain Intensity (Out of 10): 0 % Improvement: 99 Objective/Function: POSTURE: mild forward posture. SYMMTRIES: align. NEURO: denies paresthesia/tingling ,reflexes L3-4 ,L4-5,L5-S1 1/3. GAIT: reciprocal pattern. FLEXABLITY: hamstrings WFL. MMT: quads/hamstrings/hip /ankle 4/5. LUMBAR ROM: flexion WFL loss pain, extension WFL ,, side glides WNL. - Goal 1:: I with HEP for lumbar spine Goal Progress: Goal Met Goal 2:: Patient to demonstrate 50% improvement with less pain and improved function Goal Progress: Goal Met Goal 3:: Patient to improve lumbar ROM for function for recovery for job demands Goal Progress: Goal Met Goal 4:: Patient to improve back oswestry score by 5 points or> to improve QOL and job demnads Goal Progress: Goal Met Goal 5:: Patient improve posture and lifting techniques 90% and d/c to prophalaxis. Goal Progress: Goal Met Plan: D/C Discharge Comments: HEP If there are questions or concerns regarding this patient's physical therapy, please feel free to call me at [phone]. Thank you for the referral of thispatient. Sincerely, Feliciano Hurd PT, Cert MDT, OCS Balance/Gait/Functional tests - Balance/Special Test Scores Oswestry Low Back Score: 21 <Electronically signed by Feliciano Hurd PT, Cert. T, SERA> 03/04/231801 CC: Dr. Cristian Hopper MD ~ JLA Signed [facility] Work Phone: [phone] 655-838104-14-2022 NotePap Smear Specimen AdequacyApril 2021 11:45amCommentSatisfactory for evaluation. Endocervical and/or squamous metaplasticcells (endocervical component)are present.[facility] INTERFACED A#[id number]-Titus Medical Center Work Phone: Comment on above:Satisfactory for evaluation. Endocervical and/or squamous metaplasticcells (endocervical component)are present.12-25-2021 NotePap Smear Specimen AdequacyApril 2021 11:45am CommentSatisfactory for evaluation. Endocervical and/or squamous metaplasticcells (endocervical component)are present.[facility] INTERFACED A#[id number]-Titus Medical Center Work Phone: Comment on above:Satisfactory for evaluation. Endocervical and/or squamous metaplasticcells (endocervical component)are present.12-25-2021 NotePap Smear Specimen AdequacyApril 2021 11:45am CommentSatisfactory for evaluation. Endocervical and/or squamous metaplasticcells (endocervical component)are present.[facility] INTERFACED A#[id number]-Titus Medical Center Work Phone: Comment on above:Satisfactory for evaluation. Endocervical and/or squamous metaplasticcells (endocervical component)are present.12-25-2021 NotePap Smear Specimen AdequacyApril 2021 11:45am CommentSatisfactory for evaluation. Endocervical and/or squamous metaplasticcells (endocervical component)are present.[facility] INTERFACED A#[id number]-[facility] Work Phone: Comment on above:Satisfactory for evaluation. Endocervical and/or squamous metaplasticcells (endocervical component)are present.12-25-2021 NotePap Smear Specimen AdequacyApril 2021 11:45am Comment.Satisfactory for evaluation. Endocervical and/or squamous metaplasticcells (endocervical component)are present.[facility] INTERFACED A#[id number] [facility] Work Phone: Comment on above:Satisfactory for evaluation. Endocervical and/or squamous metaplasticcells (endocervical component)are present.Evaluation note* Diagnosis Onset Date Resolution Status Bilateral carpal tunnel syndrome acute Orthopedic aftercare acute Right carpal tunnel syndrome acute Synovial cyst of hand acute Sinusitis acute [facility] Work Phone: Evaluation note* Diagnosis Onset Date Resolution Status Orthopedic aftercare acute Right carpal tunnel syndrome acute Synovial cyst of hand acute Sinusitis acute [facility] Work Phone: Evaluation note* Diagnosis Onset Date Resolution Status Orthopedic aftercare acute Right carpal tunnel syndrome acute Synovial cyst of hand acute Sinusitis acute Orthopedic aftercare acute Other acute postprocedural pain acute [facility] Work Phone: Evaluation note* Diagnosis Onset Date Resolution Status Right carpal tunnel syndrome acute Synovial cyst of hand acute Sinusitis acute Orthopedic aftercare acute Other acute postprocedural pain acute Greater trochanteric bursitis of both hips acute [facility] Work Phone: Evaluation note* Diagnosis Onset Date Resolution Status Sinusitis resolved Essential hypertension chron ic Premature atrial contractions chronic [facility] Work Phone: Evaluation note* Diagnosis Onset Date Resolution Status Essential hypertension chron ic Premature atrial contractions [facility] Work Phone: Evaluation note* Diagnosis Onset Date Resolution Status Acute frontal sinusitis, unspecified acute Contact with and (suspected) exposure to other viral communicable diseases acute Fatigue acute Palpitations acute Essential hypertension chron ic Premature atrial contractions chronic Fatigue acute Hypothyroidism [facility] Work Phone: Evaluation note* Diagnosis Onset Date Resolution Status Fatigue acute Palpitations acute Essential hypertension chron ic Premature atrial contractions chronic Fatigue acute Hypothyroidism [facility] Work Phone: Evaluation note* Diagnosis Onset Date Resolution Status Acute lumbar myofascial strain acute Lumbar radiculopathy, acute acute Lumbosacral radiculopathy at L4 acute [facility] Work Phone: Evaluation noteNo assessment information available [facility] Work Phone: Evaluation note* Diagnosis Hoarseness Dysphonia Paralysis of right vocal cord Ear itching Unspecified pruritic disorder [facility] Cerebral aneurysm- Primary Cerebral aneurysm, nonruptured [facility] Facial weakness- Primary Cerebral aneurysm Cerebral aneurysm, nonruptured Dizziness Dizziness and giddiness [facility] Dizziness Dizziness and giddiness [facility] Diagnosis Dizziness- Primary Dizziness and giddiness [facility] Diagnosis Dizziness- Primary Dizziness and giddiness [facility] Diagnosis Dizziness- Primary Dizziness and giddiness [facility] Facial weakness [facility] Diagnosis Dizziness- Primary Dizziness and giddiness documented in this encounter [facility] HealthInstructions* Attachments The following attachments cannot be sent through Care Everywhere. * Angiography (Greenlandic) * Brain Aneurysm (Greenlandic) [facility]* Therapy (Routine) - Authorized Specialty Diagnoses / Procedures Referred By Suresh nagel Referred To Contact Physical Therapy Diagnoses Dizziness Procedures AL OFFICE/OUTPATIENT [facility] 60 MINUTES Yunior Webb MD [address] [place] [address] Phone: tel: fax: [facility] at [address] [place] [address] Phone: tel: fax: Referral ID Status Reason Start Date Expiration Date Visits Requested Visits Authorized [id number] Authorized Eval and Treat 01/10/2025 01/05/2026 99 99 [facility] for visit Narrative* Imaging (Routine) - Closed Specialty Diagnoses / Procedures Referred By Contac t Referred To Contact Radiology Diagnoses Facial weakness Procedures MR brain w and wo contrast Yunior Webb MD [address] [place] [address] Phone: tel: fax: Referral ID Status Reason Start Date Expiration Date Visits Re quested Visits Authorized [id number] Closed 01/10/2025 01/10/2026 1 1 [facility] Chief Complaint and Reason for Visit Chief Complaint BILAT HANDS L CTR L CTR left wrist LEFT WRIST SINUS INFECTION RT HAND OPEN CARPAL TUNNEL RELEASE EXC KINNEY CYST RT HAND OPEN CARPAL TUNNEL RELEASE EXC KINNEY CYST Reason for Visit Bilateral carpal betty meme syndrome Orthopedic aftercare Right carpal tunnel syndrome Synovial cyst of hand Sinusitis Chief Complaint L CTR L CTR left wrist LEFT WRIST SINUS INFECTION RT HAND OPEN CARPAL TUNNEL RELEASE EXC KINNEY CYST RT HAND OPEN CARPAL TUNNEL RELEASE EXC KINNEY CYST GENERAL ILLNESS Reason for Visit Orthopedic aftercare Right carpal tunnel syndrome Synovial cyst of hand Sinusitis Chief Complaint L CTR L CTR left wrist LEFT WRIST SINUS INFECTION RT HAND OPEN CARPAL TUNNEL RELEASE EXC KINNEY CYST RT HAND OPEN CARPAL TUNNEL RELEASE EXC KINNEY CYST GENERAL ILLNESS right hand Other specified disorders of bone density and stru ABD PAIN Reason for Visit Orthopedic aftercare Right carpal tunnel syndrome Synovial cyst of hand Sinusitis Orthopedic aftercare Other acute postprocedural pain Chief Complaint LEFT WRIST SINUS INFECTION RT HAND OPEN CARPAL TUNNEL RELEASE EXC KINNEY CYST RT HAND OPEN CARPAL TUNNEL RELEASE EXC KINNEY CYST GENERAL ILLNESS right hand Other specified disorders of bone density and stru ABD PAIN RIGHT HAND PALP Reason for Visit Right carpal tunnel syndrome Synovial cyst of hand Sinusitis Orthopedic aftercare Other acute postprocedural pain Greater trochanteric bursitis of both hips Chief Complaint SINUS INFECTION RT HAND OPEN CARPAL TUNNEL RELEASE EXC KINNEY CYST RT HAND OPEN CARPAL TUNNEL RELEASE EXC KINNEY CYST GENERAL ILLNESS right hand Other specified disorders of bone density and stru ABD PAIN RIGHT HAND PALP Amb Documentation PVC/PAC Reason for Visit Sinusitis Essential hypertension Premature atrial contractions Chief Complaint RT HAND OPEN CARPAL TUNNEL RELEASE EXC KINNEY CYST RT HAND OPEN CARPAL TUNNEL RELEASE EXC KINNEY CYST GENERAL ILLNESS right hand Other specified disorders of bone density and stru ABD PAIN RIGHT HAND PALP Amb Documentation PVC/PAC PREMATURE ATRIAL CONTRACTIONS PREMATURE ATRIAL CONTRACTIONS Reason for Visit Essential hypertensi on Premature atrial contractions Chief Complaint FLU/COVID 10 DAYS [employer] [facility] COVID TEST 6 M FU EORDERS THYROID Reason for Visit Acute frontal sinusi tis, unspecified Contact with and (suspected) exposure to other viral communicable diseases Fatigue Palpitations Essential hypertension Premature atrial contractions Fatigue Hypothyroidism Chief Complaint 6 M FU [facility] THYROID Reason for Visit Fatigue Palpitations Essential hypertension Premature atrial contractions Fatigue Hypothyroidism Chief Complaint SCIATICA low back pain LUMBER SPINE SCIATICA RX HERE Reason for Visit Acute lumbar myofasc ial strain Lumbar radiculopathy, acute Lumbosacral radiculopathy at L4 Chief Complaint SCIATICA low back pain LUMBER SPINE SCIATICA RX HERE LUMBOSACRAL RADICULOPATHY Reason for Visit Acute lumbar myofasc ial strain Lumbar radiculopathy, acute Lumbosacral radiculopathy at L4 Chief Complaint SCREENING Chief Complaint Admit Date VOCAL CHORD PARALYSIS. RX HERE September 07, 2024 9:00am PALPITATIONS, FACIAL NUMBNESS October 152024 9:09am 24 HOUR November 03, 2024 1:29pm PALPS November 03, 2024 1:42pm DIZZINESS November 06, 2024 5:12pm Dizziness November 06, 2024 5:17pm Dizziness (cardiology) November 07 2:37pm EORDERS November 15, 2024 1:05 pm RIGHT SHOULDER November 15, 2024 2:42 pm Carotid Aneurysm November 17, 2024 8:24 am Reason for Visit Admit Date Vertigo November 06, 2024 5:12pm Cervical radiculopathy due t o degenerative joint disease of spine November 15, 2024 2:42pm DJD of right shoulder November 15, 2024 2: 42pm Lower thoracic back pain November 15, 2024 2:42pm Right rotator cuff tendinitis November 15, 2024 2:42pm 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 RX HERE September 07, 2024 9:00am PALPITATIONS, FACIAL NUMBNESS October 152024 9:09am 24 HOUR November 03, 2024 1:29pm PALPS November 03, 2024 1:42pm DIZZINESS November 06, 2024 5:12pm Dizziness November 06, 2024 5:17pm Dizziness (cardiology) November 07 2:37pm EORDERS November 15, 2024 1:05 pm RIGHT SHOULDER November 15, 2024 2:42 pm Carotid Aneurysm November 17, 2024 8:24 am NEEDS ORDER December 07, 2024 1:0 5pm Chief Complaint Admit Date PALPITATIONS, FACIAL NUMBNESS October 152024 9:09am 24 HOUR November 03, 2024 1:29pm PALPS November 03, 2024 1:42pm DIZZINESS November 06, 2024 5:12pm Dizziness November 06, 2024 5:17pm Dizziness (cardiology) November 07 2:37pm EORDERS November 15, 2024 1:05 pm RIGHT SHOULDER November 15, 2024 2:42 pm Carotid Aneurysm November 17, 2024 8:24 am CERV RADIC,T BACK PN,R RTC/RX HERE November 30, 2024 9:30am NEEDS ORDER December 07, 2024 1:0 5pm Chief Complaint Admit Date PALPITATIONS, FACIAL NUMBNESS October 152024 9:09am 24 HOUR November 03, 2024 1:29pm PALPS November 03, 2024 1:42pm DIZZINESS November 06, 2024 5:12pm Dizziness November 06, 2024 5:17pm Dizziness (cardiology) November 07 2:37pm EORDERS November 15, 2024 1:05 pm RIGHT SHOULDER November 15, 2024 2:42 pm Carotid Aneurysm November 17, 2024 8:24 am CERV RADIC,T BACK PN,R RTC/RX HERE November 30, 2024 9:30am NEEDS ORDER December 07, 2024 1:0 5pm NUMBNESS/TINGLING February 07, 2025 9:45a m Reason for Visit Admit Date Vertigo November 06, 2024 5:12pm Cervical radiculopathy due t o degenerative joint disease of spine November 15, 2024 2:42pm DJD of right shoulder November 15, 2024 2: 42pm Lower thoracic back pain November 15, 2024 2:42pm Right rotator cuff tendinitis November 15, 2024 2:42pm Aneurysm of intracranial por tion of left internal carotid artery November 17, 2024 8:24am Cervical radiculopathy due t o degenerative joint disease of spine February 07, 2025 9:45am Advance Directives No Advanced Directives Records Found Advance Directive Response Recorded Date/ Time Name of Medical Power of Window Framer UNSURE September 02, 2021 4:13pm Living Will No December 09, 2021 10:39am Power of Window Framer No December 09 10:39am Advance Directive Response Recorded Date/ Time Name of Medical Power of Window Framer UNSURE September 02, 2021 4:13pm Living Will No December 26, 2021 3:06pm Power of Window Framer No December 26 3:06pm Advance Directive Response Recorded Date/ Time Living Will No December 26, 2021 3:06pm Power of Window Framer No December 26 3:06pm Advance Directive Response Recorded Date/ Time Living Will No December 26, 2021 2:06pm Power of Window Framer No December 26 2:06pm Advance Directive Response Recorded Date/ Time Living Will No November 06 025 8:48pm Power of Window Framer No November 06, 2024 8:48pm Living Will No November 03 025 10:16am Power of Window Framer No November 03, 2024 10:16am Advance Directive Response Recorded Date/ Time Living Will No November 06 025 8:48pm Do you have a Healthcare Power of Window Framer? No November 06, 2024 8:48pm Living Will No November 03 025 10:16am Do you have a Healthcare Power of Window Framer? No November 03, 2024 10:16am Family History No Family History Records Found Relationship Condition Age at Onset Recorded Date/T aroldo Not Specified Coronary artery disease Unknown Malignant neoplasm of breast Unknown Relationship Condition Age at Onset Recorded Date/T aroldo Not Specified Coronary artery disease Unknown Malignant neoplasm of breast Unknown mother Hypertension Unknown Reason for Referral Specialty Diagnoses / Procedures Referred By Suresh t Referred To Contact [facility] Diagnoses Hoarseness Paralysis of right vocal cord Procedures CONSULT TO SPEECH THERAPY OFFICE/OUTPATIENT [facility] 60 MINUTES Michael Sahu MD [address] [place] [address] [facility] [address] [address] Referral ID Status Reason Start Date Expiration Date Visits Requested Visits Authorized [id number] Pending Review Auto-Generat ed Referral 4 07/10/2025 1 1 Summary Purpose Additional Source Comments Goals (unrecognized section and content) Goals may be documented in a n alternate sectionGoals may be documented in an alternate sectionGoals may be documented in an alternate sectionGoals may be documented in an alternate sectionGoals may be documented in an alternate sectionGoals may be documented in an alternate sectionGoals may be documented in an alternate sectionGoals may be documented in an alternate sectionGoals may be documented in an alternate sectionGoals may be documented in an alternate sectionGoals may be documented in an alternate sectionGoals may be documented in an alternate sectionGoals may be documented in an alternate sectionGoals may be documented in an alternate sectionGoals may be documented in an alternate sectionGoals may be documented in an alternate section Care Teams (unrecognized sec tion and content) Team Status: Active Member Role Status Dates Dr. Cristian Hopper MD Primary Care Provider Active Team Status: Inactive Member Role Status Dates Dr. Cristian Hopper MD Primary Care Provider Active Start: November 02, 2024 End: November 02, 2024 Dr. Cristian Hopper MD Attending Provider Active Start: November 02, 2024 End: November 02, 2024 Dr. Cristian Hopper MD Referring Provider Active Start: November 02, 2024 End: November 02, 2024 Team Status: Inactive Member Role Status Dates Dr. Cristian Hopper MD Primary Care Provider Active Start: November 03, 2024 End: November 03, 2024 Dr. Erick Nguyen MD Attending Provider Active Start: November 03, 2024 End: November 03, 2024 Dr. Erick Nguyen MD Emergency Provider Active Start: November 03, 2024 End: November 03, 2024 Team Status: Inactive Member Role Status Dates Dr. Cristian Hopper MD Primary Care Provider Active Start: November 03, 2024 End: November 03, 2024 Dr. Erick Nguyen MD Attending Provider Active Start: November 03, 2024 End: November 03, 2024 Dr. Jai Denny MD Referring Provider Active S tart: November 03, 2024 End: November 03, 2024 Team Status: Active Member Role Status Dates Dr. Cristian Hopper MD Primary Care Provider Active Start: November 03, 2024 Dr. Reggie Correa MD Attending Provider Activ e Start: November 03, 2024 Dr. Erick Nguyen MD Referring Provider Active Start: November 03, 2024 Team Status: Inactive Member Role Status Dates Dr. Cristian Hopper MD Primary Care Provider Active Start: November 06, 2024 End: November 07, 2024 Dr. Glen Awan DO Emergency Provider Active Start: November 06, 2024 End: November 07, 2024 Dr. Jackson Borges DO Admit Provider Active Star t: November 06, 2024 End: November 07, 2024 Dr. Jackson Borges DO Other Provider Active Star t: November 06, 2024 End: November 07, 2024 Dr. Robert Camarillo DO Attending Provider Active Start: November 06, 2024 End: November 07, 2024 Team Status: Active Member Role Status Dates Dr. Cristian Hopper MD Primary Care Provider Active Start: November 06, 2024 Dr. Glen Awan DO Emergency Provider Active Start: November 06, 2024 Dr. Jackson Borges DO Attending Provider Active Start: November 06, 2024 Team Status: Active Member Role Status Dates Dr. Cristian Hopper MD Primary Care Provider Active Start: November 07, 2024 Dr. Glen Awan DO Emergency Provider Active Start: November 07, 2024 Dr. Jackson Borges DO Admit Provider Active Star t: November 07, 2024 Dr. Jackson Borges DO Other Provider Active Star t: November 07, 2024 Dr. Robert Camarillo DO Attending Provider Active Start: November 07, 2024 Dr. Robert Camarillo DO Other Provider Active S tart: November 07, 2024 Team Status: Inactive Member Role Status Dates Dr. Cristian Hopper MD Primary Care Provider Active Start: November 15, 2024 End: November 15, 2024 Dr. Cristian Kumar DO Attending Provider Active Start: November 15, 2024 End: November 15, 2024 Dr. Cristian Kumar DO Referring Provider Active Start: November 15, 2024 End: November 15, 2024 Team Status: Inactive Member Role Status Dates Dr. Cristian Hopper MD Primary Care Provider Active Start: November 15, 2024 End: November 15, 2024 Dr. Cristian Hopper MD Referring Provider Active Start: November 15, 2024 End: November 15, 2024 Dr. Cristian Kumar DO Attending Provider Active Start: November 15, 2024 End: November 15, 2024 Team Status: Inactive Member Role Status Dates Dr. Cristian Hopper MD Primary Care Provider Active Start: November 17, 2024 End: November 17, 2024 Dr. Cristian Hopper MD Referring Provider Active Start: November 17, 2024 End: November 17, 2024 ZAIDA Alamo Attending Provider Active Star t: November 17, 2024 End: November 17, 2024 Team Status: Inactive Member Role Status Dates Dr. Cristian Hopper MD Primary Care Provider Active Start: November 30, 2024 End: November 30, 2024 Dr. Cristian Kumar DO Attending Provider Active Start: November 30, 2024 End: November 30, 2024 Dr. Cristian Kumar DO Referring Provider Active Start: November 30, 2024 End: November 30, 2024 Team Status: Inactive Member Role Status Dates Dr. Cristian Hopper MD Primary Care Provider Active Start: December 07, 2024 End: December 07, 2024 Dr. Cristian Hopper MD Attending Provider Active Start: December 07, 2024 End: December 07, 2024 Dr. Cristian Hopper MD Referring Provider Active Start: December 07, 2024 End: December 07, 2024 Team Status: Inactive Member Role Status Dates Dr. Cristian Hopper MD Primary Care Provider Active Start: January 11, 2025 End: January 11, 2025 ISIDRA CHÁVEZ Attending Provider Active Start : January 11, 2025 End: January 11, 2025 ISIDRA CHÁVEZ Referring Provider Active Start : January 11, 2025 End: January 11, 2025 Team Status: Active Member Role Status Dates Dr. Cristian Hopper MD Family Provider Active Dr. Cristian Hopper MD Primary Care Provider Active Team Status: Inactive Member Role Status Dates Dr. Cristian Hopper MD Primary Care Provider, Refer ring Provider Active Tracy Rogel PREPRESS SPECIALIST, PREPRESS SPECIALIST-C Attending Provider Active Team Status: Inactive Member Role Status Dates Dr. Cristian Hopper MD Primary Care Provider, Refer ring Provider Active Dr. Ricci Hwang MD Attending Provider Active Team Status: Inactive Member Role Status Dates Dr. Cristian Hopper MD Primary Care Provider Active Tracy Rogel PREPRESS SPECIALIST, PREPRESS SPECIALIST-C Attending Provider, Referring Genia castellano Active Team Status: Inactive Member Role Status Dates Dr. Cristian Hopper MD Primary Care Provider Active Luis CERDA PA Attending Provider, Referring Provider Active Team Status: Inactive Member Role Status Dates Dr. Cristian Hopper MD Primary Care Provider, Refer ring Provider Active Sang CERDA PA Attending Provider Active Team Status: Inactive Member Role Status Dates Dr. Cristian Hopper MD Primary Care Provider, Refer ring Provider Active Dr. Julito Chicas DO Attending Provider Active Team Status: Active Member Role Status Dates Dr. Cristian Hopper MD Primary Care P rovider, Attending Provider, Referring Provider Active Team Status: Inactive Member Role Status Dates Dr. Cristian Hopper MD Primary Care Provider Active Sang CERDA, PA Attending Provider, Referring Pr ovider Active Team Status: Inactive Member Role Status Dates Dr. Cristian Hopper MD Primary Care P rovider, Attending Provider, Referring Provider Active Team Status: Active Member Role Status Dates Dr. Cristian Hopper MD Primary Care Provider Active Dr. Julito Chicas DO Attending Provider, Referring P rovider Active Team Status: Inactive Member Role Status Dates Dr. Cristian Hopper MD Primary Care Provider Active Dr. Julito Chicas DO Attending Provider, Referring P rovider Active Team Status: Inactive Member Role Status Dates Dr. Cristian Hopper MD Primary Care Provider Active Luis CERDA PA Attending Provider Active Visual Design Lead Relationship Specialty Start Date End Date Cristian Hopper MD PCP - General Family Medicine 11/26/11 Visual Design Lead Relationship Specialty Start Date End Date Lizzie Quintana MD PCP - General 09/13/14 Team Status: Active Member Role Status Dates Dr. Cristian Hopper MD Primary Care Provider Active Start: September 07, 2024 DICKSON GIPSON Attending Provider Active Start: September 07, 2024 DICKSON GIPSON Referring Provider Active Start: September 07, 2024 Visual Design Lead Relationship Specialty Start Date End Date Lizzie Quintana MD PCP - General 09/13/14 Visual Design Lead Relationship Specialty Start Date End Date Lizzie Quintana MD PCP - General 09/13/14 Visual Design Lead Relationship Specialty Start Date End Date Cristian Hopepr MD [address] [place] [address] PCP - General Family Medicine 01/10/25 Visual Design Lead Relationship Specialty Start Date End Date Cristian Hopper MD [address] [place] [phone] PCP - General Family Medicine 01/10/25 Visual Design Lead Relationship Specialty Start Date End Date Cristian Hopper MD [address] [place] [phone] PCP - General Family Medicine 01/10/25 Visual Design Lead Relationship Specialty Start Date End Date Cristian Hopper MD [address] [place] [address] PCP - General Family Medicine 01/10/25 Visual Design Lead Relationship Specialty Start Date End Date Cristian Hopper MD [address] [place] [phone] PCP - General Family Medicine 01/10/25 Team Status: Inactive Member Role Status Dates Dr. Cristian Hopper MD Primary Care Provider Active Start: February 07, 2025 End: February 07, 2025 Dr. Cristian Hopper MD Referring Provider Active Start: February 07, 2025 End: February 07, 2025 Dr. Cristian Sanchez MD Attending Provider Active Start: February 07, 2025 End: February 07, 2025 Visual Design Lead Relationship Specialty Start Date End Date Cristian Hopper MD [facility] [place] [phone] PCP - General Family Medicine 01/10/25 Source Comments (unrecognize d section and content) In the event this informatio n is protected by the Federal Confidentiality of Alcohol and Drug Abuse Patient Records regulations: The Federal rules restrict any use of the information to criminally investigate or prosecute any alcohol or drug abuse patient.[facility] Reason for Visit (unrecogniz ed section and content) Reason Comments Ear Itching Hoarseness Reason Onset Date Comments Headache 10/06/2024 Reason Comments New Patient aneurysm Specialty Diagnoses / Procedures Referred By Contac t Referred To Contact Neurology Diagnoses Cerebral aneurysm, nonruptured Procedures AL OFFICE/OUTPATIENT NEW MODERATE MDM 45 MINUTES Dorothy Rodriguez PA-C [address] [address] Phone: tel: fax: Buzz De Los Santos MD [address] [place] [phone] Phone: tel: fax: Referral ID Status Reason Start Date Expiration Date V isits Requested Visits Authorized [id number] Pending Review 12/05/2024 12/05/2025 1 1 Reason Onset Date Comments Appointment Request 12/06/2024 Reason Comments New Patient Pt states having wes e face numbness and back of legs numb, dizziness, off balance and tinglingWhen sneezing whole body gets tingling like if your leg would fall asleep Specialty Diagnoses / Procedures Referred By Contac t Referred To Contact Neurology Diagnoses Cerebral aneurysm Procedures AL OFFICE/OUTPATIENT NEW HIGH MDM 60 MINUTES Buzz De Los Santos MD [address] [place] [address] Phone: tel: fax: Referral ID Status Reason Start Date Expiration Date Visits Requested Visits Authorized [id number] Pending Review Specialty Services Required 12/14/2024 12/14/2025 1 1 INFORMATION SOURCE (unrecogn ized section and content) DATE CREATED AUTHOR 07/15/2024 [facility] DATE CREATED AUTHOR AUTHOR'S ORGANIZ ATION 10/21/2024 [facility] DATE CREATED AUTHOR AUTHOR'S ORGANIZ ATION 10/24/2024 [facility] DATE CREATED AUTHOR AUTHOR'S ORGANIZ ATION 02/18/2025 [facility] DATE CREATED AUTHOR AUTHOR'S ORGANIZ ATION 02/18/2025 [facility] DATE CREATED AUTHOR AUTHOR'S ORGANIZ ATION 02/24/2025 [facility] FOR RECORDS PERTAINING TO PATIENTS WHO ARE OR HAVE BEEN ENROLLED IN A CHEMICAL DEPENDENCY/SUBSTANCEABUSE PROGRAM, SOME INFORMATION MAY BE OMITTED. This clinical summary was aggregated from multiple sources. Caution should be exercised in using it in the provision of clinical care. This summary normalizes information from multiple sources, and as a consequence, information in this document may materially change the coding, format and clinical context of patient data. In addition, data may be omitted in some cases. CLINICAL DECISIONS SHOULD BE BASED ON THE PRIMARY CLINICAL RECORDS. [employer] provides no warranty or guarantee of the accuracy or completeness of information in this document.
== END | disposition home or self-care (01) ==
LOC: OPBI 09:26
PROVIDERS: PCP Family Medicine; Referring Provider Family Medicine; Visit Provider Family Medicine
DX: R92.0 Mammographic microcalcification found on diagnostic imaging of breast (principal)
CPT/HCPCS: 77065